=== PATIENT | female | born 1935 | race Caucasian/White ===

== ENCOUNTER → 2016-10-04 | Outpatient (CLI) | payer MEDICARE, OTHER ==
[~2016-10-04] MED LIST: ACET-2650 PO; ACET325T49 PO; ALEN70TA47 PO; ASPI-875 PO; CALC-694 PO; CALC-754 PO; CALC600T12 PO; CEFT1VIA58 INJ; CEPH500T PO; CIPR-225 PO; ESTR0.5T PO; HYDR-3812 PO; INSU100I10 SC; INSU100I10 SQ; INSU100I23 SC; INSU100I23 SQ; INSU100V SQ; INSU100V16 SC; INSU100V5 SQ; INSU1CAR SQ; INSU300I SQ; L.AC1CAP6 PO; LIDO10VI INJ; LOSA100T28 PO; LOSA1TAB70 PO; METR500T21 PO; NAPR220T66 PO; NFNEB10T PO; OLME1TAB19 PO; OMEG-59 PO; OMEP40CA36 PO; OMG1KC PO; ONDA4TAB8 PO; SIMV20TA3 PO; SULF1TAB35 PO
--- NOTE | 2016-10-04 14:41 | Diagnostic Imaging Report ---
PROCEDURE: MR imaging of the brain without contrast. TECHNIQUE: Multiplanar, multisequence MR imaging of the brain was performed without contrast. INDICATION: Dementia. Memory loss. FINDINGS: There is no diffusion restriction to suggest an acute infarct or other diffusion abnormality. There are periventricular and deep white matter T2 hyperintense signal abnormalities compatible with chronic microvascular ischemic changes. 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 There is no hydrocephalus. No extra-axial fluid collection is seen. The pituitary gland is normal in size. No hypothalamic or pineal region mass. The orbits appear symmetric. The paranasal sinuses appear grossly unremarkable. IMPRESSION: No acute infarct. Dictated by: Dictated on workstation # [id number]
== END ==
LOC: RAD 13:20
PROVIDERS: ATTEND Specialist
DX: F03.90 Unspecified dementia, unspecified severity, without behavioral disturbance, psychotic disturbance, mood disturbance, and anxiety (principal)
CPT/HCPCS: 70551

== ENCOUNTER → 2016-11-17 | Outpatient (CLI) | payer MEDICARE, OTHER ==
--- NOTE | 2016-11-18 20:26 | Diagnostic Imaging Report ---
Bilateral screening mammogram. The current study was also evaluated with a Computer Aided Detection (CAD) system. INDICATION: Screening. No current complaints stated on the questionnaire. COMPARISON: 12/05/15. FINDINGS: The breasts are composed of extremely dense parenchyma which would decrease mammographic sensitivity. There are scattered benign-appearing calcifications. There is no mass, architectural distortion or suspicious cluster of calcification. Allowing for technique and positional differences, no suspicious change is seen. IMPRESSION: Dense breasts with no definite change. ACR BI-RADS Category 2: Benign findings. Result letter will be mailed to the patient. Note: At least 10% of breast cancer is not imaged by mammography. Dictated by: Dictated on workstation # [id number]
== END ==
LOC: RAD 14:36
PROVIDERS: ATTEND Internal Medicine
DX: Z12.31 Encounter for screening mammogram for malignant neoplasm of breast (principal)
CPT/HCPCS: 77067

== ENCOUNTER → 2017-01-19 | Outpatient (CLI) | payer MEDICARE, OTHER ==
--- NOTE | 2017-01-19 12:31 | Diagnostic Imaging Report ---
EXAMINATION: Renal ultrasound. INDICATION: Chronic kidney disease. FINDINGS: The right kidney is 10.5 and the left kidney is 11.5 cm in length. There is no hydronephrosis or focal lesion. The urinary bladder demonstrates a lobulated 2 x 2.1 x 0.7 cm isoechoic lesion along the right side of the posterior wall of the urinary bladder. No definite internal color-flow is seen with Doppler assessment. The etiology is indeterminate. IMPRESSION: A 2-cm lesion along the right side aspect of the posterior wall of the urinary bladder could be related to debris, clot, or a mass. Followup exams and/or evaluation with cystoscopy is recommended. The report was called and faxed to the office of Dr. Johnson by john@ 12:26 PM. Dictated by: Dictated on workstation # [id number]
== END ==
LOC: RAD 11:02
PROVIDERS: ATTEND Internal Medicine Nephrology
DX: N18.2 Chronic kidney disease, stage 2 (mild) (principal); N32.9 Bladder disorder, unspecified
CPT/HCPCS: 76770

== ENCOUNTER → 2017-10-21 | Outpatient (CLI) | payer MEDICARE, OTHER ==
[~2017-10-21] MED LIST changes: +ACHD5005 PO; -HYDR-3812 PO; -LIDO10VI INJ; +LIDO10VI16 INJ; +LOSA1TAB23 PO; -LOSA1TAB70 PO
== END ==
LOC: CARD 12:58
PROVIDERS: ATTEND Physician Assistant
DX: I08.2 Rheumatic disorders of both aortic and tricuspid valves (principal); R07.89 Other chest pain; I10 Essential (primary) hypertension; E78.5 Hyperlipidemia, unspecified
CPT/HCPCS: 93306

== ENCOUNTER 2018-01-06 22:35 | Emergency (ER) | payer MEDICARE, OTHER ==
[~2018-01-06] VITALS: Ht 157.5 cm; Wt 50.8 kg
[2018-01-06] MEDS ORDERED: NS IV 1000 ML 1,000 ML IV ONE (23:13)
[2018-01-06] MEDS ORDERED: inSUlin (REGULAR) HUMAN 1 UNIT/0.01 ML (CHARGE PER UNIT) IV STA (23:13)
--- NOTE | 2018-01-06 23:22 | ED General ---
General Chief Complaint: Glucose Problems Stated Complaint: HIGH BLOOD SUGAR Source of Information: Patient, Family (BETH HALLMAN STUDENT) History of Present Illness Date Seen by Provider: Jan 06, 2018 Time Seen by Provider: 23:18 Initial Comments The patient is a 82-year-old female who presented to the emergency room tonight with complaints of elevated blood sugars throughout the day. She is a resident at [facility] in [facility] and is accompanied by her on this visit. She reports that she has had increased blood sugars throughout the day which is all been in the 400s, she states that the senior living nurse thought that she should come out emergency room to be evaluated for these elevated blood sugars. During triage her blood sugar was 411. She states that she is otherwise feeling well. Timing/Duration: 1 Day Severity: Mild Associated Systoms: Denies Symptoms (BETH HALLMAN STUDENT) Associated Systoms: No Nausea/Vomiting, No Shortness of Air, No Weakness ( KAYLEE PIRES MD) Allergies and Home Medications Allergies Coded Allergies: Penicillins (Verified Allergy, Unknown, 07/28/15) Tetracyclines (Verified Allergy, Unknown, 07/28/15) metronidazole (Verified Allergy, Unknown, 07/28/15) morphine (Verified Allergy, Unknown, 07/28/15) tetanus immune globulin (Unverified Allergy, Unknown, 02/26/15) Home Medications Acetaminophen 650 Mg Tablet.er, 650 MG PO Q6H PRN for PAIN/ELEVATED TEMP, ( Reported) Alendronate Sodium 70 Mg Tablet, 70 MG PO Th, (Reported) Aspirin 81 Mg Tablet.dr, 162 MG PO DAILY, (Reported) TAKES 2 (81MG) TABLETS Calcium Carbonate 600 Mg Tablet, 600 MG PO DAILY, (Reported) Insulin Glargine,Hum.rec.anlog 100 Unit/1 Ml Insuln.pen, 8 UNITS SC BID, ( Reported) Insulin Lispro 100 Unit/1 Ml Insuln.pen, 5 UNITS SC TIDWM, (Reported) Insulin Lispro 100 Unit/1 Ml Insuln.pen, SQ UD, (Reported) 150-200 = 1 UNIT 201-250 = 2 UNITS 251-300 = 3 UNITS 301-350 = 4 UNITS 351- 400 = 5 UNITS L.acidoph & Paracasei,B.lactis 1 Each Capsule, 1 CAP PO DAILY, (Reported) Lidocaine HCl/Pf 10 Mg/1 Ml Vial, INJ UD, (Reported) Losartan Potassium 100 Mg Tablet, 100 MG PO DAILY, (Reported) Naproxen Sodium 220 Mg Tablet, 220 MG PO BID PRN for PAIN, (Reported) Nebivolol HCl 10 Mg Tab, 10 MG PO DAILY, (Reported) [place] 3 Polyunsat Fatty Acids 1,000 Mg Cap, 2,000 MG PO DAILY, (Reported) TAKES 2 (1000MG) CAPSULES Omeprazole 40 Mg Capsule.dr, 40 MG PO DAILY, (Reported) Simvastatin 20 Mg Tablet, 20 MG PO DAILY, (Reported) Sulfamethoxazole/Trimethoprim 1 Each Tablet, 1 EACH PO BID Prescribed by: KAYLEE PIRES on 01/07/18 0047 Patient Home Medication List Home Medication List Reviewed: Yes (BETH HALLMAN) Home Medication List Reviewed: Yes (KAYLEE PIRES MD) Review of Systems Constitutional: see HPI EENTM: see HPI Respiratory: no symptoms reported Cardiovascular: no symptoms reported Gastrointestinal: no symptoms reported Genitourinary: no symptoms reported Musculoskeletal: no symptoms reported Skin: no symptoms reported Psychiatric/Neurological: No Symptoms Reported Hematologic/Lymphatic: No Symptoms Reported Immunological/Allergic: no symptoms reported (BETH HALLMAN) Respiratory: No cough, No short of breath Cardiovascular: No chest pain, No edema Genitourinary: No dysuria, No pain (KAYLEE PIRES MD) Past Knxlqij-Flchoz-Yqlotr Hx Past Med/Social Hx: Reviewed Nursing Past Med/Soc Hx (BETH HALLMAN) Patient Social History Alcohol Use: Denies Use Recreational Drug Use: No Smoking Status: Never a Smoker Recent Foreign Travel: No Contact w/Someone Who Travel: No Recent Hopitalizations: No Physical Abuse: No Sexual Abuse: No Mistreated: No Fear: No (BETH HALLMAN) Immunizations Up To Date Tetanus Booster (TDap): Unknown PED Vaccines UTD: No Date of Pneumonia Vaccine: Jul 28, 2013 Date of Influenza Vaccine: May 24, 2016 (BETH HALLMAN) Seasonal Allergies Seasonal Allergies: No (BETH HALLMAN) Past Medical History Surgeries: Yes Hysterectomy Respiratory: No Cardiac: Yes Coronary Artery Disease, High Cholesterol, Hypertension, Valvular Heart Disease Neurological: Yes Dementia Reproductive Disorders: No Bladder Infection Gastrointestinal: Yes Gastroesophageal Reflux, Gall Bladder Disease Musculoskeletal: Yes Osteoporosis, Chronic Back Pain Endocrine: Yes Diabetes, Insulin dep Cancer: No Psychosocial: No Nursing Suicide Risk Score: 0 Integumentary: No Blood Disorders: No Adverse Reaction/Blood Tranf: No (BETH HALLMAN STUDENT) Family Medical History Reviewed Nursing Family Hx (BETH HALLMAN STUDENT) Cardiovascular disease 19 MOTHER Dementia 19 MOTHER Glaucoma 19 FATHER Hypertension Respiratory disorder G8 BROTHER, Onset:40's - 50 Physical Exam Vital Signs Vital Signs - First Documented 01/06/18 23:11 Temp 97.1 Pulse 91 Resp 16 B/P (MAP) 144/65 (91) Pulse Ox 98 O2 Delivery Room Air (KAYLEE PIRES MD) Vital Signs Capillary Refill : (BETH HALLMAN STUDENT) General Appearance: No Apparent Distress, WD/WN Eyes: Bilateral Eye Normal Inspection, Bilateral Eye PERRL HEENT: PERRL/EOMI, TMs Normal, Normal ENT Inspection, Pharynx Normal Neck: Full Range of Motion, Normal Inspection, Non Tender, Supple Respiratory: Chest Non Tender, Lungs Clear, Normal Breath Sounds, No Accessory Muscle Use, No Respiratory Distress Cardiovascular: Regular Rate, Rhythm, No Edema, No Gallop, No JVD, No Murmur, Normal Peripheral Pulses Gastrointestinal: Normal Bowel Sounds, No Organomegaly, No Pulsatile Mass, Non Tender, Soft Rectal: Deferred Back: Normal Inspection, No CVA Tenderness, No Vertebral Tenderness Extremity: Normal Capillary Refill, Normal Inspection, Normal Range of Motion, Non Tender, No Calf Tenderness Neurologic/Psychiatric: Alert, Oriented x3, Normal Mood/Affect Skin: Normal Color, Warm/Dry Lymphatic: No Adenopathy (BETH HALLMAN STUDENT) Respiratory: Lungs Clear, Normal Breath Sounds Cardiovascular: Regular Rate, Rhythm, No Murmur Gastrointestinal: Non Tender, Soft Skin: Normal Color, Warm/Dry (KAYLEE PIRES MD) Progress/Results/Core Measures Suspected Sepsis SIRS Temperature: Pulse: Respiratory Rate: Blood Pressure / Mean: (BETH HALLMAN STUDENT) Results/Orders Lab Results Laboratory Tests Test 01/06/18 00:08 01/06/18 23:02 01/06/18 23:26 01/07/18 00:04 Range/Units Urine Color YELLOW Urine Clarity CLEAR Urine pH 5 5-9 Urine Specific [place] 1.010 L 1.016-1.022 Urine Protein NEGATIVE NEGATIVE Urine Glucose (UA) 4+ H NEGATIVE Urine Ketones NEGATIVE NEGATIVE Urine Nitrite NEGATIVE NEGATIVE Urine Bilirubin NEGATIVE NEGATIVE Urine Urobilinogen NORMAL NORMAL MG/DL Urine Leukocyte Esterase 2+ H NEGATIVE Urine RBC (Auto) 1+ H NEGATIVE Urine RBC NONE /HPF Urine WBC 10-25 H /HPF Urine Crystals NONE /LPF Urine Bacteria LARGE H /HPF Urine Casts NONE /LPF Urine Mucus NEGATIVE /LPF Urine Culture Indicated YES Glucometer 411 *H 323 H 70-110 MG/DL White Blood Count 6.9 4.3-11.0 10^3/uL Red Blood Count 3.98 L 4.35-5.85 10^6/uL Hemoglobin 11.8 11.5-16.0 G/DL Hematocrit 35 35-52 % Mean Corpuscular Volume 87 80-99 FL Mean Corpuscular Hemoglobin 30 25-34 PG Mean Corpuscular Hemoglobin Concent 34 32-36 G/DL Red Cell Distribution Width 12.5 10.0-14.5 % Platelet Count 153 130-400 10^3/uL Mean Platelet Volume 11.0 H 7.4-10.4 FL Neutrophils (%) (Auto) 72 42-75 % Lymphocytes (%) (Auto) 21 12-44 % Monocytes (%) (Auto) 6 0-12 % Eosinophils (%) (Auto) 2 0-10 % Basophils (%) (Auto) 0 0-10 % Neutrophils # (Auto) 4.9 1.8-7.8 X 10^3 Lymphocytes # (Auto) 1.4 1.0-4.0 X 10^3 Monocytes # (Auto) 0.4 0.0-1.0 X 10^3 Eosinophils # (Auto) 0.1 0.0-0.3 10^3/uL Basophils # (Auto) 0.0 0.0-0.1 10^3/uL Sodium Level 132 L 135-145 MMOL/L Potassium Level 4.8 3.6-5.0 MMOL/L Chloride Level 100 98-107 MMOL/L Carbon Dioxide Level 22 21-32 MMOL/L Anion Gap 10 5-14 MMOL/L Blood Urea Nitrogen 25 H 7-18 MG/DL Creatinine 1.21 0.60-1.30 MG/DL Estimat Glomerular Filtration Rate 42 BUN/Creatinine Ratio 21 Glucose Level 455 *H 70-105 MG/DL Calcium Level 10.0 8.5-10.1 MG/DL Total Bilirubin 0.4 0.1-1.0 MG/DL Aspartate Amino Transf (AST/SGOT) 21 5-34 U/L Alanine Aminotransferase (ALT/SGPT) 34 0-55 U/L Alkaline Phosphatase 131 40-136 U/L Total Protein 6.1 L 6.4-8.2 GM/DL Albumin 3.8 3.2-4.5 GM/DL Test 01/07/18 00:36 Range/Units Glucometer 232 H 70-110 MG/DL (KAYLEE PIRES MD) My Orders Orders - KAYLEE PIRES MD Cbc With Automated Diff (01/06/18 23:13) Comprehensive Metabolic Panel (01/06/18 23:13) Ua Culture If Indicated (01/06/18 23:13) Saline Lock/Iv-Start (01/06/18 23:13) Ns Iv 1000 Ml (Sodium Chloride 0.9%) (01/06/18 23:13) Insulin (Regular) Human (Humulin R (Per (01/06/18 23:13) Urine Culture (01/06/18 00:08) Ceftriaxone Injection (Rocephin Injectio (01/07/18 00:45) (KAYLEE PIRES MD) Medications Given in ED Current Medications Medications Dose Ordered Sig/Katie Route Start Time Stop Time Status Last Admin Dose Admin Sodium Chloride 1,000 ml @ 0 mls/hr Q0M ONCE IV 01/06/18 23:13 01/06/18 23:16 DC 01/06/18 23:29 1,000 MLS/HR (KAYLEE PIRES MD) Vital Signs/I&O 01/06/18 23:11 Temp 97.1 Pulse 91 Resp 16 B/P (MAP) 144/65 (91) Pulse Ox 98 O2 Delivery Room Air (KAYLEE PIRES MD) Vital Signs/I&O Capillary Refill : (BETH HALLMAN STUDENT) Point of Care Testing Finger Stick Blood Glucose: 411 Blood Glucose Action Taken: RN NOTIFIED (BETH HALLMAN STUDENT) Progress Note : Progress Note I have seen and evaluated the patient and agree with above except as indicated. I have directed the plan of care. Patient is here with elevated blood sugar. She typically has this in relation to urinary tract infections. Denies nausea , vomiting or fever. States she's been drinking okay. Blood sugar greater than 400 on arrival. We will give insulin 10 units IV as well as normal saline 1 L bolus. Labs and UA ordered. Monitor patient. 0045: Blood sugar 232. Rocephin 1 g IV ordered due to history of multidrug resistant organisms and we want to forestall any significant worsening given her diabetes status. We will continue outpatient therapy with Bactrim DS as she has had trouble to drug- resistant organisms in the past and this would cover all of them. All of this was discussed with patient and family who agree. Discharged home with return precautions. Patient verbalize understanding instructions and agreement with plan. (KAYLEE PIRES MD) Departure Impression Primary Impression: Urinary tract infection Qualified Codes: N30.00 - Acute cystitis without hematuria Additional Impression: Hyperglycemia Disposition: HOME, SELF-CARE Condition: Improved Departure-Patient Inst. Decision time for Depature: 00:44 (KAYLEE PIRES MD) Referrals: MARTHA HOLDEN MD (PCP/Family) Primary Care Physician Patient Instructions: Diabetes Type 1, Adult (DC), Urinary Tract Infection, Adult (DC) Add. Discharge Instructions: All discharge instructions reviewed with patient and/or family. Voiced understanding. Take medications as directed. Continue your sliding scale insulin. Drink plenty of fluids. Follow-up with your doctor this week for recheck and further evaluation. Return for worse pain, fever, vomiting, weakness, breathing problems or other concerns as needed. Scripts Sulfamethoxazole/Trimethoprim (Sulfamethoxazole-Tmp Ds Tablet) 1 Each Tablet 1 EACH PO BID, #10 TAB 0 Refills Prov: KAYLEE PIRES MD 01/07/18 Copy Copies To 1: DAVID PRESTON MD, TRAVIS STUDENT Jan 06, 2018 23:22 KAYLEE PIRES MD Jan 07, 2018 00:48
[2018-01-06 23:38] LABS: BASOPHILS % (AUTO) 0 % (0-10); EOSINOPHILS # (AUTO) 0.1 10^3/uL (0.0-0.3); EOSINOPHILS % (AUTO) 2 % (0-10); HEMATOCRIT 35 % (35-52); HEMOGLOBIN 11.8 G/DL (11.5-16.0); LYMPHOCYTES # (AUTO) 1.4 X 10^3 (1.0-4.0); LYMPHOCYTES % (AUTO) 21 % (12-44); MEAN CORPUSCULAR HEMOGLOBIN 30 PG (25-34); MEAN CORPUSCULAR HGB CONC 34 G/DL (32-36); MEAN CORPUSCULAR VOLUME 87 FL (80-99); MONOCYTES # (AUTO) 0.4 X 10^3 (0.0-1.0); MONOCYTES % (AUTO) 6 % (0-12); NEUTROPHILS # (AUTO) 4.9 X 10^3 (1.8-7.8); NEUTROPHILS % (AUTO) 72 % (42-75); PLATELET COUNT 153 10^3/uL (130-400); RED BLOOD COUNT 3.98 10^6/uL (4.35-5.85); RED CELL DISTRIBUTION WIDTH 12.5 % (10.0-14.5); WHITE BLOOD COUNT 6.9 10^3/uL (4.3-11.0)
[2018-01-07 00:05] LABS: ALBUMIN 3.8 GM/DL (3.2-4.5); BILIRUBIN,TOTAL 0.4 MG/DL (0.1-1.0); CREATININE SERUM 1.21 MG/DL (0.60-1.30); POTASSIUM 4.8 MMOL/L (3.6-5.0); TOTAL PROTEIN 6.1 GM/DL (6.4-8.2)
[2018-01-07 00:15] LABS: BILIRUBIN,URINE NEGATIVE (NEGATIVE); CLARITY,URINE CLEAR; COLOR,URINE YELLOW; GLUCOSE, URINE (UA) 4+ (NEGATIVE); KETONES,URINE NEGATIVE (NEGATIVE); LEUKOCYTE ESTERASE ,URINE 2+ (NEGATIVE); NITRITE,URINE NEGATIVE (NEGATIVE); PH,URINE 5 (5-9); PROTEIN,URINE NEGATIVE (NEGATIVE); UROBILINOGEN,URINE NORMAL (NORMAL)
[2018-01-07 00:25] LABS: BACTERIA,URINE LARGE /HPF
[2018-01-07] MEDS ORDERED: cefTRIAXone INJECTION 1,000 MG in NS (IVPB) 50 ML IV ONE (00:45)
[2018-01-07] MEDS ORDERED: SULF-222 PO (00:47)
[2018-01-07 01:20] VITALS: BP 142/52
== END 2018-01-07 01:20 | disposition home or self-care (01) ==
LOC: EDUNIT# 22:35 → ER 22:37
DX: N39.0 Urinary tract infection, site not specified (principal); E11.65 Type 2 diabetes mellitus with hyperglycemia; I25.10 Atherosclerotic heart disease of native coronary artery without angina pectoris; E78.00 Pure hypercholesterolemia, unspecified; I10 Essential (primary) hypertension; I73.9 Peripheral vascular disease, unspecified; F03.90 Unspecified dementia, unspecified severity, without behavioral disturbance, psychotic disturbance, mood disturbance, and anxiety; K21.9 Gastro-esophageal reflux disease without esophagitis; M81.0 Age-related osteoporosis without current pathological fracture; Z87.448 Personal history of other diseases of urinary system; Z88.0 Allergy status to penicillin; Z88.1 Allergy status to other antibiotic agents; Z88.5 Allergy status to narcotic agent; Z82.49 Family history of ischemic heart disease and other diseases of the circulatory system; Z88.8 Allergy status to other drugs, medicaments and biological substances; Z79.82 Long term (current) use of aspirin; Z79.4 Long term (current) use of insulin; Z90.710 Acquired absence of both cervix and uterus
CPT/HCPCS: 36415; 80053; 81000; 82962; 85025; 87088; 87186; 96361; 96365; 96375

== ENCOUNTER 2018-01-12 22:23 | Inpatient (IN) | payer MEDICARE, OTHER ==
[~2018-01-12] VITALS: Ht 157.5 cm; Wt 51.0 kg
[~2018-01-12 22:23] MED LIST changes: +SULF-222 PO
[2018-01-12] MEDS ORDERED: NS IV 1000 ML 1,000 ML IV ONE ×2 (22:30→23:24)
--- NOTE | 2018-01-12 22:47 | ED General ---
General Chief Complaint: Glucose Problems Stated Complaint: HIGH BS Nursing Triage Note: patient reports having hyperglycemia Nursing Sepsis Screen: No Definite Risk Source of Information: Patient, Old Records, Spouse Exam Limitations: Other (PT HAS LIMITED MEMORY) History of Present Illness Date Seen by Provider: Jan 12, 2018 Time Seen by Provider: 22:30 Initial Comments PT ARRIVES VIA POV FROM [facility] PT STATES HER BLOOD GLUCOSE HAS BEEN >200 ALL DAY AND WAS 446 AND [phone] TONIGHT PT TAKES LANTUS AT HS, BUT THEY DID NOT GIVE IT TO HER TONIGHT PT IS ON HUMALOG 5 UNITS QID AC AND HS, AND ALSO IS ON SLIDING SCALE IN ADDITION TO REGULAR SCHEDULED DOSES. PT DID NOT RECEIVE EVENING DOSE OF HUMALOG AND DID NOT RECEIVE ANY ADDITIONAL DOSES PER HER SLIDING SCALE--JUST SENT HER HERE INSTEAD PT IS COMPLETELY ASYMPTOMATIC PT HAS BEEN DIABETIC FOR 50 YEARS, WAS ON INSULIN PUMP FOR 15 YEARS, BUT IT WAS DC'D A COUPLE OF YEARS AGO, BECAUSE, ACCORDING TO PT, "ONE TIME SHE FORGOT THAT SHE HAD GIVEN HERSELF A DOSE AND GAVE HERSELF ANOTHER DOSE AND BLOOD SUGAR DROPPED TO 14". BLOOD GLUCOSE READINGS TODAY: [phone] LAST DOSE OF INSULIN WAS HUMALOG 5 UNITS AT 1630 PT STATES THAT STAFF FILLS THE SYRINGE OF INSULIN FOR HER AND THEN GIVE IT TO THE PT TO GIVE HERSELF THE SHOT. PT STATES SHE HAS NEVER HAD DKA, BUT PT HAS BEEN ADMITTED HERE MORE THAN ONCE FOR DKA/ELEVATED BLOOD GLUCOSE WELL HAS HYPOGLYCEMIA. --PT DOES NOT RECALL THESE HOSPITALIZATIONS PT WAS HERE IN ER 01/06/18 FOR EXACT SAME PROBLEM. WAS FOUND TO HAVE UTI INCIDENTALLY. PT IS ASYMPTOMATIC FROM THAT PCP: DR. PRESTON ( USED TO SEE DR. HOLDEN, NOW SEES DR. PRESTON) Allergies and Home Medications Allergies Coded Allergies: Penicillins (Verified Allergy, Unknown, 07/28/15) Tetracyclines (Verified Allergy, Unknown, 07/28/15) metronidazole (Verified Allergy, Unknown, 07/28/15) morphine (Verified Allergy, Unknown, 07/28/15) tetanus immune globulin (Unverified Allergy, Unknown, 02/26/15) Home Medications Acetaminophen 650 Mg Tablet.er, 650 MG PO Q6H PRN for PAIN/ELEVATED TEMP, ( Reported) Alendronate Sodium 70 Mg Tablet, 70 MG PO Th, (Reported) Aspirin 81 Mg Tablet.dr, 162 MG PO DAILY, (Reported) TAKES 2 (81MG) TABLETS Calcium Carbonate 600 Mg Tablet, 600 MG PO DAILY, (Reported) Insulin Glargine,Hum.rec.anlog 100 Unit/1 Ml Insuln.pen, 8 UNITS SC BID, ( Reported) Insulin Lispro 100 Unit/1 Ml Insuln.pen, 5 UNITS SC TIDWM, (Reported) Insulin Lispro 100 Unit/1 Ml Insuln.pen, SQ UD, (Reported) 150-200 = 1 UNIT 201-250 = 2 UNITS 251-300 = 3 UNITS 301-350 = 4 UNITS 351- 400 = 5 UNITS L.acidoph & Paracasei,B.lactis 1 Each Capsule, 1 CAP PO DAILY, (Reported) Lidocaine HCl/Pf 10 Mg/1 Ml Vial, INJ UD, (Reported) Losartan Potassium 100 Mg Tablet, 100 MG PO DAILY, (Reported) Naproxen Sodium 220 Mg Tablet, 220 MG PO BID PRN for PAIN, (Reported) Nebivolol HCl 10 Mg Tab, 10 MG PO DAILY, (Reported) [place] 3 Polyunsat Fatty Acids 1,000 Mg Cap, 2,000 MG PO DAILY, (Reported) TAKES 2 (1000MG) CAPSULES Omeprazole 40 Mg Capsule.dr, 40 MG PO DAILY, (Reported) Simvastatin 20 Mg Tablet, 20 MG PO DAILY, (Reported) Sulfamethoxazole/Trimethoprim 1 Each Tablet, 1 EACH PO BID Prescribed by: KAYLEE PIRES on 01/07/18 0047 Patient Home Medication List Home Medication List Reviewed: Yes Review of Systems Constitutional: no symptoms reported Respiratory: no symptoms reported Cardiovascular: no symptoms reported Gastrointestinal: no symptoms reported Genitourinary: no symptoms reported Musculoskeletal: no symptoms reported Skin: no symptoms reported Psychiatric/Neurological: No Symptoms Reported Hematologic/Lymphatic: No Symptoms Reported Immunological/Allergic: no symptoms reported Past Koxeatv-Pcbnsb-Humvrz Hx Patient Social History Alcohol Use: Denies Use Recreational Drug Use: No Smoking Status: Never a Smoker Recent Foreign Travel: No Contact w/Someone Who Travel: No Recent Infectious Disease Expo: No Recent Hopitalizations: No Immunizations Up To Date Tetanus Booster (TDap): Unknown PED Vaccines UTD: No Date of Pneumonia Vaccine: Jul 28, 2013 Date of Influenza Vaccine: May 24, 2016 Seasonal Allergies Seasonal Allergies: No Past Medical History Surgeries: Yes Gallbladder, Hysterectomy Respiratory: Yes (CYSTIC FIBROSIS) Cardiac: Yes Coronary Artery Disease, High Cholesterol, Hypertension, Valvular Heart Disease Neurological: Yes Dementia Reproductive Disorders: No FLUX MIXER History: Menopausal Genitourinary: Yes Bladder Infection Gastrointestinal: Yes (S/P CHOLECYSTECTOMY) Gastroesophageal Reflux, C-Diff, Gall Bladder Disease Musculoskeletal: Yes Osteoporosis, Chronic Back Pain Endocrine: Yes Diabetes, Insulin dep HEENT: No Cancer: No Psychosocial: No Integumentary: No Blood Disorders: No Adverse Reaction/Blood Tranf: No Family Medical History Cardiovascular disease 19 MOTHER Dementia 19 MOTHER Glaucoma 19 FATHER Hypertension Respiratory disorder G8 BROTHER, Onset:40's - 50 Physical Exam Vital Signs Vital Signs - First Documented 01/12/18 01/13/18 22:32 01:10 Temp 98.2 Pulse 73 Resp 18 B/P (MAP) 136/50 (78) Pulse Ox 99 O2 Delivery Room Air Capillary Refill : Less Than 3 Seconds General Appearance: No Apparent Distress, Thin, Other (PT SMILING, TALKATIVE, AMBULATES IN ON HER OWN WITHOUT DIFFICULTY. DOES NOT APPEAR TO BE IN ANY DISCOMFORT OR DISTRESS) HEENT: PERRL/EOMI, Other (ORAL MUCOSA MOIST) Neck: Normal Inspection Respiratory: Normal Breath Sounds, No Accessory Muscle Use, No Respiratory Distress Cardiovascular: Regular Rate, Rhythm, No Edema, No JVD, No Murmur, Normal Peripheral Pulses Gastrointestinal: Non Tender, Soft Back: No CVA Tenderness Extremity: Normal Capillary Refill, Normal Inspection, Normal Range of Motion, Non Tender, No Calf Tenderness, No Pedal Edema Neurologic/Psychiatric: Alert, Oriented x3 (BUT POOR MEMORY), No Motor/Sensory Deficits, Normal Mood/Affect, test baker II-XII Norm as Tested Skin: Normal Color, Warm/Dry Progress/Results/Core Measures Suspected Sepsis Recent Fever Within 48 Hours: No Infection Criteria Present: None New/Unexplained Altered Menta: No Sepsis Screen: No Definite Risk SIRS Temperature:98.2 Pulse: 73 Respiratory Rate: 18 Laboratory Tests 01/12/18 22:40: White Blood Count 6.2 01/13/18 05:05: White Blood Count 8.0 Blood Pressure 136 /50 Mean: 78 Laboratory Tests 01/12/18 22:40: Creatinine 1.50H, Platelet Count 147, Total Bilirubin 0.5 01/13/18 02:55: Creatinine 1.11 01/13/18 05:05: Creatinine 1.04, Platelet Count 125L Results/Orders Lab Results Laboratory Tests Test 01/12/18 22:40 01/12/18 22:54 01/12/18 23:35 01/13/18 00:19 Range/Units White Blood Count 6.2 4.3-11.0 10^3/uL Red Blood Count 4.01 L 4.35-5.85 10^6/uL Hemoglobin 11.9 11.5-16.0 G/DL Hematocrit 34 L 35-52 % Mean Corpuscular Volume 86 80-99 FL Mean Corpuscular Hemoglobin 30 25-34 PG Mean Corpuscular Hemoglobin Concent 35 32-36 G/DL Red Cell Distribution Width 12.7 10.0-14.5 % Platelet Count 147 130-400 10^3/uL Mean Platelet Volume 11.2 H 7.4-10.4 FL Neutrophils (%) (Auto) 72 42-75 % Lymphocytes (%) (Auto) 20 12-44 % Monocytes (%) (Auto) 6 0-12 % Eosinophils (%) (Auto) 1 0-10 % Basophils (%) (Auto) 0 0-10 % Neutrophils # (Auto) 4.5 1.8-7.8 X 10^3 Lymphocytes # (Auto) 1.2 1.0-4.0 X 10^3 Monocytes # (Auto) 0.4 0.0-1.0 X 10^3 Eosinophils # (Auto) 0.1 0.0-0.3 10^3/uL Basophils # (Auto) 0.0 0.0-0.1 10^3/uL Sodium Level 125 *L 135-145 MMOL/L Potassium Level 5.9 H 3.6-5.0 MMOL/L Chloride Level 97 L 98-107 MMOL/L Carbon Dioxide Level 14 L 21-32 MMOL/L Anion Gap 14 5-14 MMOL/L Blood Urea Nitrogen 26 H 7-18 MG/DL Creatinine 1.50 H 0.60-1.30 MG/DL Estimat Glomerular Filtration Rate 33 BUN/Creatinine Ratio 17 Glucose Level 541 *H 70-105 MG/DL Calcium Level 10.2 H 8.5-10.1 MG/DL Total Bilirubin 0.5 0.1-1.0 MG/DL Aspartate Amino Transf (AST/SGOT) 25 5-34 U/L Alanine Aminotransferase (ALT/SGPT) 29 0-55 U/L Alkaline Phosphatase 113 40-136 U/L Total Protein 6.5 6.4-8.2 GM/DL Albumin 3.9 3.2-4.5 GM/DL Amylase Level 48 25-125 U/L Lipase 11 8-78 U/L Glucometer 441 *H 70-110 MG/DL Blood Gas Puncture Site R RAD Blood Gas Patient Temperature 98.2 Arterial Blood pH 7.32 *L 7.37-7.43 Arterial Blood Partial Pressure CO2 37 35-45 MMHG Arterial Blood Partial Pressure O2 88 79-93 MMHG Arterial Blood HCO3 19 L 23-27 MMOL/L Arterial Blood Total CO2 19.7 L 21.0-31.0 MMOL/L Arterial Blood Oxygen Saturation 96 94-100 % Arterial Blood Base Excess -6.4 L -2.5-2.5 MMOL/L Kyle Test YES-POS Blood Gas Ventilator Setting NO Blood Gas Inspired Oxygen RA Urine Color YELLOW Urine Clarity CLEAR Urine pH 6 5-9 Urine Specific [place] 1.010 L 1.016-1.022 Urine Protein 1+ H NEGATIVE Urine Glucose (UA) 4+ H NEGATIVE Urine Ketones 2+ H NEGATIVE Urine Nitrite NEGATIVE NEGATIVE Urine Bilirubin NEGATIVE NEGATIVE Urine Urobilinogen NORMAL NORMAL MG/DL Urine Leukocyte Esterase NEGATIVE NEGATIVE Urine RBC (Auto) NEGATIVE NEGATIVE Urine RBC NONE /HPF Urine WBC RARE /HPF Urine Squamous Epithelial Cells RARE /HPF Urine Crystals NONE /LPF Urine Bacteria NEGATIVE /HPF Urine Casts NONE /LPF Urine Mucus NEGATIVE /LPF Urine Culture Indicated NO Test 01/13/18 00:33 01/13/18 02:04 01/13/18 02:55 01/13/18 03:57 Range/Units Glucometer 334 H 188 H 203 H 70-110 MG/DL Sodium Level 133 L 135-145 MMOL/L Potassium Level 4.1 3.6-5.0 MMOL/L Chloride Level 106 98-107 MMOL/L Carbon Dioxide Level 17 L 21-32 MMOL/L Anion Gap 10 5-14 MMOL/L Blood Urea Nitrogen 25 H 7-18 MG/DL Creatinine 1.11 0.60-1.30 MG/DL Estimat Glomerular Filtration Rate 47 BUN/Creatinine Ratio 23 Glucose Level 180 H 70-105 MG/DL Calcium Level 9.5 8.5-10.1 MG/DL Test 01/13/18 05:05 Range/Units White Blood Count 8.0 4.3-11.0 10^3/uL Red Blood Count 3.63 L 4.35-5.85 10^6/uL Hemoglobin 11.0 L 11.5-16.0 G/DL Hematocrit 32 L 35-52 % Mean Corpuscular Volume 87 80-99 FL Mean Corpuscular Hemoglobin 30 25-34 PG Mean Corpuscular Hemoglobin Concent 35 32-36 G/DL Red Cell Distribution Width 12.5 10.0-14.5 % Platelet Count 125 L 130-400 10^3/uL Mean Platelet Volume 11.8 H 7.4-10.4 FL Neutrophils (%) (Auto) 82 H 42-75 % Lymphocytes (%) (Auto) 12 12-44 % Monocytes (%) (Auto) 6 0-12 % Eosinophils (%) (Auto) 0 0-10 % Basophils (%) (Auto) 0 0-10 % Neutrophils # (Auto) 6.6 1.8-7.8 X 10^3 Lymphocytes # (Auto) 1.0 1.0-4.0 X 10^3 Monocytes # (Auto) 0.5 0.0-1.0 X 10^3 Eosinophils # (Auto) 0.0 0.0-0.3 10^3/uL Basophils # (Auto) 0.0 0.0-0.1 10^3/uL Sodium Level 132 L 135-145 MMOL/L Potassium Level 4.5 3.6-5.0 MMOL/L Chloride Level 106 98-107 MMOL/L Carbon Dioxide Level 15 L 21-32 MMOL/L Anion Gap 11 5-14 MMOL/L Blood Urea Nitrogen 25 H 7-18 MG/DL Creatinine 1.04 0.60-1.30 MG/DL Estimat Glomerular Filtration Rate 51 BUN/Creatinine Ratio 24 Glucose Level 281 H 70-105 MG/DL Calcium Level 9.2 8.5-10.1 MG/DL My Orders Orders - QI CUTLER K DO Accucheck Stat ONCE (01/12/18 22:30) Saline Lock/Iv-Start (01/12/18 22:30) Amylase (01/12/18 22:30) Cbc With Automated Diff (01/12/18 22:30) Comprehensive Metabolic Panel (01/12/18 22:30) Lipase (01/12/18 22:30) Ua Culture If Indicated (01/12/18 22:30) Saline Lock/Iv-Start (01/12/18 22:30) Ns Iv 1000 Ml (Sodium Chloride 0.9%) (01/12/18 22:30) Arterial Blood Gas (01/12/18 23:19) Insulin (Regular) Human (Humulin R (Per (01/12/18 23:30) Saline Lock/Iv-Start (01/12/18 23:24) Ns Iv 1000 Ml (Sodium Chloride 0.9%) (01/12/18 23:24) Arterial Blood Draw (01/12/18 23:20) Medications Given in ED Current Medications Medications Dose Ordered Sig/Katie Route Start Time Stop Time Status Last Admin Dose Admin Insulin Human Regular 20 unit ONCE ONCE IV 01/12/18 23:30 01/12/18 23:31 DC 01/12/18 23:42 20 UNIT Sodium Chloride 1,000 ml @ 0 mls/hr Q0M ONCE IV 01/12/18 22:30 01/12/18 22:32 DC 01/12/18 22:44 0 MLS/HR Sodium Chloride 1,000 ml @ 0 mls/hr Q0M ONCE IV 01/12/18 23:24 01/12/18 23:26 DC 01/12/18 23:42 0 MLS/HR Vital Signs/I&O 01/12/18 01/13/18 01/13/18 01/13/18 22:32 00:50 01:10 02:27 Temp 98.2 98.2 97.8 97.9 Pulse 73 70 62 66 Resp 18 18 17 16 B/P (MAP) 136/50 (78) 126/46 103/49 (67) 128/60 (82) Pulse Ox 99 98 98 98 O2 Delivery Room Air Room Air 01/13/18 01/13/18 03:46 04:03 Temp 97.6 Pulse 72 74 Resp 17 B/P (MAP) 119/56 (77) Pulse Ox 99 O2 Delivery Room Air 01/13/18 00:00 Intake Total 1000 ml Balance 1000 ml Capillary Refill : Less Than 3 Seconds Blood Pressure Mean: 78 Progress Note : Progress Note UNEVENTFUL ER STAY FINGERSTICK BLOOD GLUCOSE 334 AT TIME OF ADMIT. Departure Communication (Admissions) [id number]--SPOKE WITH DR. BOLTON, ACCEPTS PT FOR ADMIT Impression Primary Impression: DKA (diabetic ketoacidoses) Additional Impressions: Electrolyte imbalance Dehydration Disposition: ADMITTED INPATIENT Condition: Improved Admissions Decision to Admit Reason: Admit from ER (General) Decision to Admit/Date: Jan 13, 2018 Time/Decision to Admit Time: 00:01 Departure-Patient Inst. Referrals: MARTHA HOLDEN MD (PCP/Family) Primary Care Physician QI CUTLER DO Jan 12, 2018 22:47
[2018-01-12 22:49] LABS: BASOPHILS % (AUTO) 0 % (0-10); EOSINOPHILS # (AUTO) 0.1 10^3/uL (0.0-0.3); EOSINOPHILS % (AUTO) 1 % (0-10); HEMATOCRIT 34 % (35-52); HEMOGLOBIN 11.9 G/DL (11.5-16.0); LYMPHOCYTES # (AUTO) 1.2 X 10^3 (1.0-4.0); LYMPHOCYTES % (AUTO) 20 % (12-44); MEAN CORPUSCULAR HEMOGLOBIN 30 PG (25-34); MEAN CORPUSCULAR HGB CONC 35 G/DL (32-36); MEAN CORPUSCULAR VOLUME 86 FL (80-99); MEAN PLATELET VOLUME 11.2 FL (7.4-10.4); MONOCYTES # (AUTO) 0.4 X 10^3 (0.0-1.0); MONOCYTES % (AUTO) 6 % (0-12); NEUTROPHILS # (AUTO) 4.5 X 10^3 (1.8-7.8); NEUTROPHILS % (AUTO) 72 % (42-75); PLATELET COUNT 147 10^3/uL (130-400); RED BLOOD COUNT 4.01 10^6/uL (4.35-5.85); RED CELL DISTRIBUTION WIDTH 12.7 % (10.0-14.5); WHITE BLOOD COUNT 6.2 10^3/uL (4.3-11.0)
[2018-01-12 23:10] LABS: ALBUMIN 3.9 GM/DL (3.2-4.5); BILIRUBIN,TOTAL 0.5 MG/DL (0.1-1.0); CALCIUM 10.2 MG/DL (8.5-10.1); CREATININE SERUM 1.5 MG/DL (0.60-1.30); POTASSIUM 5.9 MMOL/L (3.6-5.0); TOTAL PROTEIN 6.5 GM/DL (6.4-8.2)
[2018-01-12] MEDS ORDERED: inSUlin (REGULAR) HUMAN 1 UNIT/0.01 ML (CHARGE PER UNIT) IV ONE (23:30)
[2018-01-12 23:45] LABS: ABG BASE EXCESS -6.4 MMOL/L (-2.5-2.5); ABG OXYGEN SATURATION 96 % (94-100); ABG PCO2 37 MMHG (35-45); ABG PO2 88 MMHG (79-93); ABG TCO2 19.7 MMOL/L (21.0-31.0)
[2018-01-12 23:46] LABS: ALLENS TEST YES-POS
[2018-01-12 23:47] LABS: ABG PH 7.32 (7.37-7.43); INSPIRED O2 RA; PATIENT TEMP 98.2; VENTILATOR NO
[2018-01-13] VITALS (11 sets, daily range): BP systolic 103–145; BP diastolic 49–81
[2018-01-13 00:27] LABS: BILIRUBIN,URINE NEGATIVE (NEGATIVE); CLARITY,URINE CLEAR; COLOR,URINE YELLOW; GLUCOSE, URINE (UA) 4+ (NEGATIVE); KETONES,URINE 2+ (NEGATIVE); LEUKOCYTE ESTERASE ,URINE NEGATIVE (NEGATIVE); NITRITE,URINE NEGATIVE (NEGATIVE); PH,URINE 6 (5-9); PROTEIN,URINE 1+ (NEGATIVE); UROBILINOGEN,URINE NORMAL (NORMAL)
[2018-01-13 00:33] LABS: BACTERIA,URINE NEGATIVE /HPF; SQUAMOUS EPITHELIAL CELL,UR RARE /HPF; WBC,URINE RARE /HPF
[2018-01-13 03:28] LABS: CALCIUM 9.5 MG/DL (8.5-10.1); CREATININE SERUM 1.11 MG/DL (0.60-1.30); POTASSIUM 4.1 MMOL/L (3.6-5.0)
[2018-01-13] MEDS ORDERED: IBUPROFEN 600 MG (MOTRIN) TAB PO SCH (03:30)
[2018-01-13] MEDS ORDERED: ACETAMINOPHEN 500 MG TAB (TYLENOL) PO PRN (03:30)
[2018-01-13] MEDS: NS IV 1000 ML 1,000 ML IV SCH ×3 (03:40→16:41)
[2018-01-13] MEDS: inSUlin ASPART (NovoLOG) 1 UNIT/0.01 ML (CHARGE PER UNIT) SC SCH ×22 (04:54→23:45)
[2018-01-13] MEDS ORDERED: IBUPROFEN 600 MG (MOTRIN) TAB PO PRN (05:00)
[2018-01-13 05:46] LABS: BASOPHILS % (AUTO) 0 % (0-10); EOSINOPHILS % (AUTO) 0 % (0-10); HEMATOCRIT 32 % (35-52); LYMPHOCYTES % (AUTO) 12 % (12-44); MEAN CORPUSCULAR HEMOGLOBIN 30 PG (25-34); MEAN CORPUSCULAR HGB CONC 35 G/DL (32-36); MEAN CORPUSCULAR VOLUME 87 FL (80-99); MEAN PLATELET VOLUME 11.8 FL (7.4-10.4); MONOCYTES # (AUTO) 0.5 X 10^3 (0.0-1.0); MONOCYTES % (AUTO) 6 % (0-12); NEUTROPHILS # (AUTO) 6.6 X 10^3 (1.8-7.8); NEUTROPHILS % (AUTO) 82 % (42-75); PLATELET COUNT 125 10^3/uL (130-400); RED BLOOD COUNT 3.63 10^6/uL (4.35-5.85); RED CELL DISTRIBUTION WIDTH 12.5 % (10.0-14.5)
[2018-01-13 06:05] LABS: CALCIUM 9.2 MG/DL (8.5-10.1); CREATININE SERUM 1.04 MG/DL (0.60-1.30); POTASSIUM 4.5 MMOL/L (3.6-5.0)
[2018-01-13] MEDS ORDERED: MIRA50TA PO (09:15)
[2018-01-13] MEDS ORDERED: DONE10TA41 PO (09:15)
[2018-01-13] MEDS ORDERED: CARV6.252 PO (09:15)
[2018-01-13] MEDS ORDERED: LOPE-145 PO (09:15)
[2018-01-13] MEDS ORDERED: MELA3TAB PO (09:15)
[2018-01-13] MEDS ORDERED: ASPI-983 PO (09:15)
[2018-01-13] MEDS ORDERED: MEMA10TA22 PO (09:15)
[2018-01-13] MEDS ORDERED: CODE118S2 PO (09:15)
[2018-01-13] MEDS ORDERED: AMLO2.5T PO (09:15)
[2018-01-13 10:28] LABS: BUN/CREATININE RATIO 26; CALCIUM 9.4 MG/DL (8.5-10.1); CARBON DIOXIDE 19 MMOL/L (21-32); CHLORIDE 109 MMOL/L (98-107); CREATININE SERUM 0.84 MG/DL (0.60-1.30); GFR ESTIMATED > 60; GLUCOSE 95 MG/DL (70-105); POTASSIUM 4.5 MMOL/L (3.6-5.0); SODIUM 134 MMOL/L (135-145)
--- NOTE | 2018-01-13 13:06 | History & Physicial (CHS) ---
HPI History of Present Illness: Date seen by provider: Jan 13, 2018 Time Seen by Provider: 11:30 Attending Physician Claudette Echevarria MD PCP William Preston MD Consult Date of Admission Jan 13, 2018 at 00:01 Home Medications Home Medications Reviewed patient Home Medication Reconciliation performed by pharmacy medication reconciliations fuel conversion technician and/or nursing. Patients Allergies have been reviewed. Allergies Coded Allergies: Penicillins (Verified Allergy, Unknown, 07/28/15) Tetracyclines (Verified Allergy, Unknown, 07/28/15) metronidazole (Verified Allergy, Unknown, 07/28/15) morphine (Verified Allergy, Unknown, 07/28/15) tetanus immune globulin (Unverified Allergy, Unknown, 02/26/15) BUU-Sukszw-Xmbqsb Hx Patient Social History Living Status: Assisted living facility with Alcohol Use: Denies Use Recreational Drug Use: No Smoking Status: Never a Smoker Recent Foreign Travel: No Contact w/other who traveled: No Recent Hopitalizations: No Recent Infectious Disease Expo: No Physical Abuse Screen: No Sexual Abuse: No Immunizations Up To Date Tetanus Booster (TDap): Unknown Date of Pneumonia Vaccine: Jul 28, 2013 Date of Influenza Vaccine: May 24, 2016 Past Medical History IDDM HTN HLD Family Medical History Family History: Cardiovascular disease 19 MOTHER Dementia 19 MOTHER Glaucoma 19 FATHER Hypertension Respiratory disorder G8 BROTHER, Onset:40's - 50 Review of Systems (CHC) Constitutional: No chills, No fever; malaise EENTM: no symptoms reported; No ear pain, No mouth pain, No nose congestion Respiratory: no symptoms reported; No cough, No dyspnea on exertion, No orthopnea, No short of breath Cardiovascular: no symptoms reported; No chest pain, No edema, No palpitations Gastrointestinal: abdominal pain, loss of appetite, nausea; No vomiting Genitourinary: no symptoms reported; No dysuria, No frequency, No hematuria : No Musculoskeletal: No back pain, No joint pain, No muscle pain Skin: No lesions, No rash Psychiatric/Neurological: Denies Headache, Denies Weakness Reviewed Test Results Reviewed Test Results Lab Laboratory Tests Test 01/12/18 22:40 01/12/18 22:54 01/12/18 23:35 01/13/18 00:19 Range/Units White Blood Count 6.2 4.3-11.0 10^3/uL Red Blood Count 4.01 L 4.35-5.85 10^6/uL Hemoglobin 11.9 11.5-16.0 G/DL Hematocrit 34 L 35-52 % Mean Corpuscular Volume 86 80-99 FL Mean Corpuscular Hemoglobin 30 25-34 PG Mean Corpuscular Hemoglobin Concent 35 32-36 G/DL Red Cell Distribution Width 12.7 10.0-14.5 % Platelet Count 147 130-400 10^3/uL Mean Platelet Volume 11.2 H 7.4-10.4 FL Neutrophils (%) (Auto) 72 42-75 % Lymphocytes (%) (Auto) 20 12-44 % Monocytes (%) (Auto) 6 0-12 % Eosinophils (%) (Auto) 1 0-10 % Basophils (%) (Auto) 0 0-10 % Neutrophils # (Auto) 4.5 1.8-7.8 X 10^3 Lymphocytes # (Auto) 1.2 1.0-4.0 X 10^3 Monocytes # (Auto) 0.4 0.0-1.0 X 10^3 Eosinophils # (Auto) 0.1 0.0-0.3 10^3/uL Basophils # (Auto) 0.0 0.0-0.1 10^3/uL Sodium Level 125 *L 135-145 MMOL/L Potassium Level 5.9 H 3.6-5.0 MMOL/L Chloride Level 97 L 98-107 MMOL/L Carbon Dioxide Level 14 L 21-32 MMOL/L Anion Gap 14 5-14 MMOL/L Blood Urea Nitrogen 26 H 7-18 MG/DL Creatinine 1.50 H 0.60-1.30 MG/DL Estimat Glomerular Filtration Rate 33 BUN/Creatinine Ratio 17 Glucose Level 541 *H 70-105 MG/DL Calcium Level 10.2 H 8.5-10.1 MG/DL Total Bilirubin 0.5 0.1-1.0 MG/DL Aspartate Amino Transf (AST/SGOT) 25 5-34 U/L Alanine Aminotransferase (ALT/SGPT) 29 0-55 U/L Alkaline Phosphatase 113 40-136 U/L Total Protein 6.5 6.4-8.2 GM/DL Albumin 3.9 3.2-4.5 GM/DL Amylase Level 48 25-125 U/L Lipase 11 8-78 U/L Glucometer 441 *H 70-110 MG/DL Blood Gas Puncture Site R RAD Blood Gas Patient Temperature 98.2 Arterial Blood pH 7.32 *L 7.37-7.43 Arterial Blood Partial Pressure CO2 37 35-45 MMHG Arterial Blood Partial Pressure O2 88 79-93 MMHG Arterial Blood HCO3 19 L 23-27 MMOL/L Arterial Blood Total CO2 19.7 L 21.0-31.0 MMOL/L Arterial Blood Oxygen Saturation 96 94-100 % Arterial Blood Base Excess -6.4 L -2.5-2.5 MMOL/L Kyle Test YES-POS Blood Gas Ventilator Setting NO Blood Gas Inspired Oxygen RA Urine Color YELLOW Urine Clarity CLEAR Urine pH 6 5-9 Urine Specific [place] 1.010 L 1.016-1.022 Urine Protein 1+ H NEGATIVE Urine Glucose (UA) 4+ H NEGATIVE Urine Ketones 2+ H NEGATIVE Urine Nitrite NEGATIVE NEGATIVE Urine Bilirubin NEGATIVE NEGATIVE Urine Urobilinogen NORMAL NORMAL MG/DL Urine Leukocyte Esterase NEGATIVE NEGATIVE Urine RBC (Auto) NEGATIVE NEGATIVE Urine RBC NONE /HPF Urine WBC RARE /HPF Urine Squamous Epithelial Cells RARE /HPF Urine Crystals NONE /LPF Urine Bacteria NEGATIVE /HPF Urine Casts NONE /LPF Urine Mucus NEGATIVE /LPF Urine Culture Indicated NO Test 01/13/18 00:33 01/13/18 02:04 01/13/18 02:55 01/13/18 03:57 Range/Units Glucometer 334 H 188 H 203 H 70-110 MG/DL Sodium Level 133 L 135-145 MMOL/L Potassium Level 4.1 3.6-5.0 MMOL/L Chloride Level 106 98-107 MMOL/L Carbon Dioxide Level 17 L 21-32 MMOL/L Anion Gap 10 5-14 MMOL/L Blood Urea Nitrogen 25 H 7-18 MG/DL Creatinine 1.11 0.60-1.30 MG/DL Estimat Glomerular Filtration Rate 47 BUN/Creatinine Ratio 23 Glucose Level 180 H 70-105 MG/DL Calcium Level 9.5 8.5-10.1 MG/DL Test 01/13/18 05:05 01/13/18 08:04 01/13/18 09:43 01/13/18 10:01 Range/Units White Blood Count 8.0 4.3-11.0 10^3/uL Red Blood Count 3.63 L 4.35-5.85 10^6/uL Hemoglobin 11.0 L 11.5-16.0 G/DL Hematocrit 32 L 35-52 % Mean Corpuscular Volume 87 80-99 FL Mean Corpuscular Hemoglobin 30 25-34 PG Mean Corpuscular Hemoglobin Concent 35 32-36 G/DL Red Cell Distribution Width 12.5 10.0-14.5 % Platelet Count 125 L 130-400 10^3/uL Mean Platelet Volume 11.8 H 7.4-10.4 FL Neutrophils (%) (Auto) 82 H 42-75 % Lymphocytes (%) (Auto) 12 12-44 % Monocytes (%) (Auto) 6 0-12 % Eosinophils (%) (Auto) 0 0-10 % Basophils (%) (Auto) 0 0-10 % Neutrophils # (Auto) 6.6 1.8-7.8 X 10^3 Lymphocytes # (Auto) 1.0 1.0-4.0 X 10^3 Monocytes # (Auto) 0.5 0.0-1.0 X 10^3 Eosinophils # (Auto) 0.0 0.0-0.3 10^3/uL Basophils # (Auto) 0.0 0.0-0.1 10^3/uL Sodium Level 132 L 134 L 135-145 MMOL/L Potassium Level 4.5 4.5 3.6-5.0 MMOL/L Chloride Level 106 109 H 98-107 MMOL/L Carbon Dioxide Level 15 L 19 L 21-32 MMOL/L Anion Gap 11 6 5-14 MMOL/L Blood Urea Nitrogen 25 H 22 H 7-18 MG/DL Creatinine 1.04 0.84 0.60-1.30 MG/DL Estimat Glomerular Filtration Rate 51 > 60 BUN/Creatinine Ratio 24 26 Glucose Level 281 H 95 70-105 MG/DL Calcium Level 9.2 9.4 8.5-10.1 MG/DL Glucometer 144 H 97 70-110 MG/DL Test 01/13/18 12:01 01/13/18 13:52 01/13/18 15:54 Range/Units Glucometer 124 H 213 H 154 H 70-110 MG/DL Physical Exam-(CHC) Physical Exam Vital Signs VS - Last 72 Hours, by Label 01/12/18 01/13/18 01/13/18 01/13/18 22:32 00:50 01:10 01:10 Temp 98.2 98.2 97.8 Pulse 73 70 62 Resp 18 18 17 B/P (MAP) 136/50 (78) 126/46 103/49 (67) Pulse Ox 99 98 98 O2 Delivery Room Air Room Air 01/13/18 01/13/18 01/13/18 01/13/18 02:27 03:46 04:03 06:55 Temp 97.9 97.6 97.9 Pulse 66 72 74 78 Resp 16 17 18 B/P (MAP) 128/60 (82) 119/56 (77) 125/64 (84) Pulse Ox 98 99 99 O2 Delivery Room Air Room Air Room Air 01/13/18 01/13/18 01/13/18 01/13/18 07:00 08:30 10:30 12:30 Temp 96.9 97.5 96.6 Pulse 70 73 70 78 Resp 18 18 20 B/P (MAP) 119/58 (78) 136/61 (86) 126/73 (90) Pulse Ox 99 99 99 O2 Delivery Room Air Room Air Room Air 01/13/18 13:00 Pulse 68 Capillary Refill : Less Than 3 Seconds General Appearance: WD/WN, no apparent distress HEENT: PERRL/EOMI Neck: non-tender, supple, normal inspection Respiratory: chest non-tender, lungs clear, normal breath sounds, no respiratory distress, no accessory muscle use Cardiovascular: normal peripheral pulses, regular rate, rhythm, no edema, no murmur Gastrointestinal: normal bowel sounds, non tender, soft Back: no CVA tenderness, no vertebral tenderness Extremities: non-tender, normal inspection, no pedal edema, no calf tenderness , normal capillary refill Neurologic/Psychiatric: email developer II-XII nml as tested, no motor/sensory deficits, alert, normal mood/affect, oriented x 3 Skin: normal color, warm/dry Lymphatic: no adenopathy Assessment/Plan Assessment/Plan Admission Status: Inpatient Order (span 2 midnights) Reason for Inpatient Admission: Requiring close monitoring and IV medications (1) DKA (diabetic ketoacidoses) Status: Acute Assessment & Plan: - Restart home insulin, advance diet, BMP in AM, gap closed Qualifiers: Qualified Codes: E11.10 - Type 2 diabetes mellitus with ketoacidosis without coma (2) Hyperglycemia Status: Acute Assessment & Plan: - Improved (3) Dehydration Status: Acute Assessment & Plan: - Decreased IV fluids, encourage PO hydration (4) HTN (hypertension) Status: Chronic Assessment & Plan: - continue home meds Qualifiers: Qualified Codes: I10 - Essential (primary) hypertension (5) Advanced age Status: Chronic (6) DVT prophylaxis Status: Acute Assessment & Plan: - Lovenox Clinical Quality Measures DVT/VTE Risk/Contraindication: Risk Factor Score Per Nursin RFS Level Per Nursing on Admit: 4+=Very High Copy Copies To 1: WILLIAM PRESTON MD, HOLLY R MD Jan 13, 2018 13:06
[2018-01-13] MEDS ORDERED: NON-FORMULARY MEDICATION 1 EA EA (Insulin Lispro (Humalog Kwikpen) 5 UNITS) SC SCH (17:00)
[2018-01-13] MEDS: CARVEDILOL 6.25 MG (COREG) TAB PO SCH (20:08)
[2018-01-13] MEDS: MEMANTINE 10 MG (NAMENDA) TABLET PO SCH (20:08)
[2018-01-13] MEDS: inSUlin DETERMIR 1 UNIT/0.01 ML (LEVEMIR) CHARGE PER UNIT SQ SCH (20:09)
[2018-01-13] MEDS ORDERED: SIMvastatin 20 MG (ZOCOR) TAB PO SCH (21:00)
[2018-01-13] MEDS ORDERED: MELATONIN 3 MG TABLET PO SCH (21:00)
[2018-01-13] MEDS ORDERED: [UNRECOGNIZED DRUG - OTHER] SC SCH (21:00)
[2018-01-13] MEDS ORDERED: NON-FORMULARY MEDICATION 1 EA EA (Memantine HCl 10 MG) PO SCH (21:00)
[2018-01-13] MEDS ORDERED: INSULIN GLARGINE HUM REC ANLOG 8 UNIT SC SCH (21:00)
[2018-01-14] VITALS: BP 118/56
[2018-01-14] MEDS: inSUlin ASPART (NovoLOG) 1 UNIT/0.01 ML (CHARGE PER UNIT) SC SCH ×9 (00:45→08:24)
[2018-01-14] MEDS: NS IV 1000 ML 1,000 ML IV SCH (01:54)
[2018-01-14 02:00] VITALS: BP 158/67
[2018-01-14 04:00] VITALS: BP 134/60
[2018-01-14 05:56] VITALS: BP 149/68
[2018-01-14 06:53] LABS: BASOPHILS % (AUTO) 0 % (0-10); EOSINOPHILS # (AUTO) 0.1 10^3/uL (0.0-0.3); EOSINOPHILS % (AUTO) 3 % (0-10); HEMATOCRIT 31 % (35-52); HEMOGLOBIN 10.4 G/DL (11.5-16.0); LYMPHOCYTES # (AUTO) 1.3 X 10^3 (1.0-4.0); LYMPHOCYTES % (AUTO) 35 % (12-44); MEAN CORPUSCULAR HEMOGLOBIN 30 PG (25-34); MEAN CORPUSCULAR HGB CONC 34 G/DL (32-36); MEAN CORPUSCULAR VOLUME 88 FL (80-99); MEAN PLATELET VOLUME 11.4 FL (7.4-10.4); MONOCYTES # (AUTO) 0.2 X 10^3 (0.0-1.0); MONOCYTES % (AUTO) 6 % (0-12); NEUTROPHILS # (AUTO) 2.1 X 10^3 (1.8-7.8); NEUTROPHILS % (AUTO) 57 % (42-75); PLATELET COUNT 124 10^3/uL (130-400); RED BLOOD COUNT 3.52 10^6/uL (4.35-5.85); RED CELL DISTRIBUTION WIDTH 13.1 % (10.0-14.5); WHITE BLOOD COUNT 3.7 10^3/uL (4.3-11.0)
[2018-01-14] MEDS ORDERED: PANTOPRAZOLE 40 MG (PROTONIX) TAB PO SCH (07:00)
[2018-01-14 07:05] LABS: ALANINE AMINOTRANSFERASE 74 U/L (0-55); ALBUMIN 3.2 GM/DL (3.2-4.5); ALKALINE PHOSPHATASE 93 U/L (40-136); BILIRUBIN,TOTAL 0.3 MG/DL (0.1-1.0); BUN/CREATININE RATIO 16; CALCIUM 8.9 MG/DL (8.5-10.1); CARBON DIOXIDE 17 MMOL/L (21-32); CHLORIDE 113 MMOL/L (98-107); CREATININE SERUM 0.74 MG/DL (0.60-1.30); GFR ESTIMATED > 60; GLUCOSE 150 MG/DL (70-105); POTASSIUM 4.3 MMOL/L (3.6-5.0); SODIUM 136 MMOL/L (135-145); TOTAL PROTEIN 4.9 GM/DL (6.4-8.2)
[2018-01-14 08:00] VITALS: BP 149/65
[2018-01-14] MEDS: MEMANTINE 10 MG (NAMENDA) TABLET PO SCH (08:25)
[2018-01-14] MEDS: CARVEDILOL 6.25 MG (COREG) TAB PO SCH (08:25)
[2018-01-14] MEDS: inSUlin DETERMIR 1 UNIT/0.01 ML (LEVEMIR) CHARGE PER UNIT SQ SCH (08:25)
--- NOTE | 2018-01-14 08:39 | Discharge Inst-Simple/Standard ---
Discharge Inst-Standard Discharge Medications New, Converted or Re-Newed RX: Other Patient Instructions/Follow Up Plan of Care/Instructions/FU: patient has appointment with Dr. Buckner on January 20, as this has already been scheduled Activity as Tolerated: Yes Discharge Diet: Low Sodium Diet Return to The Hospital For: significant weakness, poor oral intake ALMA SANTANA MD Jan 14, 2018 08:39
--- NOTE | 2018-01-14 08:48 | Discharge Summary ---
Diagnosis/Chief Complaint Date of Admission Jan 13, 2018 at 00:01 Date of Discharge January 14, 2018 Admission Diagnosis Admission Diagnosis 1. Diabetic ketoacidosis 2. Electrolyte imbalance 3. Dehydration Discharge Diagnosis (1) DKA (diabetic ketoacidoses) (2) Hyperglycemia (3) Dehydration (4) HTN (hypertension) Chief Complaint/HPI Chief Complaint/HPI 82-year-old female a patient of Dr. Thayer who is currently living at [facility] with her became weak and was not having good glucose control. Apparently her glucose had been running greater than 200 the day prior to admission and in the evening time was 483. She does admit she been a diabetic for pretty much all of her adult life and she did utilize insulin pump for 15 years. This was discontinued a few years ago. She does also see castings trimmer Dr. Gibbons in [facility]. Discharge Summary-Simple/Stand Consultations Discharge Physical Examination Allergies: Coded Allergies: Penicillins (Verified Allergy, Unknown, 07/28/15) Tetracyclines (Verified Allergy, Unknown, 07/28/15) metronidazole (Verified Allergy, Unknown, 07/28/15) morphine (Verified Allergy, Unknown, 07/28/15) tetanus immune globulin (Unverified Allergy, Unknown, 02/26/15) Vitals & I&Os Vital Sign - Last 12Hours Date Time Temp Pulse Resp B/P (MAP) Pulse Ox O2 Delivery O2 Flow Rate FiO2 01/14/18 05:56 97.7 71 18 149/68 (95) 98 Room Air Intake and Output 01/14/18 00:00 Intake Total 1570 ml Output Total 2150 ml Balance -580 ml General Appearance: Alert, No Acute Distress (and she is very pleasant) HEENT: Mucous Memb Moist/[place] Respiratory: Clear to Auscultation Cardiovascular: Regular Rate Abdominal: Soft Skin: No Rashes Psych/Mental Status: Mental Status NL Hospital Course See final discharge diagnosis./ (1) DKA (diabetic ketoacidoses) Status: Acute Assessment & Plan: - Restart home insulin, advance diet, BMP in AM, gap closed Qualifiers: Qualified Codes: E11.10 - Type 2 diabetes mellitus with ketoacidosis without coma (2) Hyperglycemia Status: Acute Assessment & Plan: - Improved (3) Dehydration Status: Acute Assessment & Plan: - Decreased IV fluids, encourage PO hydration (4) HTN (hypertension) Status: Chronic Assessment & Plan: - continue home meds Qualifiers: Qualified Codes: I10 - Essential (primary) hypertension (5) Advanced age Status: Chronic Discharge Instructions to patient/family Please see electronic discharge instructions given to patient. Discharge Medications Reviewed and agree with Discharge Medication list on patient's Discharge Instruction sheet Clinical Quality Measures DVT/VTE Risk/Contraindication: Risk Factor Score Per Nursin RFS Level Per Nursing on Admit: 4+=Very High ALMA SANTANA MD Jan 14, 2018 08:48
[2018-01-14] MEDS ORDERED: SIMvastatin 20 MG (ZOCOR) TAB PO SCH ×2 (09:00→21:00)
[2018-01-14] MEDS ORDERED: NON-FORMULARY MEDICATION 1 EA EA (Donepezil HCl 10 MG) PO SCH (09:00)
[2018-01-14] MEDS ORDERED: DONEPEZIL 10 MG (ARICEPT) TAB PO SCH (09:00)
[2018-01-14] MEDS ORDERED: NON-FORMULARY MEDICATION 1 EA EA (Omeprazole 40 MG) PO SCH (09:00)
== END 2018-01-14 10:36 | DRG 638 ==
LOC: EDUNIT# 22:23 → ER 22:24 → ICU 01-13 00:01 → 4TH 01-13 00:02
PROVIDERS: ADMIT Family Medicine; ATTEND Family Medicine
DX: E11.10 Type 2 diabetes mellitus with ketoacidosis without coma (principal); E84.9 Cystic fibrosis, unspecified; E86.0 Dehydration; E87.8 Other disorders of electrolyte and fluid balance, not elsewhere classified; E11.65 Type 2 diabetes mellitus with hyperglycemia; I25.10 Atherosclerotic heart disease of native coronary artery without angina pectoris; E78.00 Pure hypercholesterolemia, unspecified; I10 Essential (primary) hypertension; E78.5 Hyperlipidemia, unspecified; F03.90 Unspecified dementia, unspecified severity, without behavioral disturbance, psychotic disturbance, mood disturbance, and anxiety; K21.9 Gastro-esophageal reflux disease without esophagitis; M81.0 Age-related osteoporosis without current pathological fracture; M54.9 Dorsalgia, unspecified; Z79.4 Long term (current) use of insulin; Z86.19 Personal history of other infectious and parasitic diseases; Z87.440 Personal history of urinary (tract) infections
CPT/HCPCS: 36415; 36600; 80048; 80053; 81000; 82150; 82805; 82962; 83036; 83690; 85025; 96361; 96374

== ENCOUNTER 2018-03-19 23:17 | Emergency (ER) | payer MEDICARE, OTHER ==
[~2018-03-19] VITALS: Ht 157.5 cm; Wt 50.8 kg
[~2018-03-19 23:17] MED LIST changes: +AMLO2.5T PO; +ASPI-983 PO; +CARV6.252 PO; +CODE118S4 PO; +DONE10TA41 PO; +LOPE-145 PO; +MELA3TAB PO; +MEMA10TA22 PO; +MIRA50TA PO
--- OUTSIDE RECORDS SUMMARY | 2018-03-19 23:23 | XMS REPORT ---
Author Author DAVID PRESTON [facility] Address [address] [place] [address] Care Team Providers Care Thread Grinder Name Role Phone DAVID PRESTON Unavailable PROBLEMS Type Condition ICD9-CM Code SUE18-XH Code Onset Dates Condition Status SNOMED Code Problem Insomnia, unspecified type G47.00 Active 997838340 Problem Chronic kidney disease, stage II (mild) N18.2 Active 141131853 Problem Essential hypertension I10 Active 07949600 Problem Type 2 diabetes mellitus with diabetic chronic kidney disease E11.22 Active 39195250 Problem drafter structural current use of insulin Z79.4 Active 060675826 ALLERGIES No Information ENCOUNTERS Encounter Location Date Diagnosis [place] [address] [address] Jan, [place] [address] [address] [place] [id number] [place] [address] Jan, Type 2 diabetes mellitus with diabetic chronic kidney disease E11.22 [place] [address] [place] [id number] [place] [address] Jan, [place] [address] [place] [id number] [place] [address] Jan, [place] [address] [place] [id number] [place] [address] December, Insomnia, unspecified type G47.00 [place] [address] [address] Sep, [place] [address] [address] Sep, [place] [address] [address] Sep, [facility] [address] [facility] [id number] [place] [address] May, Type 2 diabetes mellitus with diabetic chronic kidney disease E11.22 ; Chronic kidney disease, stage II (mild) N18.2 ; halfway current use of insulin Z79.4 and Essential hypertension I10 IMMUNIZATIONS No Known Immunizations SOCIAL HISTORY Never Assessed REASON FOR VISIT No Answer- unable to make contact PLAN OF CARE VITAL SIGNS MEDICATIONS Unknown Medications RESULTS No Results PROCEDURES No Known procedures INSTRUCTIONS MEDICATIONS ADMINISTERED No Known Medications MEDICAL (GENERAL) HISTORY Type Description Date Medical History irritable bowel syndrome Medical History C-Diff Medical History Frequent urinary tract infections Medical History type I diabetes Surgical History galbladder removed may 2016 Surgical History biopsy right breast Surgical History hysterectomy Hospitalization History multiple [facility] and admitsions visits due to DM
--- OUTSIDE RECORDS SUMMARY | 2018-03-19 23:23 | XMS REPORT ---
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.4 Active 272065695 ALLERGIES No Information ENCOUNTERS Encounter Location Date Diagnosis [place] [address] [address] Jan, [place] [address] [address] [place] [id number] [place] [address] Jan, Type 2 diabetes mellitus with diabetic chronic kidney disease E11.22 [place] [address] [place] [id number] [place] [address] Jan, [place] [address] [place] [id number] [place] [address] Jan, [place] [address] [place] [id number] [place] [address] December, Insomnia, unspecified type G47.00 [place] [address] [address] Sep, [place] [address] [address] Sep, [place] [address] [address] Sep, [facility] [address] [facility] [id number] [place] [address] May, Type 2 diabetes mellitus with diabetic chronic kidney disease E11.22 ; Chronic kidney disease, stage II (mild) N18.2 ; correction current use of insulin Z79.4 and Essential hypertension I10 IMMUNIZATIONS No Known Immunizations SOCIAL HISTORY Never Assessed REASON FOR VISIT PA PLAN OF CARE VITAL SIGNS MEDICATIONS Medication Instructions Dosage Frequency Start Date End Date Duration Status Coreg 6.25 MG Orally 2 times a day 1 tablet 12h Sep, Active Bystolic 10 mg Orally Once a day 1 tablet 24h Active RESULTS No Results PROCEDURES No Known procedures [...]
--- OUTSIDE RECORDS SUMMARY | 2018-03-19 23:23 | XMS REPORT ---
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.4 Active 556745642 ALLERGIES No Information ENCOUNTERS Encounter Location Date Diagnosis [place] [address] [address] Jan, [place] [address] [place] [id number] [place] [address] Jan, Type 2 diabetes mellitus with diabetic chronic kidney disease E11.22 [place] [address] [place] [id number] [place] [address] Jan, [place] [address] [place] [id number] [place] [address] Jan, [place] [address] [place] [id number] [place] [address] December, Insomnia, unspecified type G47.00 [place] [address] [address] Sep, [place] [address] [address] Sep, [place] [address] [address] Sep, [facility] [address] [facility] [id number] [place] [address] May, Type 2 diabetes mellitus with diabetic chronic kidney disease E11.22 ; Chronic kidney disease, stage II (mild) N18.2 ; half-way current use of insulin Z79.4 and Essential hypertension I10 IMMUNIZATIONS No Known Immunizations SOCIAL HISTORY Never Assessed REASON FOR VISIT lab PLAN OF CARE VITAL SIGNS MEDICATIONS Medication Instructions Dosage Frequency Start Date End Date Duration Status Bactrim DS 800-160 MG Orally Twice a day 1 tablet 12h 16 Sep, 2017Sep 05 days Active RESULTS No Results PROCEDURES No Known [...]
[2018-03-20 00:02] LABS: BASOPHILS % (AUTO) 0 % (0-10); EOSINOPHILS # (AUTO) 0.2 10^3/uL (0.0-0.3); EOSINOPHILS % (AUTO) 3 % (0-10); HEMATOCRIT 38 % (35-52); HEMOGLOBIN 12.4 G/DL (11.5-16.0); LYMPHOCYTES # (AUTO) 1.2 X 10^3 (1.0-4.0); LYMPHOCYTES % (AUTO) 19 % (12-44); MEAN CORPUSCULAR HEMOGLOBIN 29 PG (25-34); MEAN CORPUSCULAR HGB CONC 33 G/DL (32-36); MEAN CORPUSCULAR VOLUME 87 FL (80-99); MEAN PLATELET VOLUME 11.3 FL (7.4-10.4); MONOCYTES # (AUTO) 0.4 X 10^3 (0.0-1.0); MONOCYTES % (AUTO) 6 % (0-12); NEUTROPHILS # (AUTO) 4.8 X 10^3 (1.8-7.8); NEUTROPHILS % (AUTO) 73 % (42-75); PLATELET COUNT 161 10^3/uL (130-400); RED BLOOD COUNT 4.33 10^6/uL (4.35-5.85); RED CELL DISTRIBUTION WIDTH 12.5 % (10.0-14.5); WHITE BLOOD COUNT 6.7 10^3/uL (4.3-11.0)
[2018-03-20] MEDS ORDERED: NS IV 1000 ML 1,000 ML IV ONE (00:15)
[2018-03-20 00:16] LABS: ALBUMIN 3.9 GM/DL (3.2-4.5); BILIRUBIN,TOTAL 0.4 MG/DL (0.1-1.0); CALCIUM 10.4 MG/DL (8.5-10.1); CREATININE SERUM 1.08 MG/DL (0.60-1.30); POTASSIUM 4.6 MMOL/L (3.6-5.0); TOTAL PROTEIN 6.2 GM/DL (6.4-8.2)
[2018-03-20 01:16] LABS: BACTERIA,URINE NEGATIVE /HPF; BILIRUBIN,URINE NEGATIVE (NEGATIVE); CLARITY,URINE CLEAR; COLOR,URINE YELLOW; GLUCOSE, URINE (UA) 4+ (NEGATIVE); KETONES,URINE NEGATIVE (NEGATIVE); LEUKOCYTE ESTERASE ,URINE NEGATIVE (NEGATIVE); NITRITE,URINE NEGATIVE (NEGATIVE); PH,URINE 6 (5-9); PROTEIN,URINE NEGATIVE (NEGATIVE); UROBILINOGEN,URINE NORMAL (NORMAL)
[2018-03-20 01:17] LABS: SQUAMOUS EPITHELIAL CELL,UR RARE /HPF
--- NOTE | 2018-03-20 01:34 | ED General ---
General Chief Complaint: Glucose Problems Stated Complaint: HIGH BLOOD SUGAR, POSS UTI Nursing Triage Note: PATIENT STATES THAT SHE IS HERE BECUSE HER BLOOD SUGARS HAVE BEEN TOO HIGH TODAY. SHE STATES THAT THE SENIOR LIVING THAT SHE LIVES IT WAS CONCERNED THAT SHE MAY ALSO HAVE A UTI BUT SHE DENIES ANY UTI SYMPTOMS. SHE STATES THEY WERE MOSTLY CONCERNED ABOUT HER BLOOD SUGARS. Nursing Sepsis Screen: No Definite Risk Source of Information: Patient, Old Records Exam Limitations: No Limitations History of Present Illness Date Seen by Provider: Mar 19, 2018 Time Seen by Provider: 23:33 Initial Comments This 82-year-old resident of [facility] presents to the emergency room at the urging of staff due to hyperglycemia. They're concerned she may have a urinary tract infection. Patient states she has been feeling healthy. She denies any symptoms of urinary tract infection or other infectious illness. Initial blood sugar was 420 Allergies and Home Medications Allergies Coded Allergies: Penicillins (Verified Allergy, Unknown, 07/28/15) Tetracyclines (Verified Allergy, Unknown, 07/28/15) metronidazole (Verified Allergy, Unknown, 07/28/15) morphine (Verified Allergy, Unknown, 07/28/15) tetanus immune globulin (Unverified Allergy, Unknown, 02/26/15) Home Medications Acetaminophen 650 Mg Tablet.er, 650 MG PO Q6H PRN for PAIN-MILD OR TEMPATURE, ( Reported) Alendronate Sodium 70 Mg Tablet, 70 MG PO Th, (Reported) Amlodipine Besylate 2.5 Mg Tablet, 2.5 MG PO DAILY, (Reported) Aspirin 81 Mg Tablet.dr, 162 MG PO DAILY, (Reported) TAKES 2 (81MG) TABLETS Calcium Carbonate 600 Mg Tablet, 600 MG PO DAILY, (Reported) Carvedilol 6.25 Mg Tablet, 6.25 MG PO BID, (Reported) Donepezil HCl 10 Mg Tablet, 10 MG PO DAILY, (Reported) Insulin Glargine,Hum.rec.anlog 100 Unit/1 Ml Insuln.pen, 8 UNITS SC BID, ( Reported) Insulin Lispro 100 Unit/1 Ml Insuln.pen, 5 UNITS SC TIDWM, (Reported) Insulin Lispro 100 Unit/1 Ml Insuln.pen, SQ AC, (Reported) 150-200 = 1 UNIT 201-250 = 2 UNITS 251-300 = 3 UNITS 301-350 = 4 UNITS 351- 400 = 5 UNITS L.acidoph & Paracasei,B.lactis 1 Each Capsule, 1 CAP PO DAILY, (Reported) Loperamide HCl 2 Mg Capsule, 4 MG PO BID PRN for LOOSE STOOLS, (Reported) Melatonin 3 Mg Tablet, 3 MG PO HS, (Reported) Memantine HCl 10 Mg Tablet, 10 MG PO BID, (Reported) Mirabegron 50 Mg Tab.er.24h, 50 MG PO DAILY, (Reported) Naproxen Sodium 220 Mg Tablet, 220 MG PO BID PRN for PAIN-MILD, (Reported) IF NO RELIEF FROM TYLENOL [place] 3 Polyunsat Fatty Acids 1,000 Mg Cap, 2,000 MG PO DAILY, (Reported) TAKES 2 (1000MG) CAPSULES Omeprazole 40 Mg Capsule.dr, 40 MG PO DAILY, (Reported) Promethazine HCl/Codeine 118 Ml Syrup, 5-10 ML PO UD PRN for COUGH, (Reported) Simvastatin 20 Mg Tablet, 20 MG PO DAILY, (Reported) Patient Home Medication List Home Medication List Reviewed: Yes Review of Systems Constitutional: no symptoms reported EENTM: no symptoms reported Respiratory: no symptoms reported Cardiovascular: no symptoms reported Gastrointestinal: no symptoms reported Genitourinary: no symptoms reported : No Musculoskeletal: no symptoms reported Skin: no symptoms reported Psychiatric/Neurological: No Symptoms Reported Hematologic/Lymphatic: No Symptoms Reported Immunological/Allergic: no symptoms reported Past Iwcjsin-Foiicf-Oojjyo Hx Patient Social History Alcohol Use: Denies Use Recreational Drug Use: No Smoking Status: Never a Smoker 2nd Hand Smoke Exposure: No Recent Foreign Travel: No Contact w/Someone Who Travel: No Recent Infectious Disease Expo: No Recent Hopitalizations: No Physical Abuse: No Sexual Abuse: No Immunizations Up To Date Tetanus Booster (TDap): Unknown PED Vaccines UTD: No Date of Pneumonia Vaccine: Jul 28, 2013 Date of Influenza Vaccine: May 24, 2016 Seasonal Allergies Seasonal Allergies: No Past Medical History Surgeries: Yes Gallbladder, Hysterectomy Respiratory: Yes (CYSTIC FIBROSIS) Cardiac: Yes Coronary Artery Disease, High Cholesterol, Hypertension, Valvular Heart Disease Neurological: Yes Dementia Reproductive Disorders: No STUDIO MODEL History: Menopausal Genitourinary: Yes Bladder Infection Gastrointestinal: Yes (S/P CHOLECYSTECTOMY) Gastroesophageal Reflux, C-Diff, Gall Bladder Disease Musculoskeletal: Yes Osteoporosis, Chronic Back Pain Endocrine: Yes (Brittle type I diabetic) Diabetes, Insulin dep HEENT: No Glaucoma Cancer: No Psychosocial: No Nursing Suicide Risk Score: 0 Integumentary: No Blood Disorders: No Adverse Reaction/Blood Tranf: No Family Medical History Cardiovascular disease 19 MOTHER Dementia 19 MOTHER Glaucoma 19 FATHER Hypertension Respiratory disorder G8 BROTHER, Onset:40's - 50 Physical Exam Vital Signs Vital Signs - First Documented 03/19/18 23:37 Temp 96.9 Pulse 75 Resp 20 B/P (MAP) 146/64 (91) Pulse Ox 99 O2 Delivery Room Air Capillary Refill : Less Than 3 Seconds Height, Weight, BMI Height: 5'2.00" Weight: 112lbs. 0oz. 50.123142uw; 20.6 BMI Method:Stated General Appearance: No Apparent Distress, WD/WN, Thin HEENT: PERRL/EOMI, Normal ENT Inspection, Pharynx Normal Neck: Normal Inspection Respiratory: Lungs Clear, Normal Breath Sounds, No Accessory Muscle Use Cardiovascular: Regular Rate, Rhythm, No Edema, No Murmur Gastrointestinal: Normal Bowel Sounds, Non Tender, Soft Extremity: Normal Inspection Neurologic/Psychiatric: Alert, Oriented x3, No Motor/Sensory Deficits, Normal Mood/Affect, music manager II-XII Norm as Tested Skin: Normal Color, Warm/Dry Progress/Results/Core Measures Suspected Sepsis Recent Fever Within 48 Hours: No Infection Criteria Present: None New/Unexplained Altered Menta: No Sepsis Screen: No Definite Risk SIRS Temperature:96.9 Pulse: 75 Respiratory Rate: 20 Laboratory Tests 03/19/18 23:47: White Blood Count 6.7 Blood Pressure 146 /64 Mean: 91 Laboratory Tests 03/19/18 23:47: Creatinine 1.08, Platelet Count 161, Total Bilirubin 0.4 Results/Orders Lab Results Laboratory Tests Test 03/19/18 00:52 03/19/18 23:40 03/19/18 23:47 03/20/18 00:48 Range/Units Urine Color YELLOW Urine Clarity CLEAR Urine pH 6 5-9 Urine Specific [place] 1.010 L 1.016-1.022 Urine Protein NEGATIVE NEGATIVE Urine Glucose (UA) 4+ H NEGATIVE Urine Ketones NEGATIVE NEGATIVE Urine Nitrite NEGATIVE NEGATIVE Urine Bilirubin NEGATIVE NEGATIVE Urine Urobilinogen NORMAL NORMAL MG/DL Urine Leukocyte Esterase NEGATIVE NEGATIVE Urine RBC (Auto) NEGATIVE NEGATIVE Urine RBC NONE /HPF Urine WBC NONE /HPF Urine Squamous Epithelial Cells RARE /HPF Urine Crystals NONE /LPF Urine Bacteria NEGATIVE /HPF Urine Casts NONE /LPF Urine Mucus NEGATIVE /LPF Urine Culture Indicated NO Glucometer 420 *H 320 H 70-110 MG/DL White Blood Count 6.7 4.3-11.0 10^3/uL Red Blood Count 4.33 L 4.35-5.85 10^6/uL Hemoglobin 12.4 11.5-16.0 G/DL Hematocrit 38 35-52 % Mean Corpuscular Volume 87 80-99 FL Mean Corpuscular Hemoglobin 29 25-34 PG Mean Corpuscular Hemoglobin Concent 33 32-36 G/DL Red Cell Distribution Width 12.5 10.0-14.5 % Platelet Count 161 130-400 10^3/uL Mean Platelet Volume 11.3 H 7.4-10.4 FL Neutrophils (%) (Auto) 73 42-75 % Lymphocytes (%) (Auto) 19 12-44 % Monocytes (%) (Auto) 6 0-12 % Eosinophils (%) (Auto) 3 0-10 % Basophils (%) (Auto) 0 0-10 % Neutrophils # (Auto) 4.8 1.8-7.8 X 10^3 Lymphocytes # (Auto) 1.2 1.0-4.0 X 10^3 Monocytes # (Auto) 0.4 0.0-1.0 X 10^3 Eosinophils # (Auto) 0.2 0.0-0.3 10^3/uL Basophils # (Auto) 0.0 0.0-0.1 10^3/uL Sodium Level 132 L 135-145 MMOL/L Potassium Level 4.6 3.6-5.0 MMOL/L Chloride Level 100 98-107 MMOL/L Carbon Dioxide Level 23 21-32 MMOL/L Anion Gap 9 5-14 MMOL/L Blood Urea Nitrogen 26 H 7-18 MG/DL Creatinine 1.08 0.60-1.30 MG/DL Estimat Glomerular Filtration Rate 48 BUN/Creatinine Ratio 24 Glucose Level 473 *H 70-105 MG/DL Calcium Level 10.4 H 8.5-10.1 MG/DL Corrected Calcium 10.5 H 8.5-10.1 MG/DL Total Bilirubin 0.4 0.1-1.0 MG/DL Aspartate Amino Transf (AST/SGOT) 17 5-34 U/L Alanine Aminotransferase (ALT/SGPT) 21 0-55 U/L Alkaline Phosphatase 127 40-136 U/L Total Protein 6.2 L 6.4-8.2 GM/DL Albumin 3.9 3.2-4.5 GM/DL Test 03/20/18 01:30 Range/Units Glucometer 376 H 70-110 MG/DL My Orders Orders - RAH COX MD Accucheck Stat ONCE (03/19/18 23:33) Ua Culture If Indicated (03/19/18 23:33) Cbc With Automated Diff (03/19/18 23:56) Comprehensive Metabolic Panel (03/19/18 23:56) Saline Lock/Iv-Start (03/19/18 23:56) Ns Iv 1000 Ml (Sodium Chloride 0.9%) (03/20/18 00:15) Accucheck Stat ONCE (03/20/18 00:31) Accucheck Stat ONCE (03/20/18 01:20) Medications Given in ED Vital Signs/I&O Capillary Refill : Less Than 3 Seconds Blood Pressure Mean: 91 Point of Care Testing Finger Stick Blood Glucose: 320 Blood Glucose Action Taken: DOCTOR NOTIFIED Progress Note : Progress Note Labs were pursued as patient has a recent history of DKA in January of this year. Labs were relatively unremarkable. Urine showed no sign of infection. Blood sugar was trending down with IV hydration. The final blood sugar did start to trend back up. Patient was offered treatment in the emergency room but lacks to return home and use her sliding scale protocol. She is to follow up with her primary care provider. Patient was offered treatment with insulin in the emergency room. However, she elects to return home and use her sliding scale. She is to contact her PCP or bread molder this morning for further instructions. Departure Impression Primary Impression: Hyperglycemia Disposition: 01 HOME, SELF-CARE Condition: Improved Departure-Patient Inst. Decision time for Depature: 01:33 Referrals: DAVID PRESTON MD (PCP/Family) Primary Care Physician Patient Instructions: Diabetes Type 1, Adult (DC) Add. Discharge Instructions: Manage your high blood sugars with your sliding scale protocol. Take your next dose of sliding scale insulin promptly upon returning home. Contact your doctor later this morning for further instructions. Drink plenty of clear liquids. Return to the ER if symptoms are worsening. All discharge instructions reviewed with patient and/or family. Voiced understanding. Copy Copies To 1: DAVID PRESTON MD, JOSHUA T MD Mar 20, 2018 01:34
[2018-03-20 01:40] VITALS: BP 146/64
== END 2018-03-20 01:45 | disposition home or self-care (01) ==
LOC: EDUNIT# 23:17 → ER 23:19
DX: E11.65 Type 2 diabetes mellitus with hyperglycemia (principal); I25.10 Atherosclerotic heart disease of native coronary artery without angina pectoris; E78.00 Pure hypercholesterolemia, unspecified; I10 Essential (primary) hypertension; F03.90 Unspecified dementia, unspecified severity, without behavioral disturbance, psychotic disturbance, mood disturbance, and anxiety; K21.9 Gastro-esophageal reflux disease without esophagitis; M81.0 Age-related osteoporosis without current pathological fracture; E11.39 Type 2 diabetes mellitus with other diabetic ophthalmic complication; H42 Glaucoma in diseases classified elsewhere; Z88.0 Allergy status to penicillin; Z88.1 Allergy status to other antibiotic agents; Z88.6 Allergy status to analgesic agent; Z88.7 Allergy status to serum and vaccine; Z79.82 Long term (current) use of aspirin; Z79.4 Long term (current) use of insulin; Z90.710 Acquired absence of both cervix and uterus
CPT/HCPCS: 36415; 80053; 81000; 82962; 85025

== ENCOUNTER 2019-01-09 22:18 | Emergency (ER) | payer MEDICARE, OTHER ==
[~2019-01-09] VITALS: Ht 157.5 cm; Wt 48.5 kg
[~2019-01-09 22:18] MED LIST changes: +ALEN70TA5 PO; -AMLO2.5T PO; +AMLO2.5T4 PO; -CEFT1VIA58 INJ; +CFTR1V INJ; -LOSA100T28 PO; +LOSA100T57 PO; +METR-145 PO; -METR500T21 PO
[2019-01-09] MEDS ORDERED: NS IV 1000 ML 1,000 ML IV ONE (22:44)
--- NOTE | 2019-01-09 22:58 | ED General ---
General Chief Complaint: Glucose Problems Stated Complaint: HIGH BLOOD SUGAR Source of Information: Patient History of Present Illness Date Seen by Provider: Jan 09, 2019 Time Seen by Provider: 22:43 Initial Comments PT ARRIVES VIA POV FROM [facility] C/O ELEVATED BLOOD GLUCOSE AT 2030, BLOOD GLUCOSE WAS 423. RECEIVED 9 UNITS OF LANTUS AT 2200, BLOOD GLUCOSE WAS 539, SO CAME HERE PT'S ONLY COMPLAINT IS THAT SHE FEELS A LITTLE FATIGUED PT STATES SHE ALWAYS DRINKS ALOT OF WATER, BECAUSE OF HISTORY OF UTI'S, AND SHE ALWAYS URINATES ALOT--NO CHANGE FROM NORMAL. DENIES ANY FEVER OR RECENT ILLNESS NO NAUSEA/VOMITING NO OTHER SYMPTOMS NO MEDICATION CHANGES. PCP: DR. PRESTON AT [facility] SEES DR. LAURYN PAREDES, ARCHITECTURAL DRAFTSMAN IN [place] SEES DR. GEORGE PAREDES, CAMP DINING ROOM ATTENDANT IN [place] Allergies and Home Medications Allergies Coded Allergies: Penicillins (Verified Allergy, Unknown, 07/28/15) Tetracyclines (Verified Allergy, Unknown, 07/28/15) metronidazole (Verified Allergy, Unknown, 07/28/15) morphine (Verified Allergy, Unknown, 07/28/15) tetanus immune globulin (Unverified Allergy, Unknown, 02/26/15) Home Medications Acetaminophen 650 Mg Tablet.er, 650 MG PO Q6H PRN for PAIN-MILD OR TEMPATURE, (Reported) Alendronate Sodium 70 Mg Tablet, 70 MG PO Th, (Reported) Amlodipine Besylate 2.5 Mg Tablet, 2.5 MG PO DAILY, (Reported) Aspirin 81 Mg Tablet.dr, 162 MG PO DAILY, (Reported) TAKES 2 (81MG) TABLETS Calcium Carbonate 600 Mg Tablet, 600 MG PO DAILY, (Reported) Carvedilol 6.25 Mg Tablet, 6.25 MG PO BID, (Reported) Donepezil HCl 10 Mg Tablet, 10 MG PO DAILY, (Reported) Insulin Glargine,Hum.rec.anlog 100 Unit/1 Ml Insuln.pen, 8 UNITS SC BID, (Reported) Insulin Lispro 100 Unit/1 Ml Insuln.pen, 5 UNITS SC TIDWM, (Reported) Insulin Lispro 100 Unit/1 Ml Insuln.pen, SQ AC, (Reported) 150-200 = 1 UNIT 201-250 = 2 UNITS 251-300 = 3 UNITS 301-350 = 4 UNITS 351- 400 = 5 UNITS L.acidoph & Paracasei,B.lactis 1 Each Capsule, 1 CAP PO DAILY, (Reported) Loperamide HCl 2 Mg Capsule, 4 MG PO BID PRN for LOOSE STOOLS, (Reported) Melatonin 3 Mg Tablet, 3 MG PO HS, (Reported) Memantine HCl 10 Mg Tablet, 10 MG PO BID, (Reported) Mirabegron 50 Mg Tab.er.24h, 50 MG PO DAILY, (Reported) Naproxen Sodium 220 Mg Tablet, 220 MG PO BID PRN for PAIN-MILD, (Reported) IF NO RELIEF FROM TYLENOL [place] 3 Polyunsat Fatty Acids 1,000 Mg Cap, 2,000 MG PO DAILY, (Reported) TAKES 2 (1000MG) CAPSULES Omeprazole 40 Mg Capsule.dr, 40 MG PO DAILY, (Reported) Promethazine HCl/Codeine 118 Ml Syrup, 5-10 ML PO UD PRN for COUGH, (Reported) Simvastatin 20 Mg Tablet, 20 MG PO DAILY, (Reported) Review of Systems Review of Systems Constitutional: see HPI; No chills, No diaphoresis, No dizziness, No fever; malaise EENTM: no symptoms reported Respiratory: no symptoms reported Cardiovascular: no symptoms reported Gastrointestinal: no symptoms reported Genitourinary: see HPI Musculoskeletal: no symptoms reported Skin: no symptoms reported Psychiatric/Neurological: No Symptoms Reported Hematologic/Lymphatic: No Symptoms Reported Immunological/Allergic: no symptoms reported Past Kiaxcgs-Rgdmex-Mjhrrj Hx Patient Social History 2nd Hand Smoke Exposure: No Recent Foreign Travel: No Contact w/Someone Who Travel: No Recent Hopitalizations: No Immunizations Up To Date Tetanus Booster (TDap): Unknown PED Vaccines UTD: No Date of Pneumonia Vaccine: Jul 28, 2013 Date of Influenza Vaccine: May 24, 2016 Seasonal Allergies Seasonal Allergies: No Past Medical History Surgeries: Yes Gallbladder, Hysterectomy Respiratory: Yes (CYSTIC FIBROSIS) Cardiac: Yes Coronary Artery Disease, High Cholesterol, Hypertension, Valvular Heart Disease Neurological: Yes Dementia Reproductive Disorders: No GROUP DIRECTOR History: Menopausal Genitourinary: Yes Bladder Infection Gastrointestinal: Yes (S/P CHOLECYSTECTOMY) Gastroesophageal Reflux, C-Diff, Gall Bladder Disease Musculoskeletal: Yes Osteoporosis, Chronic Back Pain Endocrine: Yes (Brittle type I diabetic) Diabetes, Insulin dep HEENT: No Glaucoma Cancer: No Psychosocial: No Integumentary: No Blood Disorders: No Adverse Reaction/Blood Tranf: No Family Medical History Cardiovascular disease 19 MOTHER Dementia 19 MOTHER Glaucoma 19 FATHER Hypertension Respiratory disorder G8 BROTHER, Onset:40's - 50 Physical Exam Vital Signs Capillary Refill : Height, Weight, BMI Height: 5'2.00" Weight: 112lbs. 0oz. 50.447569ti; 20.6 BMI Method:Stated Progress/Results/Core Measures Suspected Sepsis SIRS Temperature: Pulse: Respiratory Rate: Laboratory Tests 01/09/19 23:15: White Blood Count 5.4 Blood Pressure / Mean: Laboratory Tests 01/09/19 23:15: Creatinine 1.32H, Platelet Count 147, Total Bilirubin 0.4 Results/Orders Lab Results Laboratory Tests Test 01/09/19 22:45 01/09/19 23:10 01/09/19 23:15 Range/Units Glucometer 504 *H 70-110 MG/DL Urine Color YELLOW Urine Clarity CLEAR Urine pH 7 5-9 Urine Specific [place] 1.005 L 1.016-1.022 Urine Protein NEGATIVE NEGATIVE Urine Glucose (UA) 4+ H NEGATIVE Urine Ketones NEGATIVE NEGATIVE Urine Nitrite NEGATIVE NEGATIVE Urine Bilirubin NEGATIVE NEGATIVE Urine Urobilinogen NORMAL NORMAL MG/DL Urine Leukocyte Esterase NEGATIVE NEGATIVE Urine RBC (Auto) 1+ H NEGATIVE Urine RBC NONE /HPF Urine WBC NONE /HPF Urine Squamous Epithelial Cells 0-2 /HPF Urine Crystals NONE /LPF Urine Bacteria NEGATIVE /HPF Urine Casts NONE /LPF Urine Mucus SMALL H /LPF Urine Culture Indicated NO White Blood Count 5.4 4.3-11.0 10^3/uL Red Blood Count 4.12 L 4.35-5.85 10^6/uL Hemoglobin 12.2 11.5-16.0 G/DL Hematocrit 36 35-52 % Mean Corpuscular Volume 87 80-99 FL Mean Corpuscular Hemoglobin 30 25-34 PG Mean Corpuscular Hemoglobin Concent 34 32-36 G/DL Red Cell Distribution Width 12.3 10.0-14.5 % Platelet Count 147 130-400 10^3/uL Mean Platelet Volume 10.8 H 7.4-10.4 FL Neutrophils (%) (Auto) 72 42-75 % Lymphocytes (%) (Auto) 20 12-44 % Monocytes (%) (Auto) 6 0-12 % Eosinophils (%) (Auto) 1 0-10 % Basophils (%) (Auto) 0 0-10 % Neutrophils # (Auto) 3.9 1.8-7.8 X 10^3 Lymphocytes # (Auto) 1.1 1.0-4.0 X 10^3 Monocytes # (Auto) 0.3 0.0-1.0 X 10^3 Eosinophils # (Auto) 0.1 0.0-0.3 10^3/uL Basophils # (Auto) 0.0 0.0-0.1 10^3/uL Sodium Level 131 L 135-145 MMOL/L Potassium Level 4.6 3.6-5.0 MMOL/L Chloride Level 96 L 98-107 MMOL/L Carbon Dioxide Level 27 21-32 MMOL/L Anion Gap 8 5-14 MMOL/L Blood Urea Nitrogen 16 7-18 MG/DL Creatinine 1.32 H 0.60-1.30 MG/DL Estimat Glomerular Filtration Rate 38 BUN/Creatinine Ratio 12 Calcium Level 10.4 H 8.5-10.1 MG/DL Corrected Calcium 10.3 H 8.5-10.1 MG/DL Total Bilirubin 0.4 0.1-1.0 MG/DL Aspartate Amino Transf (AST/SGOT) 17 5-34 U/L Alanine Aminotransferase (ALT/SGPT) 18 0-55 U/L Alkaline Phosphatase 128 40-136 U/L Total Protein 6.5 6.4-8.2 GM/DL Albumin 4.1 3.2-4.5 GM/DL Amylase Level 60 25-125 U/L Lipase 25 8-78 U/L My Orders Orders - QI CUTLER DO Accucheck Stat ONCE (01/09/19 22:44) Ed Iv/Invasive Line Start (01/09/19 22:44) Monitor-Rhythm Ecg Trace Only (01/09/19 22:44) Amylase (01/09/19 22:44) Cbc With Automated Diff (01/09/19 22:44) Comprehensive Metabolic Panel (01/09/19 22:44) Lipase (01/09/19 22:44) Ua Culture If Indicated (01/09/19 22:44) Ed Iv/Invasive Line Start (01/09/19 22:44) Ns Iv 1000 Ml (Sodium Chloride 0.9%) (01/09/19 22:44) Insulin (Regular) Human (Humulin R (Per (01/09/19 23:00) Accucheck Stat ONCE (01/10/19 00:12) Medications Given in ED Current Medications Medications Dose Ordered Sig/Katie Route Start Time Stop Time Status Last Admin Dose Admin Insulin Human Regular 25 unit ONCE ONCE IV 01/09/19 23:00 01/09/19 23:01 DC 01/09/19 23:21 25 UNIT Sodium Chloride 1,000 ml @ 0 mls/hr Q0M ONCE IV 01/09/19 22:44 01/09/19 22:46 DC 01/09/19 23:21 999 MLS/HR Vital Signs/I&O Capillary Refill : Progress Note : Progress Note BLOOD GLUCOSE DOWN TO 386 AFTER FLUIDS AND INSULIN--PT ANXIOUS TO GO HOME NOW Departure Impression Primary Impression: Diabetes mellitus, insulin dependent (IDDM), uncontrolled Disposition: 01 HOME, SELF-CARE Condition: Improved Departure-Patient Inst. Referrals: DAVID PRESTON MD (PCP/Family) Primary Care Physician Patient Instructions: Diabetes in Older Adults, Hyperglycemia, Adult (DC) Add. Discharge Instructions: TAKE YOUR MEDICATIONS PRESCRIBED AND CONTINUE TO MONITOR YOUR BLOOD SUGAR USUAL FOLLOW UP WITH YOUR DR THIS WEEK FOR FURTHER CARE All discharge instructions reviewed with patient and/or family. Voiced understanding. QI CUTLER DO Jan 09, 2019 22:58
[2019-01-09] MEDS ORDERED: inSUlin (REGULAR) HUMAN 1 UNIT/0.01 ML (CHARGE PER UNIT) IV ONE (23:00)
[2019-01-09 23:15] LABS: BILIRUBIN,URINE NEGATIVE (NEGATIVE); CLARITY,URINE CLEAR; COLOR,URINE YELLOW; GLUCOSE, URINE (UA) 4+ (NEGATIVE); KETONES,URINE NEGATIVE (NEGATIVE); LEUKOCYTE ESTERASE ,URINE NEGATIVE (NEGATIVE); NITRITE,URINE NEGATIVE (NEGATIVE); PH,URINE 7 (5-9); PROTEIN,URINE NEGATIVE (NEGATIVE); UROBILINOGEN,URINE NORMAL (NORMAL)
[2019-01-09 23:21] LABS: BASOPHILS % (AUTO) 0 % (0-10); EOSINOPHILS # (AUTO) 0.1 10^3/uL (0.0-0.3); EOSINOPHILS % (AUTO) 1 % (0-10); HEMATOCRIT 36 % (35-52); HEMOGLOBIN 12.2 G/DL (11.5-16.0); LYMPHOCYTES # (AUTO) 1.1 X 10^3 (1.0-4.0); LYMPHOCYTES % (AUTO) 20 % (12-44); MEAN CORPUSCULAR HEMOGLOBIN 30 PG (25-34); MEAN CORPUSCULAR HGB CONC 34 G/DL (32-36); MEAN CORPUSCULAR VOLUME 87 FL (80-99); MEAN PLATELET VOLUME 10.8 FL (7.4-10.4); MONOCYTES # (AUTO) 0.3 X 10^3 (0.0-1.0); MONOCYTES % (AUTO) 6 % (0-12); NEUTROPHILS # (AUTO) 3.9 X 10^3 (1.8-7.8); NEUTROPHILS % (AUTO) 72 % (42-75); PLATELET COUNT 147 10^3/uL (130-400); RED CELL DISTRIBUTION WIDTH 12.3 % (10.0-14.5); WHITE BLOOD COUNT 5.4 10^3/uL (4.3-11.0)
[2019-01-09 23:34] LABS: BACTERIA,URINE NEGATIVE /HPF; SQUAMOUS EPITHELIAL CELL,UR 0-2 /HPF
[2019-01-09 23:42] LABS: ALBUMIN 4.1 GM/DL (3.2-4.5); BILIRUBIN,TOTAL 0.4 MG/DL (0.1-1.0); CALCIUM 10.4 MG/DL (8.5-10.1); CREATININE SERUM 1.32 MG/DL (0.60-1.30); POTASSIUM 4.6 MMOL/L (3.6-5.0); TOTAL PROTEIN 6.5 GM/DL (6.4-8.2)
[2019-01-10 00:23] VITALS: BP 151/73
--- OUTSIDE RECORDS SUMMARY | 2019-01-10 02:10 | XMS REPORT ---
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 Active 194551505 ALLERGIES No Information ENCOUNTERS Encounter Location Date Diagnosis [place] [address] [address] Mar, [facility] [address] [id number] [place] [address] Feb, [place] [address] [place] [id number] [place] [address] Jan, [facility] [address] [place] [id number] [place] [address] Jan, Type 2 diabetes mellitus with diabetic chronic kidney disease E11.22 [facility] [address] [id number] [place] [address] Jan, [facility] [address] [address] Jan, [facility] [address] [address] December, Insomnia, unspecified type G47.00 [facility] [address] [address] Sep, [facility] [address] [facility] [id number] [place] [address] Sep, [facility] [address] [facility] [id number] [address] Sep, [facility] [address] [facility] [id number] [address] May, Type 2 diabetes mellitus with diabetic chronic kidney disease E11.22 ; Chronic kidney disease, stage II (mild) N18.2 ; exterminator helper termite current use of insulin Z79.4 and Essential hypertension I10 IMMUNIZATIONS No Known Immunizations SOCIAL HISTORY Never Assessed REASON FOR VISIT Med Rec PLAN OF CARE VITAL SIGNS MEDICATIONS Medication Instructions Dosage Frequency Start Date End Date Duration Status Aleve 220 MG Orally every 12 hrs prn 1 tablet with food or milk as needed Active Alendronate Sodium 70 MG Orally on on empty stomach 1 tablet Active Melatonin 3 MG Orally Once a day 2 tablet at bedtime as needed with food 24h December, Active Amlodipine Besylate 2.5 MG Orally Once a day 1 tablet 24h Active Humalog 100 UNIT/ML Subcutaneous Three times daily with meals 5 units Active Simvastatin 20 MG Orally Once a day 1 tablet in the evening 24h Active Probiotic - Orally Once a day 1 capsule 24h Active Donepezil HCl 10 MG Orally Once a day 1 tablet at bedtime 24h Active Calcium Carbonate 600 MG Active Lantus 100 UNIT/ML Subcutaneous twice daily 8 units Active Aspirin 81 MG Orally Once a day 2 tablets 24h Active Coreg 6.25 MG Orally 2 times a day 1 tablet 12h Sep, Active Namenda 10 MG Orally Once a day 1 tablet 24h Active Omeprazole 40 MG Orally Once a day 1 capsule 24h Active Myrbetriq 50 MG Orally Once a day 1 tablet 24h Active Fish Oil 1000 MG Orally Once a day 2 capsules 24h Active RESULTS No Results PROCEDURES No [...]
--- OUTSIDE RECORDS SUMMARY | 2019-01-10 02:10 | XMS REPORT ---
Author Author DAVID PRESTON Organization [facility] Address [address] [place] [address] Care Team Providers Care Animal Assisted Therapist Name Role Phone DAVID PRESTON Unavailable PROBLEMS Type Condition ICD9-CM Code [id number] Code Onset Dates Condition Status SNOMED Code Problem Insomnia, unspecified type G47.00 Active 442724277 Problem Chronic kidney disease, stage II (mild) N18.2 Active 574813243 Problem Essential hypertension I10 Active 16996861 Problem Type 2 diabetes mellitus with diabetic chronic kidney disease E11.22 Active 60261199 Problem ad terminal makeup operator current use of insulin Z79.4 Active 230991492 ALLERGIES No Information ENCOUNTERS Encounter Location Date Diagnosis [place] [address] [address] Jun, [facility] [address] [place] [id number] [place] [address] Mar, [place] [address] [id number] [place] [address] Feb, [facility] [address] [place] [address] [id number] [place] [address] Jan, [place] [address] [id number] [place] [address] Jan, Type 2 diabetes mellitus with diabetic chronic kidney disease E11.22 [facility] [address] [address] Jan, [facility] [address] [address] Jan, [facility] [address] [place] [address] [id number] [place] [address] December, Insomnia, unspecified type G47.00 [facility] [address] [facility] [id number], [place] [address] Sep, [facility] [address] [id number], [place] [address] Sep, [facility] [address] [facility] [id number], [place] [address] Sep, [facility] [address] [facility] [id number], [place] [address] May, Type 2 diabetes mellitus with diabetic chronic kidney disease E11.22 ; Chronic kidney disease, stage II (mild) N18.2 ; FPC current use of insulin Z79.4 and Essential hypertension I10 IMMUNIZATIONS No Known Immunizations SOCIAL HISTORY Never Assessed REASON FOR VISIT Requests return call PLAN OF CARE VITAL SIGNS MEDICATIONS Medication Instructions Dosage Frequency Start Date End Date Duration Status Namenda 10 mg Orally Once a day 1 tablet 24h 30 days Active Donepezil HCl 10 mg Orally twice a day 1 tablet 12h 30 days Active RESULTS No Results PROCEDURES No [...]
--- OUTSIDE RECORDS SUMMARY | 2019-01-10 02:10 | XMS REPORT ---
Author Author KIARRA BOLTON [facility] Address [address] [place] [address] Care Team Providers Care Director Group Sales Name Role Phone KIARRA BOLTON Unavailable PROBLEMS Type Condition ICD9-CM Code [id number] Code Onset Dates Condition Status SNOMED Code Problem Insomnia, unspecified type G47.00 Active 568733441 Problem Chronic kidney disease, stage II (mild) N18.2 Active 476448352 Problem Essential hypertension I10 Active 79387201 Problem Type 2 diabetes mellitus with diabetic chronic kidney disease E11.22 Active 26865267 Problem FPC current use of insulin Z79.4 Active 769127710 ALLERGIES No Information ENCOUNTERS Encounter Location Date Diagnosis [place] [address] [place] [id number] [place] [address] Mar, [facility] [address] [place] [id number] [place] [address] Feb, [place] [address] [place] [id number] [place] [address] Jan, [facility] [address] [place] [id number] [place] [address] Jan, Type 2 diabetes mellitus with diabetic chronic kidney disease E11.22 [facility] [address] [place] [id number] [place] [address] Jan, [facility] [address] [address] Jan, [facility] [address] [address] December, Insomnia, unspecified type G47.00 [facility] [address] [address] Sep, [facility] [address] [facility] [id number] [place] [address] Sep, [facility] [address] [facility] [id number], [place] [address] Sep, [facility] [address] [facility] [id number], [place] [address] May, Type 2 diabetes mellitus with diabetic chronic kidney disease E11.22 ; Chronic kidney disease, stage II (mild) N18.2 ; FPC current use of insulin Z79.4 and Essential hypertension I10 IMMUNIZATIONS No Known Immunizations SOCIAL HISTORY Never Assessed REASON FOR VISIT Med List Updated PLAN OF CARE VITAL SIGNS MEDICATIONS Medication Instructions Dosage Frequency Start Date End Date Duration Status Calcium Carbonate 600 MG Active Fish Oil 1000 MG Orally Once a day 2 capsules 24h Active Alendronate Sodium 70 MG Orally on on empty stomach 1 tablet Active Humalog 100 UNIT/ML Subcutaneous Three times daily with meals 5 units Active Aspirin 81 MG Orally Once a day 2 tablets 24h Active Coreg 6.25 MG Orally 2 times a day 1 tablet 12h Sep, Active Amlodipine Besylate 2.5 MG Orally Once a day 1 tablet 24h Active Omeprazole 40 MG Orally Once a day 1 capsule 24h Active Simvastatin 20 MG Orally Once a day 1 tablet in the evening 24h Active Probiotic - Orally Once a day 1 capsule 24h Active Namenda 10 MG Orally Once a day 1 tablet 24h Active Lantus 100 UNIT/ML Subcutaneous twice daily 8 units Active Melatonin 3 MG Orally Once a day 1 tablet at bedtime as needed with food 24h December, 30 day(s) Active Myrbetriq 50 MG Orally Once a day 1 tablet 24h Active Donepezil HCl 10 MG Orally Once a day 1 tablet at bedtime 24h Active Aleve 220 MG Orally every 12 hrs prn 1 tablet with food or milk as needed Active RESULTS No Results PROCEDURES No Known [...]
--- OUTSIDE RECORDS SUMMARY | 2019-01-10 02:10 | XMS REPORT ---
Author Author DAVID PRESTON [facility] Address [address] [place] [address] Care Team Providers Care Dry Cleaner Name Role Phone DAVID PRESTON Unavailable PROBLEMS Type Condition ICD9-CM Code [id number] Code Onset Dates Condition Status SNOMED Code Problem Insomnia, unspecified type G47.00 Active 436040084 Problem Chronic kidney disease, stage II (mild) N18.2 Active 491188134 Problem Essential hypertension I10 Active 14586108 Problem Type 2 diabetes mellitus with diabetic chronic kidney disease E11.22 Active 78513784 Problem intermediate card tender current use of insulin Z79.4 Active 560627240 ALLERGIES Substance Reaction Event Type Date Status Tetracycline HCl Unknown Drug Allergy Jan, Active Penicillin G Sodium Unknown Drug Allergy Jan, Active Morphine Sulfate Unknown Drug Allergy Jan, Active Metronidazole Unknown Drug Allergy Jan, Active ENCOUNTERS Encounter Location Date Diagnosis [place] [address] [place] [id number] [place] [address] Mar, [facility] [address] [place] [id number] [place] [address] Feb, [facility] [address] [place] [id number] [place] [address] Jan, [facility] [address] [place] [id number] [place] [address] Jan, Type 2 diabetes mellitus with diabetic chronic kidney disease E11.22 [facility] [address] [address] Jan, [facility] [address] [place] [id number] [place] [address] Jan, [facility] [address] [address] December, Insomnia, unspecified type G47.00 [place] [address] [facility] [id number] [address] Sep, [place] [address] [id number], [place] [address] Sep, [place] [address] [id number], [place] [address] Sep, [place] [address], [place] [address] May, Type 2 diabetes mellitus with diabetic chronic kidney disease E11.22 ; Chronic kidney disease, stage II (mild) N18.2 ; custodial current use of insulin Z79.4 and Essential hypertension I10 IMMUNIZATIONS No Known Immunizations SOCIAL HISTORY Never Assessed REASON FOR VISIT [facility] follow up-----DBennettRN PLAN OF CARE Activity Details Follow Up prn Reason: VITAL SIGNS Height 63.5 in 2018-01-20 Weight 117 lbs 2018-01-20 Temperature 98.1 degrees Fahrenheit 2018-01-20 Heart Rate 80 bpm 2018-01-20 Respiratory Rate 20 2018-01-20 BMI 20.40 kg/m2 2018-01-20 Blood pressure systolic 100 mmHg 2018-01-20 Blood pressure diastolic 64 mmHg 2018-01-20 MEDICATIONS Medication Instructions Dosage Frequency Start Date End Date Duration Status Aleve 220 MG Orally every 12 hrs prn 1 tablet with food or milk as needed Active Omeprazole 40 MG Orally Once a day 1 capsule 24h Active Amlodipine Besylate 2.5 MG Orally Once a day 1 tablet 24h Active Namenda 10 MG Orally Once a day 1 tablet 24h Active Humalog 100 UNIT/ML Subcutaneous Three times daily with meals 5 units Active Probiotic - Orally Once a day 1 capsule 24h Active Simvastatin 20 MG Orally Once a day 1 tablet in the evening 24h Active Alendronate Sodium 70 MG Orally on on empty stomach 1 tablet Active Melatonin 3 MG Orally Once a day 1 tablet at bedtime as needed with food 24h December, 30 day(s) Active Calcium Carbonate 600 MG Active Aspirin 81 MG Orally Once a day 2 tablets 24h Active Coreg 6.25 MG Orally 2 times a day 1 tablet 12h Sep, Active Lantus 100 UNIT/ML Subcutaneous twice daily 8 units Active Fish Oil 1000 MG Orally Once a day 2 capsules 24h Active Myrbetriq 50 MG Orally Once a day 1 tablet 24h Active Donepezil HCl 10 MG Orally Once a day 1 tablet at bedtime 24h Active RESULTS No Results PROCEDURES Procedure Date Ordered Result Body Site [facility] VISIT ESTABLISHED PATIENT January 20, 2018 INSTRUCTIONS MEDICATIONS ADMINISTERED No Known Medications MEDICAL (GENERAL) HISTORY Type Description Date Medical History irritable bowel syndrome Medical History C-Diff Medical History Frequent urinary tract infections Medical History type I diabetes Surgical History galbladder removed may 2016 Surgical History biopsy right breast Surgical History hysterectomy Hospitalization History [facility] and admitsions visits due to DM
--- OUTSIDE RECORDS SUMMARY | 2019-01-10 02:10 | XMS REPORT ---
Author Author DAVID PRESTON [facility] Address [address] [place] [address] Care Team Providers Care Sand Mill Operator Core Sand Name Role Phone DAVID PRESTON Unavailable PROBLEMS Type Condition ICD9-CM Code GVN02-EX Code Onset Dates Condition Status SNOMED Code Problem Insomnia, unspecified type G47.00 Active 924675919 Problem Chronic kidney disease, stage II (mild) N18.2 Active 730229873 Problem Essential hypertension I10 Active 93845632 Problem Type 2 diabetes mellitus with diabetic chronic kidney disease E11.22 Active 37638374 Problem local company intermodal truck driver current use of insulin Z79.4 Active [id number] ALLERGIES No Information ENCOUNTERS Encounter Location Date Diagnosis [place] [id number] [place] [address] Mar, [facility] [id number] [place] [address] Feb, [place] [id number] [place] [address] Jan, [facility] [id number] [place] [address] Jan, Type 2 diabetes mellitus with diabetic chronic kidney disease E11.22 [facility] [id number] [place] [address] Jan, [facility] [address] [address] Jan, [facility] [address] [address] December, Insomnia, unspecified type G47.00 [facility] [address] [address] Sep, [facility] [address] [facility] [id number] [place] [address] Sep, [facility] [address] [facility] [id number], [place] [address] Sep, [facility] [address] [facility] [id number], [place] [address] May, Type 2 diabetes mellitus with diabetic chronic kidney disease E11.22 ; Chronic kidney disease, stage II (mild) N18.2 ; 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
--- OUTSIDE RECORDS SUMMARY | 2019-01-10 02:10 | XMS REPORT ---
Author Author DAVID PRESTON [facility] Address [address] [place] [address] Care Team Providers Care Shirt Cleaner Name Role Phone DAVID PRESTON Unavailable PROBLEMS Type Condition ICD9-CM Code ZEO94-XA Code Onset Dates Condition Status SNOMED Code Problem Insomnia, unspecified type G47.00 Active 680385539 Problem Chronic kidney disease, stage II (mild) N18.2 Active 488820635 Problem Essential hypertension I10 Active 96042576 Problem Type 2 diabetes mellitus with diabetic chronic kidney disease E11.22 Active 13997548 Problem buttermaker continuous churn current use of insulin Z79.4 Active 118986236 ALLERGIES No Information ENCOUNTERS Encounter Location Date Diagnosis [place] [id number] [place] [address] Mar, [facility] [id number] [place] [address] Feb, [place] [id number] [place] [address] Jan, [facility] [id number] [place] [address] Jan, Type 2 diabetes mellitus with diabetic chronic kidney disease E11.22 [facility] [id number] [place] [address] Jan, [facility] [address] [address] Jan, [facility] [address] [address] December, Insomnia, unspecified type G47.00 [facility] [address] [address] Sep, [facility] [address] [facility] [id number] [place] [address] Sep, [facility] [address] [facility] [id number], [place] [address] Sep, [facility] [address] [facility] [id number], [place] [address] May, Type 2 diabetes mellitus with diabetic chronic kidney disease E11.22 ; Chronic kidney disease, stage II (mild) N18.2 ; buttermaker continuous churn current use of insulin Z79.4 and Essential hypertension I10 IMMUNIZATIONS No Known Immunizations SOCIAL HISTORY Never Assessed REASON FOR VISIT ER Follow Up Phone Call PLAN OF CARE VITAL SIGNS MEDICATIONS Unknown [...]
--- OUTSIDE RECORDS SUMMARY | 2019-01-10 02:10 | XMS REPORT ---
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 Active [id number] ALLERGIES No Information ENCOUNTERS Encounter Location Date Diagnosis [place] [id number] [place] [address] Mar, [facility] [id number] [place] [address] Feb, [place] [id number] [place] [address] Jan, [facility] [id number] [place] [address] Jan, Type 2 diabetes mellitus with diabetic chronic kidney disease E11.22 [facility] [id number] [place] [address] Jan, [facility] [address] [address] Jan, [facility] [address] [address] December, Insomnia, unspecified type G47.00 [facility] [address] [address] Sep, [facility] [address] [facility] [id number] [place] [address] Sep, [facility] [address] [facility] [id number] [address] Sep, [facility] [address] [facility] [id number] [address] May, Type 2 diabetes mellitus with diabetic chronic kidney disease E11.22 ; Chronic kidney disease, 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
--- OUTSIDE RECORDS SUMMARY | 2019-01-10 02:11 | XMS REPORT ---
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 Active 405998261 ALLERGIES No Information ENCOUNTERS Encounter Location Date Diagnosis [place] [id number] [place] [address] Feb, [facility] [id number] [place] [address] Jan, [place] [id number] [place] [address] Jan, Type 2 diabetes mellitus with diabetic chronic kidney disease E11.22 [facility] [id number] [place] [address] Jan, [facility] [id number] [place] [address] Jan, [facility] [address] [address] December, Insomnia, unspecified type G47.00 [facility] [id number] [place] [address] Sep, [facility] [address] [address] Sep, [facility] [address] [facility] [id number] [place] [address] Sep, [facility] [address] [facility] [id number] [place] [address] May, Type 2 diabetes mellitus with diabetic chronic kidney disease E11.22 ; Chronic kidney disease, 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
== END 2019-01-10 00:23 | disposition home or self-care (01) ==
LOC: EDUNIT# 22:18 → ER 22:19
DX: E10.9 Type 1 diabetes mellitus without complications (principal); I25.10 Atherosclerotic heart disease of native coronary artery without angina pectoris; E78.00 Pure hypercholesterolemia, unspecified; I10 Essential (primary) hypertension; F03.90 Unspecified dementia, unspecified severity, without behavioral disturbance, psychotic disturbance, mood disturbance, and anxiety; K21.9 Gastro-esophageal reflux disease without esophagitis; M81.0 Age-related osteoporosis without current pathological fracture; Z82.49 Family history of ischemic heart disease and other diseases of the circulatory system; Z87.440 Personal history of urinary (tract) infections; Z87.09 Personal history of other diseases of the respiratory system; Z87.448 Personal history of other diseases of urinary system; Z88.0 Allergy status to penicillin; Z90.49 Acquired absence of other specified parts of digestive tract; Z87.19 Personal history of other diseases of the digestive system; Z88.1 Allergy status to other antibiotic agents; Z88.5 Allergy status to narcotic agent; Z88.8 Allergy status to other drugs, medicaments and biological substances; Z88.7 Allergy status to serum and vaccine; Z79.82 Long term (current) use of aspirin; Z79.4 Long term (current) use of insulin; Z90.710 Acquired absence of both cervix and uterus
CPT/HCPCS: 36415; 80053; 81000; 82150; 82962; 83690; 85025; 93041; 96361; 96374

== ENCOUNTER 2019-05-04 08:28 | Inpatient (IN) | payer MEDICARE, OTHER ==
[~2019-05-04] VITALS: Ht 157.4 cm; Wt 50.9 kg
[2019-05-04] MEDS ORDERED: NS IV 1000 ML 1,000 ML IV SCH (08:45)
--- NOTE | 2019-05-04 09:02 | ED Abdominal Pain ---
General Stated Complaint: POSS UTI Source of Information: Patient, Family, Senior Care Records Exam Limitations: No Limitations History of Present Illness Date Seen by Provider: May 04, 2019 Time Seen by Provider: 08:58 Initial Comments This 83-year-old white female presents with symptoms similar to her previous urinary tract infections. Specifically the patient has had some dizziness and unsteady gait which typically accompanies her urinary tract infections. The patient was started on Bactrim orally yesterday without improvement. The patient has had no associated significant headache or stiff neck, merlyn tophobia, shortness of breath or cough, palpitations or chest pain, nausea vomiting or diarrhea, flank pain, lateralizing or localizing neurologic complaints, rash, change in vision. Allergies and Home Medications Allergies Coded Allergies: Penicillins (Verified Allergy, Unknown, 07/28/15) Tetracyclines (Verified Allergy, Unknown, 07/28/15) metronidazole (Verified Allergy, Unknown, 07/28/15) morphine (Verified Allergy, Unknown, 07/28/15) tetanus immune globulin (Unverified Allergy, Unknown, 02/26/15) Home Medications Acetaminophen 650 Mg Tablet.er, 650 MG PO Q6H PRN for PAIN-MILD OR TEMPATURE, (Reported) Alendronate Sodium 70 Mg Tablet, 70 MG PO Th, (Reported) Amlodipine Besylate 2.5 Mg Tablet, 2.5 MG PO DAILY, (Reported) Aspirin 81 Mg Tablet.dr, 162 MG PO DAILY, (Reported) TAKES 2 (81MG) TABLETS Calcium Carbonate 600 Mg Tablet, 600 MG PO DAILY, (Reported) Carvedilol 6.25 Mg Tablet, 6.25 MG PO BID, (Reported) Donepezil HCl 10 Mg Tablet, 10 MG PO DAILY, (Reported) Insulin Glargine,Hum.rec.anlog 100 Unit/1 Ml Insuln.pen, 8 UNITS SC BID, (Reported) Insulin Lispro 100 Unit/1 Ml Insuln.pen, 5 UNITS SC TIDWM, (Reported) Insulin Lispro 100 Unit/1 Ml Insuln.pen, SQ AC, (Reported) 150-200 = 1 UNIT 201-250 = 2 UNITS 251-300 = 3 UNITS 301-350 = 4 UNITS 351- 400 = 5 UNITS L.acidoph & Paracasei,B.lactis 1 Each Capsule, 1 CAP PO DAILY, (Reported) Loperamide HCl 2 Mg Capsule, 4 MG PO BID PRN for LOOSE STOOLS, (Reported) Melatonin 3 Mg Tablet, 3 MG PO HS, (Reported) Memantine HCl 10 Mg Tablet, 10 MG PO BID, (Reported) Mirabegron 50 Mg Tab.er.24h, 50 MG PO DAILY, (Reported) Naproxen Sodium 220 Mg Tablet, 220 MG PO BID PRN for PAIN-MILD, (Reported) IF NO RELIEF FROM TYLENOL [place] 3 Polyunsat Fatty Acids 1,000 Mg Cap, 2,000 MG PO DAILY, (Reported) TAKES 2 (1000MG) CAPSULES Omeprazole 40 Mg Capsule.dr, 40 MG PO DAILY, (Reported) Promethazine HCl/Codeine 118 Ml Syrup, 5-10 ML PO UD PRN for COUGH, (Reported) Simvastatin 20 Mg Tablet, 20 MG PO DAILY, (Reported) Patient Home Medication List Home Medication List Reviewed: Yes Review of Systems Review of Systems Constitutional: No chills; dizziness; No fever EENTM: No Blurred Vision Respiratory: Denies Cough, Denies Shortness of Air Cardiovascular: Denies Chest Pain, Denies Palpitations Gastrointestinal: Denies Abdomen Distended, Denies Abdominal Pain, Denies Diarrhea, Denies Nausea, Denies Vomiting Musculoskeletal: No back pain Skin: No rash Psychiatric/Neurological: See HPI, Other (unsteady gait) Endocrine: No Symptoms Reported Hematologic/Lymphatic: No Symptoms Reported Past Qiscjfs-Nqweyl-Ygkfnv Hx Past Med/Social Hx: Reviewed Nursing Past Med/Soc Hx Patient Social History 2nd Hand Smoke Exposure: No Recent Foreign Travel: No Contact w/Someone Who Travel: No Recent Hopitalizations: No Immunizations Up To Date Tetanus Booster (TDap): Unknown PED Vaccines UTD: No Date of Pneumonia Vaccine: Jul 28, 2013 Date of Influenza Vaccine: May 24, 2016 Seasonal Allergies Seasonal Allergies: No Past Medical History Surgeries: Yes Appendectomy, Gallbladder, Hysterectomy Respiratory: Yes (CYSTIC FIBROSIS) Cardiac: Yes Coronary Artery Disease, High Cholesterol, Hypertension, Valvular Heart Disease Neurological: Yes Dementia 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 Genitourinary: Yes Bladder Infection Gastrointestinal: Yes Gastroesophageal Reflux, C-Diff, Gall Bladder Disease Musculoskeletal: Yes Osteoporosis, Chronic Back Pain Endocrine: Yes (Brittle type I diabetic) Diabetes, Insulin dep HEENT: No Glaucoma Cancer: No Psychosocial: No Integumentary: No Blood Disorders: No Adverse Reaction/Blood Tranf: No Family Medical History Cardiovascular disease 19 MOTHER Dementia 19 MOTHER Glaucoma 19 FATHER Hypertension Respiratory disorder G8 BROTHER, Onset:40's - 50 Physical Exam Vital Signs Vital Signs - First Documented 05/04/19 08:35 Temp 36.1 Pulse 68 Resp 18 B/P (MAP) 116/62 (80) Pulse Ox 100 O2 Delivery Room Air Capillary Refill : Height/Weight/BMI Height: 5'2.00" Weight: 107lbs. 0oz. 48.629742jk; 20.6 BMI Method:Stated General Appearance: WD/WN, no apparent distress HEENT: normal ENT inspection Neck: non-tender, full range of motion, supple Respiratory: lungs clear, normal breath sounds Cardiovascular: regular rate, rhythm, no murmur Gastrointestinal: normal bowel sounds, non tender, soft Extremities: normal range of motion, non-tender, normal inspection Neurologic/Psychiatric: no motor/sensory deficits, alert, normal mood/affect, oriented x 3 Skin: normal color, warm/dry; No rash Focused Exam Lactate Level 05/04/19 08:45: Lactic Acid Level 2.38*H Lactic Acid Level Laboratory Tests Test 05/04/19 08:45 Lactic Acid Level 2.38 MMOL/L (0.50-2.00) *H Progress/Results/Core Measures Results/Orders Lab Results Laboratory Tests Test 05/04/19 08:45 05/04/19 09:06 Range/Units White Blood Count 5.4 4.3-11.0 10^3/uL Red Blood Count 4.21 L 4.35-5.85 10^6/uL Hemoglobin 12.0 11.5-16.0 G/DL Hematocrit 35 35-52 % Mean Corpuscular Volume 84 80-99 FL Mean Corpuscular Hemoglobin 29 25-34 PG Mean Corpuscular Hemoglobin Concent 34 32-36 G/DL Red Cell Distribution Width 12.4 10.0-14.5 % Platelet Count 171 130-400 10^3/uL Mean Platelet Volume 10.2 7.4-10.4 FL Neutrophils (%) (Auto) 72 42-75 % Lymphocytes (%) (Auto) 19 12-44 % Monocytes (%) (Auto) 8 0-12 % Eosinophils (%) (Auto) 1 0-10 % Basophils (%) (Auto) 0 0-10 % Neutrophils # (Auto) 3.9 1.8-7.8 X 10^3 Lymphocytes # (Auto) 1.0 1.0-4.0 X 10^3 Monocytes # (Auto) 0.4 0.0-1.0 X 10^3 Eosinophils # (Auto) 0.1 0.0-0.3 10^3/uL Basophils # (Auto) 0.0 0.0-0.1 10^3/uL Sodium Level 131 L 135-145 MMOL/L Potassium Level 4.0 3.6-5.0 MMOL/L Chloride Level 97 L 98-107 MMOL/L Carbon Dioxide Level 26 21-32 MMOL/L Anion Gap 8 5-14 MMOL/L Blood Urea Nitrogen 10 7-18 MG/DL Creatinine 1.03 0.60-1.30 MG/DL Estimat Glomerular Filtration Rate 51 BUN/Creatinine Ratio 10 Glucose Level 166 H 70-105 MG/DL Lactic Acid Level 2.38 *H 0.50-2.00 MMOL/L Calcium Level 10.4 H 8.5-10.1 MG/DL Corrected Calcium 10.5 H 8.5-10.1 MG/DL Total Bilirubin 0.6 0.1-1.0 MG/DL Aspartate Amino Transf (AST/SGOT) 16 5-34 U/L Alanine Aminotransferase (ALT/SGPT) 17 0-55 U/L Alkaline Phosphatase 79 40-136 U/L Total Protein 6.0 L 6.4-8.2 GM/DL Albumin 3.9 3.2-4.5 GM/DL Urine Color YELLOW Urine Clarity CLEAR Urine pH 7 5-9 Urine Specific [place] 1.010 L 1.016-1.022 Urine Protein 1+ H NEGATIVE Urine Glucose (UA) NEGATIVE NEGATIVE Urine Ketones NEGATIVE NEGATIVE Urine Nitrite NEGATIVE NEGATIVE Urine Bilirubin NEGATIVE NEGATIVE Urine Urobilinogen NORMAL NORMAL MG/DL Urine Leukocyte Esterase 3+ H NEGATIVE Urine RBC (Auto) 1+ H NEGATIVE Urine RBC 5-10 H /HPF Urine WBC >100 H /HPF Urine Squamous Epithelial Cells RARE /HPF Urine Crystals NONE /LPF Urine Bacteria LARGE H /HPF Urine Casts NONE /LPF Urine Mucus NEGATIVE /LPF Urine Culture Indicated YES My Orders Orders - RICHARD MABRY MD Cbc With Automated Diff (05/04/19 08:36) Comprehensive Metabolic Panel (05/04/19 08:36) Ua Culture If Indicated (05/04/19 08:36) Blood Culture (05/04/19 08:36) Lactic Acid Analyzer (05/04/19 08:36) Ns Iv 1000 Ml (Sodium Chloride 0.9%) (05/04/19 08:45) Ceftriaxone For Iv Use (Rocephin For I (05/04/19 09:30) Urine Culture (05/04/19 09:06) Medications Given in ED Current Medications Medications Dose Ordered Sig/Katie Route Start Time Stop Time Status Last Admin Dose Admin Ceftriaxone Sodium 2000 mg/ Sterile Water 20 ml @ 240 mls/hr ONCE ONCE IV 05/04/19 09:30 05/04/19 09:34 DC 05/04/19 09:56 240 MLS/HR Vital Signs/I&O 05/04/19 05/04/19 08:35 09:25 Temp 36.1 36.1 Pulse 68 68 Resp 18 18 B/P (MAP) 116/62 (80) 115/61 Pulse Ox 100 100 O2 Delivery Room Air Room Air Progress Progress Note : Time: 09:28 Progress Note The patient's CBC demonstrated an unremarkable white count but her lactic acid was elevated at 2.38. 2 g's of Rocephin were administered. Telephone consultation was undertaken with Dr. Owusu who is kind enough to admit the patient. The patient was neither was neither hypotensive nor tachycardic and the patient did not receive a 30 mL per kg bolus for her elevated lactic acid. The patient's lactic acid will be repeated at 4 hours. Departure Communication (Admissions) Time/Spoke to Admitting Phy: 11:02 Dr. Owusu. Impression Primary Impression: Urinary tract infection Disposition: ADMITTED INPATIENT Condition: Improved Admissions Decision to Admit Reason: Admit from ER (General) Decision to Admit/Date: May 04, 2019 Time/Decision to Admit Time: 11:02 Departure-Patient Inst. Referrals: DAVID PRESTON MD (PCP/Family) Primary Care Physician RICHARD MABRY MD May 04, 2019 09:02
[2019-05-04 09:03] LABS: BASOPHILS % (AUTO) 0 % (0-10); EOSINOPHILS # (AUTO) 0.1 10^3/uL (0.0-0.3); EOSINOPHILS % (AUTO) 1 % (0-10); HEMATOCRIT 35 % (35-52); LYMPHOCYTES % (AUTO) 19 % (12-44); MEAN CORPUSCULAR HEMOGLOBIN 29 PG (25-34); MEAN CORPUSCULAR HGB CONC 34 G/DL (32-36); MEAN CORPUSCULAR VOLUME 84 FL (80-99); MEAN PLATELET VOLUME 10.2 FL (7.4-10.4); MONOCYTES # (AUTO) 0.4 X 10^3 (0.0-1.0); MONOCYTES % (AUTO) 8 % (0-12); NEUTROPHILS # (AUTO) 3.9 X 10^3 (1.8-7.8); NEUTROPHILS % (AUTO) 72 % (42-75); PLATELET COUNT 171 10^3/uL (130-400); RED CELL DISTRIBUTION WIDTH 12.4 % (10.0-14.5); WHITE BLOOD COUNT 5.4 10^3/uL (4.3-11.0)
[2019-05-04 09:20] LABS: BILIRUBIN,URINE NEGATIVE (NEGATIVE); CLARITY,URINE CLEAR; COLOR,URINE YELLOW; GLUCOSE, URINE (UA) NEGATIVE (NEGATIVE); KETONES,URINE NEGATIVE (NEGATIVE); LEUKOCYTE ESTERASE ,URINE 3+ (NEGATIVE); NITRITE,URINE NEGATIVE (NEGATIVE); PH,URINE 7 (5-9); PROTEIN,URINE 1+ (NEGATIVE); UROBILINOGEN,URINE NORMAL (NORMAL)
[2019-05-04 09:22] LABS: ALBUMIN 3.9 GM/DL (3.2-4.5); BILIRUBIN,TOTAL 0.6 MG/DL (0.1-1.0); CALCIUM 10.4 MG/DL (8.5-10.1); CREATININE SERUM 1.03 MG/DL (0.60-1.30)
[2019-05-04] MEDS ORDERED: cefTRIAXone FOR IV USE 2,000 MG in WATER (STERILE) FOR INJECTION 20 ML IV ONE (09:30)
[2019-05-04 09:38] LABS: BACTERIA,URINE LARGE /HPF; WBC,URINE >100 /HPF
[2019-05-04 09:39] LABS: SQUAMOUS EPITHELIAL CELL,UR RARE /HPF
--- NOTE | 2019-05-04 11:45 | NUR ---
AME DRUMMOND Tracy admitted to room 416-1, with an admitting diagnosis of uti, on 05/04/19 from [place] via WHEELCHAIR, accompanied by STAFF.AME DRUMMOND introduced to surroundings, call light, bed controls, phone, TV, temperature control, lights, meal times, smoking policy, visitor policy, side rail policy, bathrooms and showers. Patient Rights given to patient in the handbook. AME DRUMMOND verbalizes understanding that [facility] is not responsible for the loss or damage to any personal effects or valuables that are kept in the patients posession during their hospitalization. The following Patient Care Plans were discussed with the PT: Discharge Planning. AME DRUMMOND verbalizes understanding of Interdisciplinary Patient Education. Patient and/or family were informed about the Rapid Response Team and its purpose.
[2019-05-04 11:50] VITALS: BP 134/69
[2019-05-04] MEDS ORDERED: ACETAMINOPHEN 325 MG TABLET PO PRN (12:00)
[2019-05-04] MEDS ORDERED: SULF1TAB35 PO (13:20)
[2019-05-04] MEDS ORDERED: ERGO50006 PO (13:20)
[2019-05-04] MEDS ORDERED: PROM5SYR PO (13:20)
[2019-05-04] MEDS ORDERED: NEOM28.44 TP (13:20)
[2019-05-04] MEDS ORDERED: INSU100I23 SQ (13:20)
[2019-05-04] MEDS ORDERED: CARB15DR23 EACH EAR (13:20)
--- NOTE | 2019-05-04 13:23 | NUR ---
UPDATED MED REC WITH MAR FROM [facility].
[2019-05-04] MEDS: ENOXAPARIN 40 MG/0.4 ML (LOVENOX) SYR SC SCH (13:37)
[2019-05-04] MEDS: NS IV 1000 ML 1,000 ML IV SCH (13:37)
[2019-05-04 16:00] VITALS: BP 133/69
[2019-05-04 20:07] VITALS: BP 152/57
[2019-05-04] MEDS ORDERED: MELATONIN 3 MG TABLET PO PRN (21:45)
[2019-05-04] MEDS ORDERED: DOCUSATE SODIUM 100 MG (COLACE) CAP PO PRN (21:45)
[2019-05-04] MEDS ORDERED: ONDANSETRON 4 MG/2 ML (SDV) Z0FRAN IVP PRN (21:45)
[2019-05-04] MEDS ORDERED: LOPERAMIDE 2 MG (IMODIUM) TABLET PO PRN (21:45)
[2019-05-04] MEDS ORDERED: diphenhydrAMINE 25 MG TAB (BENADRYL) PO PRN (21:45)
[2019-05-04] MEDS ORDERED: ONDANSETRON 4 MG (ZOFRAN) ORAL DISSOLVE TAB PO PRN (21:45)
[2019-05-04] MEDS: inSUlin ASPART (NovoLOG) 1 UNIT/0.01 ML (CHARGE PER UNIT) SC SCH (21:46)
[2019-05-05] VITALS: BP 158/52
[2019-05-05] MEDS: NS IV 1000 ML 1,000 ML IV SCH ×2 (00:33→11:55)
[2019-05-05 04:00] VITALS: BP 154/54
[2019-05-05] MEDS: inSUlin ASPART (NovoLOG) 1 UNIT/0.01 ML (CHARGE PER UNIT) SC SCH ×4 (05:42→20:49)
[2019-05-05 05:56] LABS: BASOPHILS % (AUTO) 0 % (0-10); EOSINOPHILS % (AUTO) 1 % (0-10); HEMATOCRIT 30 % (35-52); HEMOGLOBIN 10.1 G/DL (11.5-16.0); LYMPHOCYTES # (AUTO) 1.1 X 10^3 (1.0-4.0); LYMPHOCYTES % (AUTO) 25 % (12-44); MEAN CORPUSCULAR HEMOGLOBIN 29 PG (25-34); MEAN CORPUSCULAR HGB CONC 34 G/DL (32-36); MEAN CORPUSCULAR VOLUME 84 FL (80-99); MEAN PLATELET VOLUME 10.4 FL (7.4-10.4); MONOCYTES # (AUTO) 0.4 X 10^3 (0.0-1.0); MONOCYTES % (AUTO) 9 % (0-12); NEUTROPHILS # (AUTO) 2.8 X 10^3 (1.8-7.8); NEUTROPHILS % (AUTO) 64 % (42-75); PLATELET COUNT 142 10^3/uL (130-400); RED CELL DISTRIBUTION WIDTH 12.9 % (10.0-14.5); WHITE BLOOD COUNT 4.3 10^3/uL (4.3-11.0)
[2019-05-05 06:22] LABS: ALANINE AMINOTRANSFERASE 13 U/L (0-55); ALBUMIN 3.2 GM/DL (3.2-4.5); ALKALINE PHOSPHATASE 78 U/L (40-136); BILIRUBIN,TOTAL 0.4 MG/DL (0.1-1.0); BUN/CREATININE RATIO 12; CALCIUM 9.1 MG/DL (8.5-10.1); CARBON DIOXIDE 24 MMOL/L (21-32); CHLORIDE 106 MMOL/L (98-107); CREATININE SERUM 0.74 MG/DL (0.60-1.30); GFR ESTIMATED > 60; GLUCOSE 151 MG/DL (70-105); POTASSIUM 4.2 MMOL/L (3.6-5.0); SODIUM 135 MMOL/L (135-145)
[2019-05-05 08:15] VITALS: BP 179/77
[2019-05-05] MEDS: cefTRIAXone 1,000 MG/SWFI 10 ML IV PUSH IV SCH ×2 (08:52)
[2019-05-05] MEDS: SENNA W/DOCUSATE (SENOKOT S) TABLET PO SCH ×2 (08:52→20:47)
[2019-05-05] MEDS: ENOXAPARIN 40 MG/0.4 ML (LOVENOX) SYR SC SCH (11:55)
[2019-05-05 11:59] VITALS: BP 162/62
--- NOTE | 2019-05-05 13:09 | History & Physical-Hospitalist ---
History of Present Illness HPI/Chief Complaint CC: UTI failed Bactrim HPI: This is an 83yoWF clinic pt of Dr. Buckner who presented to the ER with altered mental status found to have UTI and failed Bactrim as an outpatient. Currently she is being placed in the hospital for supportive care and IV antibiotics and evaluation for definitive treatment. Patient feels much better today and will HLIVF and ambulate around the room. Source: patient, RN/MD, old records Exam Limitations: no limitations Date Seen 05/05/19 Time Seen by a Provider: 12:00 Attending Physician Radha Owusu DO PCP William Buckner MD Referring Physician Date of Admission May 04, 2019 at 11:13 Home Medications & Allergies Home Medications Reviewed patient Home Medication Reconciliation performed by pharmacy medication reconciliations marine electronics technician and/or nursing. Patients Allergies have been reviewed. Allergies Allergies Coded Allergies Penicillins (Verified Allergy, Unknown, 07/28/15) Tetracyclines (Verified Allergy, Unknown, 07/28/15) metronidazole (Verified Allergy, Unknown, 07/28/15) morphine (Verified Allergy, Unknown, 07/28/15) tetanus immune globulin (Unverified Allergy, Unknown, 02/26/15) Past Ehsvyou-Bldxad-Yqsgpx Hx Past Med/Social Hx: Reviewed Nursing Past Med/Soc Hx, Reviewed and Corrections made Patient Social History Marrital Status: Employed/Student: retired Alcohol Use: Denies Use Recreational Drug Use: No Smoking Status: Never a Smoker 2nd Hand Smoke Exposure: No Recent Foreign Travel: No Contact w/other who traveled: No Recent Hopitalizations: No Recent Infectious Disease Expo: No Immunizations Up To Date Tetanus Booster (TDap): Unknown Pediatric: No Date of Pneumonia Vaccine: Jul 28, 2013 Date of Influenza Vaccine: May 24, 2016 Seasonal Allergies Seasonal Allergies: No Past Medical History Surgeries: Appendectomy, Gallbladder, Hysterectomy Cardiac: Coronary Artery Disease, High Cholesterol, Hypertension, Valvular Heart Disease Neurological: Dementia Reproductive: No Menopausal Genitourinary: Bladder Infection Gastrointestinal: Gastroesophageal Reflux, C-Diff, Gall Bladder Disease Musculoskeletal: Osteoporosis, Chronic Back Pain Endocrine: Diabetes, Insulin dep HEENT: Glaucoma History of Blood Disorders: No Adverse Reaction to Blood French: No Family History Cardiovascular disease 19 MOTHER Dementia 19 MOTHER Glaucoma 19 FATHER Hypertension Respiratory disorder G8 BROTHER, Onset:40's - 50 Review of Systems Constitutional: see HPI, malaise, weakness EENTM: no symptoms reported Respiratory: no symptoms reported Cardiovascular: no symptoms reported Gastrointestinal: no symptoms reported Genitourinary: decreased output, dysuria, frequency, hematuria Musculoskeletal: no symptoms reported Skin: no symptoms reported Psychiatric/Neurological: No Symptoms Reported Physical Exam Physical Exam Vital Signs Vital Signs - First Documented 05/04/19 08:35 Temp 36.1 Pulse 68 Resp 18 B/P (MAP) 116/62 (80) Pulse Ox 100 O2 Delivery Room Air Capillary Refill : Less Than 3 Seconds Height, Weight, BMI Height: 5'2.00" Weight: 107lbs. 0oz. 48.193025tp; 20.54 BMI Method:Stated General Appearance: No Apparent Distress, WD/WN, Chronically ill, Thin Eyes: Right Eye Normal Inspection, Right Eye PERRL HEENT: PERRL/EOMI, Normal ENT Inspection, Pharynx Normal, Moist Mucous Membranes Neck: Full Range of Motion, Normal Inspection, Non Tender Respiratory: Chest Non Tender, Lungs Clear, Normal Breath Sounds, No Accessory Muscle Use, No Respiratory Distress Cardiovascular: Regular Rate, Rhythm, No Edema, No Gallop, No JVD, No Murmur, Normal Peripheral Pulses Gastrointestinal: Normal Bowel Sounds, No Organomegaly, No Pulsatile Mass, Non Tender, Soft Back: Normal Inspection, No CVA Tenderness, No Vertebral Tenderness Extremity: Normal Capillary Refill, Normal Inspection, Normal Range of Motion, Non Tender, No Calf Tenderness, No Pedal Edema Neurologic/Psychiatric: Alert, Oriented x3, No Motor/Sensory Deficits, Normal Mood/Affect Skin: Normal Color, Warm/Dry Lymphatic: No Adenopathy Results Results/Procedures Labs Laboratory Tests 05/04/19 08:45 05/05/19 05:24 Patient resulted labs reviewed. Assessment/Plan Admission Diagnosis Assessment: UTI with altered mental status failed oral antibiotic regimen Diabetes mellitus brittle Osteoporosis Frail status Plan: Hep-locked IV fluid IV antibiotics Home meds Insulin regimen Admission Status: Inpatient Order (span 2 midnights) Reason for Inpatient Admission: Failed PO abx Diagnosis/Problems Diagnosis/Problems (1) Urinary tract infection Status: Acute Qualifiers: Urinary tract infection type: acute cystitis (2) Insulin dependent diabetes mellitus Status: Acute (3) Altered mental status Status: Acute (4) Dehydration Status: Acute (5) HTN (hypertension) Status: Chronic (6) Advanced age Status: Chronic Clinical Quality Measures DVT/VTE Risk/Contraindication: Risk Factor Score Per Nursin RFS Level Per Nursing on Admit: 2=Moderate RADHA OWUSU DO May 05, 2019 13:08
[2019-05-05] MEDS ORDERED: LOPERAMIDE 2 MG (IMODIUM) TABLET PO PRN (13:45)
[2019-05-05] MEDS ORDERED: ACETAMINOPHEN 325 MG TABLET PO PRN (13:45)
[2019-05-05] MEDS ORDERED: PROMETHAZINE/ CODEINE SYRUP 5 ML UDC PO PRN (14:30)
[2019-05-05 16:07] VITALS: BP 153/77
[2019-05-05] MEDS ORDERED: inSUlin ASPART (NovoLOG) 1 UNIT/0.01 ML (CHARGE PER UNIT) SC SCH (16:45)
[2019-05-05 20:00] VITALS: BP 161/67
[2019-05-05] MEDS: DONEPEZIL 10 MG (ARICEPT) TAB PO SCH (20:47)
[2019-05-05] MEDS: CARVEDILOL 6.25 MG (COREG) TAB PO SCH (20:47)
[2019-05-05] MEDS: MELATONIN 3 MG TABLET PO SCH (20:48)
[2019-05-05] MEDS: CARBAM PEROX/GLYC/PROP 15 ML DROPS (DEBROX) OT SCH (20:49)
[2019-05-05] MEDS: SIMvastatin 20 MG (ZOCOR) TAB PO SCH (20:57)
[2019-05-06 00:01] VITALS: BP 155/59
[2019-05-06] MEDS ORDERED: DEXTROSE 50% 50 ML (IMS) SYR ONE (00:11)
--- NOTE | 2019-05-06 03:06 | NUR ---
0008-PT DIAPHORETIC & DIFFICULT TO AROUSE BS 32 [id number] ML GIVEN PT AWAKEN STATES "WHAT'S WRONG? YOU KNOW I'M NOT A SWEATER." THIS RN INFORMED PT ABOUT HER BS BEING LOW PT AT 2 PACKAGES OF PEANUT BUTTER & 1 PACK OF NEHEMIAH CRACKERS. 0016- BS [id number] PT REQUESTED A SANDWICH TO EAT ALSO WHICH WAS PROVIDED. 0028-DR. CHERY NOTIFIED OF THE CRITICAL BS. NO NEW ORDERS
[2019-05-06 05:30] LABS: BASOPHILS % (AUTO) 0 % (0-10); EOSINOPHILS % (AUTO) 0 % (0-10); HEMATOCRIT 34 % (35-52); HEMOGLOBIN 11.4 G/DL (11.5-16.0); LYMPHOCYTES # (AUTO) 0.7 X 10^3 (1.0-4.0); LYMPHOCYTES % (AUTO) 15 % (12-44); MEAN CORPUSCULAR HEMOGLOBIN 29 PG (25-34); MEAN CORPUSCULAR HGB CONC 34 G/DL (32-36); MEAN CORPUSCULAR VOLUME 85 FL (80-99); MEAN PLATELET VOLUME 10.7 FL (7.4-10.4); MONOCYTES # (AUTO) 0.3 X 10^3 (0.0-1.0); MONOCYTES % (AUTO) 7 % (0-12); NEUTROPHILS # (AUTO) 3.9 X 10^3 (1.8-7.8); NEUTROPHILS % (AUTO) 78 % (42-75); PLATELET COUNT 154 10^3/uL (130-400); RED CELL DISTRIBUTION WIDTH 12.6 % (10.0-14.5); WHITE BLOOD COUNT 4.9 10^3/uL (4.3-11.0)
[2019-05-06] MEDS: inSUlin ASPART (NovoLOG) 1 UNIT/0.01 ML (CHARGE PER UNIT) SC SCH ×3 (05:56→17:13)
[2019-05-06 06:09] LABS: ALANINE AMINOTRANSFERASE 20 U/L (0-55); ALBUMIN 3.5 GM/DL (3.2-4.5); ALKALINE PHOSPHATASE 91 U/L (40-136); BILIRUBIN,TOTAL 0.4 MG/DL (0.1-1.0); BUN/CREATININE RATIO 13; CALCIUM 9.5 MG/DL (8.5-10.1); CARBON DIOXIDE 23 MMOL/L (21-32); CHLORIDE 103 MMOL/L (98-107); CREATININE SERUM 0.82 MG/DL (0.60-1.30); GFR ESTIMATED > 60; GLUCOSE 336 MG/DL (70-105); POTASSIUM 4.7 MMOL/L (3.6-5.0); SODIUM 132 MMOL/L (135-145); TOTAL PROTEIN 5.5 GM/DL (6.4-8.2)
[2019-05-06] MEDS ORDERED: inSUlin ASPART (NovoLOG) 1 UNIT/0.01 ML (CHARGE PER UNIT) SC SCH (07:30)
[2019-05-06 07:58] VITALS: BP 149/78
[2019-05-06] MEDS: LACTOBACILLUS ACIDOPHILUS (PROBIOTIC) CAPSULE PO SCH (08:38)
[2019-05-06] MEDS: OMEGA 3 (FISH OIL) 1000 MG CAP PO SCH (08:38)
[2019-05-06] MEDS: DONEPEZIL 10 MG (ARICEPT) TAB PO SCH ×2 (08:39→20:46)
[2019-05-06] MEDS: ASPIRIN E.C. 81 MG (ECOTRIN) TAB PO SCH (08:39)
[2019-05-06] MEDS: CARVEDILOL 6.25 MG (COREG) TAB PO SCH ×2 (08:39→20:04)
[2019-05-06] MEDS: PANTOPRAZOLE 40 MG (PROTONIX) TAB PO SCH (08:39)
[2019-05-06] MEDS: SENNA W/DOCUSATE (SENOKOT S) TABLET PO SCH ×2 (08:39→20:04)
[2019-05-06] MEDS: MEMANTINE 10 MG (NAMENDA) TABLET PO SCH (08:39)
[2019-05-06] MEDS: CALCIUM CARBONATE 600 MG (CALCARB) TAB PO SCH (08:40)
[2019-05-06] MEDS ORDERED: NON-FORMULARY MEDICATION 1 EA EA (Mirabegron (Myrbetriq) 50 MG) PO SCH (09:00)
--- NOTE | 2019-05-06 09:32 | Progress Note - Hospitalist ---
Subjective HPI/CC On Admission Date Seen by Provider: May 06, 2019 Time Seen by Provider: 08:30 CC: UTI failed Bactrim HPI: This is an 83yoWF clinic pt of Dr. Buckner who presented to the ER with altered mental status found to have UTI and failed Bactrim as an outpatient. Currently she is being placed in the hospital for supportive care and IV antibiotics and evaluation for definitive treatment. Patient feels much better today and will HLIVF and ambulate around the room. Subjective/Events-last exam Patient doing better at bedside [place] [facility] [place] Low blood sugar of 27 this morning so adjusted insulin down Usually sees Dr. Gibbons endocrinology at [facility] No pain is reported Hep-locked IV fluid yesterday Check meds and labs Conferred with RN Urine culture pending Review of Systems General: Fatigue Focused Exam Lactate Level 05/04/19 08:45: Lactic Acid Level 2.38*H 05/04/19 12:02: Lactic Acid Level 0.83 Objective Exam Vital Signs Vital Signs Date Time Temp Pulse Resp B/P (MAP) Pulse Ox O2 Delivery O2 Flow Rate FiO2 05/06/19 08:00 Room Air 05/06/19 07:58 36.5 66 16 149/78 (101) 100 Capillary Refill : Less Than 3 Seconds General Appearance: No Apparent Distress, WD/WN, Chronically ill, Thin Respiratory: Chest Non Tender, Lungs Clear, Normal Breath Sounds, No Accessory Muscle Use, No Respiratory Distress Cardiovascular: Regular Rate, Rhythm, No Edema, No Gallop, No JVD, No Murmur, Normal Peripheral Pulses Neurologic/Psychiatric: Alert, Oriented x3, No Motor/Sensory Deficits, Normal Mood/Affect Results/Procedures Lab Laboratory Tests 05/06/19 05:00 Patient resulted labs reviewed. Assessment/Plan Assessment and Plan Assess & Plan/Chief Complaint Assessment: UTI with altered mental status failed oral antibiotic regimen Diabetes mellitus brittle Osteoporosis Frail status Hypoglycemic episode this morning Plan: Hep-locked IV fluid IV antibiotics Home meds Insulin regimen but decrease due to hypoglycemia Diagnosis/Problems Diagnosis/Problems (1) Urinary tract infection Status: Acute Qualifiers: Urinary tract infection type: acute cystitis (2) Insulin dependent diabetes mellitus Status: Acute (3) Altered mental status Status: Acute (4) Dehydration Status: Acute (5) HTN (hypertension) Status: Chronic (6) Advanced age Status: Chronic Clinical Quality Measures DVT/VTE Risk/Contraindication: Risk Factor Score Per Nursin RFS Level Per Nursing on Admit: 2=Moderate KASANDRA CHERY DO May 06, 2019 09:32
[2019-05-06] MEDS: cefTRIAXone 1,000 MG/SWFI 10 ML IV PUSH IV SCH ×2 (10:57)
[2019-05-06] MEDS: ENOXAPARIN 40 MG/0.4 ML (LOVENOX) SYR SC SCH (13:11)
[2019-05-06 16:00] VITALS: BP_SYST 147; BP_SYST 187; BP_DIAS 64; BP_DIAS 78
[2019-05-06] MEDS: SIMvastatin 20 MG (ZOCOR) TAB PO SCH (20:05)
[2019-05-06] MEDS: MELATONIN 3 MG TABLET PO SCH (20:05)
[2019-05-06 20:07] VITALS: BP 192/79
[2019-05-06] MEDS: CARBAM PEROX/GLYC/PROP 15 ML DROPS (DEBROX) OT SCH (20:47)
[2019-05-07] VITALS: BP 155/70
[2019-05-07 06:05] LABS: BASOPHILS % (AUTO) 0 % (0-10); EOSINOPHILS # (AUTO) 0.1 10^3/uL (0.0-0.3); EOSINOPHILS % (AUTO) 2 % (0-10); HEMATOCRIT 31 % (35-52); HEMOGLOBIN 10.5 G/DL (11.5-16.0); LYMPHOCYTES # (AUTO) 1.3 X 10^3 (1.0-4.0); LYMPHOCYTES % (AUTO) 23 % (12-44); MEAN CORPUSCULAR HEMOGLOBIN 29 PG (25-34); MEAN CORPUSCULAR HGB CONC 34 G/DL (32-36); MEAN CORPUSCULAR VOLUME 85 FL (80-99); MEAN PLATELET VOLUME 10.5 FL (7.4-10.4); MONOCYTES # (AUTO) 0.4 X 10^3 (0.0-1.0); MONOCYTES % (AUTO) 8 % (0-12); NEUTROPHILS # (AUTO) 3.9 X 10^3 (1.8-7.8); NEUTROPHILS % (AUTO) 67 % (42-75); PLATELET COUNT 151 10^3/uL (130-400); RED CELL DISTRIBUTION WIDTH 12.9 % (10.0-14.5); WHITE BLOOD COUNT 5.7 10^3/uL (4.3-11.0)
[2019-05-07] MEDS: inSUlin ASPART (NovoLOG) 1 UNIT/0.01 ML (CHARGE PER UNIT) SC SCH ×3 (06:14→16:48)
[2019-05-07 06:25] LABS: ALANINE AMINOTRANSFERASE 21 U/L (0-55); ALBUMIN 3.2 GM/DL (3.2-4.5); ALKALINE PHOSPHATASE 63 U/L (40-136); BILIRUBIN,TOTAL 0.3 MG/DL (0.1-1.0); BUN/CREATININE RATIO 17; CALCIUM 9.5 MG/DL (8.5-10.1); CARBON DIOXIDE 26 MMOL/L (21-32); CHLORIDE 102 MMOL/L (98-107); CREATININE SERUM 0.72 MG/DL (0.60-1.30); GFR ESTIMATED > 60; GLUCOSE 187 MG/DL (70-105); POTASSIUM 3.8 MMOL/L (3.6-5.0); SODIUM 135 MMOL/L (135-145); TOTAL PROTEIN 5.6 GM/DL (6.4-8.2)
[2019-05-07 08:00] VITALS: BP 138/60
[2019-05-07] MEDS: MEMANTINE 10 MG (NAMENDA) TABLET PO SCH (09:38)
[2019-05-07] MEDS: CARVEDILOL 6.25 MG (COREG) TAB PO SCH ×2 (09:38→23:02)
[2019-05-07] MEDS: ASPIRIN E.C. 81 MG (ECOTRIN) TAB PO SCH (09:38)
[2019-05-07] MEDS: LACTOBACILLUS ACIDOPHILUS (PROBIOTIC) CAPSULE PO SCH (09:38)
[2019-05-07] MEDS: PANTOPRAZOLE 40 MG (PROTONIX) TAB PO SCH (09:38)
[2019-05-07] MEDS: SENNA W/DOCUSATE (SENOKOT S) TABLET PO SCH ×2 (09:38→23:02)
[2019-05-07] MEDS: DONEPEZIL 10 MG (ARICEPT) TAB PO SCH ×2 (09:38→23:02)
[2019-05-07] MEDS: CALCIUM CARBONATE 500 MG (TUMS) TAB.CHEW PO PRN ×2 (09:38→09:39)
[2019-05-07] MEDS: OMEGA 3 (FISH OIL) 1000 MG CAP PO SCH (09:39)
[2019-05-07] MEDS: cefTRIAXone 1,000 MG/SWFI 10 ML IV PUSH IV SCH ×2 (09:39)
[2019-05-07] MEDS: CALCIUM CARBONATE 600 MG (CALCARB) TAB PO SCH (09:45)
[2019-05-07] MEDS: ENOXAPARIN 40 MG/0.4 ML (LOVENOX) SYR SC SCH (13:13)
--- NOTE | 2019-05-07 14:23 | Physical Therapy Evaluation ---
PT Evaluation-General Medical Diagnosis Admission Date May 04, 2019 at 11:13 Medical Diagnosis: UTI Onset Date: May 04, 2019 Therapy Diagnosis Therapy Diagnosis: debility Height/Weight Height (Feet): 5 Height (Inches): 2.00 Weight (Pounds): 107 Weight (Ounces): 0 Precautions Precautions/Isolations: Fall Prevention, Standard Precautions Weight Bear Status Right Lower Extremity: Right Weight Bearing/Tolerated Left Lower Extremity: Left Weight Bearing/Tolerated Referral Physician: Jose Reason for Referral: Evaluation/Treatment Medical History Pertinent Medical History: CAD, DM, Dementia, GERD, HTN Current History ER with dizziness and unsteady gait Reviewed History: Yes Social History Home: Assisted Living Current Living Status: Spouse Prior/Core FIM Prior Level of Function Therapy Code Descriptions/Definitions Functional [place] Measure: 0=Not Assessed/NA 4=Minimal Assistance 1=Total Assistance 5=Supervision or Setup 2=Maximal Assistance 6=Modified [place] 3=Moderate Assistance 7=Complete [place] Therapy Quality Codes: 6 Independent with activity with or without an assistive device 5 Patient requires set up or clean up by helper. Patient completes activity by themselves 4 Supervision or touching assist (CGA). [place] provide cues , steadying assist 3 The helper provides less than half the effort to complete the activity 2 The helper provides more than half the effort to complete the activity 1 Dependent. The helper does all the effort to complete an activity 7 Patient refused to complete or attempt activity 9 The patient did not perform the activity before the current illness or injury 88 Not attempted due to Medical conditions or safety concerns Functional Abilities and Goals: Independent: Patient completed the activities by him/herself, with or without an assistive device, with no assistance from a helper. Needed Some Help: Patient needed partial assistance from another person to complete activities. Dependent: A helper completed the activities for the patient. Unknown: Not Applicable: Bed Mobility: 6 Transfers (B,C,W/C) (FIM): 6 Gait: 6 Indoor Mobility (Ambulation): Needed Some Help Prior Devices Use: Walker PT Evaluation-Current Subjective Patient is in bed and agrees to PT. No c/o. Pain Numeric Pain Scale: 0-No Pain Location: No Pain Reported Objective Patient Orientation: Confused Problem Solving: Fair ROM/Strength ROM Lower Extremities bilateral LE WFL Strength Lower Extremities 4/5 grossly bilateral LE Integumentary/Posture Integumentary refer to nursing notes Bowel Incontinence: No Bladder Incontinence: Yes Posture WFL Neuromuscular (Tone, Coordination, Reflexes) grossly intact Sensory Vision: Wears Glasses Hearing: Functional Sensation Right Lower Extremit: Impaired Sensation Left Lower Extremity: Impaired Transfers Therapy Code Descriptions/Definitions Functional [place] Measure: 0=Not Assessed/NA 4=Minimal Assistance 1=Total Assistance 5=Supervision or Setup 2=Maximal Assistance 6=Modified [place] 3=Moderate Assistance 7=Complete [place] Transfers (B, C, W/C) (FIM): 6 Scootin Rollin Supine to/from Sit: 6 Sit to/from Stand: 6 Gait Mode of Locomotion: Walk Anticipated Mode of Locomotion: Walk Gait (FIM): 6 Distance (FIM): 3=150 ft Distance: 275' Gait Level of Assist: 6 Gait Assistive Device: FWW Comments/Gait Description safe and functional with no deviation Balance Sitting Static: Normal Sitting Dynamic: Normal Standing Static: Normal Standing Dynamic: Normal Assessment/Needs 83 y.o. female, will be seen x 2 sessions to ensure safe return to [place] at maximum LOF with spouse. Rehab Potential: Fair PT Short Term Goals Short Term Goals Time Frame: May 08, 2019 Transfers (B,C,W/C) (FIM): 6 Gait (FIM): 6 Distance (FIM): 3=150 ft Gait Level of Assist: 6 Gait Assistive Device: FWW PT Plan Problem List Problem List: Activity Tolerance Treatment/Plan Treatment Plan: Continue Plan of Care Treatment Plan: Bed Mobility, Education, Functional Activity Carlos, Functional Strength, Gait, Safety, Therapeutic Exercise, Transfers Treatment Duration: May 08, 2019 Frequency: 2 times per week Estimated Hrs Per Day: .25 hour per day Patient and/or Family Agrees t: Yes Time/GCodes Time In: 1400 Time Out: 1410 Total Billed Treatment Time: 10 Total Billed Treatment 1 visit EVLowC 10 min ALIE MARTINES PT May 07, 2019 14:23
--- NOTE | 2019-05-07 15:00 | NUR ---
Pastoral care visit.
[2019-05-07 16:00] VITALS: BP 158/77
--- NOTE | 2019-05-07 17:07 | Progress Note ---
Subjective Subjective/Events-last exam Afebrile, is feeling very tired and weak but otherwise better. Objective Exam Last Set of Vital Signs Vital Signs Date Time Temp Pulse Resp B/P (MAP) Pulse Ox O2 Delivery O2 Flow Rate FiO2 05/07/19 16:00 36.4 56 16 158/77 (104) 100 Room Air Capillary Refill : Less Than 3 Seconds I&O Intake and Output 05/07/19 00:00 Intake Total 2230 ml Balance 2230 ml Intake Oral 2230 ml # Voids 6 # Bowel Movements 1 General: Other (drowsy, answers questions but doesn't open eyes much) Lungs: Clear to Auscultation, Normal Air Movement Heart: Regular Rate, No Murmurs Abdomen: Normal Bowel Sounds, Soft Neuro: Normal Speech Results/Procedures Lab Laboratory Tests 05/06/19 20:44: Glucometer 161H 05/07/19 04:29: White Blood Count 5.7, Red Blood Count 3.67L, Hemoglobin 10.5L, Hematocrit 31L, Mean Corpuscular Volume 85, Mean Corpuscular Hemoglobin 29, Mean Corpuscular Hemoglobin Concent 34, Red Cell Distribution Width 12.9, Platelet Count 151, Mean Platelet Volume 10.5H, Neutrophils (%) (Auto) 67, Lymphocytes (%) (Auto) 23, Monocytes (%) (Auto) 8, Eosinophils (%) (Auto) 2, Basophils (%) (Auto) 0, Neutrophils # (Auto) 3.9, Lymphocytes # (Auto) 1.3, Monocytes # (Auto) 0.4, Eosinophils # (Auto) 0.1, Basophils # (Auto) 0.0 05/07/19 05:29: Sodium Level 135, Potassium Level 3.8, Chloride Level 102, Carbon Dioxide Level 26, Anion Gap 7, Blood Urea Nitrogen 12, Creatinine 0.72, Estimat Glomerular Filtration Rate > 60, BUN/Creatinine Ratio 17, Glucose Level 187H, Calcium Level 9.5, Corrected Calcium 10.1, Total Bilirubin 0.3, Aspartate Amino Transf (AST/SGOT) 20, Alanine Aminotransferase (ALT/SGPT) 21, Alkaline Phosphatase 63, Total Protein 5.6L, Albumin 3.2 05/07/19 10:56: Glucometer 305H Microbiology 05/04/19 Blood Culture - Preliminary, Resulted No growth 9/27/19 Urine Culture - Final, Complete Escherichia coli Assessment/Plan Assessment/Plan (1) Urinary tract infection Status: Acute Assessment & Plan: On ceftriaxone, afebrile. E coli resistant only to Bactrim. Qualifiers: (2) Insulin dependent diabetes mellitus Status: Chronic Assessment & Plan: Had low blood sugar and levemir was decreased, now high again, will increase levemir to 5 BID, still not up to home dose. (3) HTN (hypertension) Status: Chronic Qualifiers: Qualified Codes: I10 - Essential (primary) hypertension (4) Generalized weakness Status: Acute Assessment & Plan: PT (5) DVT prophylaxis Status: Acute Assessment & Plan: Enoxaparin Clinical Quality Measures DVT/VTE Risk/Contraindication: Risk Factor Score Per Nursin RFS Level Per Nursing on Admit: 2=Moderate MANA NASSAR MD May 07, 2019 17:07
[2019-05-07] MEDS: MELATONIN 3 MG TABLET PO SCH (23:03)
[2019-05-07] MEDS: SIMvastatin 20 MG (ZOCOR) TAB PO SCH (23:03)
[2019-05-07] MEDS: CARBAM PEROX/GLYC/PROP 15 ML DROPS (DEBROX) OT SCH (23:07)
[2019-05-08] VITALS: BP 164/65
[2019-05-08 06:24] LABS: HEMOGLOBIN 11.4 G/DL (11.5-16.0); MEAN PLATELET VOLUME 10.9 FL (7.4-10.4); RED CELL DISTRIBUTION WIDTH 12.6 % (10.0-14.5)
[2019-05-08 06:46] LABS: BUN/CREATININE RATIO 15; CALCIUM 9.7 MG/DL (8.5-10.1); CARBON DIOXIDE 28 MMOL/L (21-32); CHLORIDE 101 MMOL/L (98-107); GFR ESTIMATED > 60; GLUCOSE 180 MG/DL (70-105); SODIUM 135 MMOL/L (135-145)
[2019-05-08] MEDS: inSUlin ASPART (NovoLOG) 1 UNIT/0.01 ML (CHARGE PER UNIT) SC SCH ×2 (06:58→12:27)
[2019-05-08 07:47] VITALS: BP 178/72
[2019-05-08] MEDS: PANTOPRAZOLE 40 MG (PROTONIX) TAB PO SCH (09:41)
[2019-05-08] MEDS: CALCIUM CARBONATE 600 MG (CALCARB) TAB PO SCH (09:41)
[2019-05-08] MEDS: LACTOBACILLUS ACIDOPHILUS (PROBIOTIC) CAPSULE PO SCH (09:41)
[2019-05-08] MEDS: CARVEDILOL 6.25 MG (COREG) TAB PO SCH (09:41)
[2019-05-08] MEDS: DONEPEZIL 10 MG (ARICEPT) TAB PO SCH (09:42)
[2019-05-08] MEDS: OMEGA 3 (FISH OIL) 1000 MG CAP PO SCH (09:42)
[2019-05-08] MEDS: MEMANTINE 10 MG (NAMENDA) TABLET PO SCH (09:43)
[2019-05-08] MEDS: SENNA W/DOCUSATE (SENOKOT S) TABLET PO SCH (09:43)
[2019-05-08] MEDS: ASPIRIN E.C. 81 MG (ECOTRIN) TAB PO SCH (09:43)
[2019-05-08] MEDS: cefTRIAXone 1,000 MG/SWFI 10 ML IV PUSH IV SCH ×2 (09:43)
--- NOTE | 2019-05-08 11:22 | Physical Therapy Daily Note ---
PT Daily Note-Current Subjective Patient agrees to PT. No c/o. Spouse present Mental Status Patient Orientation: Confused Transfers Therapy Code Descriptions/Definitions Functional [place] Measure: 0=Not Assessed/NA 4=Minimal Assistance 1=Total Assistance 5=Supervision or Setup 2=Maximal Assistance 6=Modified [place] 3=Moderate Assistance 7=Complete [place] Therapy Quality Codes: 6 Independent with activity with or without an assistive device 5 Patient requires set up or clean up by helper. Patient completes activity by themselves 4 Supervision or touching assist (CGA). [place] provide cues , steadying assist 3 The helper provides less than half the effort to complete the activity 2 The helper provides more than half the effort to complete the activity 1 Dependent. The helper does all the effort to complete an activity 7 Patient refused to complete or attempt activity 9 The patient did not perform the activity before the current illness or injury 88 Not attempted due to Medical conditions or safety concerns Transfers (B, C, W/C) (FIM): 7 Scootin Rollin Supine to/from Sit: 7 Sit to/from Stand: 7 Weight Bearing Right Lower Extremity: Right Weight Bearing/Tolerated Left Lower Extremity: Left Weight Bearing/Tolerated Gait Training Gait (FIM): 6 Distance (FIM): 3=150 ft Distance: >600' Gait Level of Assist: 6 Gait Assistive Device: FWW safe and functional with no deviation Assessment Patient is currently at PLOF with all gross motor skills and is safe to return to [place] when medically stable per physician. PT to dismiss patient from services and has been instructed to ambulate PRN in hallway with or without spouse/staff. PT Short Term Goals Short Term Goals Time Frame: May 08, 2019 Transfers (B,C,W/C) (FIM): 6 Gait (FIM): 6 Distance (FIM): 3=150 ft Gait Level of Assist: 6 Gait Assistive Device: FWW PT Plan Treatment/Plan Treatment Plan: Discontinue PT, goals met Treatment Plan: Bed Mobility, Education, Functional Activity Carlos, Functional Strength, Gait, Safety, Therapeutic Exercise, Transfers Treatment Duration: May 08, 2019 Frequency: 2 times per week Estimated Hrs Per Day: .25 hour per day Patient and/or Family Agrees t: Yes Time/GCodes Time In: 1102 Time Out: 1113 Total Billed Treatment Time: 11 Total Billed Treatment 1 visit FA 11 min ALIE MARTINES PT May 08, 2019 11:22
[2019-05-08] MEDS ORDERED: CEPH500T PO (12:18)
--- NOTE | 2019-05-08 12:21 | D/C HH Face to Face Order ---
D/C Face to Face Orders Instructions for Patient Via [employer], Patient Instructions/FollowUp: Follow up with Dr. Buckner on 05/14 at 9:40 am. Physician to follow Patient: Sita Kumar Diet for Home: ADA Diet Patient Data-Allergies,Ht & Wt Patient Allergies: Coded Allergies: Penicillins (Verified Allergy, Unknown, 07/28/15) Tetracyclines (Verified Allergy, Unknown, 07/28/15) metronidazole (Verified Allergy, Unknown, 07/28/15) morphine (Verified Allergy, Unknown, 07/28/15) tetanus immune globulin (Unverified Allergy, Unknown, 02/26/15) Height (Feet): 5 Height (Inches): 2.00 Weight (Pounds): 107 Weight (Ounces): 0 Home Health Need/Face to Face Date of Face to Face: May 08, 2019 Clinical Findings: Generalized weakness and fatigue I have seen Pt [id number]: Yes Discharged To: Home Diagnosis/Conditions: Urinary tract infection Weakness Patient is Homebound due to: Muscle weakness Homebound Status Due to the above stated illness, injury or surgical procedure (medical condition or diagnosis) and associated clinical findings, the patient is homebound because of his/her inability to leave home except with aid of a supportive device and/or person AND leaving the home requires a considerable and taxing effort or is medically contraindicated. Pt req the following assistanc: Walker Home Health Nursing Orders Home Health Services Order: Physical Therapy-Evaluate & Treat Home Health Infusion Therapy Line Start Date: May 04, 2019 Therapy Orders Therapy Orders: Physical Therapy Therapy Specific Orders: Eval assistive deivces, Gait training, Increase strength/endurance [facility] that this patient is under my care and that I, a nurse practitioner or a physician; a marketing operations assistant working with me, had a face to face encounter that - meets the physician face to face encounter requirements with this patient as dated. MANA NASSAR MD May 08, 2019 12:21
[2019-05-08] MEDS: ENOXAPARIN 40 MG/0.4 ML (LOVENOX) SYR SC SCH (12:27)
--- NOTE | 2019-05-08 13:13 | NUR ---
CM/SS patient is discharging this day, she is from [facility]. Patient's will provide transportation. FWW information sent to DME and they will deliver the FWW to the patient's room. [facility] faxed the discharge information.
[2019-05-08 15:05] VITALS: BP 178/72
--- NOTE | 2019-05-09 16:25 | Discharge Summary ---
Discharge Summary Hospital Course Problems/Diagnosis: (1) Urinary tract infection Assessment & Plan: On ceftriaxone, afebrile. E coli resistant only to Bactrim. Continued on cephalexin on d/c. Qualifiers: (2) Insulin dependent diabetes mellitus Assessment & Plan: Had low blood sugar and levemir was decreased, now high again, will increase levemir to 5 BID, resumed home dose on d/c. (3) HTN (hypertension) Qualifiers: Qualified Codes: I10 - Essential (primary) hypertension (4) Generalized weakness Assessment & Plan: PT met with her and she did quite well, continued home health PT on d/c. Hospital Course Date of Admission: May 04, 2019 at 11:13 Admission Diagnosis : Family Physician/Provider: William Buckner MD Date of Discharge: 05/09/19 Discharge Diagnosis: See problem list Hospital Course: see problem list Labs and Pending Lab Test: Microbiology 05/04/19 Blood Culture - Final, Complete No growth 05/04/19 Urine Culture - Final, Complete Escherichia coli Home Meds Active Cephalexin 500 Mg Tablet 500 Mg PO BID Reported Ear Wax Removal (Carbamide Peroxide) 15 Ml Drops 3-4 Drops EACH EAR HS START 05-03-19 Vitamin D2 (Ergocalciferol (Vitamin D2)) 50,000 Unit Capsule 50,000 Unit PO FR Humalog Kwikpen (Insulin Lispro) 100 Unit/1 Ml Insuln.pen 4 Unit SQ 0730 Prometh-Codein 6.25-10 mg/5 ml (Promethazine HCl/Codeine) 5 Ml Syrup 5-10 Ml PO UD PRN Melatonin 3 Mg Tablet 6 Mg PO HS TAKES 2 (3MG) TABLETS Imodium A-D (Loperamide HCl) 2 Mg Capsule 4 Mg PO UD PRN AFTER EACH LOOSE STOOL Carvedilol 6.25 Mg Tablet 6.25 Mg PO BID Memantine HCl 10 Mg Tablet 10 Mg PO DAILY Donepezil HCl 10 Mg Tablet 10 Mg PO BID Myrbetriq (Mirabegron) 50 Mg Tab.er.24h 50 Mg PO DAILY Aspirin EC (Aspirin) 81 Mg Tablet.dr 162 Mg PO DAILY TAKES 2 (81MG) TABLETS Humalog Kwikpen (Insulin Lispro) 100 Unit/1 Ml Insuln.pen SQ TIDAC 150-200 = 1 UNIT 201-250 = 2 UNITS 251-300 = 3 UNITS 301-350 = 4 UNITS 351-400 = 5 UNITS Tylenol Arthritis (Acetaminophen) 650 Mg Tablet.er 650 Mg PO Q6H PRN Calcium (Calcium Carbonate) 600 Mg Tablet 600 Mg PO DAILY Humalog Kwikpen (Insulin Lispro) 100 Unit/1 Ml Insuln.pen 5 Units SC 1115,1645 Lantus Solostar (Insulin Glargine,Hum.rec.anlog) 100 Unit/1 Ml Insuln.pen 9 Units SC BID Probiotic (L.acidoph & Paracasei,B.lactis) 1 Each Capsule 1 Cap PO DAILY Alendronate Sodium 70 Mg Tablet 70 Mg PO TH Simvastatin 20 Mg Tablet 20 Mg PO DAILY Omeprazole 40 Mg Capsule.dr 40 Mg PO DAILY Fish Oil 1,000 mg Capsule ([place] 3 Polyunsat Fatty Acids) 1,000 Mg Cap 2,000 Mg PO DAILY TAKES 2 (1000MG) CAPSULES Assessment/Pt DC Instructions see above Discharge Diet: ADA Diet Discharge Physical Examination Allergies: Coded Allergies: Penicillins (Verified Allergy, Unknown, 07/28/15) Tetracyclines (Verified Allergy, Unknown, 07/28/15) metronidazole (Verified Allergy, Unknown, 07/28/15) morphine (Verified Allergy, Unknown, 07/28/15) tetanus immune globulin (Unverified Allergy, Unknown, 02/26/15) General Appearance: No Apparent Distress, WD/WN Respiratory: Lungs Clear, Normal Breath Sounds Cardiovascular: Regular Rate, Rhythm, No Murmur Gastrointestinal: Normal Bowel Sounds, Non Tender, Soft Neurologic/Psychiatric: Alert, Normal Mood/Affect Discharge Summary Date of Admission May 04, 2019 at 11:13 Date of Discharge May 08, 2019 at 15:00 Discharge Date: May 08, 2019 Admission Diagnosis Assessment: UTI with altered mental status failed oral antibiotic regimen 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
[2019-05-10] MEDS ORDERED: ALENDRONATE SODIUM 70 MG (FOSAMAX) TAB PO SCH (13:45)
[2019-05-11] MEDS ORDERED: VITAMIN D2 50,000 UNITS (1.25 MG) CAP PO SCH (13:45)
== END 2019-05-08 15:00 | disposition home health service (06) | DRG 690 ==
LOC: EDUNIT# 08:28 → ER 08:29 → 4TH 11:13
PROVIDERS: ADMIT Internal Medicine; ATTEND Family Medicine
DX: N30.00 Acute cystitis without hematuria (principal); B96.20 Unspecified Escherichia coli [E. coli] as the cause of diseases classified elsewhere; R41.82 Altered mental status, unspecified; E10.649 Type 1 diabetes mellitus with hypoglycemia without coma; E84.9 Cystic fibrosis, unspecified; I38 Endocarditis, valve unspecified; M81.0 Age-related osteoporosis without current pathological fracture; Z66 Do not resuscitate; E86.0 Dehydration; I10 Essential (primary) hypertension; R26.81 Unsteadiness on feet; I25.10 Atherosclerotic heart disease of native coronary artery without angina pectoris; E78.00 Pure hypercholesterolemia, unspecified; K21.9 Gastro-esophageal reflux disease without esophagitis; M54.9 Dorsalgia, unspecified; F03.90 Unspecified dementia, unspecified severity, without behavioral disturbance, psychotic disturbance, mood disturbance, and anxiety; H40.9 Unspecified glaucoma; Z79.4 Long term (current) use of insulin; Z88.0 Allergy status to penicillin; Z88.5 Allergy status to narcotic agent; Z88.7 Allergy status to serum and vaccine
CPT/HCPCS: 36415; 80048; 80053; 81000; 82962; 83605; 85025; 85027; 87040; 87077; 87088; 87186; 96365

== ENCOUNTER 2019-08-24 09:50 | Emergency (ER) | payer MEDICARE, OTHER ==
[~2019-08-24] VITALS: Ht 157.4 cm; Wt 46.4 kg
[~2019-08-24 09:50] MED LIST changes: +ERGO50006 PO; -LOPE-145 PO; +LOPE-175 PO; -MELA3TAB PO; +MELA3TAB65 PO; -MEMA10TA22 PO; +MEMA10TA57 PO; +NEOM28.44 TP; +OMEP40CA27 PO; +PROM5SYR PO; +SIMV20TA26 PO; +[UNRECOGNIZED DRUG - CODE] EACH EAR
--- NOTE | 2019-08-24 09:55 | ED General ---
General Stated Complaint: WEAKNESS History of Present Illness Date Seen by Provider: Aug 24, 2019 Time Seen by Provider: 09:53 Initial Comments 83-year-old female presents with "just not feeling well" patient states that she's had a little bit of a cough, dry throat otherwise no other complaints. Patient did not feel well when she awoke this morning. They were concerned about a low blood pressure however it was systemic of 97 by group home staff and then a systolic blood pressure in the 120s by EMS. Patient denies any chest pain, nausea, vomiting, fever, chills or urinary symptoms. Allergies and Home Medications Allergies Coded Allergies: Penicillins (Verified Allergy, Unknown, 07/28/15) Tetracyclines (Verified Allergy, Unknown, 07/28/15) metronidazole (Verified Allergy, Unknown, 07/28/15) morphine (Verified Allergy, Unknown, 07/28/15) tetanus immune globulin (Unverified Allergy, Unknown, 02/26/15) Home Medications Acetaminophen 650 Mg Tablet.er, 650 MG PO Q6H PRN for PAIN-MILD OR TEMPATURE, (Reported) Alendronate Sodium 70 Mg Tablet, 70 MG PO Th, (Reported) Aspirin 81 Mg Tablet.dr, 162 MG PO DAILY, (Reported) TAKES 2 (81MG) TABLETS Calcium Carbonate 600 Mg Tablet, 600 MG PO DAILY, (Reported) Carbamide Peroxide 15 Ml Drops, 3-4 DROPS EACH EAR HS, (Reported) START 05-03-19 Carvedilol 6.25 Mg Tablet, 6.25 MG PO BID, (Reported) Cephalexin 500 Mg Tablet, 500 MG PO BID Prescribed by: MANA NASSAR on 05/08/19 1218 Donepezil HCl 10 Mg Tablet, 10 MG PO BID, (Reported) Ergocalciferol (Vitamin D2) 50,000 Unit Capsule, 50,000 UNIT PO Fr, (Reported) Insulin Glargine,Hum.rec.anlog 100 Unit/1 Ml Insuln.pen, 9 UNITS SC BID, (Report ed) Insulin Lispro 100 Unit/1 Ml Insuln.pen, 5 UNITS SC 1115,1645, (Reported) Insulin Lispro 100 Unit/1 Ml Insuln.pen, SQ TIDAC, (Reported) 150-200 = 1 UNIT 201-250 = 2 UNITS 251-300 = 3 UNITS 301-350 = 4 UNITS 351- 400 = 5 UNITS Insulin Lispro 100 Unit/1 Ml Insuln.pen, 4 UNIT SQ 0730, (Reported) L.acidoph & Paracasei,B.lactis 1 Each Capsule, 1 CAP PO DAILY, (Reported) Loperamide HCl 2 Mg Capsule, 4 MG PO UD PRN for LOOSE STOOLS, (Reported) AFTER EACH LOOSE STOOL Melatonin 3 Mg Tablet, 6 MG PO HS, (Reported) TAKES 2 (3MG) TABLETS Memantine HCl 10 Mg Tablet, 10 MG PO DAILY, (Reported) Mirabegron 50 Mg Tab.er.24h, 50 MG PO DAILY, (Reported) Nitrofurantoin Monohyd/M-Cryst 100 Mg Capsule, 1 TAB PO BID Prescribed by: MONIQUE ENRIQUEZ on 08/24/19 1232 [place] 3 Polyunsat Fatty Acids 1,000 Mg Cap, 2,000 MG PO DAILY, (Reported) TAKES 2 (1000MG) CAPSULES Omeprazole 40 Mg Capsule.dr, 40 MG PO DAILY, (Reported) Promethazine HCl/Codeine 5 Ml Syrup, 5-10 ML PO UD PRN for COUGH, (Reported) Simvastatin 20 Mg Tablet, 20 MG PO DAILY, (Reported) Patient Home Medication List Home Medication List Reviewed: Yes Review of Systems Review of Systems Constitutional: No chills, No fever; malaise EENTM: no symptoms reported Respiratory: cough; No short of breath Cardiovascular: No chest pain Gastrointestinal: no symptoms reported Genitourinary: no symptoms reported Musculoskeletal: no symptoms reported Skin: no symptoms reported Psychiatric/Neurological: No Symptoms Reported Past Nltglyj-Eokgbp-Xmqxho Hx Past Med/Social Hx: Reviewed Nursing Past Med/Soc Hx Patient Social History 2nd Hand Smoke Exposure: No Recent Foreign Travel: No Contact w/Someone Who Travel: No Recent Hopitalizations: No Immunizations Up To Date Tetanus Booster (TDap): Unknown PED Vaccines UTD: No Date of Pneumonia Vaccine: Jul 28, 2013 Date of Influenza Vaccine: May 24, 2016 Seasonal Allergies Seasonal Allergies: No Past Medical History Surgeries: Yes Appendectomy, Gallbladder, Hysterectomy Respiratory: No Cardiac: Yes Coronary Artery Disease, High Cholesterol, Hypertension, Valvular Heart Disease Neurological: Yes Dementia 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 Genitourinary: Yes Bladder Infection Gastrointestinal: Yes Gastroesophageal Reflux, C-Diff, Gall Bladder Disease Musculoskeletal: Yes Osteoporosis, Chronic Back Pain Endocrine: Yes (Brittle type I diabetic) Diabetes, Insulin dep HEENT: No Glaucoma Cancer: No Psychosocial: No Integumentary: No Blood Disorders: No Adverse Reaction/Blood Tranf: No Family Medical History Cardiovascular disease 19 MOTHER Dementia 19 MOTHER Glaucoma 19 FATHER Hypertension Respiratory disorder G8 BROTHER, Onset:40's - 50 Physical Exam Vital Signs Vital Signs - First Documented 08/24/19 09:50 Temp 36.5 Pulse 58 Resp 17 B/P (MAP) 115/84 (94) Pulse Ox 100 O2 Delivery Room Air Capillary Refill : Height, Weight, BMI Height: 5'2.00" Weight: 107lbs. 0oz. 48.614126ma; 20.54 BMI Method:Stated General Appearance: No Apparent Distress HEENT: PERRL/EOMI Neck: Non Tender, Supple Respiratory: Lungs Clear, Normal Breath Sounds Cardiovascular: Regular Rate, Rhythm, Normal Peripheral Pulses Gastrointestinal: Non Tender, Soft Back: No CVA Tenderness Extremity: Normal Capillary Refill, Normal Inspection Neurologic/Psychiatric: Alert, Oriented x3, No Motor/Sensory Deficits, Normal Mood/Affect Progress/Results/Core Measures Suspected Sepsis SIRS Temperature: Pulse: Respiratory Rate: Laboratory Tests 08/24/19 10:00: White Blood Count 5.5 Blood Pressure / Mean: Laboratory Tests 08/24/19 10:00: Creatinine 1.00, Platelet Count 163, Total Bilirubin 0.5 Results/Orders Lab Results Laboratory Tests Test 08/24/19 10:00 08/24/19 11:07 Range/Units White Blood Count 5.5 4.3-11.0 10^3/uL Red Blood Count 4.13 L 4.35-5.85 10^6/uL Hemoglobin 11.5 11.5-16.0 G/DL Hematocrit 35 35-52 % Mean Corpuscular Volume 84 80-99 FL Mean Corpuscular Hemoglobin 28 25-34 PG Mean Corpuscular Hemoglobin Concent 33 32-36 G/DL Red Cell Distribution Width 13.0 10.0-14.5 % Platelet Count 163 130-400 10^3/uL Mean Platelet Volume 10.9 H 7.4-10.4 FL Neutrophils (%) (Auto) 72 42-75 % Lymphocytes (%) (Auto) 18 12-44 % Monocytes (%) (Auto) 8 0-12 % Eosinophils (%) (Auto) 2 0-10 % Basophils (%) (Auto) 0 0-10 % Neutrophils # (Auto) 4.0 1.8-7.8 X 10^3 Lymphocytes # (Auto) 1.0 1.0-4.0 X 10^3 Monocytes # (Auto) 0.5 0.0-1.0 X 10^3 Eosinophils # (Auto) 0.1 0.0-0.3 10^3/uL Basophils # (Auto) 0.0 0.0-0.1 10^3/uL Sodium Level 132 L 135-145 MMOL/L Potassium Level 4.4 3.6-5.0 MMOL/L Chloride Level 97 L 98-107 MMOL/L Carbon Dioxide Level 26 21-32 MMOL/L Anion Gap 9 5-14 MMOL/L Blood Urea Nitrogen 12 7-18 MG/DL Creatinine 1.00 0.60-1.30 MG/DL Estimat Glomerular Filtration Rate 53 BUN/Creatinine Ratio 12 Glucose Level 243 H 70-105 MG/DL Calcium Level 10.2 H 8.5-10.1 MG/DL Corrected Calcium 10.5 H 8.5-10.1 MG/DL Total Bilirubin 0.5 0.1-1.0 MG/DL Aspartate Amino Transf (AST/SGOT) 18 5-34 U/L Alanine Aminotransferase (ALT/SGPT) 14 0-55 U/L Alkaline Phosphatase 83 40-136 U/L Troponin I < 0.028 <0.028 NG/ML Total Protein 6.0 L 6.4-8.2 GM/DL Albumin 3.6 3.2-4.5 GM/DL Urine Color YELLOW Urine Clarity CLEAR Urine pH 6.5 5-9 Urine Specific [place] 1.020 1.016-1.022 Urine Protein TRACE NEGATIVE Urine Glucose (UA) 3+ H NEGATIVE Urine Ketones NEGATIVE NEGATIVE Urine Nitrite POSITIVE NEGATIVE Urine Bilirubin NEGATIVE NEGATIVE Urine Urobilinogen 0.2 < = 1.0 MG/DL Urine Leukocyte Esterase TRACE NEGATIVE Urine RBC (Auto) NEGATIVE NEGATIVE Urine RBC RARE /HPF Urine WBC 25-50 H /HPF Urine Squamous Epithelial Cells RARE /HPF Urine Crystals NONE /LPF Urine Bacteria LARGE H /HPF Urine Casts NONE /LPF Urine Mucus NEGATIVE /LPF Urine Culture Indicated YES My Orders Orders - ENRIQUEZMONIQUE L DO Cbc With Automated Diff (08/24/19 09:59) Comprehensive Metabolic Panel (08/24/19 09:59) Troponin I (08/24/19 09:59) Ua Culture If Indicated (08/24/19 09:59) Influenza A And B Antigens (08/24/19 09:59) Chest Pa/Lat (2 View) (08/24/19 09:59) Ct Head Wo (08/24/19 10:24) Ekg Tracing (08/24/19 10:46) Urine Culture (08/24/19 11:07) Vital Signs/I&O 08/24/19 09:50 Temp 36.5 Pulse 58 Resp 17 B/P (MAP) 115/84 (94) Pulse Ox 100 O2 Delivery Room Air Capillary Refill : Departure Impression Primary Impression: Cystitis Additional Impression: Weakness Disposition: 01 HOME, SELF-CARE Condition: Stable Departure-Patient Inst. Referrals: DAVID PRESTON MD (PCP/Family) Primary Care Physician Patient Instructions: Generalized Weakness (DC), Acute Cystitis (DC) Scripts Nitrofurantoin Monohyd/M-Cryst (Macrobid 100 mg Capsule) 100 Mg Capsule 1 TAB PO BID, #10 CAP Prov: MONIQUE ENRIQUEZ DO 08/24/19 MONIQUE ENRIQUEZ DO Aug 24, 2019 09:55
[2019-08-24 10:09] LABS: BASOPHILS % (AUTO) 0 % (0-10); EOSINOPHILS # (AUTO) 0.1 10^3/uL (0.0-0.3); EOSINOPHILS % (AUTO) 2 % (0-10); HEMATOCRIT 35 % (35-52); HEMOGLOBIN 11.5 G/DL (11.5-16.0); LYMPHOCYTES % (AUTO) 18 % (12-44); MEAN CORPUSCULAR HEMOGLOBIN 28 PG (25-34); MEAN CORPUSCULAR HGB CONC 33 G/DL (32-36); MEAN CORPUSCULAR VOLUME 84 FL (80-99); MEAN PLATELET VOLUME 10.9 FL (7.4-10.4); MONOCYTES # (AUTO) 0.5 X 10^3 (0.0-1.0); MONOCYTES % (AUTO) 8 % (0-12); NEUTROPHILS % (AUTO) 72 % (42-75); PLATELET COUNT 163 10^3/uL (130-400); WHITE BLOOD COUNT 5.5 10^3/uL (4.3-11.0)
[2019-08-24 10:27] LABS: ALANINE AMINOTRANSFERASE 14 U/L (0-55); ALBUMIN 3.6 GM/DL (3.2-4.5); ALKALINE PHOSPHATASE 83 U/L (40-136); BILIRUBIN,TOTAL 0.5 MG/DL (0.1-1.0); BUN/CREATININE RATIO 12; CALCIUM 10.2 MG/DL (8.5-10.1); CARBON DIOXIDE 26 MMOL/L (21-32); CHLORIDE 97 MMOL/L (98-107); GFR ESTIMATED 53; GLUCOSE 243 MG/DL (70-105); POTASSIUM 4.4 MMOL/L (3.6-5.0); SODIUM 132 MMOL/L (135-145)
--- NOTE | 2019-08-24 11:12 | Diagnostic Imaging Report ---
INDICATION: Weakness. TIME OF EXAM: 11:01 AM Correlation is made with prior chest from 06/23/2016. FINDINGS: Heart size is stable. Calcified nodules in both lungs are stable and consistent with granulomas. No infiltrates are detected. No effusion or pneumothorax is seen. IMPRESSION: No acute cardiopulmonary process is detected. Dictated by: Dictated on workstation # [id number]
--- NOTE | 2019-08-24 11:17 | Diagnostic Imaging Report ---
PROCEDURE: CT head without contrast. TECHNIQUE: Multiple contiguous axial images were obtained through the brain without the use of intravenous contrast. Auto Exposure Controls were utilized during the CT exam to meet ALARA standards for radiation dose reduction. INDICATION: Weakness. COMPARISON: 02/08/2016 FINDINGS: No intracranial hemorrhage. Moderate atrophy. 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 Chronic lacunar infarction within the right parietal lobe. No CT evidence of an acute ischemic infarction. The bilateral ocular lenses are absent. The visualized paranasal sinuses are clear. The calvarium and extracalvarial soft tissues are unremarkable. IMPRESSION: Similar-appearing examination without acute intracranial abnormality. Moderate atrophy and moderate chronic ischemic changes as described above, including prominent chronic infarction within the right basal ganglia. Dictated by: Dictated on workstation # [id number]
[2019-08-24 12:06] LABS: BILIRUBIN,URINE NEGATIVE (NEGATIVE); CLARITY,URINE CLEAR; COLOR,URINE YELLOW; GLUCOSE, URINE (UA) 3+ (NEGATIVE); KETONES,URINE NEGATIVE (NEGATIVE); LEUKOCYTE ESTERASE ,URINE TRACE (NEGATIVE); NITRITE,URINE POSITIVE (NEGATIVE); PH,URINE 6.5 (5-9); PROTEIN,URINE TRACE (NEGATIVE)
[2019-08-24 12:19] LABS: BACTERIA,URINE LARGE /HPF; RBC,URINE RARE /HPF; SQUAMOUS EPITHELIAL CELL,UR RARE /HPF; WBC,URINE 25-50 /HPF
[2019-08-24] MEDS ORDERED: NITR-65 PO (12:32)
[2019-08-24 13:04] VITALS: BP 146/74
== END 2019-08-24 13:04 | disposition home or self-care (01) ==
LOC: EDUNIT# 09:50 → ER 09:52
DX: N30.90 Cystitis, unspecified without hematuria (principal); R53.1 Weakness; I10 Essential (primary) hypertension; E10.9 Type 1 diabetes mellitus without complications; E78.00 Pure hypercholesterolemia, unspecified; I25.10 Atherosclerotic heart disease of native coronary artery without angina pectoris; F03.90 Unspecified dementia, unspecified severity, without behavioral disturbance, psychotic disturbance, mood disturbance, and anxiety; K21.9 Gastro-esophageal reflux disease without esophagitis; Z88.0 Allergy status to penicillin; Z88.1 Allergy status to other antibiotic agents; Z88.8 Allergy status to other drugs, medicaments and biological substances; Z88.7 Allergy status to serum and vaccine; Z88.5 Allergy status to narcotic agent; Z79.82 Long term (current) use of aspirin; Z79.4 Long term (current) use of insulin; Z90.49 Acquired absence of other specified parts of digestive tract; Z90.710 Acquired absence of both cervix and uterus; Z82.49 Family history of ischemic heart disease and other diseases of the circulatory system
CPT/HCPCS: 36415; 70450; 71046; 80053; 81000; 84484; 85025; 87077; 87088; 87186; 87804

== ENCOUNTER 2019-10-29 13:23 | Emergency (ER) | payer MEDICARE, OTHER ==
[~2019-10-29] VITALS: Ht 155 cm; Wt 32.7 kg
[2019-10-29 13:23] VITALS: BP 173/75
[~2019-10-29 13:23] MED LIST changes: +MELA3TAB39 PO; -MELA3TAB65 PO; +NITR-65 PO
--- NOTE | 2019-10-29 13:31 | ED Fall/Injury ---
General Chief Complaint: Trauma-Non Activation Stated Complaint: FALL Source: patient Exam Limitations: no limitations History of Present Illness Date Seen by Provider: Oct 29, 2019 Time Seen by Provider: 13:29 Initial Comments To ER per EMS from a local custodial with reports of a fall earlier this morning. She struck the left side of her forehead without loss of consciousness vomiting or severe headache. She has a goose egg to the left side of her forehea d and was sent here to be evaluated for that. Also complaining of some mild left leg pain. She is on aspirin daily. Occurred: this morning Severity: mild Injuries/Pain Location: head Context: tripped Associated Symptoms (Fall): Denies Symptoms Allergies and Home Medications Allergies Coded Allergies: Penicillins (Verified Allergy, Unknown, 07/28/15) Tetracyclines (Verified Allergy, Unknown, 07/28/15) metronidazole (Verified Allergy, Unknown, 07/28/15) morphine (Verified Allergy, Unknown, 07/28/15) tetanus immune globulin (Unverified Allergy, Unknown, 02/26/15) Home Medications Acetaminophen 650 Mg Tablet.er, 650 MG PO Q6H PRN for PAIN-MILD OR TEMPATURE, (Reported) Alendronate Sodium 70 Mg Tablet, 70 MG PO Th, (Reported) Aspirin 81 Mg Tablet.dr, 162 MG PO DAILY, (Reported) TAKES 2 (81MG) TABLETS Calcium Carbonate 600 Mg Tablet, 600 MG PO DAILY, (Reported) Carbamide Peroxide 15 Ml Drops, 3-4 DROPS EACH EAR HS, (Reported) START 05-03-19 Carvedilol 6.25 Mg Tablet, 6.25 MG PO BID, (Reported) Cephalexin 500 Mg Tablet, 500 MG PO BID Prescribed by: MANA NASSAR on 05/08/19 1218 Donepezil HCl 10 Mg Tablet, 10 MG PO BID, (Reported) Ergocalciferol (Vitamin D2) 50,000 Unit Capsule, 50,000 UNIT PO Fr, (Reported) Insulin Glargine,Hum.rec.anlog 100 Unit/1 Ml Insuln.pen, 9 UNITS SC BID, (Reported) Insulin Lispro 100 Unit/1 Ml Insuln.pen, 5 UNITS SC 1115,1645, (Reported) Insulin Lispro 100 Unit/1 Ml Insuln.pen, SQ TIDAC, (Reported) 150-200 = 1 UNIT 201-250 = 2 UNITS 251-300 = 3 UNITS 301-350 = 4 UNITS 351- 400 = 5 UNITS Insulin Lispro 100 Unit/1 Ml Insuln.pen, 4 UNIT SQ 0730, (Reported) Deliaacidoph & Layla Spencelactis 1 Each Capsule, 1 CAP PO DAILY, (Reported) Loperamide HCl 2 Mg Capsule, 4 MG PO UD PRN for LOOSE STOOLS, (Reported) AFTER EACH LOOSE STOOL Melatonin 3 Mg Tablet, 6 MG PO HS, (Reported) TAKES 2 (3MG) TABLETS Memantine HCl 10 Mg Tablet, 10 MG PO DAILY, (Reported) Mirabegron 50 Mg Tab.er.24h, 50 MG PO DAILY, (Reported) Nitrofurantoin Monohyd/M-Cryst 100 Mg Capsule, 1 TAB PO BID Prescribed by: MONIQUE ENRIQUEZ on 08/24/19 1232 [place] 3 Polyunsat Fatty Acids 1,000 Mg Cap, 2,000 MG PO DAILY, (Reported) TAKES 2 (1000MG) CAPSULES Omeprazole 40 Mg Capsule.dr, 40 MG PO DAILY, (Reported) Promethazine HCl/Codeine 5 Ml Syrup, 5-10 ML PO UD PRN for COUGH, (Reported) Simvastatin 20 Mg Tablet, 20 MG PO DAILY, (Reported) Patient Home Medication List Home Medication List Reviewed: Yes Review of Systems Review of Systems Constitutional: see HPI Ears, Nose, Mouth, Throat: no symptoms reported Respiratory: no symptoms reported Cardiovascular: no symptoms reported Genitourinary: no symptoms reported Musculoskeletal: no symptoms reported Skin: no symptoms reported Psychiatric/Neurological: No Symptoms Reported Past Ohydgzi-Dripvl-Vbvwhw Hx Patient Social History 2nd Hand Smoke Exposure: No Recent Hopitalizations: No Immunizations Up To Date Tetanus Booster (TDap): Unknown PED Vaccines UTD: No Date of Pneumonia Vaccine: Jul 28, 2013 Date of Influenza Vaccine: May 24, 2016 Seasonal Allergies Seasonal Allergies: No Past Medical History Surgeries: Yes Appendectomy, Gallbladder, Hysterectomy Respiratory: No Cardiac: Yes Coronary Artery Disease, High Cholesterol, Hypertension, Valvular Heart Disease Neurological: Yes Dementia 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: Menopausal Genitourinary: Yes Bladder Infection Gastrointestinal: Yes Gastroesophageal Reflux, C-Diff, Gall Bladder Disease Musculoskeletal: Yes Osteoporosis, Chronic Back Pain 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 0oz. 48.334267es; 18.00 BMI Method:Stated General Appearance: WD/WN, no apparent distress HEENT: PERRL/EOMI, normal ENT inspection, other (quarter sized hematoma left side of the forehead without open wound) Neck: non-tender, full range of motion; No tender lateral, No tender midline Respiratory: no respiratory distress, no accessory muscle use Gastrointestinal: normal bowel sounds, non tender, soft Extremities: normal range of motion, non-tender Neurologic/Psychiatric: alert, normal mood/affect, oriented x 3 Skin: normal color, warm/dry Jim Coma Score Best Eye Response: (4) Open Spontaneously Best Verbal Response: (5) Oriented Best Motor Response: (6) Obeys Commands Jim Total: 15 Progress/Results/Core Measures Results/Orders My Orders Orders - SEFERINO MCKAY APRN Ct Head/Cervical Spine Wo (10/29/19 13:26) Femur, Left, 2 Views (10/29/19 13:26) Departure Impression Primary Impression: Traumatic hematoma of forehead Qualified Codes: S00.83XA - Contusion of other part of head, initial encounter Disposition: 01 HOME, SELF-CARE Condition: Stable Departure-Patient Inst. Decision time for Depature: 13:31 Referrals: DAVID PRESTON MD (PCP/Family) Primary Care Physician Patient Instructions: HEMATOMA, Contusion (DC) SEFERINO MCKAY APRN Oct 29, 2019 13:31
--- NOTE | 2019-10-29 13:57 | Diagnostic Imaging Report ---
PROCEDURE: CT head and CT cervical spine without contrast. TECHNIQUE: Multiple contiguous axial images were obtained through the brain and cervical spine without the use of intravenous contrast. Sagittal and coronal reformations through the cervical spine were then performed. Auto Exposure Controls were utilized during the CT exam to meet ALARA standards for radiation dose reduction. INDICATION: Fall. Trauma to head. Headache. COMPARISON: 08/24/2019. FINDINGS: CT head without: The ventricles and cortical sulci are diffusely prominent, compatible with age-related volume loss. There are confluent areas of abnormal, low attenuation in the periventricular white matter. This is consistent with chronic small vessel ischemic changes. Old right basal ganglia lacunar infarct is again noted. There is no midline shift or mass-effect. No acute intra-axial hemorrhage is seen. There are no abnormal areas of increased or decreased density to suggest acute hemorrhage or edema. No extra-axial masses or collections are present. The bony calvarium is intact. The visualized paranasal sinuses are unremarkable. The mastoid air cells are clear. CT cervical spine: Static alignment of cervical spine is maintained. There is no significant anteroretrolisthesis. There is no evidence of jumped facets. Vertebral body heights are maintained. There is no evidence of acute fracture. No bony fragments are seen within the spinal canal. There are moderate multilevel degenerative changes consistent with intervertebral disc height loss with anterior and posterior disc osteophyte complex formations, as well as multilevel facet arthropathy. These changes appear greatest at the C3-C4, C5-C6, and C6-C7 levels. Pre and paravertebral soft tissue structures are unremarkable. Note is made of calcified carotid atherosclerosis. Included portions of the lung apices show no additional acute abnormalities. IMPRESSION: 1. No acute intracranial abnormality. No CT evidence of mass, acute infarct or intracranial hemorrhage. 2. Old lacunar infarct in the right basal ganglia and background chronic small vessel ischemic changes in the deep white matter. 3. No acute fracture or dislocation in cervical spine. 4. Moderate multilevel degenerative changes of the cervical spine. Dictated by: Dictated on workstation # [id number]
--- NOTE | 2019-10-29 14:06 | Diagnostic Imaging Report ---
INDICATION: Fall with left femur pain AP and lateral views of the left femur are obtained. FINDINGS: Atherosclerotic calcifications are present throughout the superficial femoral artery. No acute fracture or dislocation is identified. No abnormal lytic or sclerotic focus is seen, and there is no radiopaque foreign body. IMPRESSION: No acute abnormality. Dictated by: Dictated on workstation # [id number]
--- NOTE | 2019-10-29 14:08 | NUR ---
Contacted [facility] and spoke with nurse, Melisa, regarding CT scan et discharge instructions. Melisa voices no questions or concerns et reports spouse will be transporting pt back to facility.
== END 2019-10-29 14:17 | disposition home or self-care (01) ==
LOC: EDUNIT# 13:23 → ER 13:25
DX: S00.83XA Contusion of other part of head, initial encounter (principal); M79.605 Pain in left leg; E10.9 Type 1 diabetes mellitus without complications; I25.10 Atherosclerotic heart disease of native coronary artery without angina pectoris; E78.00 Pure hypercholesterolemia, unspecified; I10 Essential (primary) hypertension; K21.9 Gastro-esophageal reflux disease without esophagitis; F03.90 Unspecified dementia, unspecified severity, without behavioral disturbance, psychotic disturbance, mood disturbance, and anxiety; M81.0 Age-related osteoporosis without current pathological fracture; M54.9 Dorsalgia, unspecified; G89.29 Other chronic pain; Z79.82 Long term (current) use of aspirin; Z88.0 Allergy status to penicillin; Z88.5 Allergy status to narcotic agent; Z88.7 Allergy status to serum and vaccine; Z79.899 Other long term (current) drug therapy; Z79.4 Long term (current) use of insulin; W19.XXXA Unspecified fall, initial encounter; Y92.129 Unspecified place in nursing home as the place of occurrence of the external cause
CPT/HCPCS: 70450; 72125; 73552

== ENCOUNTER 2019-11-03 11:15 | Emergency (ER) | payer MEDICARE, OTHER ==
[~2019-11-03] VITALS: Ht 157 cm; Wt 35.0 kg
--- OUTSIDE RECORDS SUMMARY | 2019-11-03 11:25 | XMS REPORT | Continuity of Care Document ---
Author Organization Unknown Address Unknown Phone Unavailable Allergies Active Description Code Type Severity Reaction Onset Reported/Identified Relationship to Patient Clinical Status Yes AZITHROMYCIN UNKNOWN UNKNOWN Yes CLARITHROMYCIN UN KNOWN UNKNOWN Yes ERYTHROMYCIN UNKNOWN UNKNOWN Yes FLAGYL UNKNOWN UNKNOWN Yes IV CONTRAST DYE U NKNOWN UNKNOWN Yes MACROLIDES AND KETOLIDES UNKNOWN UNKNOWN Yes MORPHINE UNKNOWN UNKNOWN Yes NSAIDS UNKNOWN UNKNOWN Yes PENICILLIN G POTASSIUM UNKNOWN UNKNOWN Yes TETANUS-DIPHTHERIA TOXOIDS-TD UNKNOWN UNKNOWN Yes TETRACYCLINE UNKNOWN UNKNOWN Yes tetanus immune globulin [id number] Drug Allergy Unknown N/A 02/26/2015 Yes metronidazole [id number] Luis g Allergy Unknown N/A 02/25/2016 Yes morphine [id number] Drug Allergy Unknown N/A 02/25/2016 Yes Penicillins [id number] Drug Aller gy Unknown N/A 02/25/2016 Yes Tetracyclines [id number] Luis g Allergy Unknown N/A 02/25/2016 Medications Medication Packaging Start Date St op Date Route Dosage Sig CARVEDILOL TAB 6.25 MG (COREG) MG 10/04/2019 11/02/2019 BID&0800,2000 MIRTAZAPINE TAB 15 MG (REMERON) MG 10/04/2019 11/03/2019 PRN QHS MELATONIN TAB 3 MG (MELATONIN) MG 10/04/2019 11/02/2019 QHS&2100 HALOPERIDOL VIAL INJ 5 MG/CC (HALDOL 1CC V IAL) MG 10/04/2019 11/03/2019 PRN Q6H ACETAMINOPHEN ORAL TABLET 325mg(Tylenol) MG 10/04/2019 11/03/2019 PRN EVERY 6 Hour PROMETHAZINE W/ CODEINE LIQ (PHENERGAN) ml 10/04/2019 11/03/2019 PRN Q6H ALUM/MAG/SIMETH 30CC LIQ (MYLANTA PLUS) cc 10/05/2019 11/04/2019 PRN Q4H POLYETHYLENE GLYCOL POWDER U D PWD (MIRALAX 17GM UNIT DOSE PAKS) gm 10/05/2019 11/04/2019 PRN Q3H ACETAMINOPHEN ORAL TABLET 325mg(Tylenol) MG 10/05/2019 11/04/2019 PRN Q6H CALMOSEPTINE OINT TUBE (RISAMINE OINT) rosamaria 10/05/2019 11/04/2019 PRN QID SMZ/TMP DS TAB (SEPTRA DS) (Bactrim DS) TAB 10/05/2019 10/11/2019 BID&0800,2000 MILK OF CHRISSIE LIQ ml 10/05/2019 11/04/2019 PRN BID LOPERAMIDE CAP 2 MG (IMMODIUM) MG 10/05/2019 11/04/2019 PRN BID VENLAFAXINE XR CAP 75 MG (EFFEXOR XR) MG 10/05/2019 11/03/2019 Daily&0900 LACTOBACILLUS BULGARIS TAB (LACTINEX BULGA RIS) TAB 10/05/2019 11/03/2019 Daily&0900 ASPIRIN ENTERIC COATED TAB 8 1 MG (BABY ASPIRIN EC) MG 10/05/2019 11/03/2019 Daily&0900 ERGOCALCIFEROL CAP 50,000 UNITS (VITAMIN D ) UNITS 10/05/2019 11/02/2019 Q1WK&0900 FAMOTIDINE TAB 20 MG (PEPCID) MG 10/05/2019 11/03/2019 Daily&0900 SIMVASTATIN TAB 10 MG (ZOCOR) MG 10/05/2019 11/03/2019 Daily&0900 FISH OIL CAP CAP 1000 MG (OMEGA 3) MG 10/05/2019 11/03/2019 Daily&0900 CALCIUM 600MG W VIT D TAB 60 0 MG (OSCAL/W VIT D) MG 10/05/2019 11/03/2019 Daily&0900 BISACODYL SUPPOS 10 MG (DULCOLAX SUPPOS) MG 10/05/2019 10/11/2019 PRN Daily MIRTAZAPINE TAB 15 MG (REMERON) MG 10/05/2019 11/03/2019 QHS&2100 HALOPERIDOL TAB 1 MG (HALDOL) MG 10/07/2019 10/07/2019 ONCE&0838 HALOPERIDOL TAB 1 MG (HALDOL) MG 10/07/2019 11/06/2019 Q8H&0600,1400,2200 TRIAMCINOLONE CRM CRM 0.1 % (ARISTOCORT C RM) rosamaria 10/07/2019 10/17/2019 BID&0800,2000 Diphenhydramine Cream 2%(Benadryl) ROSAMARIA 10/07/2019 10/14/2019 BID&0800,2000 BUPROPION TAB 75 MG (WELLBUTRIN) MG 10/08/2019 11/06/2019 Daily&1200 BUPROPION TAB 75 MG (WELLBUTRIN) MG 10/09/2019 11/07/2019 Daily&0600 LACTULOSE SYRUP LIQ 20 GM/30 CC (CHRONULAC SYRUP) GM 10/09/2019 11/07/2019 BID&0800,2000 SIMVASTATIN TAB 10 MG (ZOCOR) MG 10/09/2019 11/06/2019 QPM&2000 ALENDRONATE TAB 35 MG (FOSAMAX) MG 10/11/2019 11/01/2019 Q1WK&0700 BUPROPION TAB 75 MG (WELLBUTRIN) MG 10/11/2019 11/09/2019 Daily&1200 Mirtazapine oral tablet 7.5mg (Remeron) MG 10/11/2019 11/09/2019 QHS&2100 BUPROPION SR TAB 150 MG (WELLBUTRIN SR) MG 10/13/2019 11/11/2019 Daily&0900 MIRTAZAPINE TAB 15 MG (REMERON) MG 10/14/2019 11/12/2019 QHS&2100 BUPROPION TAB 75 MG (WELLBUTRIN) MG 10/15/2019 11/13/2019 Daily&1200 MELATONIN TAB 3 MG (MELATONIN) MG 10/15/2019 11/13/2019 QHS&2100 BUPROPION TAB 75 MG (WELLBUTRIN) MG 10/16/2019 10/22/2019 Daily&0600 BUPROPION TAB 75 MG (WELLBUTRIN) MG 10/16/2019 11/14/2019 Daily&0900 Problems Date Dx Coded Attending Type Code Diagnosis Diagnosed By 11/15/2014 Ot V76.12 11/15/2014 Ot 272.4 11/15/2014 Ot 397.0 11/15/2014 Ot 401.9 11/15/2014 Ot 424.1 11/15/2014 Ot 786.50 11/15/2014 Ot 272.4 11/15/2014 Ot 401.9 11/15/2014 Ot 786.50 11/15/2014 Ot V76.12 11/15/2014 Ot V76.12 11/15/2014 LUZ JOHNSON, VIKY Penny Ot 250. 00 11/15/2014 LUZ JOHNSON, VIKY Penny Ot 396. 3 11/15/2014 LUZ JOHNSON, VIKY Penny Ot 397. 0 11/15/2014 LUZ JOHNSON, VIKY Penny Ot 401. 9 11/15/2014 LUZ JOHNSON, VIKY Penny Ot 786. 50 11/15/2014 LUZ JOHNSON, VIKY Penny Ot 250. 00 11/15/2014 LUZ JOHNSON, VIKY Penny Ot 401. 9 11/15/2014 LUZ JOHNSON, VIKY Penny Ot 786. 50 11/15/2014 Ot 793.89 11/15/2014 Ot V76.12 11/15/2014 Ot 610.0 11/15/2014 NAVIN JOHNSON, MARTHA Chapin Ot V76.1 2 12/10/2014 MARTHA HOLDEN MD Ot V76.1 2 03/20/2015 NICHOLE-GISELLE PA, INOCENTE K Ot 250.01 03/20/2015 NICHOLE-GISELLE PA, INOCENTE K Ot 272.4 03/20/2015 NICHOLE-GISELLE PA, INOCENTE K Ot 401.9 03/20/2015 NICHOLE-GISELLE PA, INOCENTE K Ot 786.50 03/21/2015 NICHOLE-GISELLE PA, INOCENTE K Ot 250.00 03/21/2015 NICHOLE-GISELLE PA, INOCENTE K Ot 272.4 03/21/2015 NICHOLE-GISELLE PA, INOCENTE K Ot 401.9 03/21/2015 NICHOLE-GISELLE PA, INOCENTE K Ot 786.50 03/21/2015 NICHOLE-GISELLE PA, INOCENTE K Ot V58.67 05/06/2015 LAURYN DESAI AGRICULTURAL ECONOMIST Ot 787.91 05/07/2015 LAURYN DESAI APRN Ot 787.91 DIARRHEA 05/19/2015 Ot V76.12 05/19/2015 Ot V76.12 05/19/2015 LUZ JOHNSON, VIKY Penny Ot 250. 00 05/19/2015 LUZ JOHNSON, VIKY Penny Ot 396. 3 05/19/2015 VIKY ESCOBAR MD Ot 397. 0 05/19/2015 LUZ JOHNSON, VIKY Penny Ot 401. 9 05/19/2015 VIKY ESCOBAR MD Ot 786. 50 05/19/2015 LUZ JOHNSON, VIKY Penny Ot 250. 00 05/19/2015 VIKY ESCOBAR MD Ot 401. 9 05/19/2015 VIKY ESCOBAR MD Ot 786. 50 05/19/2015 Ot 793.89 05/19/2015 Ot V76.12 05/19/2015 Ot 610.0 05/19/2015 MARTHA HOLDEN MD Ot V76.1 2 05/19/2015 MARTHA HOLDEN MD Ot V76.1 2 05/19/2015 DARREL WILLOUGHBY INOCENTE K Ot 250.01 05/19/2015 DARREL WILLOUGHBY, INOCENTE K Ot 272.4 05/19/2015 DARREL WILLOUGHBY, INOCENTE K Ot 401.9 05/19/2015 DRAREL WILLOUGHBY INOCENTE K Ot 786.50 05/19/2015 DARREL WILLOUGHBY, INOCENTE K Ot 250.00 05/19/2015 DARREL WILLOUGHBY, INOCENTE K Ot 272.4 05/19/2015 DARREL WILLOUGHBY, INOCENTE K Ot 401.9 05/19/2015 DARREL WILLOUGHBY, INOCENTE K Ot 786.50 05/19/2015 DARREL WILLOUGHBY, INOCENTE K Ot V58.67 05/19/2015 LAURYN DESAI AGRICULTURAL ECONOMIST Ot 787.91 05/20/2015 LAURYN DESAI AGRICULTURAL ECONOMIST Ot 787.91 06/30/2015 LAURYN DESAI AGRICULTURAL ECONOMIST Ot R19.7 07/29/2015 MARTHA HOLDEN MD Ot B96.2 0 UNSP ESCHERICHIA COLI THE CAUSE OF DI 07/29/2015 MARTHA HOLDEN MD Ot E10.6 49 TYPE 1 DIABETES MELLITUS WITH HYPOGLYCEM 07/29/2015 MARTHA HOLDEN MD Ot E78.5 HYPERLIPIDEMIA, UNSPECIFIED 07/29/2015 MARTHA HOLDEN MD Ot E87.5 HYPERKALEMIA 07/29/2015 MARTHA HOLDEN MD Ot I10 ESSENTIAL (PRIMARY) HYPERTENSION 07/29/2015 MARTHA HOLDEN MD Ot K21.9 GASTRO-ESOPHAGEAL REFLUX DISEASE WITHOUT 07/29/2015 MARTHA HOLDEN MD Ot M81.0 AGE-RELATED OSTEOPOROSIS W/O CURRENT PAT 07/29/2015 MARTHA HOLDEN MD, Ot N39.0 URINARY TRACT INFECTION, SITE NOT SPECIF 08/17/2015 LAURYN DESAI APRN Ot R19.7 DIARRHEA, UNSPECIFIED 09/21/2015 QI CUTLER DO K Ot E11.65 TYPE 2 DIABETES MELLITUS WITH HYPERGLYCE 09/21/2015 HE GARCIA QI Oliva Ot Z79.4 GROUP HOME (CURRENT) USE OF INSULIN 12/25/2015 LAURYN DESAI APRN Ot Z12.31 ENCNTR SCREEN MAMMOGRAM FOR MALIGNANT NE 01/14/2016 LENA LAURYN GARCIA Ot E87. 1 HYPO-OSMOLALITY AND HYPONATREMIA 02/03/2016 LENA LAURYN GARCIA Ot E87. 1 HYPO-OSMOLALITY AND HYPONATREMIA 02/08/2016 KAYLEE PIRES MD, Ot E11.649 TYPE 2 DIABETES MELLITUS WITH HYPOGLYCEM 02/08/2016 KAYLEE PIRES MD, Ot N39.0 URINARY TRACT INFECTION, SITE NOT SPECIF 02/08/2016 KAYLEE PIRES MD, Ot S92.511A DISP FX OF PROXIMAL PHALANX OF RIGHT LES 02/08/2016 KAYLEE PIRES MD, Ot W01.0XXA FALL SAME LEV FROM SLIP/TRIP W/O STRIKE 02/08/2016 KAYLEE PIRES MD Ot Y92.[address] IN SINGLE-FAMILY (PRIVATE) 02/08/2016 KAYLEE PIRES MD Ot Y99.8 OTHER EXTERNAL CAUSE STATUS 02/08/2016 KAYLEE PIRES MD, Ot Z79.4 TRAVEL SALES CONSULTANT (CURRENT) USE OF INSULIN 02/12/2016 KAYLEE PIRES MD, Ot E11.649 TYPE 2 DIABETES MELLITUS WITH HYPOGLYCEM 02/12/2016 KAYLEE PIRES MD, Ot N39.0 URINARY TRACT INFECTION, SITE NOT SPECIF 02/12/2016 KAYLEE PIRES MD, Ot S92.511A DISP FX OF PROXIMAL PHALANX OF RIGHT LES 02/12/2016 KAYLEE PIRES MD, Ot W01.0XXA FALL SAME LEV FROM SLIP/TRIP W/O STRIKE 02/12/2016 KAYLEE PIRES MD Ot Y92.[address] IN SINGLE-FAMILY (PRIVATE) HO 02/12/2016 KAYLEE PIRES MD Ot Y99.8 OTHER EXTERNAL CAUSE STATUS 02/12/2016 KAYLEE PIRES MD Ot Z79.4 GROUP HOME (CURRENT) USE OF INSULIN 02/25/2016 Ot V76.12 OTH SCREEN MAMMO- MALIGN NEOPLASM OF MARK 02/25/2016 Ot V76.12 OTH SCREEN MAMMO- MALIGN NEOPLASM OF MARK 02/25/2016 VIKY ESCOBAR MD Ot 250. 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 9 HYPERTENSION NOS 02/25/2016 VIKY ESCOBAR MD Ot 786. 50 CHEST PAIN NOS 02/25/2016 VIKY ESCOBAR MD Ot 250. 00 DIAB LADI WO COMPL, TYPE II OR UNSPEC TY 02/25/2016 VIKY ESCOBAR MD Ot 401. 9 HYPERTENSION NOS 02/25/2016 VIKY ESCOBAR MD Ot 786. 50 CHEST PAIN NOS 02/25/2016 Ot 793.89 OTH (ABN) FINDINGS ON RADIOLOGICAL EXAMI 02/25/2016 Ot V76.12 OTH SCREEN MAMMO- MALIGN NEOPLASM OF MARK 02/25/2016 Ot 610.0 NINOSKA TARY CYST OF BREAST 02/25/2016 MARTHA HOLDEN MD Ot V76.1 2 OTH SCREEN MAMMO-MALIGN NEOPLASM OF MARK 02/25/2016 MARTHA HOLDEN MD Ot V76.1 2 OTH SCREEN MAMMO-MALIGN NEOPLASM OF MARK 02/25/2016 INOCENTE VANESSA Ot 250.01 DIAB LADI WO COMPL, TYPE I [JUVENILE TYP 02/25/2016 INOCENTE VANESSA Ot 272.4 HYPERLIPIDEMIA NEC/NOS 02/25/2016 INOCENTE VANESSA Ot 401.9 HYPERTENSION NOS 02/25/2016 INOCENTE VANESSA Ot 786.50 CHEST PAIN NOS 02/25/2016 INOCENTE VANESSA Ot 250.00 DIAB LADI WO COMPL, TYPE II OR UNSPEC TY 02/25/2016 INOCENTE VANESSA Ot 272.4 HYPERLIPIDEMIA NEC/NOS 02/25/2016 INOCENTE VANESSA Ot 401.9 HYPERTENSION NOS 02/25/2016 INOCENTE VANESSA Ot 786.50 CHEST PAIN NOS 02/25/2016 INOCENTE VANESSA Ot V58.67 LONG-TERM (CURRENT) USE OF INSULIN 02/25/2016 LAURYN DESAI APRN Ot R19.7 DIARRHEA, UNSPECIFIED 02/25/2016 LAURYN DESAI APRN Ot Z12.31 ENCNTR SCREEN MAMMOGRAM FOR MALIGNANT NE 02/25/2016 LAURYN PAREDES DO Ot E87. 1 HYPO-OSMOLALITY AND HYPONATREMIA 02/27/2016 ESTELLE FOX MD Ot B96 .4 PROTEUS (MIRABILIS) (MORGANII) CAUSING D 02/27/2016 ESTELLE FOX MD Ot D72.829 ELEVATED WHITE BLOOD CELL COUNT, UNSPECI 02/27/2016 ESTELLE FOX MD Ot E11.649 TYPE 2 DIABETES MELLITUS WITH HYPOGLYCEM 02/27/2016 ESTELLE FOX MD Ot E11.65 TYPE 2 DIABETES MELLITUS WITH HYPERGLYCE 02/27/2016 ESTELLE FOX MD Ot E78 .0 PURE HYPERCHOLESTEROLEMIA 02/27/2016 ESTELLE FOX MD Ot E78 .5 HYPERLIPIDEMIA, UNSPECIFIED 02/27/2016 ESTELLE FOX MD Ot E87 .6 HYPOKALEMIA 02/27/2016 ESTELLE OFX MD Ot F03.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 DEMENTIA WITHOUT BEHAVIORAL 02/27/2016 ESTELLE FOX MD Ot I10 ESSENTIAL (PRIMARY) HYPERTENSION 02/27/2016 ESTELLE FOX MD Ot K21 .9 GASTRO-ESOPHAGEAL REFLUX DISEASE WITHOUT 02/27/2016 ESTELLE FOX MD Ot K29.70 GASTRITIS, UNSPECIFIED, WITHOUT BLEEDING 02/27/2016 ESTELLE FOX MD Ot K29.80 DUODENITIS WITHOUT BLEEDING 02/27/2016 ESTELLE FOX MD Ot K31.84 GASTROPARESIS 02/27/2016 ESTELLE FOX MD Ot K44 .9 DIAPHRAGMATIC HERNIA WITHOUT OBSTRUCTION 02/27/2016 ODGERS MD, ESTELLE K Ot K80.20 CALCULUS OF GALLBLADDER W/O CHOLECYSTITI 02/27/2016 ESTELLE FOX MD Ot M81 .0 AGE-RELATED OSTEOPOROSIS W/O CURRENT PAT 02/27/2016 ESTELLE FOX MD Ot N17 .9 ACUTE KIDNEY FAILURE, UNSPECIFIED 02/27/2016 ESTELLE FOX MD Ot N30.00 ACUTE CYSTITIS WITHOUT HEMATURIA 02/27/2016 ESTELLE FOX MD Ot N39 .0 URINARY TRACT INFECTION, SITE NOT SPECIF 02/27/2016 ESTELLE FOX MD Ot R63 .0 ANOREXIA 02/27/2016 ESTELLE FOX MD, Ot R63 .4 ABNORMAL WEIGHT LOSS 02/27/2016 ESTELLE FOX MD, Ot Z79 .4 TRAVEL SALES CONSULTANT (CURRENT) USE OF INSULIN 02/27/2016 ESTELLE FOX MD, Ot Z91.81 HISTORY OF FALLING 03/03/2016 MARTHA HOLDEN MD, Ot E13.1 0 OTH DIABETES MELLITUS WITH KETOACIDOSIS 03/03/2016 MARTHA HOLDEN MD, Ot E78.0 PURE HYPERCHOLESTEROLEMIA 03/03/2016 MARTHA HOLDEN MD, Ot E86.0 DEHYDRATION 03/03/2016 MARTHA HOLDEN MD Ot E87.8 OTH DISORDERS OF ELECTROLYTE AND FLUID B 03/03/2016 MARTHA HOLDEN MD Ot F03.9 0 UNSPECIFIED DEMENTIA WITHOUT BEHAVIORAL 03/03/2016 MARTHA HOLDEN MD Ot I10 ESSENTIAL (PRIMARY) HYPERTENSION 03/03/2016 MARTHA HOLDEN MD Ot K21.9 GASTRO-ESOPHAGEAL REFLUX DISEASE WITHOUT 03/03/2016 MARTHA HOLDEN MD Ot K80.0 0 CALCULUS OF GALLBLADDER W ACUTE CHOLECYS 03/03/2016 MARTHA HOLDEN MD Ot M81.0 AGE-RELATED OSTEOPOROSIS W/O CURRENT PAT 03/03/2016 MARTHA HOLDEN MD Ot N39.0 URINARY TRACT INFECTION, SITE NOT SPECIF 03/03/2016 MARTHA HOLDEN MD Ot Z66 DO NOT RESUSCITATE 03/04/2016 MARTHA HOLDEN MD, Ot E13.1 0 OTH DIABETES MELLITUS WITH KETOACIDOSIS 03/04/2016 MARTHA HOLDEN MD Ot E78.0 PURE HYPERCHOLESTEROLEMIA 03/04/2016 MARTHA HOLDEN MD Ot E86.0 DEHYDRATION 03/04/2016 MARTHA HOLDEN MD Ot E87.8 OTH DISORDERS OF ELECTROLYTE AND FLUID B 03/04/2016 MARTHA HOLDEN MD Ot F03.9 0 UNSPECIFIED DEMENTIA WITHOUT BEHAVIORAL 03/04/2016 MARTHA HOLDEN MD Ot I10 ESSENTIAL (PRIMARY) HYPERTENSION 03/04/2016 MARTHA HOLDEN MD, Ot K21.9 GASTRO-ESOPHAGEAL REFLUX DISEASE WITHOUT 03/04/2016 MARTHA HOLDEN MD Ot K80.0 0 CALCULUS OF GALLBLADDER W ACUTE CHOLECYS 03/04/2016 MARTHA HOLDEN MD, Ot M81.0 AGE-RELATED OSTEOPOROSIS W/O CURRENT PAT 03/04/2016 MARTHA HOLDEN MD, Ot N39.0 URINARY TRACT INFECTION, SITE NOT SPECIF 03/04/2016 MARTHA HOLDEN MD Ot Z66 DO NOT RESUSCITATE 03/04/2016 MARTHA HOLDEN MD, Ot E13.1 0 OTH DIABETES MELLITUS WITH KETOACIDOSIS 03/04/2016 MARTHA HOLDEN MD Ot E78.0 PURE HYPERCHOLESTEROLEMIA 03/04/2016 MARTHA HOLDEN MD, Ot E86.0 DEHYDRATION 03/04/2016 MARTHA HOLDEN MD, Ot E87.8 OTH DISORDERS OF ELECTROLYTE AND FLUID B 03/04/2016 MARTHA HOLDEN MD Ot F03.9 0 UNSPECIFIED DEMENTIA WITHOUT BEHAVIORAL 03/04/2016 MARTHA HOLDEN MD Ot I10 ESSENTIAL (PRIMARY) HYPERTENSION 03/04/2016 MARTHA HOLDEN MD, Ot K21.9 GASTRO-ESOPHAGEAL REFLUX DISEASE WITHOUT 03/04/2016 MARTHA HOLDEN MD, Ot K80.0 0 CALCULUS OF GALLBLADDER W ACUTE CHOLECYS 03/04/2016 MARTHA HOLDEN MD, Ot M81.0 AGE-RELATED OSTEOPOROSIS W/O CURRENT PAT 03/04/2016 MARTHA HOLDEN MD, Ot N39.0 URINARY TRACT INFECTION, SITE NOT SPECIF 03/04/2016 MARTHA HOLDEN MD Ot Z66 DO NOT RESUSCITATE 03/04/2016 MARTHA HOLDEN MD Ot D64.9 ANEMIA, UNSPECIFIED 03/04/2016 MARTHA HOLDEN MD Ot D69.6 THROMBOCYTOPENIA, UNSPECIFIED 03/04/2016 MARTHA HOLDNE MD Ot E13.1 0 OTH DIABETES MELLITUS WITH KETOACIDOSIS 03/04/2016 MARTHA HOLDEN MD Ot E78.0 PURE HYPERCHOLESTEROLEMIA 03/04/2016 MARTHA HOLDEN MD Ot E78.5 HYPERLIPIDEMIA, UNSPECIFIED 03/04/2016 MARTHA HOLDEN MD Ot E86.0 DEHYDRATION 03/04/2016 MARTHA HOLDEN MD Ot E87.8 OTH DISORDERS OF ELECTROLYTE AND FLUID B 03/04/2016 MARTHA HOLDEN MD, Ot F03.9 0 UNSPECIFIED DEMENTIA WITHOUT BEHAVIORAL 03/04/2016 MARTHA HOLDEN MD, Ot I10 ESSENTIAL (PRIMARY) HYPERTENSION 03/04/2016 MARTHA HOLDEN MD, Ot K21.9 GASTRO-ESOPHAGEAL REFLUX DISEASE WITHOUT 03/04/2016 MARTHA HOLDEN MD Ot K80.0 0 CALCULUS OF GALLBLADDER W ACUTE CHOLECYS 03/04/2016 MARTHA HOLDEN MD, Ot K80.1 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 03/04/2016 MARTHA HOLDEN MD, Ot M81.0 AGE-RELATED OSTEOPOROSIS W/O CURRENT PAT 03/04/2016 MARTHA HOLDEN MD, Ot N39.0 URINARY TRACT INFECTION, SITE NOT SPECIF 03/04/2016 MARTHA HOLDEN MD, Ot R19.7 DIARRHEA, UNSPECIFIED 03/04/2016 MARTHA HOLDEN MD, Ot Z66 DO NOT RESUSCITATE 03/04/2016 MARTHA HOLDEN MD, Ot Z79.4 GROUP HOME (CURRENT) USE OF INSULIN 03/09/2016 LEELEE RAMIRES MD Ot D64.9 ANEMIA, UNSPECIFIED 03/09/2016 LEELEE RAMIRES MD Ot E11.3 19 TYPE 2 DIABETES W UNSP DIABETIC RTNOP W/ 03/09/2016 LEELEE RAMIRES MD Ot E11.6 5 TYPE 2 DIABETES MELLITUS WITH HYPERGLYCE 03/09/2016 LEELEE RAIMRES MD Ot E78.0 PURE HYPERCHOLESTEROLEMIA 03/09/2016 LEELEE RAMIRES MD Ot F06.8 OTH MENTAL DISORDERS DUE TO KNOWN PHYSIO 03/09/2016 LEELEE RAMIRES MD Ot I10 ESSENTIAL (PRIMARY) HYPERTENSION 03/09/2016 LEELEE RAMIRES MD Ot K21.9 GASTRO-ESOPHAGEAL REFLUX DISEASE WITHOUT 03/09/2016 LEELEE RAMIRES MD Ot R26.2 DIFFICULTY IN WALKING, NOT ELSEWHERE CLA 03/09/2016 LEELEE RAMIRES MD Ot R53.1 WEAKNESS 03/09/2016 LEELEE RAMIRES MD Ot Z48.8 15 ENCNTR FOR SURGICAL AFTCR FOLLOWING SURG 03/09/2016 LEELEE RAMIRES MD Ot Z66 DO NOT RESUSCITATE 03/09/2016 LEELEE RAMIRES MD Ot Z79.4 TRAVEL SALES CONSULTANT (CURRENT) USE OF INSULIN 03/09/2016 RAMIRES MD, LEELEE E Ot D64.9 ANEMIA, UNSPECIFIED 03/09/2016 LEELEE RAMIRES MD E Ot E11.3 19 TYPE 2 DIABETES W UNSP DIABETIC RTNOP W/ 03/09/2016 LEELEE RAMIRES MD E Ot E11.6 5 TYPE 2 DIABETES MELLITUS WITH HYPERGLYCE 03/09/2016 KIRK RAMIRES MDIC E Ot E78.0 PURE HYPERCHOLESTEROLEMIA 03/09/2016 KIRK RAMIRES MDIC E Ot F06.8 OTH MENTAL DISORDERS DUE TO KNOWN PHYSIO 03/09/2016 LEELEE RAMIRES MD E Ot I10 ESSENTIAL (PRIMARY) HYPERTENSION 03/09/2016 LEELEE RAMIRES MD E Ot K21.9 GASTRO-ESOPHAGEAL REFLUX DISEASE WITHOUT 03/09/2016 LEELEE RAMIRES MD E Ot R26.2 DIFFICULTY IN WALKING, NOT ELSEWHERE CLA 03/09/2016 LEELEE RAMIRES MD E Ot R53.1 WEAKNESS 03/09/2016 LEELEE RAMIRES MD E Ot Z48.8 15 ENCNTR FOR SURGICAL AFTCR FOLLOWING SURG 03/09/2016 LEELEE RAMIRES MD E Ot Z66 DO NOT RESUSCITATE 03/09/2016 LEELEE RAMIRES MD E Ot Z79.4 GROUP HOME (CURRENT) USE OF INSULIN 03/09/2016 LEELEE RAMIRES MD E Ot D64.9 ANEMIA, UNSPECIFIED 03/09/2016 LEELEE RAMIRES MD E Ot E11.3 19 TYPE 2 DIABETES W UNSP DIABETIC RTNOP W/ 03/09/2016 LEELEE RAMIRES MD E Ot E11.6 5 TYPE 2 DIABETES MELLITUS WITH HYPERGLYCE 03/09/2016 LEELEE RAMIRES MD E Ot E78.0 PURE HYPERCHOLESTEROLEMIA 03/09/2016 LEELEE RAMIRES MD E Ot F06.8 OTH MENTAL DISORDERS DUE TO KNOWN PHYSIO 03/09/2016 LEELEE RAMIRES MD E Ot I10 ESSENTIAL (PRIMARY) HYPERTENSION 03/09/2016 LEELEE RAMIRES MD E Ot K21.9 GASTRO-ESOPHAGEAL REFLUX DISEASE WITHOUT 03/09/2016 LEELEE RAMIRES MD E Ot R26.2 DIFFICULTY IN WALKING, NOT ELSEWHERE CLA 03/09/2016 LEELEE RAMIRES MD E Ot R53.1 WEAKNESS 03/09/2016 LEELEE RAMIRES MD E Ot Z48.8 15 ENCNTR FOR SURGICAL AFTCR FOLLOWING SURG 03/09/2016 LEELEE RAMIRES MD E Ot Z66 DO NOT RESUSCITATE 03/09/2016 LEELEE RAMIRES MD E Ot Z79.4 GROUP HOME (CURRENT) USE OF INSULIN 03/11/2016 LEELEE RAMIRES MD E Ot D64.9 ANEMIA, UNSPECIFIED 03/11/2016 LEELEE RAMIRES MD E Ot E11.3 19 TYPE 2 DIABETES W UNSP DIABETIC RTNOP W03/11/2016 LEELEE RAMIRES MD E Ot E11.6 5 TYPE 2 DIABETES MELLITUS WITH HYPERGLYCE 03/11/2016 LEELEE RAMIRES MD E Ot E78.0 PURE HYPERCHOLESTEROLEMIA 03/11/2016 LEELEE RAMIRES MD E Ot F06.8 OTH MENTAL DISORDERS DUE TO KNOWN PHYSIO 03/11/2016 LEELEE RAMIRES MD E Ot I10 ESSENTIAL (PRIMARY) HYPERTENSION 03/11/2016 LEELEE RAMIRES MD E Ot K21.9 GASTRO-ESOPHAGEAL REFLUX DISEASE WITHOUT 03/11/2016 LEELEE RAMIRES MD E Ot R26.2 DIFFICULTY IN WALKING, NOT ELSEWHERE CLA 03/11/2016 LEELEE RAMIRES MD E Ot R53.1 WEAKNESS 03/11/2016 LEELEE RAMIRES MD E Ot Z48.8 15 ENCNTR FOR SURGICAL AFTCR FOLLOWING SURG 03/11/2016 LEELEE RAMIRES MD E Ot Z66 DO NOT RESUSCITATE 03/11/2016 LEELEE RAMIRES MD E Ot Z79.4 GROUP HOME (CURRENT) USE OF INSULIN 03/12/2016 LEELEE RAMIRES MD E Ot A04.7 ENTEROCOLITIS DUE TO CLOSTRIDIUM DIFFICI 03/12/2016 LEELEE RAMIRES MD E Ot D64.9 ANEMIA, UNSPECIFIED 03/12/2016 LEELEE RAMIRES MD E Ot E11.3 19 TYPE 2 DIABETES W UNSP DIABETIC RTNOP W03/12/2016 LEELEE RAMIRES MD E Ot E11.6 5 TYPE 2 DIABETES MELLITUS WITH HYPERGLYCE 03/12/2016 LEELEE RAMIRES MD E Ot E78.0 PURE HYPERCHOLESTEROLEMIA 03/12/2016 LEELEE RAMIRES MD E Ot F06.8 OTH MENTAL DISORDERS DUE TO KNOWN PHYSIO 03/12/2016 LEELEE RAMIRES MD E Ot I10 ESSENTIAL (PRIMARY) HYPERTENSION 03/12/2016 KIRK RAMIRES MDIC E Ot K21.9 GASTRO-ESOPHAGEAL REFLUX DISEASE WITHOUT 03/12/2016 KIRK RAMIRES MDIC E Ot R26.2 DIFFICULTY IN WALKING, NOT ELSEWHERE CLA 03/12/2016 KIRK RAMIRES MDIC E Ot R53.1 WEAKNESS 03/12/2016 LEELEE RAMIRES MD Ot Z48.8 15 ENCNTR FOR SURGICAL AFTCR FOLLOWING SURG 03/12/2016 LEELEE RAMIRES MD Ot Z66 DO NOT RESUSCITATE 03/12/2016 LEELEE RAMIRES MD Ot Z79.4 [employer]VEL SALES [employer]SULTANT (CURRENT) USE OF INSULIN 04/16/2016 LEELEE RAMIRES MD Ot A04.7 ENTEROCOLITIS DUE TO CLOSTRIDIUM DIFFICI 05/10/2016 Ot V76.12 OTH SCREEN MAMMO- MALIGN NEOPLASM OF MARK 05/10/2016 VIKY ESCOBAR MD Ot 250. 00 DIAB LADI WO COMPL, TYPE II OR UNSPEC TY 05/10/2016 VIKY ESCOBAR MD Ot 396. 3 MITRAL/AORTIC RODDY INSUFF 05/10/2016 VIKY ESCOBAR MD Ot 397. 0 TRICUSPID VALVE DISEASE 05/10/2016 VIKY ESCOBAR MD Ot 401. 9 HYPERTENSION NOS 05/10/2016 VIKY ESCOBAR MD Ot 786. 50 CHEST PAIN NOS 05/10/2016 VIKY ESCOBAR MD Ot 250. 00 DIAB LADI WO COMPL, TYPE II OR UNSPEC TY 05/10/2016 VIKY ESCOBAR MD Ot 401. 9 HYPERTENSION NOS 05/10/2016 VIKY ESCOBAR MD Ot 786. 50 CHEST PAIN NOS 05/10/2016 Ot 793.89 OTH (ABN) FINDINGS ON RADIOLOGICAL EXAMI 05/10/2016 Ot V76.12 OTH SCREEN MAMMO- MALIGN NEOPLASM OF MARK 05/10/2016 Ot 610.0 NINOSKA TARY CYST OF BREAST 05/10/2016 MARTHA HOLDEN MD Ot V76.1 2 OTH SCREEN MAMMO-MALIGN NEOPLASM OF MARK 05/10/2016 MARTHA HOLDEN MD Ot V76.1 2 OTH SCREEN MAMMO-MALIGN NEOPLASM OF MARK 05/10/2016 INOCENTE VANESSA Ot 250.01 DIAB LADI WO COMPL, TYPE I [JUVENILE TYP 05/10/2016 INOCENTE VANESSA Ot 272.4 HYPERLIPIDEMIA NEC/NOS 05/10/2016 INOCENTE VANESSA Ot 401.9 HYPERTENSION NOS 05/10/2016 INOCENTE VANESSA Ot 786.50 CHEST PAIN NOS 05/10/2016 INOCENTE VANESSA Ot 250.00 DIAB LADI WO COMPL, TYPE II OR UNSPEC TY 05/10/2016 INOCENTE VANESSA Ot 272.4 HYPERLIPIDEMIA NEC/NOS 05/10/2016 INOCENTE VANESSA Ot 401.9 HYPERTENSION NOS 05/10/2016 INOCENTE VANESSA Ot 786.50 CHEST PAIN NOS 05/10/2016 INOCENTE VANESSA Ot V58.67 LONG-TERM (CURRENT) USE OF INSULIN 05/10/2016 LAURYN DESAI APRN Ot R19.7 DIARRHEA, UNSPECIFIED 05/10/2016 LAURYN DESAI APRN Ot Z12.31 ENCNTR SCREEN MAMMOGRAM FOR MALIGNANT NE 05/10/2016 LAURYN PAREDES DO Ot E87. 1 HYPO-OSMOLALITY AND HYPONATREMIA 05/10/2016 KEYLA JOHNSON, LEELEE Nicole Ot A04.7 ENTEROCOLITIS DUE TO CLOSTRIDIUM DIFFICI 05/11/2016 INOCENTE VANESSA Ot E11.9 TYPE 2 DIABETES MELLITUS WITHOUT COMPLIC 05/11/2016 INOCENTE VANESSA Ot I10 ESSENTIAL (PRIMARY) HYPERTENSION 05/11/2016 INOCENTE VANESSA Ot I35.1 NONRHEUMATIC AORTIC (VALVE) INSUFFICIENC 05/11/2016 INOCENTE VANESSA Ot 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 05/11/2016 INOCENTE VANESSA Ot Z79.4 GROUP HOME (CURRENT) USE OF INSULIN 06/02/2016 INOCENTE VANESSA Ot E11.9 TYPE 2 DIABETES MELLITUS WITHOUT COMPLIC 06/02/2016 INOCENTE VANESSA Ot I10 ESSENTIAL (PRIMARY) HYPERTENSION 06/02/2016 INOCENTE VANESSA Ot I35.1 NONRHEUMATIC AORTIC (VALVE) INSUFFICIENC 06/02/2016 INOCENTE VANESSA Ot 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 06/02/2016 INOCENTE VANESSA Ot Z79.4 GROUP HOME (CURRENT) USE OF INSULIN 06/25/2016 KASANDRA CHERY DO Ot E08.10 DIABETES DUE TO UNDERLYING CONDITION W K 06/25/2016 CHERY DO, KASANDRA Ot E78.5 HYPERLIPIDEMIA, UNSPECIFIED 06/25/2016 CHERY DO, KASANDRA Ot F03.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 DEMENTIA WITHOUT BEHAVIORAL 06/25/2016 CHERY DO, KASANDRA Ot I10 ESSENTIAL (PRIMARY) HYPERTENSION 06/25/2016 CHERY DO, KASANDRA Ot I25.1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 06/25/2016 CHERY DO, KASANDRA Ot K21.9 GASTRO-ESOPHAGEAL REFLUX DISEASE WITHOUT 06/25/2016 CHERY DO, KASANDRA Ot M81.0 AGE-RELATED OSTEOPOROSIS W/O CURRENT PAT 06/25/2016 CHERY DO, KASANDRA Ot Z79.4 GROUP HOME (CURRENT) USE OF INSULIN 06/25/2016 CHERY DO, KASANDRA Ot E08.10 DIABETES DUE TO UNDERLYING CONDITION W K 06/25/2016 CHERY DO, KASANDRA Ot E13.10 OTH DIABETES MELLITUS WITH KETOACIDOSIS 06/25/2016 CHERY DO, KASANDRA Ot E78.5 HYPERLIPIDEMIA, UNSPECIFIED 06/25/2016 CHERY DO, KASANDRA Ot F03.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 DEMENTIA WITHOUT BEHAVIORAL 06/25/2016 CHERY DO, KASANDRA Ot I10 ESSENTIAL (PRIMARY) HYPERTENSION 06/25/2016 CHERY DO, KASANDRA Ot I25.1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 06/25/2016 CHERY DO, KASANDRA Ot K21.9 GASTRO-ESOPHAGEAL REFLUX DISEASE WITHOUT 06/25/2016 CHERY DO, KASANDRA Ot M81.0 AGE-RELATED OSTEOPOROSIS W/O CURRENT PAT 06/25/2016 CHERY DO, KASANDRA Ot Z79.4 [employer] SAL[employer]SULTANT (CURRENT) USE OF INSULIN 10/05/2016 JUAN M JOHNSON, LIZET Davis Ot F03.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 DEMENTIA WITHOUT BEHAVIORAL 10/26/2016 JUAN M JOHNSON, LIZET M Ot F03.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 DEMENTIA WITHOUT BEHAVIORAL 11/17/2016 NAVIN JOHNSON, MARTHA Chapin Ot Z12.3 1 ENCNTR SCREEN MAMMOGRAM FOR MALIGNANT NE 11/17/2016 NAVIN JOHNSON, MARTHA Chapin Ot Z12.3 1 ENCNTR SCREEN MAMMOGRAM FOR MALIGNANT NE 11/17/2016 NAVIN JOHNSON, MARTHA Chapin Ot Z12.3 1 ENCNTR SCREEN MAMMOGRAM FOR MALIGNANT NE 12/07/2016 MARTHA HOLDEN MD Ot Z12.3 1 ENCNTR SCREEN MAMMOGRAM FOR MALIGNANT NE 01/20/2017 LENA DO, GEORGE M Ot N18.2 CHRONIC KIDNEY DISEASE, STAGE 2 (MILD) 01/20/2017 LENA DO, GEORGE M Ot N32.9 BLADDER DISORDER, UNSPECIFIED 01/25/2017 LENA DO, GEORGE M Ot N18.2 CHRONIC KIDNEY DISEASE, STAGE 2 (MILD) 01/25/2017 LENA DO, GEORGE M Ot N32.9 BLADDER DISORDER, UNSPECIFIED 02/10/2017 LENA DO, GEORGE M Ot N18.2 CHRONIC KIDNEY DISEASE, STAGE 2 (MILD) 02/10/2017 LENA DO, GEORGE M Ot N32.9 BLADDER DISORDER, UNSPECIFIED 10/24/2017 INOCENTE VANESSA Ot E78.5 HYPERLIPIDEMIA, UNSPECIFIED 10/24/2017 INOCENTE VANESSA Ot 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 10/24/2017 INOCENTE VANESSA Ot I10 ESSENTIAL (PRIMARY) HYPERTENSION 10/24/2017 INOCENTE VANESSA Ot R07.89 OTHER CHEST PAIN 11/10/2017 INOCENTE VANESSA Ot E78.5 HYPERLIPIDEMIA, UNSPECIFIED 11/10/2017 INOCENTE VANESSA Ot 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 11/10/2017 INOCENTE VANESSA Ot I10 ESSENTIAL (PRIMARY) HYPERTENSION 11/10/2017 INOCENTE VANESSA Ot R07.89 OTHER CHEST PAIN 01/07/2018 KAYLEE PIRES MD Ot E11.65 TYPE 2 DIABETES MELLITUS WITH HYPERGLYCE 01/07/2018 KAYLEE PIRES MD Ot E78.00 PURE HYPERCHOLESTEROLEMIA, UNSPECIFIED 01/07/2018 KAYLEE PIRES MD Ot F03.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 DEMENTIA WITHOUT BEHAVIORAL 01/07/2018 KAYLEE PIRES MD Ot I10 ESSENTIAL (PRIMARY) HYPERTENSION 01/07/2018 KAYLEE PIRES MD Ot I25.1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 01/07/2018 KAYLEE PIRES MD Ot I73.9 PERIPHERAL VASCULAR DISEASE, UNSPECIFIED 01/07/2018 KAYLEE PIRES MD Ot K21.9 GASTRO-ESOPHAGEAL REFLUX DISEASE WITHOUT 01/07/2018 KAYLEE IPRES MD Ot M81.0 AGE-RELATED OSTEOPOROSIS W/O CURRENT PAT 01/07/2018 KAYLEE PIRES MD, Ot N39.0 URINARY TRACT INFECTION, SITE NOT SPECIF 01/07/2018 KAYLEE PIRES MD Ot R73.9 HYPERGLYCEMIA, UNSPECIFIED 01/07/2018 KAYLEE PIRES MD Ot Z79.4 TRAVEL SALES CONSULTANT (CURRENT) USE OF INSULIN 01/07/2018 KAYLEE PIRES MD Ot Z79.82 GROUP HOME (CURRENT) USE OF ASPIRIN 01/07/2018 KAYLEE PIRES MD Ot Z82.49 FAMILY HX OF ISCHEM HEART DIS AND OTH DI 01/07/2018 KAYLEE PIRES MD Ot Z87.448 PERSONAL HISTORY OF OTHER DISEASES OF UR 01/07/2018 KAYLEE PIRES MD Ot Z88.0 ALLERGY STATUS TO PENICILLIN 01/07/2018 KAYLEE PIRES MD Ot Z88.1 ALLERGY STATUS TO OTHER ANTIBIOTIC AGENT 01/07/2018 KAYLEE PIRES MD Ot Z88.5 ALLERGY STATUS TO NARCOTIC AGENT STATUS 01/07/2018 KAYLEE PIRES MD, Ot Z88.8 ALLERGY STATUS TO OT DRUG/MEDS/BIOL SUB 01/07/2018 KAYLEE PIRES MD Ot Z90.710 ACQUIRED ABSENCE OF BOTH CERVIX AND UTER 01/09/2018 KAYLEE PIRES MD Ot E11.65 TYPE 2 DIABETES MELLITUS WITH HYPERGLYCE 01/09/2018 KAYLEE PIRES MD Ot E78.00 PURE HYPERCHOLESTEROLEMIA, UNSPECIFIED 01/09/2018 KAYLEE PIRES MD Ot F03.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 DEMENTIA WITHOUT BEHAVIORAL 01/09/2018 KAYLEE PIRES MD Ot I10 ESSENTIAL (PRIMARY) HYPERTENSION 01/09/2018 KAYLEE PIRES MD Ot I25.1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 01/09/2018 KAYLEE PRIES MD Ot I73.9 PERIPHERAL VASCULAR DISEASE, UNSPECIFIED 01/09/2018 KAYLEE PIRES MD Ot K21.9 GASTRO-ESOPHAGEAL REFLUX DISEASE WITHOUT 01/09/2018 KAYLEE PIRES MD Ot M81.0 AGE-RELATED OSTEOPOROSIS W/O CURRENT PAT 01/09/2018 KAYLEE PIRES MD, Ot N39.0 URINARY TRACT INFECTION, SITE NOT SPECIF 01/09/2018 KAYLEE PIRES MD, Ot R73.9 HYPERGLYCEMIA, UNSPECIFIED 01/09/2018 KAYLEE PIRES MD, Ot Z79.4 GROUP HOME (CURRENT) USE OF INSULIN 01/09/2018 KAYLEE PIRES MD, Ot Z79.82 GROUP HOME (CURRENT) USE OF ASPIRIN 01/09/2018 KAYLEE PIRES MD, Ot Z82.49 FAMILY HX OF ISCHEM HEART DIS AND OTH DI 01/09/2018 KAYLEE PIRES MD, Ot Z87.448 PERSONAL HISTORY OF OTHER DISEASES OF UR 01/09/2018 KAYLEE PIRES MD, Ot Z88.0 ALLERGY STATUS TO PENICILLIN 01/09/2018 KAYLEE PIRES MD, Ot Z88.1 ALLERGY STATUS TO OTHER ANTIBIOTIC AGENT 01/09/2018 KAYLEE PIRES MD, Ot Z88.5 ALLERGY STATUS TO NARCOTIC AGENT STATUS 01/09/2018 KAYLEE PIRES MD, Ot Z88.8 ALLERGY STATUS TO OT DRUG/MEDS/BIOL SUB 01/09/2018 KAYLEE PIRES MD, Ot Z90.710 ACQUIRED ABSENCE OF BOTH CERVIX AND UTER 01/14/2018 KIARRA BOLTON MD Ot E11.1 0 TYPE 2 DIABETES MELLITUS WITH KETOACIDOS 01/14/2018 KIARRA BOLTON MD Ot E78.0 0 PURE HYPERCHOLESTEROLEMIA, UNSPECIFIED 01/14/2018 KIARRA BOLTON MD, Ot E84.9 CYSTIC FIBROSIS, UNSPECIFIED 01/14/2018 KIARRA BOLTON MD, Ot E86.0 DEHYDRATION 01/14/2018 KIARRA BOLTON MD, Ot E87.8 OT DISORDERS OF ELECTROLYTE AND FLUID B 01/14/2018 KIARRA BOLTON MD Ot F03.9 0 UNSPECIFIED DEMENTIA WITHOUT BEHAVIORAL 01/14/2018 KIARRA BOLTON MD, Ot I10 ESSENTIAL (PRIMARY) HYPERTENSION 01/14/2018 KIARRA BOLTON MD, Ot I25.1 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 01/14/2018 KIARRA BOLTON MD, Ot K21.9 GASTRO-ESOPHAGEAL REFLUX DISEASE WITHOUT 01/14/2018 KIARRA BOLTON MD, Ot M54.9 DORSALGIA, UNSPECIFIED 01/14/2018 KIARRA BOLTON MD, Ot M81.0 AGE-RELATED OSTEOPOROSIS W/O CURRENT PAT 01/14/2018 KIARRA BOLTON MD, Ot Z79.4 TRAVEL SALES CONSULTANT (CURRENT) USE OF INSULIN 01/14/2018 KIARRA BOLTON MD, Ot Z86.1 9 PERSONAL HISTORY OF OTHER INFECTIOUS AND 01/14/2018 KIARRA BOLTON MD, Ot Z87.4 40 PERSONAL HISTORY OF URINARY (TRACT) INFE 01/14/2018 KIARRA BOLTON MD Ot E11.1 0 TYPE 2 DIABETES MELLITUS WITH KETOACIDOS 01/14/2018 KIARRA BOLTON MD, Ot E11.6 5 TYPE 2 DIABETES MELLITUS WITH HYPERGLYCE 01/14/2018 KIARRA BOLTON MD Ot E78.0 0 PURE HYPERCHOLESTEROLEMIA, UNSPECIFIED 01/14/2018 KIARRA BOLTON MD, Ot E78.5 HYPERLIPIDEMIA, UNSPECIFIED 01/14/2018 KIARRA BOLTON MD, Ot E84.9 CYSTIC FIBROSIS, UNSPECIFIED 01/14/2018 KIARRA BOLTON MD Ot E86.0 DEHYDRATION 01/14/2018 KIARRA BOLTON MD, Ot E87.8 OTH DISORDERS OF ELECTROLYTE AND FLUID B 01/14/2018 KIARRA BOLTON MD Ot F03.9 0 UNSPECIFIED DEMENTIA WITHOUT BEHAVIORAL 01/14/2018 KIARRA BOLTON MD Ot I10 ESSENTIAL (PRIMARY) HYPERTENSION 01/14/2018 KIARRA BOLTON MD, Ot I25.1 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 01/14/2018 KIARRA BOLTON MD Ot K21.9 GASTRO-ESOPHAGEAL REFLUX DISEASE WITHOUT 01/14/2018 KIARRA BOLTON MD, Ot M54.9 DORSALGIA, UNSPECIFIED 01/14/2018 KIARRA BOLTON MD, Ot M81.0 AGE-RELATED OSTEOPOROSIS W/O CURRENT PAT 01/14/2018 KIARRA BOLTON MD, Ot Z79.4 GROUP HOME (CURRENT) USE OF INSULIN 01/14/2018 KIARRA BOLTON MD, Ot Z86.1 9 PERSONAL HISTORY OF OTHER INFECTIOUS AND 01/14/2018 KIARRA BOLTON MD, Ot Z87.4 40 PERSONAL HISTORY OF URINARY (TRACT) INFE 03/20/2018 Ot E11.39 TYP E 2 DIABETES W OTH DIABETIC OPHTHALMI 03/20/2018 Ot E11.65 TYP E 2 DIABETES MELLITUS WITH HYPERGLYCE 03/20/2018 Ot E78.00 PUR E HYPERCHOLESTEROLEMIA, UNSPECIFIED 03/20/2018 Ot F03.90 UNS PECIFIED DEMENTIA WITHOUT BEHAVIORAL 03/20/2018 Ot H42 GLAUCO MA IN DISEASES CLASSIFIED ELSEWHER 03/20/2018 Ot I10 ESSENT IAL (PRIMARY) HYPERTENSION 03/20/2018 Ot I25.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 03/20/2018 Ot K21.9 RANDEE RO-ESOPHAGEAL REFLUX DISEASE WITHOUT 03/20/2018 Ot M81.0 AGE- RELATED OSTEOPOROSIS W/O CURRENT PAT 03/20/2018 Ot Z79.4 TRAVEL SALES CONSULTANT (CURRENT) USE OF INSULIN 03/20/2018 Ot Z79.82 JE G TERM (CURRENT) USE OF ASPIRIN 03/20/2018 Ot Z88.0 PAUL RGY STATUS TO PENICILLIN 03/20/2018 Ot Z88.1 PAUL RGY STATUS TO OTHER ANTIBIOTIC AGENT 03/20/2018 Ot Z88.6 PAUL RGY STATUS TO ANALGESIC AGENT STATUS 03/20/2018 Ot Z88.7 PAUL RGY STATUS TO SERUM AND VACCINE STAT 03/20/2018 Ot Z90.710 AC QUIRED ABSENCE OF BOTH CERVIX AND UTER 01/10/2019 HE DO, QI K Ot E10.9 TYPE 1 DIABETES MELLITUS WITHOUT COMPLIC 01/10/2019 HE DO, QI K Ot E78.00 PURE HYPERCHOLESTEROLEMIA, UNSPECIFIED 01/10/2019 HE DO, QI K Ot F03.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 DEMENTIA WITHOUT BEHAVIORAL 01/10/2019 HE DO QI K Ot I10 ESSENTIAL (PRIMARY) HYPERTENSION 01/10/2019 HE DO, QI K Ot I25.1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 01/10/2019 HE DO QI K Ot K21.9 GASTRO-ESOPHAGEAL REFLUX DISEASE WITHOUT 01/10/2019 HE DO, QI K Ot M81.0 AGE- RELATED OSTEOPOROSIS W/O CURRENT PAT 01/10/2019 HE DO QI K Ot R73.9 HYPERGLYCEMIA, UNSPECIFIED 01/10/2019 HE DO, QI K Ot Z79.4 TRAVEL SALES CONSULTANT (CURRENT) USE OF INSULIN 01/10/2019 HE DO QI K Ot Z79.82 TRAVEL SALES CONSULTANT (CURRENT) USE OF ASPIRIN 01/10/2019 QI CUTLER DO Ot Z82.49 FAMILY HX OF ISCHEM HEART DIS AND OTH DI 01/10/2019 HE GARCIA QI Baptiste Ot Z87.09 PERSONAL HISTORY OF OTHER DISEASES OF TH 01/10/2019 QI CUTLER DO Ot Z87.19 PERSONAL HISTORY OF OTHER DISEASES OF TH 01/10/2019 QI CUTLER DO Ot Z87.440 PERSONAL HISTORY OF URINARY (TRACT) INFE 01/10/2019 HE GARCIA QI Oliva Ot Z87.448 PERSONAL HISTORY OF OTHER DISEASES OF UR 01/10/2019 QI CUTLER DO Oliva Ot Z88.0 ALLERGY STATUS TO PENICILLIN 01/10/2019 HE CRISTÓBALA Oliva Ot Z88.1 ALLERGY STATUS TO OTHER ANTIBIOTIC AGENT 01/10/2019 HE QI Oliva Ot Z88.5 ALLERGY STATUS TO NARCOTIC AGENT STATUS 01/10/2019 HE QI Oliva Ot Z88.7 ALLERGY STATUS TO SERUM AND VACCINE STAT 01/10/2019 HE QI Oliva Ot Z88.8 ALLERGY STATUS TO OTH DRUG/MEDS/BIOL SUB 01/10/2019 HE GARCIA QI Baptiste Ot Z90.49 ACQUIRED ABSENCE OF OTHER SPECIFIED PART 01/10/2019 HE GARCIA QI Oliva Ot Z90.710 ACQUIRED ABSENCE OF BOTH CERVIX AND UTER 01/10/2019 NAVIN JOHNSON, MARTHA Chaipn Ot V76.1 2 OTH SCREEN MAMMO-MALIGN NEOPLASM OF MARK 01/10/2019 MARTHA HOLDEN MD Ot V76.1 2 OTH SCREEN MAMMO-MALIGN NEOPLASM OF MARK 01/10/2019 INOCENTE VANESSA Ot 250.01 DIAB LADI WO COMPL, TYPE I [JUVENILE TYP 01/10/2019 INOCENTE VANESSA Ot 272.4 HYPERLIPIDEMIA NEC/NOS 01/10/2019 INOCENTE VANESSA Ot 401.9 HYPERTENSION NOS 01/10/2019 INOCENTE VANESSA Ot 786.50 CHEST PAIN NOS 01/10/2019 INOCENTE VANESSA Ot 250.00 DIAB LADI WO COMPL, TYPE II OR UNSPEC TY 01/10/2019 INOCENTE VANESSA Ot 272.4 HYPERLIPIDEMIA NEC/NOS 01/10/2019 INOCENTE VANESSA Ot 401.9 HYPERTENSION NOS 01/10/2019 INOCENTE VANESSA Ot 786.50 CHEST PAIN NOS 01/10/2019 INOCENTE VANESSA Ot V58.67 LONG-TERM (CURRENT) USE OF INSULIN 01/10/2019 LAURYN DESAI AGRICULTURAL ECONOMIST Ot R19.7 DIARRHEA, UNSPECIFIED 01/10/2019 LAURYN DESAI R AGRICULTURAL ECONOMIST Ot Z12.31 ENCNTR SCREEN MAMMOGRAM FOR MALIGNANT NE 01/10/2019 LENALAURYN WATTESR DO R Ot E87. 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 01/10/2019 INOCENTE VANESSA Ot 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 01/10/2019 INOCENTE VANESSA Ot Z79.4 TRAVEL SALES CONSULTANT (CURRENT) USE OF INSULIN 01/10/2019 JUAN M JOHNSON, LIZET Davis Ot F03.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 DEMENTIA WITHOUT BEHAVIORAL 01/10/2019 NAVIN JOHNSON, MARTHA Chapin Ot Z12.3 1 ENCNTR SCREEN MAMMOGRAM FOR MALIGNANT NE 01/10/2019 GEORGE PAREDES DO Ot N18.2 CHRONIC KIDNEY DISEASE, STAGE 2 (MILD) 01/10/2019 GEORGE PAREDES DO Ot N32.9 BLADDER DISORDER, UNSPECIFIED 01/10/2019 INOCENTE VANESSA Ot E78.5 HYPERLIPIDEMIA, UNSPECIFIED 01/10/2019 INOCENTE VANESSA Ot 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 01/10/2019 INOCENTE VANESSA Ot I10 ESSENTIAL (PRIMARY) HYPERTENSION 01/10/2019 INOCENTE VANESSA Ot R07.89 OTHER CHEST PAIN 01/15/2019 CRISTÓBAL CUTLER DOA K Ot E10.9 TYPE 1 DIABETES MELLITUS WITHOUT COMPLIC 01/15/2019 [facility] PURE HYPERCHOLESTEROLEMIA, UNSPECIFIED 01/15/2019 [facility] Ot F03.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 DEMENTIA WITHOUT BEHAVIORAL 01/15/2019 [facility] Ot I10 ESSENTIAL (PRIMARY) HYPERTENSION 01/15/2019 [facility] Ot I25.1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 01/15/2019 [facility] Ot K21.9 GASTRO-ESOPHAGEAL REFLUX DISEASE WITHOUT 01/15/2019 [facility] Ot M81.0 AGE- RELATED OSTEOPOROSIS W/O CURRENT PAT 01/15/2019 [facility] Ot R73.9 HYPERGLYCEMIA, UNSPECIFIED 01/15/2019 [facility] Ot Z79.4 TRAVEL SALES CONSULTANT (CURRENT) USE OF INSULIN 01/15/2019 [facility] Ot Z79.82 TRAVEL SALES CONSULTANT (CURRENT) USE OF ASPIRIN 01/15/2019 [facility] Ot Z82.49 FAMILY HX OF ISCHEM HEART DIS AND OTH DI 01/15/2019 [facility] Ot Z87.09 PERSONAL HISTORY OF OTHER DISEASES OF 01/15/2019 HE DOQI Ot Z87.19 PERSONAL HISTORY OF OTHER DISEASES OF 01/15/2019 [facility] Z87.440 PERSONAL HISTORY OF URINARY (TRACT) INFE 01/15/2019 [facility] Z87.448 PERSONAL HISTORY OF OTHER DISEASES OF UR 01/15/2019 [facility] Ot Z88.0 ALLERGY STATUS TO PENICILLIN 01/15/2019 [facility] Z88.1 ALLERGY STATUS TO OTHER ANTIBIOTIC AGENT 01/15/2019 [facility] Z88.5 ALLERGY STATUS TO NARCOTIC AGENT STATUS 01/15/2019 [facility] Z88.7 ALLERGY STATUS TO SERUM AND VACCINE STAT 01/15/2019 [facility] Z88.8 ALLERGY STATUS TO OTH DRUG/MEDS/BIOL SUB 01/15/2019 [facility] Ot Z90.49 ACQUIRED ABSENCE OF OTHER SPECIFIED PART 01/15/2019 QI CUTLER DO Ot Z90.710 ACQUIRED ABSENCE OF BOTH CERVIX AND UTER 05/08/2019 MANA NASSAR MD Ot B96.20 UNSP ESCHERICHIA COLI THE CAUSE OF DI 05/08/2019 MANA NASSAR MD Ot E10.649 TYPE 1 DIABETES MELLITUS WITH HYPOGLYCEM 05/08/2019 MANA NASSAR MD Ot E78.00 PURE HYPERCHOLESTEROLEMIA, UNSPECIFIED 05/08/2019 MANA NASSAR MD Ot E84 .9 CYSTIC FIBROSIS, UNSPECIFIED 05/08/2019 MANA NASSAR MD Ot E86 .0 DEHYDRATION 05/08/2019 MANA NASSAR MD Ot F03.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 DEMENTIA WITHOUT BEHAVIORAL 05/08/2019 AMNA NASSAR MD Ot H40 .9 UNSPECIFIED GLAUCOMA 05/08/2019 MANA NASSAR MD Ot I10 ESSENTIAL (PRIMARY) HYPERTENSION 05/08/2019 MANA NASSAR MD Ot I25.1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 05/08/2019 MANA NASSAR MD Ot I38 ENDOCARDITIS, VALVE UNSPECIFIED 05/08/2019 MANA NASSAR MD Ot K21 .9 GASTRO-ESOPHAGEAL REFLUX DISEASE WITHOUT 05/08/2019 MANA NASSAR MD, Ot M54 .9 DORSALGIA, UNSPECIFIED 05/08/2019 MANA NSASAR MD Ot M81 .0 AGE-RELATED OSTEOPOROSIS W/O CURRENT PAT 05/08/2019 MANA NASSAR MD Ot N30.00 ACUTE CYSTITIS WITHOUT HEMATURIA 05/08/2019 MANA NASSAR MD Ot R26.81 UNSTEADINESS ON FEET 05/08/2019 MANA NASSAR MD Ot R41.82 ALTERED MENTAL STATUS, UNSPECIFIED 05/08/2019 MNAA NASSAR MD Ot Z66 DO NOT RESUSCITATE 05/08/2019 MANA NASSAR MD, Ot Z79 .4 GROUP HOME (CURRENT) USE OF INSULIN 05/08/2019 MANA NASSAR MD Ot Z88 .0 ALLERGY STATUS TO PENICILLIN 05/08/2019 MANA NASSAR MD Ot Z88 .5 ALLERGY STATUS TO NARCOTIC AGENT STATUS 05/08/2019 MANA NASSAR MD Ot Z88 .7 ALLERGY STATUS TO SERUM AND VACCINE STAT 08/24/2019 ENRIQUEZ DO, MONIQUE L Ot E10.9 TYPE 1 DIABETES MELLITUS WITHOUT COMPLIC 08/24/2019 ENRIQUEZ DO, MONIQUE L Ot E78.0 0 PURE HYPERCHOLESTEROLEMIA, UNSPECIFIED 08/24/2019 ENRIQUEZ DO, MONIQUE L Ot F03.9 0 UNSPECIFIED DEMENTIA WITHOUT BEHAVIORAL 08/24/2019 ENRIQUEZ DO, MONIQUE L Ot I10 ESSENTIAL (PRIMARY) HYPERTENSION 08/24/2019 ENRIQUEZ DO, MONIQUE L Ot I25.1 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 08/24/2019 ENRIQUEZ DO, MONIQUE L Ot K21.9 GASTRO-ESOPHAGEAL REFLUX DISEASE WITHOUT 08/24/2019 ENRIQUEZ DO, MONIQUE L Ot N30.9 0 CYSTITIS, UNSPECIFIED WITHOUT HEMATURIA 08/24/2019 ENRIQUEZ DO, MONIQUE L Ot R53.1 WEAKNESS 08/24/2019 ENRIQUEZ DO, MONIQUE L Ot Z79.4 GROUP HOME (CURRENT) USE OF INSULIN 08/24/2019 ENRIQUEZ DO, MONIQUE L Ot Z79.8 2 GROUP HOME (CURRENT) USE OF ASPIRIN 08/24/2019 ENRIQUEZ DO, MONIQUE L Ot Z82.4 9 FAMILY HX OF ISCHEM HEART DIS AND OTH DI 08/24/2019 ENRIQUEZ DO, MONIQUE L Ot Z88.0 ALLERGY STATUS TO PENICILLIN 08/24/2019 ENRIQUEZ DO, MONIQUE L Ot Z88.1 ALLERGY STATUS TO OTHER ANTIBIOTIC AGENT 08/24/2019 ENRIQUEZ DO, MONIQUE L Ot Z88.5 ALLERGY STATUS TO NARCOTIC AGENT STATUS 08/24/2019 ENRIQUEZ DO, MONIQUE L Ot Z88.7 ALLERGY STATUS TO SERUM AND VACCINE STAT 08/24/2019 ENRIQUEZ DO, MONIQUE L Ot Z88.8 ALLERGY STATUS TO OTH DRUG/MEDS/BIOL SUB 08/24/2019 ENRIQUEZ DO, MONIQUE L Ot Z90.4 9 ACQUIRED ABSENCE OF OTHER SPECIFIED PART 08/24/2019 ENRIQUEZ DO, MONIQUE L Ot Z90.7 10 ACQUIRED ABSENCE OF BOTH CERVIX AND UTER 08/28/2019 ENRIQUEZ DO, MONIQUE L Ot E10.9 TYPE 1 DIABETES MELLITUS WITHOUT COMPLIC 08/28/2019 ENRIQUEZ DO, MONIQUE L Ot E78.0 0 PURE HYPERCHOLESTEROLEMIA, UNSPECIFIED 08/28/2019 ENRIQUEZ DO, MONIQUE L Ot F03.9 0 UNSPECIFIED DEMENTIA WITHOUT BEHAVIORAL 08/28/2019 ENRIQUEZ DO, MONIQUE L Ot I10 ESSENTIAL (PRIMARY) HYPERTENSION 08/28/2019 ENRIQUEZ DO, MONIQUE L Ot I25.1 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 08/28/2019 ENRIQUEZ DO, MONIQUE L Ot K21.9 GASTRO-ESOPHAGEAL REFLUX DISEASE WITHOUT 08/28/2019 ENRIQUEZ DO, MONIQUE L Ot N30.9 0 CYSTITIS, UNSPECIFIED WITHOUT HEMATURIA 08/28/2019 ENRIQUEZ DO, MONIQUE L Ot R53.1 WEAKNESS 08/28/2019 ENRIQUEZ DO, MONIQUE L Ot Z79.4 GROUP HOME (CURRENT) USE OF INSULIN 08/28/2019 ENRIQUEZ DO, MONIQUE L Ot Z79.8 2 TRAVEL SALES CONSULTANT (CURRENT) USE OF ASPIRIN 08/28/2019 ENRIQUEZ DO, MONIQUE L Ot Z82.4 9 FAMILY HX OF ISCHEM HEART DIS AND OTH DI 08/28/2019 ENRIQUEZ DO, MONIQUE L Ot Z88.0 ALLERGY STATUS TO PENICILLIN 08/28/2019 ENRIQUEZ DO, MONIQUE L Ot Z88.1 ALLERGY STATUS TO OTHER ANTIBIOTIC AGENT 08/28/2019 ENRIQUEZ DO, MONIQUE L Ot Z88.5 ALLERGY STATUS TO NARCOTIC AGENT STATUS 08/28/2019 ENRIQUEZ DO, MONIQUE L Ot Z88.7 ALLERGY STATUS TO SERUM AND VACCINE STAT 08/28/2019 ENRIQUEZ DO, MONIQUE L Ot Z88.8 ALLERGY STATUS TO OTH DRUG/MEDS/BIOL SUB 08/28/2019 ENRIQUEZ DO, MONIQUE L Ot Z90.4 9 ACQUIRED ABSENCE OF OTHER SPECIFIED PART 08/28/2019 ENRIQUEZ DO, MONIQUE L Ot Z90.7 10 ACQUIRED ABSENCE OF BOTH CERVIX AND UTER 2019 ENRIQUEZ DO, MONIQUE L Ot E10.9 TYPE 1 DIABETES MELLITUS WITHOUT COMPLIC 2019 ENRIQUEZ DO, MONIQUE L Ot E78.0 0 PURE HYPERCHOLESTEROLEMIA, UNSPECIFIED 2019 ENRIQUEZ DO, MONIQUE L Ot F03.9 0 UNSPECIFIED DEMENTIA WITHOUT BEHAVIORAL 2019 ENRIQUEZ DO, MONIQUE L Ot I10 ESSENTIAL (PRIMARY) HYPERTENSION 2019 ENRIQUEZ DO, MONIQUE L Ot I25.1 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 2019 ENRIQUEZ DO, MONIQUE L Ot K21.9 GASTRO-ESOPHAGEAL REFLUX DISEASE WITHOUT 2019 ENRIQUEZ DO, MONIQUE L Ot N30.9 0 CYSTITIS, UNSPECIFIED WITHOUT HEMATURIA 2019 ENRIQUEZ DO, MONIQUE L Ot R53.1 WEAKNESS 2019 ENRIQUEZ DO, MONIQUE L Ot Z79.4 TRAVEL SALES CONSULTANT (CURRENT) USE OF INSULIN 2019 ENRIQUEZ DO, MONIQUE L Ot Z79.8 2 TRAVEL SALES CONSULTANT (CURRENT) USE OF ASPIRIN 2019 ENRIQUEZ DO, MONIQUE L Ot Z82.4 9 FAMILY HX OF ISCHEM HEART DIS AND OTH DI 2019 ENRIQUEZ DO, MONIQUE L Ot Z88.0 ALLERGY STATUS TO PENICILLIN 2019 ENRIQUEZ DO, MONIQUE L Ot Z88.1 ALLERGY STATUS TO OTHER ANTIBIOTIC AGENT 2019 ENRIQUEZ DO, MONIQUE L Ot Z88.5 ALLERGY STATUS TO NARCOTIC AGENT STATUS 2019 ENRIQUEZ DO, MONIQUE L Ot Z88.7 ALLERGY STATUS TO SERUM AND VACCINE STAT 2019 ENRIQUEZ DO, MONIQUE L Ot Z88.8 ALLERGY STATUS TO OTH DRUG/MEDS/BIOL SUB 2019 ENRIQUEZ DO, MONIQUE L Ot Z90.4 9 ACQUIRED ABSENCE OF OTHER SPECIFIED PART 2019 ENRIQUEZ DO, MONIQUE L Ot Z90.7 10 ACQUIRED ABSENCE OF BOTH CERVIX AND UTER 10/04/2019 RAH OROZCO W 599 .0 URINARY TRACT INFECTION, SITE NOT SPECIFIED 10/04/2019 RA[facility] OROZCO N39 .0 URINARY TRACT INFECTION, SITE NOT SPECIFIED 10/04/2019 RA[facility] OROZCO W 312 .9 UNSPECIFIED DISTURBANCE OF CONDUCT 10/04/2019 RA[facility] OROZCO 599 .0 URINARY TRACT INFECTION, SITE NOT SPECIFIED 10/04/2019 [facility] OROZCO 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 10/04/2019 [facility] OROZCO W N39 .0 URINARY TRACT INFECTION, SITE NOT SPECIFIED 10/16/2019 [facility] OROZCO W 312 .9 UNSPECIFIED DISTURBANCE OF CONDUCT 10/16/2019 RAH OROZCO 599 .0 URINARY TRACT INFECTION, SITE NOT SPECIFIED 10/16/2019 [facility] OROZCO 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 10/16/2019 [facility] OROZCO N39 .0 URINARY TRACT INFECTION, SITE NOT SPECIFIED Procedures Code Description Performed By Per formed On [id number] EX CISION OF STOMACH, ENDO, DIAGN 02/25/2016 [id number] RE SECTION OF GALLBLADDER, PERCUTANEOUS E 03/03/2016 [id number] FL UOROSCOPY OF BILE DUCTS USING LOW OSMO 03/03/2016 Results Test Result Range Capillary blood glucose measurement by g lucometer (mass/volume) - 02/29/16 23:16 Capillary blood glucose measurement by glucometer (mas s/volume) 96 mg/dL 70-110 Capillary blood glucose measurement by g lucometer (mass/volume) - 03/01/16 09:40 Capillary blood glucose measurement by glucometer (mas s/volume) 28 mg/dL 70-110 Capillary blood glucose measurement by g lucometer (mass/volume) - 03/02/16 06:41 Capillary blood glucose measurement by glucometer (mas s/volume) 319 mg/dL 70-110 Capillary blood glucose measurement by g lucometer (mass/volume) - 03/04/16 01:13 Capillary blood glucose measurement by glucometer (mas s/volume) 189 mg/dL 70-110 Capillary blood glucose measurement by g lucometer (mass/volume) - 03/04/16 14:21 Capillary blood glucose measurement by glucometer (mas s/volume) 218 mg/dL 70-110 Capillary blood glucose measurement by g lucometer (mass/volume) - 03/04/16 15:44 Capillary blood glucose measurement by glucometer (mas s/volume) 140 mg/dL 70-110 Capillary blood glucose measurement by g lucometer (mass/volume) - 03/04/16 19:54 Capillary blood glucose measurement by glucometer (mas s/volume) 198 mg/dL 70-110 Capillary blood glucose measurement by g lucometer (mass/volume) - 03/04/16 21:52 Capillary blood glucose measurement by glucometer (mas s/volume) 249 mg/dL 70-110 Capillary blood glucose measurement by g lucometer (mass/volume) - 03/05/16 05:43 Capillary blood glucose measurement by glucometer (mas s/volume) 172 mg/dL 70-110 Capillary blood glucose measurement by g lucometer (mass/volume) - 03/05/16 09:32 Capillary blood glucose measurement by glucometer (mas s/volume) 188 mg/dL 70-110 Capillary blood glucose measurement by g lucometer (mass/volume) - 03/05/16 11:16 Capillary blood glucose measurement by glucometer (mas s/volume) 123 mg/dL 70-110 Capillary blood glucose measurement by g lucometer (mass/volume) - 03/05/16 14:34 Capillary blood glucose measurement by glucometer (mas s/volume) 282 mg/dL 70-110 Capillary blood glucose measurement by g lucometer (mass/volume) - 03/05/16 16:00 Capillary blood glucose measurement by glucometer (mas s/volume) 268 mg/dL 70-110 Capillary blood glucose measurement by g lucometer (mass/volume) - 03/05/16 20:23 Capillary blood glucose measurement by glucometer (mas s/volume) 120 mg/dL 70-110 Capillary blood glucose measurement by g lucometer (mass/volume) - 03/05/16 21:46 Capillary blood glucose measurement by glucometer (mas s/volume) 240 mg/dL 70-110 Capillary blood glucose measurement by g lucometer (mass/volume) - 03/06/16 04:59 Capillary blood glucose measurement by glucometer (mas s/volume) 226 mg/dL 70-110 Capillary blood glucose measurement by g lucometer (mass/volume) - 03/06/16 09:49 Capillary blood glucose measurement by glucometer (mas s/volume) 133 mg/dL 70-110 Capillary blood glucose measurement by g lucometer (mass/volume) - 03/06/16 11:08 Capillary blood glucose measurement by glucometer (mas s/volume) 210 mg/dL 70-110 Clostridium difficile detection - 13:10 C DIFF MOLECULAR RESULT Positive for toxigen ic C diff by DNA amplification NR CALL POSITIVES (F1 HELP) CALLED TO MARIANO ON IRF 03/06 16:25 BY Damian PÉREZ NRG Capillary blood glucose measurement by g lucometer (mass/volume) - 03/06/16 14:56 Capillary blood glucose measurement by glucometer (mas s/volume) 197 mg/dL 70-110 Capillary blood glucose measurement by g lucometer (mass/volume) - 03/06/16 16:03 Capillary blood glucose measurement by glucometer (mas s/volume) 156 mg/dL 70-110 Capillary blood glucose measurement by g lucometer (mass/volume) - 03/06/16 19:36 Capillary blood glucose measurement by glucometer (mas s/volume) 117 mg/dL 70-110 Capillary blood glucose measurement by g lucometer (mass/volume) - 03/06/16 21:30 Capillary blood glucose measurement by glucometer (mas s/volume) 213 mg/dL 70-110 Capillary blood glucose measurement by g lucometer (mass/volume) - 03/07/16 00:18 Capillary blood glucose measurement by glucometer (mas s/volume) 74 mg/dL 70-110 Capillary blood glucose measurement by g lucometer (mass/volume) - 03/07/16 04:57 Capillary blood glucose measurement by glucometer (mas s/volume) 341 mg/dL 70-110 Capillary blood glucose measurement by g lucometer (mass/volume) - 03/07/16 09:19 Capillary blood glucose measurement by glucometer (mas s/volume) 267 mg/dL 70-110 Capillary blood glucose measurement by g lucometer (mass/volume) - 03/07/16 10:57 Capillary blood glucose measurement by glucometer (mas s/volume) 225 mg/dL 70-110 Capillary blood glucose measurement by g lucometer (mass/volume) - 03/07/16 14:33 Capillary blood glucose measurement by glucometer (mas s/volume) 61 mg/dL 70-110 Capillary blood glucose measurement by g lucometer (mass/volume) - 03/07/16 15:56 Capillary blood glucose measurement by glucometer (mas s/volume) 117 mg/dL 70-110 Capillary blood glucose measurement by g lucometer (mass/volume) - 03/07/16 19:33 Capillary blood glucose measurement by glucometer (mas s/volume) 331 mg/dL 70-110 Capillary blood glucose measurement by g lucometer (mass/volume) - 03/07/16 20:45 Capillary blood glucose measurement by glucometer (mas s/volume) 326 mg/dL 70-110 Capillary blood glucose measurement by g lucometer (mass/volume) - 03/07/16 21:25 Capillary blood glucose measurement by glucometer (mas s/volume) 258 mg/dL 70-110 Capillary blood glucose measurement by g lucometer (mass/volume) - 03/08/16 05:49 Capillary blood glucose measurement by glucometer (mas s/volume) 246 mg/dL 70-110 Capillary blood glucose measurement by g lucometer (mass/volume) - 03/08/16 10:51 Capillary blood glucose measurement by glucometer (mas s/volume) 322 mg/dL 70-110 Capillary blood glucose measurement by g lucometer (mass/volume) - 03/08/16 16:51 Capillary blood glucose measurement by glucometer (mas s/volume) 290 mg/dL 70-110 Capillary blood glucose measurement by g lucometer (mass/volume) - 03/08/16 20:45 Capillary blood glucose measurement by glucometer (mas s/volume) 213 mg/dL 70-110 Capillary blood glucose measurement by g lucometer (mass/volume) - 03/09/16 04:04 Capillary blood glucose measurement by glucometer (mas s/volume) 37 mg/dL 70-110 Capillary blood glucose measurement by g lucometer (mass/volume) - 03/09/16 04:23 Capillary blood glucose measurement by glucometer (mas s/volume) 70 mg/dL 70-110 Capillary blood glucose measurement by g lucometer (mass/volume) - 03/09/16 05:01 Capillary blood glucose measurement by glucometer (mas s/volume) 108 mg/dL 70-110 Capillary blood glucose measurement by g lucometer (mass/volume) - 03/09/16 06:06 Capillary blood glucose measurement by glucometer (mas s/volume) 133 mg/dL 70-110 Capillary blood glucose measurement by g lucometer (mass/volume) - 03/09/16 09:48 Capillary blood glucose measurement by glucometer (mas s/volume) 211 mg/dL 70-110 Capillary blood glucose measurement by g lucometer (mass/volume) - 03/09/16 11:02 Capillary blood glucose measurement by glucometer (mas s/volume) 153 mg/dL 70-110 Capillary blood glucose measurement by g lucometer (mass/volume) - 03/09/16 15:16 Capillary blood glucose measurement by glucometer (mas s/volume) 73 mg/dL 70-110 Clostridium difficile detection - 18:44 Clostridium difficile detection TNP NRG Capillary blood glucose measurement by g lucometer (mass/volume) - 03/09/16 20:54 Capillary blood glucose measurement by glucometer (mas s/volume) 122 mg/dL 70-110 Capillary blood glucose measurement by g lucometer (mass/volume) - 03/10/16 02:08 Capillary blood glucose measurement by glucometer (mas s/volume) 44 mg/dL 70-110 Capillary blood glucose measurement by g lucometer (mass/volume) - 03/10/16 02:25 Capillary blood glucose measurement by glucometer (mas s/volume) 64 mg/dL 70-110 Capillary blood glucose measurement by g lucometer (mass/volume) - 03/10/16 05:08 Capillary blood glucose measurement by glucometer (mas s/volume) 160 mg/dL 70-110 Capillary blood glucose measurement by g lucometer (mass/volume) - 03/10/16 09:21 Capillary blood glucose measurement by glucometer (mas s/volume) 215 mg/dL 70-110 Stool bacteria identification by culture - 03/10/16 10:30 Stool bacteria identification by culture N2 NRG Capillary blood glucose measurement by g lucometer (mass/volume) - 03/10/16 11:26 Capillary blood glucose measurement by glucometer (mas s/volume) 155 mg/dL 70-110 Capillary blood glucose measurement by g lucometer (mass/volume) - 03/10/16 16:30 Capillary blood glucose measurement by glucometer (mas s/volume) 88 mg/dL 70-110 Capillary blood glucose measurement by g lucometer (mass/volume) - 03/10/16 20:34 Capillary blood glucose measurement by glucometer (mas s/volume) 116 mg/dL 70-110 Capillary blood glucose measurement by g lucometer (mass/volume) - 03/11/16 00:25 Capillary blood glucose measurement by glucometer (mas s/volume) 92 mg/dL 70-110 Capillary blood glucose measurement by g lucometer (mass/volume) - 03/11/16 05:38 Capillary blood glucose measurement by glucometer (mas s/volume) 125 mg/dL 70-110 Capillary blood glucose measurement by g lucometer (mass/volume) - 03/11/16 10:47 Capillary blood glucose measurement by glucometer (mas s/volume) 121 mg/dL 70-110 Complete urinalysis with reflex to cultu re - 03/11/16 14:55 Urine color determination YELLOW NRG Urine clarity determination CLEAR NR G Urine pH measurement by test strip 7 5-9 Specific gravity of urine by test strip 1.005 1.016-1.022 Urine protein assay by test strip, semi-quantitative NEGATIVE NEGATIVE Urine glucose detection by automated test strip NE GATIVE NEGATIVE Erythrocytes detection in urine sediment by light micr oscopy NEGATIVE NEGATIVE Urine ketones detection by automated test strip NE GATIVE NEGATIVE Urine nitrite detection by test strip NEGATIVE NEGATIVE Urine total bilirubin detection by test strip NEGA TIVE NEGATIVE Urine urobilinogen measurement by automated test strip (mass/volume) NORMAL NORMAL Urine leukocyte esterase detection by dipstick 1+ NEGATIVE Automated urine sediment erythrocyte cou nt by microscopy (number/high power field) NONE NRG Automated urine sediment leukocyte count by microscopy (number/high power field) [HPF] NRG Bacteria detection in urine sediment by light microsco py NEGATIVE NRG Squamous epithelial cells detection in u rine sediment by light microscopy 0-2 NRG Crystals detection in urine sediment by light microsco py NONE NRG Casts detection in urine sediment by light microscopy NONE NRG Mucus detection in urine sediment by light microscopy NEGATIVE NRG Complete urinalysis with reflex to culture NO NRG Capillary blood glucose measurement by g lucometer (mass/volume) - 03/11/16 16:00 Capillary blood glucose measurement by glucometer (mas s/volume) 158 mg/dL 70-110 Capillary blood glucose measurement by g lucometer (mass/volume) - 03/11/16 20:30 Capillary blood glucose measurement by glucometer (mas s/volume) 101 mg/dL 70-110 Capillary blood glucose measurement by g lucometer (mass/volume) - 03/12/16 02:15 Capillary blood glucose measurement by glucometer (mas s/volume) 66 mg/dL 70-110 Capillary blood glucose measurement by g lucometer (mass/volume) - 03/12/16 05:55 Capillary blood glucose measurement by glucometer (mas s/volume) 87 mg/dL 70-110 Capillary blood glucose measurement by g lucometer (mass/volume) - 03/12/16 10:48 Capillary blood glucose measurement by glucometer (mas s/volume) 122 mg/dL 70-110 Clostridium difficile detection - 07:15 C DIFF MOLECULAR RESULT Negative for toxigen ic C diff by DNA amplification NRG Capillary blood glucose measurement by g lucometer (mass/volume) - 06/23/16 20:08 Capillary blood glucose measurement by glucometer (mas s/volume) 583 mg/dL 70-110 Complete urinalysis with reflex to cultu re - 06/23/16 20:15 Urine color determination YELLOW NRG Urine clarity determination CLEAR NR G Urine pH measurement by test strip 5 5-9 Specific gravity of urine by test strip 1.010 1.016-1.022 Urine protein assay by test strip, semi-quantitative NEGATIVE NEGATIVE Urine glucose detection by automated test strip 4+ NEGATIVE Erythrocytes detection in urine sediment by light micr oscopy NEGATIVE NEGATIVE Urine ketones detection by automated test strip 3+ NEGATIVE Urine nitrite detection by test strip NEGATIVE NEGATIVE Urine total bilirubin detection by test strip NEGA TIVE NEGATIVE Urine urobilinogen measurement by automated test strip (mass/volume) NORMAL NORMAL Urine leukocyte esterase detection by dipstick NEG ATIVE NEGATIVE Automated urine sediment erythrocyte cou nt by microscopy (number/high power field) NONE NRG Automated urine sediment leukocyte count by microscopy (number/high power field) RARE NRG Bacteria detection in urine sediment by light microsco py NEGATIVE NRG Squamous epithelial cells detection in u rine sediment by light microscopy RARE NRG Crystals detection in urine sediment by light microsco py NONE NRG Casts detection in urine sediment by light microscopy NONE NRG Mucus detection in urine sediment by light microscopy NEGATIVE NRG Complete urinalysis with reflex to culture NO NRG Complete blood count (CBC) with automate d white blood cell (WBC) differential - 06/23/16 20:33 Blood leukocytes automated count (number/volume) 7.1 10*3/uL 4.3-11.0 Blood erythrocytes automated count (number/volume) 4.19 10*6/uL 4.35-5.85 Venous blood hemoglobin measurement (mass/volume) 12.0 g/dL 11.5-16.0 Blood hematocrit (volume fraction) 36 % 35-52 Automated erythrocyte mean corpuscular volume 86 [ foz_us] 80-99 Automated erythrocyte mean corpuscular h emoglobin (mass per erythrocyte) 29 pg 25-34 Automated erythrocyte mean corpuscular h emoglobin concentration measurement (mass/volume) 33 g/dL 32-36 Automated erythrocyte distribution width ratio 13. 4 % 10.0- 14.5 Automated blood platelet count (count/volume) 162 10*3/uL 130-400 Automated blood platelet mean volume measurement 12.1 [foz_us] 7.4-10.4 Automated blood neutrophils/100 leukocytes 85 % 42-75 Automated blood lymphocytes/100 leukocytes 12 % 12-44 Blood monocytes/100 leukocytes 2 % 0-12 Automated blood eosinophils/100 leukocytes 0 % 0-10 Automated blood basophils/100 leukocytes 0 % 0-10 Blood neutrophils automated count (number/volume) 6.1 10*3 1.8-7.8 Blood lymphocytes automated count (number/volume) 0.9 10*3 1.0-4.0 Blood monocytes automated count (number/volume) 0. 1 10*3 0.0-1.0 Automated eosinophil count 0.0 10*3/uL 0 .0-0.3 Automated blood basophil count (count/volume) 0.0 10*3/uL 0.0-0.1 Blood lactic acid measurement (moles/vol ume) - 06/23/16 20:33 Blood lactic acid measurement (moles/volume) 2.4 m mol/L 0.5- 2.0 Comprehensive metabolic panel - 06/23/16 20:33 Serum or plasma sodium measurement (moles/volume) 130 mmol/L 135-145 Serum or plasma potassium measurement (moles/volume) 5.4 mmol/L 3.6-5.0 Serum or plasma chloride measurement (moles/volume) 95 mmol/L 98-107 Carbon dioxide 17 mmol/L 21-32 Serum or plasma anion gap determination (moles/volume) 18 mmol/L 5-14 Serum or plasma urea nitrogen measurement (mass/volume ) 27 mg/dL 7-18 Serum or plasma creatinine measurement (mass/volume) 1.67 mg/dL 0.60-1.30 Serum or plasma urea nitrogen/creatinine mass ratio 16 NRG Serum or plasma creatinine measurement w ith calculation of estimated glomerular filtration rate 29 NRG Serum or plasma glucose measurement (mass/volume) 747 mg/dL 70-105 Serum or plasma calcium measurement (mass/volume) 10.4 mg/dL 8.5-10.1 Serum or plasma total bilirubin measurement (mass/volu me) 0.9 mg/dL 0.1-1.0 Serum or plasma alkaline phosphatase georgiana surement (enzymatic activity/volume) 107 U/L 40-136 Serum or plasma aspartate aminotransfera se measurement (enzymatic activity/volume) 16 U/L 5-34 Serum or plasma alanine aminotransferase measurement (enzymatic activity/volume) 14 U/L 0-55 Serum or plasma protein measurement (mass/volume) 6.6 g/dL 6.4-8.2 Serum or plasma albumin measurement (mass/volume) 4.0 g/dL 3.2-4.5 Serum or plasma amylase measurement (enz ymatic activity/volume) - 06/23/16 20:33 Serum or plasma amylase measurement (enzymatic activit y/volume) 30 U/L 25-125 Lipase - 06/23/16 20:33 Lipase 9 U/L 8-78 Bacterial blood culture - 06/23/16 20:33 Bacterial blood culture NG NRG Arterial blood gas measurement - 6 20:55 Blood pCO2 28 mm[Hg] 35-45 Blood pO2 95 mm[Hg] 79-93 Arterial blood bicarbonate measurement (moles/volume) 14 mmol/L 23-27 Arterial blood base excess by calculation -11.0 mm ol/L -2.5-2.5 Arterial blood oxygen saturation measurement 97 % 94-100 * Inhaled oxygen flow rate RA NRG Arterial blood pH measurement with patient temperature correction 7.31 7.37-7.43 Arterial blood carbon dioxide, total measurement (mole s/volume) 14.9 mmol/L 21.0-31.0 Body site R BRACH NRG Assessment of wrist artery patency prior to arterial p uncture YES-POS NRG Setting of ventilation mode NO NR G Measurement of body temperature 98.3 NRG Bacterial blood culture - 06/23/16 21:24 Bacterial blood culture NG NRG Capillary blood glucose measurement by g lucometer (mass/volume) - 06/23/16 21:44 Capillary blood glucose measurement by glucometer (mas s/volume) 451 mg/dL 70-110 Capillary blood glucose measurement by g lucometer (mass/volume) - 06/23/16 22:22 Capillary blood glucose measurement by glucometer (mas s/volume) 355 mg/dL 70-110 Whole blood basic metabolic panel - 06/08 01/21 22:51 Serum or plasma sodium measurement (moles/volume) 139 mmol/L 135-145 Serum or plasma potassium measurement (moles/volume) 3.8 mmol/L 3.6-5.0 Serum or plasma chloride measurement (moles/volume) 103 mmol/L 98-107 Carbon dioxide 23 mmol/L 21-32 Serum or plasma anion gap determination (moles/volume) 13 mmol/L 5-14 Serum or plasma urea nitrogen measurement (mass/volume ) 24 mg/dL 7-18 Serum or plasma creatinine measurement (mass/volume) 1.21 mg/dL 0.60-1.30 Serum or plasma urea nitrogen/creatinine mass ratio 20 NRG Serum or plasma creatinine measurement w ith calculation of estimated glomerular filtration rate 43 NRG Serum or plasma glucose measurement (mass/volume) 381 mg/dL 70-105 Serum or plasma calcium measurement (mass/volume) 9.3 mg/dL 8.5-10.1 Serum or plasma lactate measurement (mol es/volume) - 06/23/16 22:51 Serum or plasma lactate measurement (moles/volume) 3.6 mmol/L 0.5-2.0 Methicillin resistant Staphylococcus aur eus (MRSA) screening culture - 06/23/16 23:23 Methicillin resistant Staphylococcus aureus (MRSA) scr eening culture NEG NRG Capillary blood glucose measurement by g lucometer (mass/volume) - 06/23/16 23:41 Capillary blood glucose measurement by glucometer (mas s/volume) 318 mg/dL 70-110 Capillary blood glucose measurement by g lucometer (mass/volume) - 06/24/16 00:30 Capillary blood glucose measurement by glucometer (mas s/volume) 334 mg/dL 70-110 Whole blood basic metabolic panel - 06/08 02/20 01:25 Serum or plasma sodium measurement (moles/volume) 138 mmol/L 135-145 Serum or plasma potassium measurement (moles/volume) 3.6 mmol/L 3.6-5.0 Serum or plasma chloride measurement (moles/volume) 105 mmol/L 98-107 Carbon dioxide 22 mmol/L 21-32 Serum or plasma anion gap determination (moles/volume) 11 mmol/L 5-14 Serum or plasma urea nitrogen measurement (mass/volume ) 22 mg/dL 7-18 Serum or plasma creatinine measurement (mass/volume) 1.12 mg/dL 0.60-1.30 Serum or plasma urea nitrogen/creatinine mass ratio 20 NRG Serum or plasma creatinine measurement w ith calculation of estimated glomerular filtration rate 47 NRG Serum or plasma glucose measurement (mass/volume) 348 mg/dL 70-105 Serum or plasma calcium measurement (mass/volume) 9.0 mg/dL 8.5-10.1 Capillary blood glucose measurement by g lucometer (mass/volume) - 06/24/16 01:30 Capillary blood glucose measurement by glucometer (mas s/volume) 337 mg/dL 70-110 Capillary blood glucose measurement by g lucometer (mass/volume) - 06/24/16 02:36 Capillary blood glucose measurement by glucometer (mas s/volume) 260 mg/dL 70-110 Capillary blood glucose measurement by g lucometer (mass/volume) - 06/24/16 03:37 Capillary blood glucose measurement by glucometer (mas s/volume) 274 mg/dL 70-110 Complete blood count (CBC) with automate d white blood cell (WBC) differential - 06/24/16 03:53 Blood leukocytes automated count (number/volume) 7.8 10*3/uL 4.3-11.0 Blood erythrocytes automated count (number/volume) 3.58 10*6/uL 4.35-5.85 Venous blood hemoglobin measurement (mass/volume) 10.4 g/dL 11.5-16.0 Blood hematocrit (volume fraction) 30 % 35-52 Automated erythrocyte mean corpuscular volume 85 [ foz_us] 80-99 Automated erythrocyte mean corpuscular h emoglobin (mass per erythrocyte) 29 pg 25-34 Automated erythrocyte mean corpuscular h emoglobin concentration measurement (mass/volume) 34 g/dL 32-36 Automated erythrocyte distribution width ratio 13. 1 % 10.0- 14.5 Automated blood platelet count (count/volume) 105 10*3/uL 130-400 Automated blood platelet mean volume measurement 12.4 [foz_us] 7.4-10.4 Automated blood neutrophils/100 leukocytes 83 % 42-75 Automated blood lymphocytes/100 leukocytes 11 % 12-44 Blood monocytes/100 leukocytes 5 % 0-12 Automated blood eosinophils/100 leukocytes 1 % 0-10 Automated blood basophils/100 leukocytes 0 % 0-10 Blood neutrophils automated count (number/volume) 6.5 10*3 1.8-7.8 Blood lymphocytes automated count (number/volume) 0.9 10*3 1.0-4.0 Blood monocytes automated count (number/volume) 0. 4 10*3 0.0-1.0 Automated eosinophil count 0.0 10*3/uL 0 .0-0.3 Automated blood basophil count (count/volume) 0.0 10*3/uL 0.0-0.1 Blood lactic acid measurement (moles/vol ume) - 06/24/16 03:53 Blood lactic acid measurement (moles/volume) 2.5 m mol/L 0.5- 2.0 Comprehensive metabolic panel - 06/24/16 03:53 Serum or plasma sodium measurement (moles/volume) 137 mmol/L 135-145 Serum or plasma potassium measurement (moles/volume) 3.5 mmol/L 3.6-5.0 Serum or plasma chloride measurement (moles/volume) 105 mmol/L 98-107 Carbon dioxide 24 mmol/L 21-32 Serum or plasma anion gap determination (moles/volume) 8 mmol/L 5-14 Serum or plasma urea nitrogen measurement (mass/volume ) 20 mg/dL 7-18 Serum or plasma creatinine measurement (mass/volume) 1.03 mg/dL 0.60-1.30 Serum or plasma urea nitrogen/creatinine mass ratio 19 NRG Serum or plasma creatinine measurement w ith calculation of estimated glomerular filtration rate 51 NRG Serum or plasma glucose measurement (mass/volume) 286 mg/dL 70-105 Serum or plasma calcium measurement (mass/volume) 8.9 mg/dL 8.5-10.1 Serum or plasma total bilirubin measurement (mass/volu me) 0.6 mg/dL 0.1-1.0 Serum or plasma alkaline phosphatase georgiana surement (enzymatic activity/volume) 82 U/L 40-136 Serum or plasma aspartate aminotransfera se measurement (enzymatic activity/volume) 38 U/L 5-34 Serum or plasma alanine aminotransferase measurement (enzymatic activity/volume) 32 U/L 0-55 Serum or plasma protein measurement (mass/volume) 5.3 g/dL 6.4-8.2 Serum or plasma albumin measurement (mass/volume) 3.5 g/dL 3.2-4.5 Magnesium - 06/24/16 03:53 Magnesium 1.5 mg/dL 1.8-2.4 Capillary blood glucose measurement by g lucometer (mass/volume) - 06/24/16 04:35 Capillary blood glucose measurement by glucometer (mas s/volume) 242 mg/dL 70-110 Capillary blood glucose measurement by g lucometer (mass/volume) - 06/24/16 05:34 Capillary blood glucose measurement by glucometer (mas s/volume) 191 mg/dL 70-110 Serum or plasma lactate measurement (mol es/volume) - 06/24/16 05:52 Serum or plasma lactate measurement (moles/volume) 2.2 mmol/L 0.5-2.0 Capillary blood glucose measurement by g lucometer (mass/volume) - 06/24/16 06:32 Capillary blood glucose measurement by glucometer (mas s/volume) 161 mg/dL 70-110 Capillary blood glucose measurement by g lucometer (mass/volume) - 06/24/16 07:37 Capillary blood glucose measurement by glucometer (mas s/volume) 111 mg/dL 70-110 Capillary blood glucose measurement by g lucometer (mass/volume) - 06/24/16 08:22 Capillary blood glucose measurement by glucometer (mas s/volume) 89 mg/dL 70-110 Capillary blood glucose measurement by g lucometer (mass/volume) - 06/24/16 09:32 Capillary blood glucose measurement by glucometer (mas s/volume) 126 mg/dL 70-110 Capillary blood glucose measurement by g lucometer (mass/volume) - 06/24/16 11:45 Capillary blood glucose measurement by glucometer (mas s/volume) 174 mg/dL 70-110 Capillary blood glucose measurement by g lucometer (mass/volume) - 06/24/16 14:37 Capillary blood glucose measurement by glucometer (mas s/volume) 234 mg/dL 70-110 Capillary blood glucose measurement by g lucometer (mass/volume) - 06/24/16 15:57 Capillary blood glucose measurement by glucometer (mas s/volume) 230 mg/dL 70-110 Capillary blood glucose measurement by g lucometer (mass/volume) - 06/24/16 20:35 Capillary blood glucose measurement by glucometer (mas s/volume) 207 mg/dL 70-110 Complete blood count (CBC) with automate d white blood cell (WBC) differential - 06/25/16 05:48 Blood leukocytes automated count (number/volume) 6.5 10*3/uL 4.3-11.0 Blood erythrocytes automated count (number/volume) 3.91 10*6/uL 4.35-5.85 Venous blood hemoglobin measurement (mass/volume) 11.2 g/dL 11.5-16.0 Blood hematocrit (volume fraction) 33 % 35-52 Automated erythrocyte mean corpuscular volume 85 [ foz_us] 80-99 Automated erythrocyte mean corpuscular h emoglobin (mass per erythrocyte) 29 pg 25-34 Automated erythrocyte mean corpuscular h emoglobin concentration measurement (mass/volume) 34 g/dL 32-36 Automated erythrocyte distribution width ratio 13. 5 % 10.0- 14.5 Automated blood platelet count (count/volume) 157 10*3/uL 130-400 Automated blood platelet mean volume measurement 11.5 [foz_us] 7.4-10.4 Automated blood neutrophils/100 leukocytes 66 % 42-75 Automated blood lymphocytes/100 leukocytes 26 % 12-44 Blood monocytes/100 leukocytes 6 % 0-12 Automated blood eosinophils/100 leukocytes 3 % 0-10 Automated blood basophils/100 leukocytes 0 % 0-10 Blood neutrophils automated count (number/volume) 4.2 10*3 1.8-7.8 Blood lymphocytes automated count (number/volume) 1.7 10*3 1.0-4.0 Blood monocytes automated count (number/volume) 0. 4 10*3 0.0-1.0 Automated eosinophil count 0.2 10*3/uL 0 .0-0.3 Automated blood basophil count (count/volume) 0.0 10*3/uL 0.0-0.1 Comprehensive metabolic panel - 06/25/16 05:48 Serum or plasma sodium measurement (moles/volume) 140 mmol/L 135-145 Serum or plasma potassium measurement (moles/volume) 4.0 mmol/L 3.6-5.0 Serum or plasma chloride measurement (moles/volume) 108 mmol/L 98-107 Carbon dioxide 24 mmol/L 21-32 Serum or plasma anion gap determination (moles/volume) 8 mmol/L 5-14 Serum or plasma urea nitrogen measurement (mass/volume ) 13 mg/dL 7-18 Serum or plasma creatinine measurement (mass/volume) 0.77 mg/dL 0.60-1.30 Serum or plasma urea nitrogen/creatinine mass ratio 17 NRG Serum or plasma creatinine measurement w ith calculation of estimated glomerular filtration rate > NRG Serum or plasma glucose measurement (mass/volume) 50 mg/dL 70-105 Serum or plasma calcium measurement (mass/volume) 10.0 mg/dL 8.5-10.1 Serum or plasma total bilirubin measurement (mass/volu me) 0.6 mg/dL 0.1-1.0 Serum or plasma alkaline phosphatase georgiana surement (enzymatic activity/volume) 76 U/L 40-136 Serum or plasma aspartate aminotransfera se measurement (enzymatic activity/volume) 25 U/L 5-34 Serum or plasma alanine aminotransferase measurement (enzymatic activity/volume) 23 U/L 0-55 Serum or plasma protein measurement (mass/volume) 5.3 g/dL 6.4-8.2 Serum or plasma albumin measurement (mass/volume) 3.4 g/dL 3.2-4.5 Capillary blood glucose measurement by g lucometer (mass/volume) - 06/25/16 07:22 Capillary blood glucose measurement by glucometer (mas s/volume) 48 mg/dL 70-110 Capillary blood glucose measurement by g lucometer (mass/volume) - 06/25/16 07:58 Capillary blood glucose measurement by glucometer (mas s/volume) 111 mg/dL 70-110 Capillary blood glucose measurement by g lucometer (mass/volume) - 06/25/16 11:44 Capillary blood glucose measurement by glucometer (mas s/volume) 314 mg/dL 70-110 Complete urinalysis with reflex to cultu re - 01/06/18 00:08 Urine color determination YELLOW NRG Urine clarity determination CLEAR NR G Urine pH measurement by test strip 5 5-9 Specific gravity of urine by test strip 1.010 1.016-1.022 Urine protein assay by test strip, semi-quantitative NEGATIVE NEGATIVE Urine glucose detection by automated test strip 4+ NEGATIVE Erythrocytes detection in urine sediment by light micr oscopy 1+ NEGATIVE Urine ketones detection by automated test strip NE GATIVE NEGATIVE Urine nitrite detection by test strip NEGATIVE NEGATIVE Urine total bilirubin detection by test strip NEGA TIVE NEGATIVE Urine urobilinogen measurement by automated test strip (mass/volume) NORMAL NORMAL Urine leukocyte esterase detection by dipstick 2+ NEGATIVE Automated urine sediment erythrocyte cou nt by microscopy (number/high power field) NONE NRG Automated urine sediment leukocyte count by microscopy (number/high power field) [HPF] NRG Bacteria detection in urine sediment by light microsco py LARGE NRG Crystals detection in urine sediment by light microsco py NONE NRG Casts detection in urine sediment by light microscopy NONE NRG Mucus detection in urine sediment by light microscopy NEGATIVE NRG Complete urinalysis with reflex to culture YES NRG Bacterial urine culture - 01/06/18 00:08 Bacterial urine culture [id number] NRG COLONY COUNT >100,000/ML NRG FTX;REPORTABLE RML SENT SENSITIVITY REPORT 01/09 08: 05 NRG RML Sensitivity Panel - 01/06/18 00:08 Gentamicin susceptibility test by minimum inhibitory c oncentration <= NRG Trimethoprim/sulfamethoxazole susceptibi lity test by minimum inhibitoryconcentration <= NRG Levofloxacin susceptibility test by minimum inhibitory concentration <= NRG Ampicillin susceptibility test by minimum inhibitory c oncentration <= NRG Cefazolin susceptibility test by minimum inhibitory co ncentration 2 NRG Ceftriaxone susceptibility test by minimum inhibitory concentration <= NRG Ciprofloxacin susceptibility test by minimum inhibitor y concentration <= NRG Meropenem susceptibility test by minimum inhibitory co ncentration <= NRG Nitrofurantoin susceptibility test by mi nimum inhibitory concentration <= NRG Amoxicillin and clavulanate potassium susc NAIN = NRG Capillary blood glucose measurement by g lucometer (mass/volume) - 01/06/18 23:02 Capillary blood glucose measurement by glucometer (mas s/volume) 411 mg/dL 70-110 Complete blood count (CBC) with automate d white blood cell (WBC) differential - 01/06/18 23:26 Blood leukocytes automated count (number/volume) 6.9 10*3/uL 4.3-11.0 Blood erythrocytes automated count (number/volume) 3.98 10*6/uL 4.35-5.85 Venous blood hemoglobin measurement (mass/volume) 11.8 g/dL 11.5-16.0 Blood hematocrit (volume fraction) 35 % 35-52 Automated erythrocyte mean corpuscular volume 87 [ foz_us] 80-99 Automated erythrocyte mean corpuscular h emoglobin (mass per erythrocyte) 30 pg 25-34 Automated erythrocyte mean corpuscular h emoglobin concentration measurement (mass/volume) 34 g/dL 32-36 Automated erythrocyte distribution width ratio 12. 5 % 10.0- 14.5 Automated blood platelet count (count/volume) 153 10*3/uL 130-400 Automated blood platelet mean volume measurement 11.0 [foz_us] 7.4-10.4 Automated blood neutrophils/100 leukocytes 72 % 42-75 Automated blood lymphocytes/100 leukocytes 21 % 12-44 Blood monocytes/100 leukocytes 6 % 0-12 Automated blood eosinophils/100 leukocytes 2 % 0-10 Automated blood basophils/100 leukocytes 0 % 0-10 Blood neutrophils automated count (number/volume) 4.9 10*3 1.8-7.8 Blood lymphocytes automated count (number/volume) 1.4 10*3 1.0-4.0 Blood monocytes automated count (number/volume) 0. 4 10*3 0.0-1.0 Automated eosinophil count 0.1 10*3/uL 0 .0-0.3 Automated blood basophil count (count/volume) 0.0 10*3/uL 0.0-0.1 Comprehensive metabolic panel - 01/06/18 23:26 Serum or plasma sodium measurement (moles/volume) 132 mmol/L 135-145 Serum or plasma potassium measurement (moles/volume) 4.8 mmol/L 3.6-5.0 Serum or plasma chloride measurement (moles/volume) 100 mmol/L 98-107 Carbon dioxide 22 mmol/L 21-32 Serum or plasma anion gap determination (moles/volume) 10 mmol/L 5-14 Serum or plasma urea nitrogen measurement (mass/volume ) 25 mg/dL 7-18 Serum or plasma creatinine measurement (mass/volume) 1.21 mg/dL 0.60-1.30 Serum or plasma urea nitrogen/creatinine mass ratio 21 NRG Serum or plasma creatinine measurement w ith calculation of estimated glomerular filtration rate 42 NRG Serum or plasma glucose measurement (mass/volume) 455 mg/dL 70-105 Serum or plasma calcium measurement (mass/volume) 10.0 mg/dL 8.5-10.1 Serum or plasma total bilirubin measurement (mass/volu me) 0.4 mg/dL 0.1-1.0 Serum or plasma alkaline phosphatase georgiana surement (enzymatic activity/volume) 131 U/L 40-136 Serum or plasma aspartate aminotransfera se measurement (enzymatic activity/volume) 21 U/L 5-34 Serum or plasma alanine aminotransferase measurement (enzymatic activity/volume) 34 U/L 0-55 Serum or plasma protein measurement (mass/volume) 6.1 g/dL 6.4-8.2 Serum or plasma albumin measurement (mass/volume) 3.8 g/dL 3.2-4.5 Capillary blood glucose measurement by g lucometer (mass/volume) - 01/07/18 00:04 Capillary blood glucose measurement by glucometer (mas s/volume) 323 mg/dL 70-110 Capillary blood glucose measurement by g lucometer (mass/volume) - 01/07/18 00:36 Capillary blood glucose measurement by glucometer (mas s/volume) 232 mg/dL 70-110 Complete blood count (CBC) with automate d white blood cell (WBC) differential - 01/12/18 22:40 Blood leukocytes automated count (number/volume) 6.2 10*3/uL 4.3-11.0 Blood erythrocytes automated count (number/volume) 4.01 10*6/uL 4.35-5.85 Venous blood hemoglobin measurement (mass/volume) 11.9 g/dL 11.5-16.0 Blood hematocrit (volume fraction) 34 % 35-52 Automated erythrocyte mean corpuscular volume 86 [ foz_us] 80-99 Automated erythrocyte mean corpuscular h emoglobin (mass per erythrocyte) 30 pg 25-34 Automated erythrocyte mean corpuscular h emoglobin concentration measurement (mass/volume) 35 g/dL 32-36 Automated erythrocyte distribution width ratio 12. 7 % 10.0- 14.5 Automated blood platelet count (count/volume) 147 10*3/uL 130-400 Automated blood platelet mean volume measurement 11.2 [foz_us] 7.4-10.4 Automated blood neutrophils/100 leukocytes 72 % 42-75 Automated blood lymphocytes/100 leukocytes 20 % 12-44 Blood monocytes/100 leukocytes 6 % 0-12 Automated blood eosinophils/100 leukocytes 1 % 0-10 Automated blood basophils/100 leukocytes 0 % 0-10 Blood neutrophils automated count (number/volume) 4.5 10*3 1.8-7.8 Blood lymphocytes automated count (number/volume) 1.2 10*3 1.0-4.0 Blood monocytes automated count (number/volume) 0. 4 10*3 0.0-1.0 Automated eosinophil count 0.1 10*3/uL 0 .0-0.3 Automated blood basophil count (count/volume) 0.0 10*3/uL 0.0-0.1 Comprehensive metabolic panel - 01/12/18 22:40 Serum or plasma sodium measurement (moles/volume) 125 mmol/L 135-145 Serum or plasma potassium measurement (moles/volume) 5.9 mmol/L 3.6-5.0 Serum or plasma chloride measurement (moles/volume) 97 mmol/L 98-107 Carbon dioxide 14 mmol/L 21-32 Serum or plasma anion gap determination (moles/volume) 14 mmol/L 5-14 Serum or plasma urea nitrogen measurement (mass/volume ) 26 mg/dL 7-18 Serum or plasma creatinine measurement (mass/volume) 1.50 mg/dL 0.60-1.30 Serum or plasma urea nitrogen/creatinine mass ratio 17 NRG Serum or plasma creatinine measurement w ith calculation of estimated glomerular filtration rate 33 NRG Serum or plasma glucose measurement (mass/volume) 541 mg/dL 70-105 Serum or plasma calcium measurement (mass/volume) 10.2 mg/dL 8.5-10.1 Serum or plasma total bilirubin measurement (mass/volu me) 0.5 mg/dL 0.1-1.0 Serum or plasma alkaline phosphatase georgiana surement (enzymatic activity/volume) 113 U/L 40-136 Serum or plasma aspartate aminotransfera se measurement (enzymatic activity/volume) 25 U/L 5-34 Serum or plasma alanine aminotransferase measurement (enzymatic activity/volume) 29 U/L 0-55 Serum or plasma protein measurement (mass/volume) 6.5 g/dL 6.4-8.2 Serum or plasma albumin measurement (mass/volume) 3.9 g/dL 3.2-4.5 Serum or plasma amylase measurement (enz ymatic activity/volume) - 01/12/18 22:40 Serum or plasma amylase measurement (enzymatic activit y/volume) 48 U/L 25-125 Lipase - 01/12/18 22:40 Lipase 11 U/L 8-78 Capillary blood glucose measurement by g lucometer (mass/volume) - 01/12/18 22:54 Capillary blood glucose measurement by glucometer (mas s/volume) 441 mg/dL 70-110 Arterial blood gas measurement - 8 23:35 Blood pCO2 37 mm[Hg] 35-45 Blood pO2 88 mm[Hg] 79-93 Arterial blood bicarbonate measurement (moles/volume) 19 mmol/L 23-27 Arterial blood base excess by calculation -6.4 mmo l/L -2.5-2.5 Arterial blood oxygen saturation measurement 96 % 94-100 * Inhaled oxygen flow rate RA NRG Arterial blood pH measurement with patient temperature correction 7.32 7.37-7.43 Arterial blood carbon dioxide, total measurement (mole s/volume) 19.7 mmol/L 21.0-31.0 Body site R RAD NRG Assessment of wrist artery patency prior to arterial p uncture YES-POS NRG Setting of ventilation mode NO NR G Measurement of body temperature 98.2 NRG Complete urinalysis with reflex to cultu re - 01/13/18 00:19 Urine color determination YELLOW NRG Urine clarity determination CLEAR NR G Urine pH measurement by test strip 6 5-9 Specific gravity of urine by test strip 1.010 1.016-1.022 Urine protein assay by test strip, semi-quantitative 1+ NEGATIVE Urine glucose detection by automated test strip 4+ NEGATIVE Erythrocytes detection in urine sediment by light micr oscopy NEGATIVE NEGATIVE Urine ketones detection by automated test strip 2+ NEGATIVE Urine nitrite detection by test strip NEGATIVE NEGATIVE Urine total bilirubin detection by test strip NEGA TIVE NEGATIVE Urine urobilinogen measurement by automated test strip (mass/volume) NORMAL NORMAL Urine leukocyte esterase detection by dipstick NEG ATIVE NEGATIVE Automated urine sediment erythrocyte cou nt by microscopy (number/high power field) NONE NRG Automated urine sediment leukocyte count by microscopy (number/high power field) RARE NRG Bacteria detection in urine sediment by light microsco py NEGATIVE NRG Squamous epithelial cells detection in u rine sediment by light microscopy RARE NRG Crystals detection in urine sediment by light microsco py NONE NRG Casts detection in urine sediment by light microscopy NONE NRG Mucus detection in urine sediment by light microscopy NEGATIVE NRG Complete urinalysis with reflex to culture NO NRG Capillary blood glucose measurement by g lucometer (mass/volume) - 01/13/18 00:33 Capillary blood glucose measurement by glucometer (mas s/volume) 334 mg/dL 70-110 Capillary blood glucose measurement by g lucometer (mass/volume) - 01/13/18 02:04 Capillary blood glucose measurement by glucometer (mas s/volume) 188 mg/dL 70-110 Whole blood basic metabolic panel - 03/25 02:55 Serum or plasma sodium measurement (moles/volume) 133 mmol/L 135-145 Serum or plasma potassium measurement (moles/volume) 4.1 mmol/L 3.6-5.0 Serum or plasma chloride measurement (moles/volume) 106 mmol/L 98-107 Carbon dioxide 17 mmol/L 21-32 Serum or plasma anion gap determination (moles/volume) 10 mmol/L 5-14 Serum or plasma urea nitrogen measurement (mass/volume ) 25 mg/dL 7-18 Serum or plasma creatinine measurement (mass/volume) 1.11 mg/dL 0.60-1.30 Serum or plasma urea nitrogen/creatinine mass ratio 23 NRG Serum or plasma creatinine measurement w ith calculation of estimated glomerular filtration rate 47 NRG Serum or plasma glucose measurement (mass/volume) 180 mg/dL 70-105 Serum or plasma calcium measurement (mass/volume) 9.5 mg/dL 8.5-10.1 Capillary blood glucose measurement by g lucometer (mass/volume) - 01/13/18 03:57 Capillary blood glucose measurement by glucometer (mas s/volume) 203 mg/dL 70-110 Complete blood count (CBC) with automate d white blood cell (WBC) differential - 01/13/18 05:05 Blood leukocytes automated count (number/volume) 8.0 10*3/uL 4.3-11.0 Blood erythrocytes automated count (number/volume) 3.63 10*6/uL 4.35-5.85 Venous blood hemoglobin measurement (mass/volume) 11.0 g/dL 11.5-16.0 Blood hematocrit (volume fraction) 32 % 35-52 Automated erythrocyte mean corpuscular volume 87 [ foz_us] 80-99 Automated erythrocyte mean corpuscular h emoglobin (mass per erythrocyte) 30 pg 25-34 Automated erythrocyte mean corpuscular h emoglobin concentration measurement (mass/volume) 35 g/dL 32-36 Automated erythrocyte distribution width ratio 12. 5 % 10.0- 14.5 Automated blood platelet count (count/volume) 125 10*3/uL 130-400 Automated blood platelet mean volume measurement 11.8 [foz_us] 7.4-10.4 Automated blood neutrophils/100 leukocytes 82 % 42-75 Automated blood lymphocytes/100 leukocytes 12 % 12-44 Blood monocytes/100 leukocytes 6 % 0-12 Automated blood eosinophils/100 leukocytes 0 % 0-10 Automated blood basophils/100 leukocytes 0 % 0-10 Blood neutrophils automated count (number/volume) 6.6 10*3 1.8-7.8 Blood lymphocytes automated count (number/volume) 1.0 10*3 1.0-4.0 Blood monocytes automated count (number/volume) 0. 5 10*3 0.0-1.0 Automated eosinophil count 0.0 10*3/uL 0 .0-0.3 Automated blood basophil count (count/volume) 0.0 10*3/uL 0.0-0.1 Whole blood basic metabolic panel - 03/25 05:05 Serum or plasma sodium measurement (moles/volume) 132 mmol/L 135-145 Serum or plasma potassium measurement (moles/volume) 4.5 mmol/L 3.6-5.0 Serum or plasma chloride measurement (moles/volume) 106 mmol/L 98-107 Carbon dioxide 15 mmol/L 21-32 Serum or plasma anion gap determination (moles/volume) 11 mmol/L 5-14 Serum or plasma urea nitrogen measurement (mass/volume ) 25 mg/dL 7-18 Serum or plasma creatinine measurement (mass/volume) 1.04 mg/dL 0.60-1.30 Serum or plasma urea nitrogen/creatinine mass ratio 24 NRG Serum or plasma creatinine measurement w ith calculation of estimated glomerular filtration rate 51 NRG Serum or plasma glucose measurement (mass/volume) 281 mg/dL 70-105 Serum or plasma calcium measurement (mass/volume) 9.2 mg/dL 8.5-10.1 Hemoglobin A1c - 01/13/18 05:05 Blood hemoglobin A1C measurement (mass/volume) 9.2 % 4.0-5.6 MEAN BLOOD GLUCOSE 214 % <=126 Capillary blood glucose measurement by g lucometer (mass/volume) - 01/13/18 08:04 Capillary blood glucose measurement by glucometer (mas s/volume) 144 mg/dL 70-110 Capillary blood glucose measurement by g lucometer (mass/volume) - 01/13/18 09:43 Capillary blood glucose measurement by glucometer (mas s/volume) 97 mg/dL 70-110 Whole blood basic metabolic panel - 03/25 10:01 Serum or plasma sodium measurement (moles/volume) 134 mmol/L 135-145 Serum or plasma potassium measurement (moles/volume) 4.5 mmol/L 3.6-5.0 Serum or plasma chloride measurement (moles/volume) 109 mmol/L 98-107 Carbon dioxide 19 mmol/L 21-32 Serum or plasma anion gap determination (moles/volume) 6 mmol/L 5-14 Serum or plasma urea nitrogen measurement (mass/volume ) 22 mg/dL 7-18 Serum or plasma creatinine measurement (mass/volume) 0.84 mg/dL 0.60-1.30 Serum or plasma urea nitrogen/creatinine mass ratio 26 NRG Serum or plasma creatinine measurement w ith calculation of estimated glomerular filtration rate > NRG Serum or plasma glucose measurement (mass/volume) 95 mg/dL 70-105 Serum or plasma calcium measurement (mass/volume) 9.4 mg/dL 8.5-10.1 Capillary blood glucose measurement by g lucometer (mass/volume) - 01/13/18 12:01 Capillary blood glucose measurement by glucometer (mas s/volume) 124 mg/dL 70-110 Capillary blood glucose measurement by g lucometer (mass/volume) - 01/13/18 13:52 Capillary blood glucose measurement by glucometer (mas s/volume) 213 mg/dL 70-110 Capillary blood glucose measurement by g lucometer (mass/volume) - 01/13/18 15:54 Capillary blood glucose measurement by glucometer (mas s/volume) 154 mg/dL 70-110 Capillary blood glucose measurement by g lucometer (mass/volume) - 01/13/18 17:53 Capillary blood glucose measurement by glucometer (mas s/volume) 211 mg/dL 70-110 Capillary blood glucose measurement by g lucometer (mass/volume) - 01/13/18 19:44 Capillary blood glucose measurement by glucometer (mas s/volume) 159 mg/dL 70-110 Capillary blood glucose measurement by g lucometer (mass/volume) - 01/13/18 21:54 Capillary blood glucose measurement by glucometer (mas s/volume) 136 mg/dL 70-110 Capillary blood glucose measurement by g lucometer (mass/volume) - 01/13/18 23:52 Capillary blood glucose measurement by glucometer (mas s/volume) 112 mg/dL 70-110 Capillary blood glucose measurement by g lucometer (mass/volume) - 01/14/18 01:48 Capillary blood glucose measurement by glucometer (mas s/volume) 86 mg/dL 70-110 Capillary blood glucose measurement by g lucometer (mass/volume) - 01/14/18 03:50 Capillary blood glucose measurement by glucometer (mas s/volume) 104 mg/dL 70-110 Capillary blood glucose measurement by g lucometer (mass/volume) - 01/14/18 05:46 Capillary blood glucose measurement by glucometer (mas s/volume) 139 mg/dL 70-110 Complete blood count (CBC) with automate d white blood cell (WBC) differential - 01/14/18 05:55 Blood leukocytes automated count (number/volume) 3.7 10*3/uL 4.3-11.0 Blood erythrocytes automated count (number/volume) 3.52 10*6/uL 4.35-5.85 Venous blood hemoglobin measurement (mass/volume) 10.4 g/dL 11.5-16.0 Blood hematocrit (volume fraction) 31 % 35-52 Automated erythrocyte mean corpuscular volume 88 [ foz_us] 80-99 Automated erythrocyte mean corpuscular h emoglobin (mass per erythrocyte) 30 pg 25-34 Automated erythrocyte mean corpuscular h emoglobin concentration measurement (mass/volume) 34 g/dL 32-36 Automated erythrocyte distribution width ratio 13. 1 % 10.0- 14.5 Automated blood platelet count (count/volume) 124 10*3/uL 130-400 Automated blood platelet mean volume measurement 11.4 [foz_us] 7.4-10.4 Automated blood neutrophils/100 leukocytes 57 % 42-75 Automated blood lymphocytes/100 leukocytes 35 % 12-44 Blood monocytes/100 leukocytes 6 % 0-12 Automated blood eosinophils/100 leukocytes 3 % 0-10 Automated blood basophils/100 leukocytes 0 % 0-10 Blood neutrophils automated count (number/volume) 2.1 10*3 1.8-7.8 Blood lymphocytes automated count (number/volume) 1.3 10*3 1.0-4.0 Blood monocytes automated count (number/volume) 0. 2 10*3 0.0-1.0 Automated eosinophil count 0.1 10*3/uL 0 .0-0.3 Automated blood basophil count (count/volume) 0.0 10*3/uL 0.0-0.1 Comprehensive metabolic panel - 01/14/18 05:55 Serum or plasma sodium measurement (moles/volume) 136 mmol/L 135-145 Serum or plasma potassium measurement (moles/volume) 4.3 mmol/L 3.6-5.0 Serum or plasma chloride measurement (moles/volume) 113 mmol/L 98-107 Carbon dioxide 17 mmol/L 21-32 Serum or plasma anion gap determination (moles/volume) 6 mmol/L 5-14 Serum or plasma urea nitrogen measurement (mass/volume ) 12 mg/dL 7-18 Serum or plasma creatinine measurement (mass/volume) 0.74 mg/dL 0.60-1.30 Serum or plasma urea nitrogen/creatinine mass ratio 16 NRG Serum or plasma creatinine measurement w ith calculation of estimated glomerular filtration rate > NRG Serum or plasma glucose measurement (mass/volume) 150 mg/dL 70-105 Serum or plasma calcium measurement (mass/volume) 8.9 mg/dL 8.5-10.1 Serum or plasma total bilirubin measurement (mass/volu me) 0.3 mg/dL 0.1-1.0 Serum or plasma alkaline phosphatase georgiana surement (enzymatic activity/volume) 93 U/L 40-136 Serum or plasma aspartate aminotransfera se measurement (enzymatic activity/volume) 53 U/L 5-34 Serum or plasma alanine aminotransferase measurement (enzymatic activity/volume) 74 U/L 0-55 Serum or plasma protein measurement (mass/volume) 4.9 g/dL 6.4-8.2 Serum or plasma albumin measurement (mass/volume) 3.2 g/dL 3.2-4.5 Capillary blood glucose measurement by g lucometer (mass/volume) - 01/14/18 08:03 Capillary blood glucose measurement by glucometer (mas s/volume) 127 mg/dL 70-110 Capillary blood glucose measurement by g lucometer (mass/volume) - 01/09/19 22:45 Capillary blood glucose measurement by glucometer (mas s/volume) 504 mg/dL 70-110 Complete urinalysis with reflex to cultu re - 01/09/19 23:10 Urine color determination YELLOW NRG Urine clarity determination CLEAR NR G Urine pH measurement by test strip 7 5-9 Specific gravity of urine by test strip 1.005 1.016-1.022 Urine protein assay by test strip, semi-quantitative NEGATIVE NEGATIVE Urine glucose detection by automated test strip 4+ NEGATIVE Erythrocytes detection in urine sediment by light micr oscopy 1+ NEGATIVE Urine ketones detection by automated test strip NE GATIVE NEGATIVE Urine nitrite detection by test strip NEGATIVE NEGATIVE Urine total bilirubin detection by test strip NEGA TIVE NEGATIVE Urine urobilinogen measurement by automated test strip (mass/volume) NORMAL NORMAL Urine leukocyte esterase detection by dipstick NEG ATIVE NEGATIVE Automated urine sediment erythrocyte cou nt by microscopy (number/high power field) NONE NRG Automated urine sediment leukocyte count by microscopy (number/high power field) NONE NRG Bacteria detection in urine sediment by light microsco py NEGATIVE NRG Squamous epithelial cells detection in u rine sediment by light microscopy 0-2 NRG Crystals detection in urine sediment by light microsco py NONE NRG Casts detection in urine sediment by light microscopy NONE NRG Mucus detection in urine sediment by light microscopy SMALL NRG Complete urinalysis with reflex to culture NO NRG Complete blood count (CBC) with automate d white blood cell (WBC) differential - 01/09/19 23:15 Blood leukocytes automated count (number/volume) 5.4 10*3/uL 4.3-11.0 Blood erythrocytes automated count (number/volume) 4.12 10*6/uL 4.35-5.85 Venous blood hemoglobin measurement (mass/volume) 12.2 g/dL 11.5-16.0 Blood hematocrit (volume fraction) 36 % 35-52 Automated erythrocyte mean corpuscular volume 87 [ foz_us] 80-99 Automated erythrocyte mean corpuscular h emoglobin (mass per erythrocyte) 30 pg 25-34 Automated erythrocyte mean corpuscular h emoglobin concentration measurement (mass/volume) 34 g/dL 32-36 Automated erythrocyte distribution width ratio 12. 3 % 10.0- 14.5 Automated blood platelet count (count/volume) 147 10*3/uL 130-400 Automated blood platelet mean volume measurement 10.8 [foz_us] 7.4-10.4 Automated blood neutrophils/100 leukocytes 72 % 42-75 Automated blood lymphocytes/100 leukocytes 20 % 12-44 Blood monocytes/100 leukocytes 6 % 0-12 Automated blood eosinophils/100 leukocytes 1 % 0-10 Automated blood basophils/100 leukocytes 0 % 0-10 Blood neutrophils automated count (number/volume) 3.9 10*3 1.8-7.8 Blood lymphocytes automated count (number/volume) 1.1 10*3 1.0-4.0 Blood monocytes automated count (number/volume) 0. 3 10*3 0.0-1.0 Automated eosinophil count 0.1 10*3/uL 0 .0-0.3 Automated blood basophil count (count/volume) 0.0 10*3/uL 0.0-0.1 Comprehensive metabolic panel - 01/09/19 23:15 Serum or plasma sodium measurement (moles/volume) 131 mmol/L 135-145 Serum or plasma potassium measurement (moles/volume) 4.6 mmol/L 3.6-5.0 Serum or plasma chloride measurement (moles/volume) 96 mmol/L 98-107 Carbon dioxide 27 mmol/L 21-32 Serum or plasma anion gap determination (moles/volume) 8 mmol/L 5-14 Serum or plasma urea nitrogen measurement (mass/volume ) 16 mg/dL 7-18 Serum or plasma creatinine measurement (mass/volume) 1.32 mg/dL 0.60-1.30 Serum or plasma urea nitrogen/creatinine mass ratio 12 NRG Serum or plasma creatinine measurement w ith calculation of estimated glomerular filtration rate 38 NRG Serum or plasma glucose measurement (mass/volume) 527 mg/dL 70-105 Serum or plasma calcium measurement (mass/volume) 10.4 mg/dL 8.5-10.1 Serum or plasma total bilirubin measurement (mass/volu me) 0.4 mg/dL 0.1-1.0 Serum or plasma alkaline phosphatase georgiana surement (enzymatic activity/volume) 128 U/L 40-136 Serum or plasma aspartate aminotransfera se measurement (enzymatic activity/volume) 17 U/L 5-34 Serum or plasma alanine aminotransferase measurement (enzymatic activity/volume) 18 U/L 0-55 Serum or plasma protein measurement (mass/volume) 6.5 g/dL 6.4-8.2 Serum or plasma albumin measurement (mass/volume) 4.1 g/dL 3.2-4.5 CALCIUM CORRECTED 10.3 mg/dL 8.5-10.1 Serum or plasma amylase measurement (enz ymatic activity/volume) - 01/09/19 23:15 Serum or plasma amylase measurement (enzymatic activit y/volume) 60 U/L 25-125 Lipase - 01/09/19 23:15 Lipase 25 U/L 8-78 Capillary blood glucose measurement by g lucometer (mass/volume) - 01/10/19 00:09 Capillary blood glucose measurement by glucometer (mas s/volume) 386 mg/dL 70-110 CBC - 05/03/19 11:20 WHITE BLOOD CELL COUNT 6.4 Thousand/uL 3 .8-10.8 RED BLOOD CELL COUNT 4.57 Million/uL 3.8 0-5.10 HEMOGLOBIN 13.1 g/dL 11.7-15.5 HEMATOCRIT 39.7 % 35.0-45.0 MCV 86.9 fL 80.0-100.0 MCH 28.7 pg 27.0-33.0 MCHC 33.0 g/dL 32.0-36.0 RDW 11.7 % 11.0-15.0 PLATELET COUNT 203 Thousand/uL 140-400 MPV 10.5 fL 7.5-12.5 ABSOLUTE NEUTROPHILS 4678 cells/uL 1500- 7800 ABSOLUTE LYMPHOCYTES 1235 cells/uL 850-3 900 ABSOLUTE MONOCYTES 435 cells/uL 200-950 ABSOLUTE EOSINOPHILS 32 cells/uL 15-500 ABSOLUTE BASOPHILS 19 cells/uL 0-200 NEUTROPHILS 73.1 % NRG LYMPHOCYTES 19.3 % NRG MONOCYTES 6.8 % NRG EOSINOPHILS 0.5 % NRG BASOPHILS 0.3 % NRG Complete blood count (CBC) with automate d white blood cell (WBC) differential - 05/04/19 08:45 Blood leukocytes automated count (number/volume) 5.4 10*3/uL 4.3-11.0 Blood erythrocytes automated count (number/volume) 4.21 10*6/uL 4.35-5.85 Venous blood hemoglobin measurement (mass/volume) 12.0 g/dL 11.5-16.0 Blood hematocrit (volume fraction) 35 % 35-52 Automated erythrocyte mean corpuscular volume 84 [ foz_us] 80-99 Automated erythrocyte mean corpuscular h emoglobin (mass per erythrocyte) 29 pg 25-34 Automated erythrocyte mean corpuscular h emoglobin concentration measurement (mass/volume) 34 g/dL 32-36 Automated erythrocyte distribution width ratio 12. 4 % 10.0- 14.5 Automated blood platelet count (count/volume) 171 10*3/uL 130-400 Automated blood platelet mean volume measurement 10.2 [foz_us] 7.4-10.4 Automated blood neutrophils/100 leukocytes 72 % 42-75 Automated blood lymphocytes/100 leukocytes 19 % 12-44 Blood monocytes/100 leukocytes 8 % 0-12 Automated blood eosinophils/100 leukocytes 1 % 0-10 Automated blood basophils/100 leukocytes 0 % 0-10 Blood neutrophils automated count (number/volume) 3.9 10*3 1.8-7.8 Blood lymphocytes automated count (number/volume) 1.0 10*3 1.0-4.0 Blood monocytes automated count (number/volume) 0. 4 10*3 0.0-1.0 Automated eosinophil count 0.1 10*3/uL 0 .0-0.3 Automated blood basophil count (count/volume) 0.0 10*3/uL 0.0-0.1 Comprehensive metabolic panel - 05/04/19 08:45 Serum or plasma sodium measurement (moles/volume) 131 mmol/L 135-145 Serum or plasma potassium measurement (moles/volume) 4.0 mmol/L 3.6-5.0 Serum or plasma chloride measurement (moles/volume) 97 mmol/L 98-107 Carbon dioxide 26 mmol/L 21-32 Serum or plasma anion gap determination (moles/volume) 8 mmol/L 5-14 Serum or plasma urea nitrogen measurement (mass/volume ) 10 mg/dL 7-18 Serum or plasma creatinine measurement (mass/volume) 1.03 mg/dL 0.60-1.30 Serum or plasma urea nitrogen/creatinine mass ratio 10 NRG Serum or plasma creatinine measurement w ith calculation of estimated glomerular filtration rate 51 NRG Serum or plasma glucose measurement (mass/volume) 166 mg/dL 70-105 Serum or plasma calcium measurement (mass/volume) 10.4 mg/dL 8.5-10.1 Serum or plasma total bilirubin measurement (mass/volu me) 0.6 mg/dL 0.1-1.0 Serum or plasma alkaline phosphatase georgiana surement (enzymatic activity/volume) 79 U/L 40-136 Serum or plasma aspartate aminotransfera se measurement (enzymatic activity/volume) 16 U/L 5-34 Serum or plasma alanine aminotransferase measurement (enzymatic activity/volume) 17 U/L 0-55 Serum or plasma protein measurement (mass/volume) 6.0 g/dL 6.4-8.2 Serum or plasma albumin measurement (mass/volume) 3.9 g/dL 3.2-4.5 CALCIUM CORRECTED 10.5 mg/dL 8.5-10.1 Blood lactic acid measurement (moles/vol ume) - 05/04/19 08:45 Blood lactic acid measurement (moles/volume) 2.38 mmol/L 0.50-2.00 Bacterial blood culture - 05/04/19 08:45 Bacterial blood culture NG NRG Complete urinalysis with reflex to cultu re - 05/04/19 09:06 Urine color determination YELLOW NRG Urine clarity determination CLEAR NR G Urine pH measurement by test strip 7 5-9 Specific gravity of urine by test strip 1.010 1.016-1.022 Urine protein assay by test strip, semi-quantitative 1+ NEGATIVE Urine glucose detection by automated test strip NE GATIVE NEGATIVE Erythrocytes detection in urine sediment by light micr oscopy 1+ NEGATIVE Urine ketones detection by automated test strip NE GATIVE NEGATIVE Urine nitrite detection by test strip NEGATIVE NEGATIVE Urine total bilirubin detection by test strip NEGA TIVE NEGATIVE Urine urobilinogen measurement by automated test strip (mass/volume) NORMAL NORMAL Urine leukocyte esterase detection by dipstick 3+ NEGATIVE Automated urine sediment erythrocyte cou nt by microscopy (number/high power field) [HPF] NRG Automated urine sediment leukocyte count by microscopy (number/high power field) > [HPF] NRG Bacteria detection in urine sediment by light microsco py LARGE NRG Squamous epithelial cells detection in u rine sediment by light microscopy RARE NRG Crystals detection in urine sediment by light microsco py NONE NRG Casts detection in urine sediment by light microscopy NONE NRG Mucus detection in urine sediment by light microscopy NEGATIVE NRG Complete urinalysis with reflex to culture YES NRG Bacterial urine culture - 05/04/19 09:06 Bacterial urine culture [id number] NRG COLONY COUNT >100,000/ML NRG FTX;REPORTABLE SUSCEPTIBILITY REPORTED 05-06-19, 15 48 NRG Dirithromycin susceptibility test by dis k diffusion - 05/04/19 09:06 Gentamicin susceptibility test by minimum inhibitory c oncentration <= NRG Trimethoprim/sulfamethoxazole susceptibi lity test by minimum inhibitoryconcentration > NRG Levofloxacin susceptibility test by minimum inhibitory concentration <= NRG Ampicillin susceptibility test by minimum inhibitory c oncentration <= NRG Cefazolin susceptibility test by minimum inhibitory co ncentration <= NRG Ceftriaxone susceptibility test by minimum inhibitory concentration <= NRG Ciprofloxacin susceptibility test by minimum inhibitor y concentration <= NRG Meropenem susceptibility test by minimum inhibitory co ncentration <= NRG Nitrofurantoin susceptibility test by mi nimum inhibitory concentration <= NRG Amoxicillin and clavulanate potassium susc NAIN <= NRG Serum or plasma lactate measurement (mol es/volume) - 05/04/19 12:02 Serum or plasma lactate measurement (moles/volume) 0.83 mmol/L 0.50-2.00 Capillary blood glucose measurement by g lucometer (mass/volume) - 05/04/19 12:03 Capillary blood glucose measurement by glucometer (mas s/volume) 103 mg/dL 70-110 Capillary blood glucose measurement by g lucometer (mass/volume) - 05/04/19 20:53 Capillary blood glucose measurement by glucometer (mas s/volume) 254 mg/dL 70-110 Complete blood count (CBC) with automate d white blood cell (WBC) differential - 05/05/19 05:24 Blood leukocytes automated count (number/volume) 4.3 10*3/uL 4.3-11.0 Blood erythrocytes automated count (number/volume) 3.53 10*6/uL 4.35-5.85 Venous blood hemoglobin measurement (mass/volume) 10.1 g/dL 11.5-16.0 Blood hematocrit (volume fraction) 30 % 35-52 Automated erythrocyte mean corpuscular volume 84 [ foz_us] 80-99 Automated erythrocyte mean corpuscular h emoglobin (mass per erythrocyte) 29 pg 25-34 Automated erythrocyte mean corpuscular h emoglobin concentration measurement (mass/volume) 34 g/dL 32-36 Automated erythrocyte distribution width ratio 12. 9 % 10.0- 14.5 Automated blood platelet count (count/volume) 142 10*3/uL 130-400 Automated blood platelet mean volume measurement 10.4 [foz_us] 7.4-10.4 Automated blood neutrophils/100 leukocytes 64 % 42-75 Automated blood lymphocytes/100 leukocytes 25 % 12-44 Blood monocytes/100 leukocytes 9 % 0-12 Automated blood eosinophils/100 leukocytes 1 % 0-10 Automated blood basophils/100 leukocytes 0 % 0-10 Blood neutrophils automated count (number/volume) 2.8 10*3 1.8-7.8 Blood lymphocytes automated count (number/volume) 1.1 10*3 1.0-4.0 Blood monocytes automated count (number/volume) 0. 4 10*3 0.0-1.0 Automated eosinophil count 0.0 10*3/uL 0 .0-0.3 Automated blood basophil count (count/volume) 0.0 10*3/uL 0.0-0.1 Comprehensive metabolic panel - 05/05/19 05:24 Serum or plasma sodium measurement (moles/volume) 135 mmol/L 135-145 Serum or plasma potassium measurement (moles/volume) 4.2 mmol/L 3.6-5.0 Serum or plasma chloride measurement (moles/volume) 106 mmol/L 98-107 Carbon dioxide 24 mmol/L 21-32 Serum or plasma anion gap determination (moles/volume) 5 mmol/L 5-14 Serum or plasma urea nitrogen measurement (mass/volume ) 9 mg/dL 7-18 Serum or plasma creatinine measurement (mass/volume) 0.74 mg/dL 0.60-1.30 Serum or plasma urea nitrogen/creatinine mass ratio 12 NRG Serum or plasma creatinine measurement w ith calculation of estimated glomerular filtration rate > NRG Serum or plasma glucose measurement (mass/volume) 151 mg/dL 70-105 Serum or plasma calcium measurement (mass/volume) 9.1 mg/dL 8.5-10.1 Serum or plasma total bilirubin measurement (mass/volu me) 0.4 mg/dL 0.1-1.0 Serum or plasma alkaline phosphatase georgiana surement (enzymatic activity/volume) 78 U/L 40-136 Serum or plasma aspartate aminotransfera se measurement (enzymatic activity/volume) 16 U/L 5-34 Serum or plasma alanine aminotransferase measurement (enzymatic activity/volume) 13 U/L 0-55 Serum or plasma protein measurement (mass/volume) 5.0 g/dL 6.4-8.2 Serum or plasma albumin measurement (mass/volume) 3.2 g/dL 3.2-4.5 CALCIUM CORRECTED 9.7 mg/dL 8.5-10.1 Capillary blood glucose measurement by g lucometer (mass/volume) - 05/05/19 05:38 Capillary blood glucose measurement by glucometer (mas s/volume) 152 mg/dL 70-110 Capillary blood glucose measurement by g lucometer (mass/volume) - 05/05/19 10:08 Capillary blood glucose measurement by glucometer (mas s/volume) 297 mg/dL 70-110 Capillary blood glucose measurement by g lucometer (mass/volume) - 05/05/19 16:07 Capillary blood glucose measurement by glucometer (mas s/volume) 219 mg/dL 70-110 Capillary blood glucose measurement by g lucometer (mass/volume) - 05/05/19 20:05 Capillary blood glucose measurement by glucometer (mas s/volume) 202 mg/dL 70-110 Capillary blood glucose measurement by g lucometer (mass/volume) - 05/06/19 00:08 Capillary blood glucose measurement by glucometer (mas s/volume) 32 mg/dL 70-110 Capillary blood glucose measurement by g lucometer (mass/volume) - 05/06/19 00:16 Capillary blood glucose measurement by glucometer (mas s/volume) 307 mg/dL 70-110 Complete blood count (CBC) with automate d white blood cell (WBC) differential - 05/06/19 05:00 Blood leukocytes automated count (number/volume) 4.9 10*3/uL 4.3-11.0 Blood erythrocytes automated count (number/volume) 3.97 10*6/uL 4.35-5.85 Venous blood hemoglobin measurement (mass/volume) 11.4 g/dL 11.5-16.0 Blood hematocrit (volume fraction) 34 % 35-52 Automated erythrocyte mean corpuscular volume 85 [ foz_us] 80-99 Automated erythrocyte mean corpuscular h emoglobin (mass per erythrocyte) 29 pg 25-34 Automated erythrocyte mean corpuscular h emoglobin concentration measurement (mass/volume) 34 g/dL 32-36 Automated erythrocyte distribution width ratio 12. 6 % 10.0- 14.5 Automated blood platelet count (count/volume) 154 10*3/uL 130-400 Automated blood platelet mean volume measurement 10.7 [foz_us] 7.4-10.4 Automated blood neutrophils/100 leukocytes 78 % 42-75 Automated blood lymphocytes/100 leukocytes 15 % 12-44 Blood monocytes/100 leukocytes 7 % 0-12 Automated blood eosinophils/100 leukocytes 0 % 0-10 Automated blood basophils/100 leukocytes 0 % 0-10 Blood neutrophils automated count (number/volume) 3.9 10*3 1.8-7.8 Blood lymphocytes automated count (number/volume) 0.7 10*3 1.0-4.0 Blood monocytes automated count (number/volume) 0. 3 10*3 0.0-1.0 Automated eosinophil count 0.0 10*3/uL 0 .0-0.3 Automated blood basophil count (count/volume) 0.0 10*3/uL 0.0-0.1 Comprehensive metabolic panel - 05/06/19 05:00 Serum or plasma sodium measurement (moles/volume) 132 mmol/L 135-145 Serum or plasma potassium measurement (moles/volume) 4.7 mmol/L 3.6-5.0 Serum or plasma chloride measurement (moles/volume) 103 mmol/L 98-107 Carbon dioxide 23 mmol/L 21-32 Serum or plasma anion gap determination (moles/volume) 6 mmol/L 5-14 Serum or plasma urea nitrogen measurement (mass/volume ) 11 mg/dL 7-18 Serum or plasma creatinine measurement (mass/volume) 0.82 mg/dL 0.60-1.30 Serum or plasma urea nitrogen/creatinine mass ratio 13 NRG Serum or plasma creatinine measurement w ith calculation of estimated glomerular filtration rate > NRG Serum or plasma glucose measurement (mass/volume) 336 mg/dL 70-105 Serum or plasma calcium measurement (mass/volume) 9.5 mg/dL 8.5-10.1 Serum or plasma total bilirubin measurement (mass/volu me) 0.4 mg/dL 0.1-1.0 Serum or plasma alkaline phosphatase georgiana surement (enzymatic activity/volume) 91 U/L 40-136 Serum or plasma aspartate aminotransfera se measurement (enzymatic activity/volume) 23 U/L 5-34 Serum or plasma alanine aminotransferase measurement (enzymatic activity/volume) 20 U/L 0-55 Serum or plasma protein measurement (mass/volume) 5.5 g/dL 6.4-8.2 Serum or plasma albumin measurement (mass/volume) 3.5 g/dL 3.2-4.5 CALCIUM CORRECTED 9.9 mg/dL 8.5-10.1 Capillary blood glucose measurement by g lucometer (mass/volume) - 05/06/19 05:25 Capillary blood glucose measurement by glucometer (mas s/volume) 279 mg/dL 70-110 Capillary blood glucose measurement by g lucometer (mass/volume) - 05/06/19 09:07 Capillary blood glucose measurement by glucometer (mas s/volume) 301 mg/dL 70-110 Capillary blood glucose measurement by g lucometer (mass/volume) - 05/06/19 10:52 Capillary blood glucose measurement by glucometer (mas s/volume) 241 mg/dL 70-110 Capillary blood glucose measurement by g lucometer (mass/volume) - 05/06/19 16:08 Capillary blood glucose measurement by glucometer (mas s/volume) 146 mg/dL 70-110 Capillary blood glucose measurement by g lucometer (mass/volume) - 05/06/19 20:44 Capillary blood glucose measurement by glucometer (mas s/volume) 161 mg/dL 70-110 Complete blood count (CBC) with automate d white blood cell (WBC) differential - 05/07/19 04:29 Blood leukocytes automated count (number/volume) 5.7 10*3/uL 4.3-11.0 Blood erythrocytes automated count (number/volume) 3.67 10*6/uL 4.35-5.85 Venous blood hemoglobin measurement (mass/volume) 10.5 g/dL 11.5-16.0 Blood hematocrit (volume fraction) 31 % 35-52 Automated erythrocyte mean corpuscular volume 85 [ foz_us] 80-99 Automated erythrocyte mean corpuscular h emoglobin (mass per erythrocyte) 29 pg 25-34 Automated erythrocyte mean corpuscular h emoglobin concentration measurement (mass/volume) 34 g/dL 32-36 Automated erythrocyte distribution width ratio 12. 9 % 10.0- 14.5 Automated blood platelet count (count/volume) 151 10*3/uL 130-400 Automated blood platelet mean volume measurement 10.5 [foz_us] 7.4-10.4 Automated blood neutrophils/100 leukocytes 67 % 42-75 Automated blood lymphocytes/100 leukocytes 23 % 12-44 Blood monocytes/100 leukocytes 8 % 0-12 Automated blood eosinophils/100 leukocytes 2 % 0-10 Automated blood basophils/100 leukocytes 0 % 0-10 Blood neutrophils automated count (number/volume) 3.9 10*3 1.8-7.8 Blood lymphocytes automated count (number/volume) 1.3 10*3 1.0-4.0 Blood monocytes automated count (number/volume) 0. 4 10*3 0.0-1.0 Automated eosinophil count 0.1 10*3/uL 0 .0-0.3 Automated blood basophil count (count/volume) 0.0 10*3/uL 0.0-0.1 Capillary blood glucose measurement by g lucometer (mass/volume) - 05/07/19 05:03 Capillary blood glucose measurement by glucometer (mas s/volume) 172 mg/dL 70-110 Comprehensive metabolic panel - 05/07/19 05:29 Serum or plasma sodium measurement (moles/volume) 135 mmol/L 135-145 Serum or plasma potassium measurement (moles/volume) 3.8 mmol/L 3.6-5.0 Serum or plasma chloride measurement (moles/volume) 102 mmol/L 98-107 Carbon dioxide 26 mmol/L 21-32 Serum or plasma anion gap determination (moles/volume) 7 mmol/L 5-14 Serum or plasma urea nitrogen measurement (mass/volume ) 12 mg/dL 7-18 Serum or plasma creatinine measurement (mass/volume) 0.72 mg/dL 0.60-1.30 Serum or plasma urea nitrogen/creatinine mass ratio 17 NRG Serum or plasma creatinine measurement w ith calculation of estimated glomerular filtration rate > NRG Serum or plasma glucose measurement (mass/volume) 187 mg/dL 70-105 Serum or plasma calcium measurement (mass/volume) 9.5 mg/dL 8.5-10.1 Serum or plasma total bilirubin measurement (mass/volu me) 0.3 mg/dL 0.1-1.0 Serum or plasma alkaline phosphatase georgiana surement (enzymatic activity/volume) 63 U/L 40-136 Serum or plasma aspartate aminotransfera se measurement (enzymatic activity/volume) 20 U/L 5-34 Serum or plasma alanine aminotransferase measurement (enzymatic activity/volume) 21 U/L 0-55 Serum or plasma protein measurement (mass/volume) 5.6 g/dL 6.4-8.2 Serum or plasma albumin measurement (mass/volume) 3.2 g/dL 3.2-4.5 CALCIUM CORRECTED 10.1 mg/dL 8.5-10.1 Capillary blood glucose measurement by g lucometer (mass/volume) - 05/07/19 10:56 Capillary blood glucose measurement by glucometer (mas s/volume) 305 mg/dL 70-110 Capillary blood glucose measurement by g lucometer (mass/volume) - 05/07/19 16:11 Capillary blood glucose measurement by glucometer (mas s/volume) 285 mg/dL 70-110 Capillary blood glucose measurement by g lucometer (mass/volume) - 05/07/19 20:46 Capillary blood glucose measurement by glucometer (mas s/volume) 244 mg/dL 70-110 Automated blood complete blood count (he mogram) panel - 05/08/19 05:30 Blood leukocytes automated count (number/volume) 6.0 10*3/uL 4.3-11.0 Blood erythrocytes automated count (number/volume) 3.98 10*6/uL 4.35-5.85 Venous blood hemoglobin measurement (mass/volume) 11.4 g/dL 11.5-16.0 Blood hematocrit (volume fraction) 34 % 35-52 Automated erythrocyte mean corpuscular volume 84 [ foz_us] 80-99 Automated erythrocyte mean corpuscular h emoglobin (mass per erythrocyte) 29 pg 25-34 Automated erythrocyte mean corpuscular h emoglobin concentration measurement (mass/volume) 34 g/dL 32-36 Automated erythrocyte distribution width ratio 12. 6 % 10.0- 14.5 Automated blood platelet count (count/volume) 153 10*3/uL 130-400 Automated blood platelet mean volume measurement 10.9 [foz_us] 7.4-10.4 Whole blood basic metabolic panel - 08/26 05:30 Serum or plasma sodium measurement (moles/volume) 135 mmol/L 135-145 Serum or plasma potassium measurement (moles/volume) 4.0 mmol/L 3.6-5.0 Serum or plasma chloride measurement (moles/volume) 101 mmol/L 98-107 Carbon dioxide 28 mmol/L 21-32 Serum or plasma anion gap determination (moles/volume) 6 mmol/L 5-14 Serum or plasma urea nitrogen measurement (mass/volume ) 12 mg/dL 7-18 Serum or plasma creatinine measurement (mass/volume) 0.80 mg/dL 0.60-1.30 Serum or plasma urea nitrogen/creatinine mass ratio 15 NRG Serum or plasma creatinine measurement w ith calculation of estimated glomerular filtration rate > NRG Serum or plasma glucose measurement (mass/volume) 180 mg/dL 70-105 Serum or plasma calcium measurement (mass/volume) 9.7 mg/dL 8.5-10.1 Capillary blood glucose measurement by g lucometer (mass/volume) - 05/08/19 10:54 Capillary blood glucose measurement by glucometer (mas s/volume) 158 mg/dL 70-110 Complete blood count (CBC) with automate d white blood cell (WBC) differential - 08/24/19 10:00 Blood leukocytes automated count (number/volume) 5.5 10*3/uL 4.3-11.0 Blood erythrocytes automated count (number/volume) 4.13 10*6/uL 4.35-5.85 Venous blood hemoglobin measurement (mass/volume) 11.5 g/dL 11.5-16.0 Blood hematocrit (volume fraction) 35 % 35-52 Automated erythrocyte mean corpuscular volume 84 [ foz_us] 80-99 Automated erythrocyte mean corpuscular h emoglobin (mass per erythrocyte) 28 pg 25-34 Automated erythrocyte mean corpuscular h emoglobin concentration measurement (mass/volume) 33 g/dL 32-36 Automated erythrocyte distribution width ratio 13. 0 % 10.0- 14.5 Automated blood platelet count (count/volume) 163 10*3/uL 130-400 Automated blood platelet mean volume measurement 10.9 [foz_us] 7.4-10.4 Automated blood neutrophils/100 leukocytes 72 % 42-75 Automated blood lymphocytes/100 leukocytes 18 % 12-44 Blood monocytes/100 leukocytes 8 % 0-12 Automated blood eosinophils/100 leukocytes 2 % 0-10 Automated blood basophils/100 leukocytes 0 % 0-10 Blood neutrophils automated count (number/volume) 4.0 10*3 1.8-7.8 Blood lymphocytes automated count (number/volume) 1.0 10*3 1.0-4.0 Blood monocytes automated count (number/volume) 0. 5 10*3 0.0-1.0 Automated eosinophil count 0.1 10*3/uL 0 .0-0.3 Automated blood basophil count (count/volume) 0.0 10*3/uL 0.0-0.1 Comprehensive metabolic panel - 08/24/19 10:00 Serum or plasma sodium measurement (moles/volume) 132 mmol/L 135-145 Serum or plasma potassium measurement (moles/volume) 4.4 mmol/L 3.6-5.0 Serum or plasma chloride measurement (moles/volume) 97 mmol/L 98-107 Carbon dioxide 26 mmol/L 21-32 Serum or plasma anion gap determination (moles/volume) 9 mmol/L 5-14 Serum or plasma urea nitrogen measurement (mass/volume ) 12 mg/dL 7-18 Serum or plasma creatinine measurement (mass/volume) 1.00 mg/dL 0.60-1.30 Serum or plasma urea nitrogen/creatinine mass ratio 12 NRG Serum or plasma creatinine measurement w ith calculation of estimated glomerular filtration rate 53 NRG Serum or plasma glucose measurement (mass/volume) 243 mg/dL 70-105 Serum or plasma calcium measurement (mass/volume) 10.2 mg/dL 8.5-10.1 Serum or plasma total bilirubin measurement (mass/volu me) 0.5 mg/dL 0.1-1.0 Serum or plasma alkaline phosphatase georgiana surement (enzymatic activity/volume) 83 U/L 40-136 Serum or plasma aspartate aminotransfera se measurement (enzymatic activity/volume) 18 U/L 5-34 Serum or plasma alanine aminotransferase measurement (enzymatic activity/volume) 14 U/L 0-55 Serum or plasma protein measurement (mass/volume) 6.0 g/dL 6.4-8.2 Serum or plasma albumin measurement (mass/volume) 3.6 g/dL 3.2-4.5 CALCIUM CORRECTED 10.5 mg/dL 8.5-10.1 Serum or plasma troponin i.cardiac measu rement (mass/volume) - 08/24/19 10:00 Serum or plasma troponin i.cardiac measurement (mass/v olume) < ng/mL <0.028 Influenza virus A and B antigen detectio n - 08/24/19 10:00 FLU RESULT NEGATIVE FOR INFLUENZA A AND B ANTIGENS BY IA NRG Complete urinalysis with reflex to cultu re - 08/24/19 11:07 Urine color determination YELLOW NRG Urine clarity determination CLEAR NR G Urine pH measurement by test strip 6.5 5-9 Specific gravity of urine by test strip 1.020 1.016-1.022 Urine protein assay by test strip, semi-quantitative TRACE NEGATIVE Urine glucose detection by automated test strip 3+ NEGATIVE Erythrocytes detection in urine sediment by light micr oscopy NEGATIVE NEGATIVE Urine ketones detection by automated test strip NE GATIVE NEGATIVE Urine nitrite detection by test strip POSITIVE NEGATIVE Urine total bilirubin detection by test strip NEGA TIVE NEGATIVE Urine urobilinogen measurement by automated test strip (mass/volume) 0.2 mg/dL < = 1.0 Urine leukocyte esterase detection by dipstick TRA CE NEGATIVE Automated urine sediment erythrocyte cou nt by microscopy (number/high power field) RARE NRG Automated urine sediment leukocyte count by microscopy (number/high power field) [HPF] NRG Bacteria detection in urine sediment by light microsco py LARGE NRG Squamous epithelial cells detection in u rine sediment by light microscopy RARE NRG Crystals detection in urine sediment by light microsco py NONE NRG Casts detection in urine sediment by light microscopy NONE NRG Mucus detection in urine sediment by light microscopy NEGATIVE NRG Complete urinalysis with reflex to culture YES NRG Bacterial urine culture - 08/24/19 11:07 Bacterial urine culture [id number] NRG COLONY COUNT >100,000/ML NRG FTX;REPORTABLE SUSCEPTIBILITY REPORTED 08/26 10:15 NRG FREE TEXT ENTRY 2 PRELIM RAPID ID TEST AT [facility] 08/25 08:30 NRG FREE TEXT ENTRY 3 RML PRELIM REPORT OF 08/25 12:05: NRG FREE TEXT ENTRY 4 GRAM NEGATIVE BACILLI NRG Dirithromycin susceptibility test by dis k diffusion - 08/24/19 11:07 Gentamicin susceptibility test by minimum inhibitory c oncentration <= NRG Trimethoprim/sulfamethoxazole susceptibi lity test by minimum inhibitoryconcentration > NRG Levofloxacin susceptibility test by minimum inhibitory concentration <= NRG Ampicillin susceptibility test by minimum inhibitory c oncentration <= NRG Cefazolin susceptibility test by minimum inhibitory co ncentration <= NRG Ceftriaxone susceptibility test by minimum inhibitory concentration <= NRG Ciprofloxacin susceptibility test by minimum inhibitor y concentration 1 NRG Meropenem susceptibility test by minimum inhibitory co ncentration <= NRG Nitrofurantoin susceptibility test by mi nimum inhibitory concentration <= NRG Amoxicillin and clavulanate potassium susc NAIN <= NRG Thyroid Stimulating Hormone - 10/04/19 2 1:09 TSH 1.12 mIU/mL 0.32-5.00 MRSA Screen - 10/04/19 21:09 FINAL CULTURE RESULTS MRSA Negative Nasal Culture MEDIA PLATED Setup at 21:28 on 10/04/2019 Urine Culture - 10/04/19 21:25 PRELIM CULTURE RESULTS >100,000 Gram Negativ e Lactose Tie Fastener NAIN / ID to Follow MEDIA PLATED Setup at 21:28 on 10/04/2019 CULTURE SOURCE random clean catch Sensi - 10/04/19 21:25 FINAL CULTURE RESULTS Escherichia coli (Isolate 1) Ampicillin/Sulbactam 16/8 Ampicillin >16 Amoxicillin/K Clavulanate <=8/4 Ceftriaxone >32 Ciprofloxacin >2 Nitrofurantoin <=32 Gentamicin <=4 Levofloxacin >4 Trimethoprim/ Sulfamethoxazole <=2/38 Tetracycline >8 Amikacin <=16 Aztreonam 16 Ceftazidime 8 Ceftazidime/K Clavulanate <=0.25 Cephalothin >16 Cefotaxime >32 Cefotaxime/K Clavulanate <=0.5 Cefoxitin <=8 Cefazolin >16 Cefepime 16 Cefuroxime >16 Ertapenem <=1 Imipenem <=4 Meropenem <=4 Piperacillin/Tazobactam <=16 Piperacillin >64 Tigecycline <=2 Tobramycin >8 Lipid Panel - 10/06/19 03:50 C/HDL 1.8 3.7-6.7 Cholesterol 144 mg/dL 100-240 HDL 79 mg/dL 30-85 LDL-Calculated 58 mg/dL 0-100 Trig 35 mg/dL 35-160 VLDL 7 mg/dL 0-42 Urine Culture - 10/07/19 12:34 PRELIM CULTURE RESULTS No Growth 24 hours FINAL CULTURE RESULTS No Growth 48 hours MEDIA PLATED Setup at 17:11 on 10/07/2019 CULTURE SOURCE [id number]\ Comprehensive Metabolic Panel - 10/11/19 04:55 Albumin 3.6 g/dL 3.6-5.1 ALP 79 U/L 35-130 ALT 16 U/L 6-45 Anion Gap 12 6-14 AST 20 U/L 2-40 BUN 18 mg/dL 5-25 Calcium 10.2 mg/dL 8.3-10.4 Chloride 100 mmol/L 95-114 CO2 25 mEq/L 22-33 Creat 0.94 mg/dL 0.50-1.50 eGFR 57 mL/min/1.73m2 >59 Globulin 2.0 g/dL 2.3-3.5 Glucose 189 mg/dL 70-110 Osmo 279 280-295 Potassium 4.8 mmol/L 3.5-5.3 Sodium 132 mmol/L 134-148 TBil 0.5 mg/dL 0.2-1.2 TP 5.6 g/dL 6.0-8.3 Comprehensive Metabolic Panel - 10/15/19 09:23 Albumin 3.9 g/dL 3.6-5.1 ALP 82 U/L 35-130 ALT 42 U/L 6-45 Anion Gap 15 6-14 AST 32 U/L 2-40 BUN 17 mg/dL 5-25 Calcium 10.7 mg/dL 8.3-10.4 Chloride 100 mmol/L 95-114 CO2 25 mEq/L 22-33 Creat 1.17 mg/dL 0.50-1.50 eGFR 44 mL/min/1.73m2 >59 Globulin 2.3 g/dL 2.3-3.5 Glucose 419 mg/dL 70-110 Osmo 297 280-295 Potassium 4.7 mmol/L 3.5-5.3 Sodium 135 mmol/L 134-148 TBil 0.4 mg/dL 0.2-1.2 TP 6.2 g/dL 6.0-8.3 Encounters ACCT No. Visit Date/Time Discharge Status Pt. Type Provider Facility Loc./Unit Complaint [id number] 02/28/2019 08:30:00 02/28/2019 23:59: 59 CLS Outpatient MOHAN JOHNSON, DAVID PHAM [facility] [id number] 05/03/2019 09:40:00 Document Registration [id number] 10/29/2019 13:25:00 020 14:17:00 DIS Emergency SEFERINO MCKAY APRN [facility] ER FALL [id number] 08/24/2019 09:52:00 020 13:04:00 DIS Emergency MONIQUE ENRIQUEZ DO [facility] ER WEAKNESS [id number] 05/04/2019 11:13:00 019 15:00:00 DIS Inpatient CESARIO JOHNSON, MANA Dove [facility] 4TH UTI [id number] 01/09/2019 22:19:00 019 00:23:00 DIS Emergency HE DO, QI K [facility] ER HIGH BLOOD SUGAR [id number] 01/13/2018 00:01:00 018 10:36:00 DIS Inpatient HOANG JOHNSON, KIARRA Tello [facility] 4TH DKA;ELECTROLYTE IMBALAN CE; DEHYDRATION [id number] 01/06/2018 22:37:00 018 01:20:00 DIS Emergency KAYLEE PIRES MD [facility] ER HIGH BLOOD SUGA R [id number] 10/21/2017 12:58:00 018 23:59:59 CLS Outpatient ANNIE VANESSA [facility] CARD I35.1,R07.8 9 [id number] 01/19/2017 11:02:00 23:59:59 CLS Outpatient GEORGE PAREDES DO [facility] RAD CKD STAGE 2 [id number] 11/17/2016 14:36:00 017 23:59:59 CLS Outpatient MARTHA HOLDEN MD [facility] RAD SCREENING [id number] 10/04/2016 13:20:00 23:59:59 CLS Outpatient LIZET MCGOWAN MD [facility] RAD DEMENTIA [id number] 06/23/2016 21:39:00 016 14:34:00 DIS Inpatient MIRI GARCIA, KASANDRA Weir [facility] 4TH DKA WITH ALTERED MENTAL STATUS [id number] 05/10/2016 10:58:00 016 23:59:59 CLS Outpatient ANNIE VANESSA [facility] CARD AR,NISREEN,HTN [id number] 03/21/2016 11:28:00 23:59:59 CLS Outpatient LEELEE RAMIRES MD [facility] LAB ENTEROCOLITIS DUE TO CL OSTRIDIUM DIFFICILE [id number] 03/04/2016 09:40:00 016 13:45:00 DIS Inpatient LEELEE RAMIRES MD [facility] IRF [id number] 02/29/2016 08:17:00 016 09:40:00 DIS Inpatient MARTHA HOLDEN MD [facility] ICU D.K.A. ;UTI;DEHYDRATION ;ELECTROLYTE IMBALANCE [id number] 03/03/2016 15:15:00 016 23:59:59 CLS Preadmit YAYA LUNDY MD [facility] SDC GALLSTONES [id number] 03/03/2016 11:30:00 07/27/2 016 11:30:00 CAN Preadmit NIKKIE JOHNSON, YAYA Davis [facility] PREOP GALLSTONES [id number] 02/25/2016 04:10:00 016 16:05:00 DIS Inpatient RUDDY JOHNSON, ESTELLE Baptiste [facility] 4TH HYPOGLYCEMIA UNCONTROLL ED,ACUTE RENAL FAILURE, [id number] 02/08/2016 13:24:00 17:34:00 DIS Emergency LEXIS JOHNSON, KAYLEE Chapin [facility] ER ABN BLOOD SUGAR ,LOSS OF BALANCE [id number] 01/12/2016 09:34:00 016 23:59:59 CLS Outpatient LAURYN PAREDES DO [facility] RAD HYPONATREMIA [id number] 12/05/2015 11:37:00 23:59:59 CLS Outpatient LAURYN DESAI APRN [facility] RAD SCREENING [id number] 09/21/2015 06:23:00 016 07:58:00 DIS Emergency HE DO, QI Baptiste [facility] ER HIGH BLOOD SUGAR [id number] 08/18/2015 00:09:00 23:59:59 CLS Preadmit LAURYN DESAI APRN [facility] LAB DIARRHEA [id number] 05/20/2015 10:14:00 00:01:00 DIS Outpatient LAURYN DESAI APRN [facility] LAB DIARRHEA [id number] 07/27/2015 21:38:00 12:13:00 DIS Inpatient NAVIN JOHNSON, MARTHA Chapin [facility] 4TH HYPOGLYCEMIA, UTI [id number] 05/05/2015 17:26:00 015 00:01:00 DIS Outpatient LAURYN DESAI APRN [facility] LAB DIARRHEA [id number] 05/05/2015 17:26:00 17:26:00 CAN Preadmit LAURYN DESAI APRN [facility] LAB [id number] 02/26/2015 08:13:00 23:59:59 CLS Outpatient ANNIE VANESSA [facility] CARD HTN,HLN [id number] 02/25/2015 09:26:00 23:59:59 CLS Outpatient ANNIE VANESSA [facility] CARD CP,HTN,HYPERLIPIKEMIA,IDDM [id number] 11/15/2014 10:20:00 015 23:59:59 CLS Outpatient MARTHA HOLDEN MD [facility] RAD SCREENING [id number] 11/30/2013 09:56:00 014 23:59:59 CLS Outpatient MARTHA HOLDEN MD [facility] RAD ROUTINE [id number] 01/15/2013 07:23:00 013 23:59:59 CLS Outpatient VIKY ESCOBAR MD [facility] RAD CP,HTN [id number] 01/08/2013 10:06:00 013 23:59:59 CLS Outpatient VIKY ESCOBAR MD [facility] CARD CP,HTN [id number] 03/19/2018 23:19:00 Document Registration [id number] 05/19/2015 14:44:00 Document Registration [id number] 10/24/2012 13:54:00 Document Registration [id number] 10/05/2012 09:40:00 Document Registration [id number] 10/04/2011 10:11:00 Document Registration [id number] 09/30/2010 13:20:00 Document Registration [id number] 10/22/2009 10:02:00 Document Registration [id number] 10/09/2009 12:26:00 Document Registration [id number] 09/08/2009 10:32:00 Document Registration [id number] 10/04/2019 20:24:00 10/16/2019 09:30 :00 DIS Inpatient RAH OROZCO [facility] [id number] 10/04/2019 22:15:43 Document Registration
--- NOTE | 2019-11-03 11:27 | ED General ---
General Stated Complaint: FALL/L HIP PAIN Source of Information: Patient Exam Limitations: No Limitations History of Present Illness Date Seen by Provider: Nov 03, 2019 Time Seen by Provider: 11:24 Initial Comments To ER with fall and subsequent left hip pain from [facility]. Timing/Duration: 1/2 Hour Severity: Moderate Allergies and Home Medications Allergies Coded Allergies: Penicillins (Verified Allergy, Unknown, 07/28/15) Tetracyclines (Verified Allergy, Unknown, 07/28/15) metronidazole (Verified Allergy, Unknown, 07/28/15) morphine (Verified Allergy, Unknown, 07/28/15) tetanus immune globulin (Unverified Allergy, Unknown, 02/26/15) Home Medications Acetaminophen 650 Mg Tablet.er, 650 MG PO Q6H PRN for PAIN-MILD OR TEMPATURE, (Reported) Alendronate Sodium 70 Mg Tablet, 70 MG PO Th, (Reported) Aspirin 81 Mg Tablet.dr, 162 MG PO DAILY, (Reported) TAKES 2 (81MG) TABLETS Calcium Carbonate 600 Mg Tablet, 600 MG PO DAILY, (Reported) Carbamide Peroxide 15 Ml Drops, 3-4 DROPS EACH EAR HS, (Reported) START 05-03-19 Carvedilol 6.25 Mg Tablet, 6.25 MG PO BID, (Reported) Cephalexin 500 Mg Tablet, 500 MG PO BID Prescribed by: MANA NASSAR on 05/08/19 1218 Donepezil HCl 10 Mg Tablet, 10 MG PO BID, (Reported) Ergocalciferol (Vitamin D2) 50,000 Unit Capsule, 50,000 UNIT PO Fr, (Reported) Insulin Glargine,Hum.rec.anlog 100 Unit/1 Ml Insuln.pen, 9 UNITS SC BID, (Reported) Insulin Lispro 100 Unit/1 Ml Insuln.pen, 5 UNITS SC 1115,1645, (Reported) Insulin Lispro 100 Unit/1 Ml Insuln.pen, SQ TIDAC, (Reported) 150-200 = 1 UNIT 201-250 = 2 UNITS 251-300 = 3 UNITS 301-350 = 4 UNITS 351- 400 = 5 UNITS Insulin Lispro 100 Unit/1 Ml Insuln.pen, 4 UNIT SQ 0730, (Reported) L.acidoph & Paracasei,B.lactis 1 Each Capsule, 1 CAP PO DAILY, (Reported) Loperamide HCl 2 Mg Capsule, 4 MG PO UD PRN for LOOSE STOOLS, (Reported) AFTER EACH LOOSE STOOL Melatonin 3 Mg Tablet, 6 MG PO HS, (Reported) TAKES 2 (3MG) TABLETS Memantine HCl 10 Mg Tablet, 10 MG PO DAILY, (Reported) Mirabegron 50 Mg Tab.er.24h, 50 MG PO DAILY, (Reported) Nitrofurantoin Monohyd/M-Cryst 100 Mg Capsule, 1 TAB PO BID Prescribed by: MONIQUE ENRIQUEZ on 08/24/19 1232 [place] 3 Polyunsat Fatty Acids 1,000 Mg Cap, 2,000 MG PO DAILY, (Reported) TAKES 2 (1000MG) CAPSULES Omeprazole 40 Mg Capsule.dr, 40 MG PO DAILY, (Reported) Promethazine HCl/Codeine 5 Ml Syrup, 5-10 ML PO UD PRN for COUGH, (Reported) Simvastatin 20 Mg Tablet, 20 MG PO DAILY, (Reported) Patient Home Medication List Home Medication List Reviewed: Yes Review of Systems Review of Systems Constitutional: see HPI, other (unable to obtain due to dementia) Past Rkfbylf-[id number]-Udktjg Hx Patient Social History 2nd Hand Smoke Exposure: No Recent Hopitalizations: No Immunizations Up To Date Tetanus Booster (TDap): Unknown PED Vaccines UTD: No Date of Pneumonia Vaccine: Jul 28, 2013 Date of Influenza Vaccine: May 24, 2016 Seasonal Allergies Seasonal Allergies: No Past Medical History Surgeries: Yes Appendectomy, Gallbladder, Hysterectomy Respiratory: No Cardiac: Yes Coronary Artery Disease, High Cholesterol, Hypertension, Valvular Heart Disease Neurological: Yes Dementia 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: Menopausal Genitourinary: Yes Bladder Infection Gastrointestinal: Yes Gastroesophageal Reflux, C-Diff, Gall Bladder Disease Musculoskeletal: Yes Osteoporosis, Chronic Back Pain 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 0oz. [id number]; 13.00 BMI Method:Stated General Appearance: No Apparent Distress, WD/WN, Other (alert oriented to person, smiling pleasant) Eyes: Bilateral Eye Normal Inspection, Bilateral Eye PERRL, Bilateral Eye EOMI HEENT: PERRL/EOMI, TMs Normal, Normal ENT Inspection, Other (yellowish ecchymosis left lateral eyebrow) Respiratory: No Accessory Muscle Use, No Respiratory Distress Gastrointestinal: Normal Bowel Sounds, Non Tender, Soft Extremity: Normal Capillary Refill, Other (swelling over the greater trochanter of the left hip, firmness but she is able to flex and extend her leg at the hip.) Neurologic/Psychiatric: Alert Progress/Results/Core Measures Suspected Sepsis SIRS Temperature: Pulse: Respiratory Rate: Laboratory Tests 11/03/19 11:30: White Blood Count 4.6 Blood Pressure / Mean: Laboratory Tests 11/03/19 11:30: Creatinine 1.06, INR Comment 1.0, Platelet Count 111L, Total Bilirubin 0.4 Results/Orders Lab Results Laboratory Tests Test 11/03/19 11:30 Range/Units White Blood Count 4.6 4.3-11.0 10^3/uL Red Blood Count 4.12 L 4.35-5.85 10^6/uL Hemoglobin 11.9 11.5-16.0 G/DL Hematocrit 36 35-52 % Mean Corpuscular Volume 86 80-99 FL Mean Corpuscular Hemoglobin 29 25-34 PG Mean Corpuscular Hemoglobin Concent 34 32-36 G/DL Red Cell Distribution Width 14.6 H 10.0-14.5 % Platelet Count 111 L 130-400 10^3/uL Mean Platelet Volume 11.9 H 7.4-10.4 FL Neutrophils (%) (Auto) 75 42-75 % Lymphocytes (%) (Auto) 16 12-44 % Monocytes (%) (Auto) 6 0-12 % Eosinophils (%) (Auto) 3 0-10 % Basophils (%) (Auto) 0 0-10 % Neutrophils # (Auto) 3.4 1.8-7.8 X 10^3 Lymphocytes # (Auto) 0.7 L 1.0-4.0 X 10^3 Monocytes # (Auto) 0.3 0.0-1.0 X 10^3 Eosinophils # (Auto) 0.2 0.0-0.3 10^3/uL Basophils # (Auto) 0.0 0.0-0.1 10^3/uL Prothrombin Time 13.4 12.2-14.7 SEC INR Comment 1.0 0.8-1.4 Sodium Level 136 135-145 MMOL/L Potassium Level 4.1 3.6-5.0 MMOL/L Chloride Level 103 98-107 MMOL/L Carbon Dioxide Level 24 21-32 MMOL/L Anion Gap 9 5-14 MMOL/L Blood Urea Nitrogen 15 7-18 MG/DL Creatinine 1.06 0.60-1.30 MG/DL Estimat Glomerular Filtration Rate 49 BUN/Creatinine Ratio 14 Glucose Level 174 H 70-105 MG/DL Calcium Level 9.8 8.5-10.1 MG/DL Corrected Calcium 10.1 8.5-10.1 MG/DL Total Bilirubin 0.4 0.1-1.0 MG/DL Aspartate Amino Transf (AST/SGOT) 18 5-34 U/L Alanine Aminotransferase (ALT/SGPT) 12 0-55 U/L Alkaline Phosphatase 91 40-136 U/L Total Protein 5.7 L 6.4-8.2 GM/DL Albumin 3.6 3.2-4.5 GM/DL My Orders Orders - SEFERINO MCKAY APRN Ct Head/Cervical Spine Wo (11/03/19 11:21) Pelvis With Left Hip 2-3 Views (11/03/19 11:21) Cbc With Automated Diff (11/03/19 11:21) Comprehensive Metabolic Panel (11/03/19 11:21) Protime With Inr (11/03/19 11:21) Chest 1 View, Ap/Pa Only (11/03/19 11:22) Ekg Tracing (11/03/19 11:22) Vital Signs/I&O 11/03/19 11:26 Temp 36.4 Pulse 70 Resp 18 B/P (MAP) 161/63 (95) Pulse Ox 98 O2 Delivery Room Air Capillary Refill : Departure Impression Primary Impression: Fall at retirement Qualified Codes: W19.XXXA - Unspecified fall, initial encounter; Y92.129 - Unspecified place in retirement as the place of occurrence of the external cause Additional Impression: Hip hematoma, left Qualified Codes: S70.02XA - Contusion of left hip, initial encounter Disposition: 01 HOME, SELF-CARE Condition: Stable Departure-Patient Inst. Decision time for Depature: 12:13 Referrals: DAVID PRESTON MD (PCP/Family) Primary Care Physician Patient Instructions: HEMATOMA Add. Discharge Instructions: 1. Return to ER for any concerns 2. Follow-up with your doctor next week 3. Scripts Tramadol HCl (Ultram) 50 Mg Tablet 50 MG PO Q6H PRN for PAIN-MODERATE (5-7), #10 TAB Prov: SEFERINO MCKAY APRN 11/03/19 SEFERINO MCKAY APRN Nov 03, 2019 11:27
--- NOTE | 2019-11-03 11:42 | NUR ---
PT TO RADIOLOGY AT THIS TIME.
[2019-11-03 11:52] LABS: BASOPHILS % (AUTO) 0 % (0-10); EOSINOPHILS # (AUTO) 0.2 10^3/uL (0.0-0.3); EOSINOPHILS % (AUTO) 3 % (0-10); HEMATOCRIT 36 % (35-52); HEMOGLOBIN 11.9 G/DL (11.5-16.0); LYMPHOCYTES # (AUTO) 0.7 X 10^3 (1.0-4.0); LYMPHOCYTES % (AUTO) 16 % (12-44); MEAN CORPUSCULAR HEMOGLOBIN 29 PG (25-34); MEAN CORPUSCULAR HGB CONC 34 G/DL (32-36); MEAN CORPUSCULAR VOLUME 86 FL (80-99); MEAN PLATELET VOLUME 11.9 FL (7.4-10.4); MONOCYTES # (AUTO) 0.3 X 10^3 (0.0-1.0); MONOCYTES % (AUTO) 6 % (0-12); NEUTROPHILS # (AUTO) 3.4 X 10^3 (1.8-7.8); NEUTROPHILS % (AUTO) 75 % (42-75); PLATELET COUNT 111 10^3/uL (130-400); RED CELL DISTRIBUTION WIDTH 14.6 % (10.0-14.5); WHITE BLOOD COUNT 4.6 10^3/uL (4.3-11.0)
--- NOTE | 2019-11-03 12:02 | Diagnostic Imaging Report ---
PROCEDURE: CT head and CT cervical spine without contrast. TECHNIQUE: Multiple contiguous axial images were obtained through the brain and cervical spine without the use of intravenous contrast. Sagittal and coronal reformations through the cervical spine were then performed. Auto Exposure Controls were utilized during the CT exam to meet ALARA standards for radiation dose reduction. INDICATION: Head and neck pain after fall. Comparison made with prior examination from 10/29/2019. FINDINGS: There is prominence of the ventricles and sulci. There is chronic microvascular ischemic disease. There is no hydrocephalus. There is no midline shift. There is no mass, hemorrhage or extra-axial fluid collection. There is an unchanged lacunar infarct in the right basal ganglia. Calvarium is intact. The sinuses and mastoid air cells are clear. The alignment of the cervical spine is grossly normal. The vertebral body heights are well-maintained. Pre-vertebral soft tissues are within normal limits. There is no fracture or traumatic subluxation. Odontoid is intact and lateral masses are well aligned. Prevertebral soft tissues are within normal limits. Lung apices are clear. IMPRESSION: No acute intracranial abnormality. There is atrophy and chronic microvascular ischemic disease. Moderate cervical spondylosis without acute fracture or traumatic subluxation. Dictated by: Dictated on workstation # [id number]
[2019-11-03 12:05] LABS: PROTHROMBIN TIME PATIENT 13.4 SEC (12.2-14.7)
[2019-11-03 12:12] LABS: ALBUMIN 3.6 GM/DL (3.2-4.5); BILIRUBIN,TOTAL 0.4 MG/DL (0.1-1.0); CALCIUM 9.8 MG/DL (8.5-10.1); CREATININE SERUM 1.06 MG/DL (0.60-1.30); POTASSIUM 4.1 MMOL/L (3.6-5.0); TOTAL PROTEIN 5.7 GM/DL (6.4-8.2)
[2019-11-03] MEDS ORDERED: TRAM-42 PO (12:15)
--- NOTE | 2019-11-03 12:18 | Diagnostic Imaging Report ---
INDICATION: Post fall, left hip pain TECHNIQUE: AP pelvis along with 2 views left hip, 12:08 PM CORRELATION STUDY: None FINDINGS: The pelvis demonstrates no evidence for acute fracture. The pectineal lines and obturator rings are maintained. Pubic symphysis and SI joints are unremarkable. Images of the hip demonstrate mild narrowing but no evidence for acute fracture. Alignment is anatomic. The femoral head acetabular relationship is unremarkable. The bony trabecular pattern is intact. IMPRESSION: Negative examination of the pelvis and left hip. Dictated by: Dictated on workstation # [id number]
--- NOTE | 2019-11-03 12:24 | Diagnostic Imaging Report ---
INDICATION: Post fall, hip pain. TECHNIQUE: Single view chest 12:10 PM. CORRELATION STUDY: 08/24/2019 FINDINGS: Heart size and vasculature generally stable. Calcified perihilar and mediastinal granulomas as well as additional peripheral pulmonary granulomas are again demonstrated. Lungs are clear of infiltrate. No effusion. No displaced fracture. No pneumothorax. IMPRESSION: 1. Stable chest demonstrates no acute abnormalities. Dictated by: Dictated on workstation # [id number]
--- NOTE | 2019-11-03 12:33 | NUR ---
THIS RN NOTIFIED [facility] THAT PT WAS TO BE DISCHARGED BACK TO THEM. UNDERSTANDING VOICED. STATED TO THIS RN THEY WOULD BE HERE SHORTLY.
--- NOTE | 2019-11-03 12:35 | NUR ---
THIS RN UPDATED DAUGHTER AT THIS TIME. UNDERSTANDING VOICED.
[2019-11-03 13:01] VITALS: BP 167/64
--- NOTE | 2019-11-03 13:01 | NUR ---
PT DISCHARGED TO FACILITY AT THIS TIME. UNDERSTANDING VOICED BY CARE STAFF FROM [facility]. NO QUESTIONS VOICED.
== END 2019-11-03 13:01 | disposition home or self-care (01) ==
LOC: EDUNIT# 11:15 → ER 11:16
DX: S70.02XA Contusion of left hip, initial encounter (principal); W19.XXXA Unspecified fall, initial encounter; I25.10 Atherosclerotic heart disease of native coronary artery without angina pectoris; E78.00 Pure hypercholesterolemia, unspecified; I10 Essential (primary) hypertension; K21.9 Gastro-esophageal reflux disease without esophagitis; M81.0 Age-related osteoporosis without current pathological fracture; Z79.4 Long term (current) use of insulin; E10.9 Type 1 diabetes mellitus without complications; Z79.899 Other long term (current) drug therapy; Z88.5 Allergy status to narcotic agent; Z88.7 Allergy status to serum and vaccine; Z88.0 Allergy status to penicillin
CPT/HCPCS: 36415; 70450; 71045; 72125; 80053; 85025; 85610

== ENCOUNTER 2019-11-06 12:39 | Emergency (ER) | payer MEDICARE, OTHER ==
[~2019-11-06] VITALS: Ht 154 cm; Wt 46.0 kg
[~2019-11-06 12:39] MED LIST changes: +TRAM-42 PO
--- NOTE | 2019-11-06 12:50 | NUR ---
FADED BRUISING ON FACE, BILATERAL HIP BRUISING, BILATERAL KNEE BRUISING, BRUISING NOTED ON ABD AND L BREAST, L SHOULDER
--- NOTE | 2019-11-06 12:56 | NUR ---
SEE LIST FOR CURRENT MEDS
[2019-11-06 12:58] LABS: BILIRUBIN,URINE NEGATIVE (NEGATIVE); CLARITY,URINE CLEAR; COLOR,URINE YELLOW; GLUCOSE, URINE (UA) 3+ (NEGATIVE); KETONES,URINE 1+ (NEGATIVE); LEUKOCYTE ESTERASE ,URINE NEGATIVE (NEGATIVE); NITRITE,URINE POSITIVE (NEGATIVE); PROTEIN,URINE NEGATIVE (NEGATIVE)
[2019-11-06 13:04] LABS: BACTERIA,URINE MODERATE /HPF; SQUAMOUS EPITHELIAL CELL,UR RARE /HPF; WBC,URINE 0-2 /HPF
[2019-11-06] MEDS ORDERED: cefTRIAXone 1,000 MG/2.86 ml vial (IM ONLY) IM ONE (13:30)
[2019-11-06] MEDS ORDERED: LIDOCAINE 1% INJ 20 ML 20 ML VIAL INJ ONE (13:30)
--- NOTE | 2019-11-06 13:30 | ED Fall/Injury ---
General Chief Complaint: Trauma-Non Activation Stated Complaint: FALL;BACK PAIN Nursing Triage Note: PT ARRIVED PER EMS. PT FELL DURING NITE ASSISTED UP BY , PT HAS FALLEN SEVERAL TIMES OVER PAST 2 WEEKS. PT HAS DEMENTIA. CO OF BACK PAIN. PT RESIDES AT ASSISTED LIVING. PT HAS FADED BRUISING ON FACE FROM PREVIOUS FALLS Source: patient Exam Limitations: no limitations History of Present Illness Date Seen by Provider: Nov 06, 2019 Time Seen by Provider: 12:41 Initial Comments This 84-year-old woman presents to the emergency room from [facility] via EMS. She fell sometime in the night and was found on the floor by her this morning. She was helped up and went to breakfast but then complained of severe back pain. She was therefore sent to the emergency room for evaluation. Upon arrival patient complains of pain in her back and in her pelvic region. She has dementia and is a poor historian. When I asked about her pain she went into a long story about somebody drinking orange juice. She has bruising to the left side of her face which is from a prior fall. She was seen in this emergency room a couple days ago for fall. Labs and imaging were okay at that time. UA was not obtained. She does have history of urinary tract infection requiring admission late last year. She has had multiple falls recently. Location Injury Occurred: Allergies and Home Medications Allergies Coded Allergies: Penicillins (Verified Allergy, Unknown, 07/28/15) Tetracyclines (Verified Allergy, Unknown, 07/28/15) metronidazole (Verified Allergy, Unknown, 07/28/15) morphine (Verified Allergy, Unknown, 07/28/15) tetanus immune globulin (Unverified Allergy, Unknown, 02/26/15) Home Medications Acetaminophen 650 Mg Tablet.er, 650 MG PO Q6H PRN for PAIN-MILD OR TEMPATURE, (Reported) Alendronate Sodium 70 Mg Tablet, 70 MG PO Th, (Reported) Aspirin 81 Mg Tablet.dr, 162 MG PO DAILY, (Reported) TAKES 2 (81MG) TABLETS Calcium Carbonate 600 Mg Tablet, 600 MG PO DAILY, (Reported) Carbamide Peroxide 15 Ml Drops, 3-4 DROPS EACH EAR HS, (Reported) START 05-03-19 Carvedilol 6.25 Mg Tablet, 6.25 MG PO BID, (Reported) Cefdinir 300 Mg Capsule, 300 MG PO BID Prescribed by: RAH CARREON on 11/06/19 1551 Cephalexin 500 Mg Tablet, 500 MG PO BID Prescribed by: MANA NASSAR on 05/08/19 1218 Donepezil HCl 10 Mg Tablet, 10 MG PO BID, (Reported) Ergocalciferol (Vitamin D2) 50,000 Unit Capsule, 50,000 UNIT PO Fr, (Reported) Insulin Glargine,Hum.rec.anlog 100 Unit/1 Ml Insuln.pen, 9 UNITS SC BID, (Reported) Insulin Lispro 100 Unit/1 Ml Insuln.pen, 5 UNITS SC 1115,1645, (Reported) Insulin Lispro 100 Unit/1 Ml Insuln.pen, SQ TIDAC, (Reported) 150-200 = 1 UNIT 201-250 = 2 UNITS 251-300 = 3 UNITS 301-350 = 4 UNITS 351- 400 = 5 UNITS Insulin Lispro 100 Unit/1 Ml Insuln.pen, 4 UNIT SQ 0730, (Reported) L.acidoph & Paracasei,B.lactis 1 Each Capsule, 1 CAP PO DAILY, (Reported) Loperamide HCl 2 Mg Capsule, 4 MG PO UD PRN for LOOSE STOOLS, (Reported) AFTER EACH LOOSE STOOL Melatonin 3 Mg Tablet, 6 MG PO HS, (Reported) TAKES 2 (3MG) TABLETS Memantine HCl 10 Mg Tablet, 10 MG PO DAILY, (Reported) Mirabegron 50 Mg Tab.er.24h, 50 MG PO DAILY, (Reported) Nitrofurantoin Monohyd/M-Cryst 100 Mg Capsule, 1 TAB PO BID Prescribed by: MONIQUE ENRIQUEZ on 08/24/19 1232 [place] 3 Polyunsat Fatty Acids 1,000 Mg Cap, 2,000 MG PO DAILY, (Reported) TAKES 2 (1000MG) CAPSULES Omeprazole 40 Mg Capsule.dr, 40 MG PO DAILY, (Reported) Promethazine HCl/Codeine 5 Ml Syrup, 5-10 ML PO UD PRN for COUGH, (Reported) Simvastatin 20 Mg Tablet, 20 MG PO DAILY, (Reported) Tramadol HCl 50 Mg Tablet, 50 MG PO Q6H PRN for PAIN-MODERATE (5-7) Prescribed by: SEFERINO MCKAY on 11/03/19 1215 Patient Home Medication List Home Medication List Reviewed: Yes Review of Systems Review of Systems Constitutional: no symptoms reported Eyes: No Symptoms Reported Ears, Nose, Mouth, Throat: see HPI Respiratory: no symptoms reported Cardiovascular: no symptoms reported Gastrointestinal: see HPI Genitourinary: see HPI : No Musculoskeletal: see HPI Skin: see HPI Psychiatric/Neurological: See HPI Past Fefgred-Ggxyie-Pfqxjl Hx Past Med/Social Hx: Reviewed Nursing Past Med/Soc Hx Patient Social History Alcohol Use: Denies Use Recreational Drug Use: No Smoking Status: Never a Smoker 2nd Hand Smoke Exposure: No Recent Foreign Travel: No Contact w/Someone Who Travel: No Recent Infectious Disease Expo: No Recent Hopitalizations: No Physical Abuse: No Sexual Abuse: No Immunizations Up To Date Tetanus Booster (TDap): Unknown PED Vaccines UTD: No Date of Pneumonia Vaccine: Jul 28, 2013 Date of Influenza Vaccine: May 24, 2016 Seasonal Allergies Seasonal Allergies: No Past Medical History Surgeries: Yes Appendectomy, Gallbladder, Hysterectomy Respiratory: No Cardiac: Yes Coronary Artery Disease, High Cholesterol, Hypertension, Valvular Heart Disease Neurological: Yes Dementia 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: Menopausal Genitourinary: Yes Bladder Infection Gastrointestinal: Yes Gastroesophageal Reflux, C-Diff, Gall Bladder Disease Musculoskeletal: Yes Osteoporosis, Chronic Back Pain 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 0oz. 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, no motor/sensory deficits, alert, normal mood/affect, other (Confused conversation from dementia) Skin: normal color, warm/dry Jim Coma Score Best Eye Response: (4) Open Spontaneously Best Verbal Response: (4) Confused Conversation Best Motor Response: (6) Obeys Commands Jim Total: 15 Progress/Results/Core Measures Results/Orders Lab Results Laboratory Tests Test 11/06/19 12:52 11/06/19 13:00 Range/Units Urine Color YELLOW Urine Clarity CLEAR Urine pH 6.0 5-9 Urine Specific [place] 1.020 1.016-1.022 Urine Protein NEGATIVE NEGATIVE Urine Glucose (UA) 3+ H NEGATIVE Urine Ketones 1+ H NEGATIVE Urine Nitrite POSITIVE H NEGATIVE Urine Bilirubin NEGATIVE NEGATIVE Urine Urobilinogen 0.2 < = 1.0 MG/DL Urine Leukocyte Esterase NEGATIVE NEGATIVE Urine RBC (Auto) NEGATIVE NEGATIVE Urine RBC NONE /HPF Urine WBC 0-2 /HPF Urine Squamous Epithelial Cells RARE /HPF Urine Crystals NONE /LPF Urine Bacteria MODERATE H /HPF Urine Casts NONE /LPF Urine Mucus NEGATIVE /LPF Urine Culture Indicated YES Glucometer 220 H 70-110 MG/DL My Orders Orders - RAH COX MD Accucheck Stat ONCE (11/06/19 12:49) Ct Head/Cervical Spine Wo (11/06/19 12:49) Ct Chest/Abdomen/Pelvis Wo (11/06/19 12:49) Ua Culture If Indicated (11/06/19 12:49) Urine Culture (11/06/19 12:52) Ceftriaxone For Im Use (Rocephin For Im (11/06/19 13:30) Lidocaine 1% Inj 20 Ml (Xylocaine 1% Inj (11/06/19 13:30) Medications Given in ED Current Medications Medications Dose Ordered Sig/Katie Route Start Time Stop Time Status Last Admin Dose Admin Ceftriaxone Sodium 1,000 mg ONCE ONCE IM 11/06/19 13:30 11/06/19 13:31 DC 11/06/19 13:38 1,000 MG Lidocaine HCl 2.1 ml ONCE ONCE INJ 11/06/19 13:30 11/06/19 13:31 DC 11/06/19 13:38 2.1 ML Vital Signs/I&O 11/06/19 11/06/19 12:40 16:40 Temp 36.3 36.3 Pulse 74 75 Resp 20 18 B/P (MAP) 190/71 (110) 178/70 (110) Pulse Ox 100 100 O2 Delivery Room Air Room Air Blood Pressure Mean: 110 FSBG Bedside Testing Finger Stick Blood Glucose: 220 Blood Glucose Action Taken: physician notified Progress Progress Note : Progress Note Patient was a poor historian and it was difficult to ascertain where her injuries might be because of her difficulty in giving history. I therefore scan her from head through pelvis. She was found to have a burst fracture of L1. This was discussed with Dr. Alvarez at [facility] in [place]. I also had extensive conversations with her daughter Lauren and edwin at [facility]. We ultimately fitted her with an LSO brace and discharged her home. She was able to get up and transfer to a commode bearing her own weight. There was also suggestion of urinary tract infection. Rocephin was selected as the treatment based on prior cultures. An injection was given prior to discharge. Patient still had a prescription of tramadol at the care facility. I suggested that she take only one half tablet at a time instead of a full one. Diagnostic Imaging Diagonstic Imaging: CT Plain Films/CT/US/NM/MRI: chest, abdomen, pelvis Comments CT chest, abdomen and pelvis viewed by me and report reviewed. See report below: NAME: AME [facility] REC#: [id number] PT STATUS: REG ER : 1935 PHYSICIAN: RAH COX MD ADMIT DATE: 11/06/19/ER Signed Date of Exam:11/06/19 CT CHEST/ABDOMEN/PELVIS WO PROCEDURE: CT chest, abdomen, and pelvis without contrast. TECHNIQUE: Multiple contiguous axial images were obtained through the chest, abdomen, and pelvis without the use of intravenous contrast. Auto Exposure Controls were utilized during the CT exam to meet ALARA standards for radiation dose reduction. INDICATION: Back pain, falls, dementia, bruising. FINDINGS: Chest: No lung contusion, pneumothorax, or hemothorax with some benign calcified granulomata. No consolidating infiltrate. No effusion or pneumothorax. The aorta is nonaneurysmal. A chronic-appearing sclerotic well marginated single-column T4 superior endplate concavity appears old. There is a more recent likely acute or subacute two-column burst type fracture pattern at L1. Superior endplate is retropulsed by about 4 mm. There is some paravertebral swelling and likely small amount of perivertebral intramuscular hemorrhage. Retropulsion results in moderate and mild canal stenosis. The posterior bony third column appeared intact. No listhesis, facet dislocation, or other complicating feature. No identifiable rib fracture deformity. The visualized shoulders are unremarkable. Abdomen and pelvis: There is no bowel, biliary, or urinary tract obstruction. No intra or retroperitoneal hemorrhage. The bony structures of the pelvis appeared intact. The L2 through L5 vertebral bodies and posterior elements are intact. No pneumatosis. No free air. No inflammatory process. The unopacified urinary bladder is distended but nonfocal. There is noninflamed diverticulosis and some benign scattered granulomatous residua. IMPRESSION: 1. Uovax-af-umxoaiyn two-column burst type fracture pattern L1 with retropulsion resulting in mild canal stenosis and mild paravertebral hemorrhage. 2. Old single-column T4 superior endplate compression fracture. 3. Clear lungs with no acute pleural pathology. No acute abdominal pelvic solid or hollow visceral abnormality. Dictated by: Dictated on workstation # [id number] Dict: 11/06/19 1344 Trans: 11/06/19 1613 [facility] [id number] Interpreted by: ROSI CARDENAS Electronically signed by: ROSI CARDENAS 11/06/19 1613 Diagonstic Imaging: CT Plain Films/CT/US/NM/MRI: c-spine, head Comments CT head and C-spine viewed by me and report reviewed. See report below: NAME: AME [facility]UMMOND [facility] REC#: [id number] PT STATUS: DEP ER : 1935 PHYSICIAN: RAH COX MD ADMIT DATE: 11/06/19/ER Signed Date of Exam:11/06/19 CT HEAD/CERVICAL SPINE WO PROCEDURE: CT head and CT cervical spine without contrast. TECHNIQUE: Multiple contiguous axial images were obtained through the brain and cervical spine without the use of intravenous contrast. Sagittal and coronal reformations through the cervical spine were then performed. Auto Exposure Controls were utilized during the CT exam to meet ALARA standards for radiation dose reduction. INDICATION: Fall. COMPARISON: Correlation is made with recent CT from 11/03/2019. FINDINGS: CT head: The ventricles and sulci remain prominent consistent with the patient's age. There is moderate periventricular hypodensity noted consistent with senescent change. Old lacunar infarct in the region of the right caudate head is similar to prior exam. No sulcal effacement or midline shift is detected. No acute intra-axial or extra-axial hemorrhage is detected. Cisterns are patent. Visualized paranasal sinuses are clear. IMPRESSION: Chronic and senescent changes. No acute intracranial process is detected. CT cervical spine: Alignment is normal. There is generalized spondylosis with variable disc space narrowing and marginal spurring. Multilevel facet arthropathy is seen. No fractures are identified. The prevertebral tissues are normal. Odontoid is intact. IMPRESSION: Cervical spondylosis. No acute bony abnormality is detected. Dictated by: Dictated on workstation # [id number] Dict: 11/06/19 1342 Trans: 11/06/198 [facility] [id number] Interpreted by: MEDHAT JACOBSON MD Electronically signed by: MEDHAT JACOBSON MD 11/06/191817 Departure Impression Primary Impression: Lumbar burst fracture Qualified Codes: S32.001A - Stable burst fracture of unspecified lumbar vertebra, initial encounter for closed fracture Additional Impressions: Fall on same level Qualified Codes: W18.30XA - Fall on same level, unspecified, initial encounter Urinary tract infection Qualified Codes: N39.0 - Urinary tract infection, site not specified Dementia Qualified Codes: F03.90 - Unspecified dementia without behavioral disturbance Disposition: 01 HOME, SELF-CARE Condition: Improved Departure-Patient Inst. Decision time for Depature: 15:45 Referrals: DAVID PRESTON MD (PCP/Family) Primary Care Physician Patient Instructions: Dementia (DC), Vertebral Compression Fracture Add. Discharge Instructions: Complete the antibiotic as prescribed. Provide assistance any time you are up, active, or transitioning. Follow-up with your provider next week and review urine culture results. Wear the brace anytime you're up and active. The brace can be removed when lying down if it is uncomfortable. Call your provider return to care if there are any further problems or concerns. All discharge instructions reviewed with patient and/or family. Voiced understanding. Scripts Cefdinir (Cefdinir) 300 Mg Capsule 300 MG PO BID, #14 CAP Prov: RAH COX MD 11/06/19 Copy Copies To 1: DAVID PRESTON MD, JOSHUA T MD Nov 06, 2019 13:30
--- NOTE | 2019-11-06 13:48 | Diagnostic Imaging Report ---
PROCEDURE: CT head and CT cervical spine without contrast. TECHNIQUE: Multiple contiguous axial images were obtained through the brain and cervical spine without the use of intravenous contrast. Sagittal and coronal reformations through the cervical spine were then performed. Auto Exposure Controls were utilized during the CT exam to meet ALARA standards for radiation dose reduction. INDICATION: Fall. COMPARISON: Correlation is made with recent CT from 11/03/2019. FINDINGS: CT head: The ventricles and sulci remain prominent consistent with the patient's age. There is moderate periventricular hypodensity noted consistent with senescent change. Old lacunar infarct in the region of the right caudate head is similar to prior exam. No sulcal effacement or midline shift is detected. No acute intra-axial or extra-axial hemorrhage is detected. Cisterns are patent. Visualized paranasal sinuses are clear. IMPRESSION: Chronic and senescent changes. No acute intracranial process is detected. CT cervical spine: Alignment is normal. There is generalized spondylosis with variable disc space narrowing and marginal spurring. Multilevel facet arthropathy is seen. No fractures are identified. The prevertebral tissues are normal. Odontoid is intact. IMPRESSION: Cervical spondylosis. No acute bony abnormality is detected. Dictated by: Dictated on workstation # [id number]
--- OUTSIDE RECORDS SUMMARY | 2019-11-06 13:53 | XMS REPORT | Continuity of Care Document ---
[...] TETRACYCLINE UNKNOWN UNKNOWN Yes tetanus immune globulin [id number] Drug Allergy Unknown N/A 02/26/2015 Yes metronidazole [id number] Luis g Allergy Unknown N/A 02/25/2016 Yes morphine [id number] Drug Allergy Unknown N/A 02/25/2016 Yes Penicillins [id number] Drug Aller gy Unknown N/A 02/25/2016 Yes Tetracyclines [id number] Luis g Allergy Unknown N/A 02/25/2016 Medications [...] INOCENTE K Ot V58.67 05/06/2015 LAURYN DESAI UNIVERSAL GRINDER SET UP OPERATOR Ot 787.91 05/07/2015 LAURYN DESAI APRN Ot 787.91 DIARRHEA 05/19/2015 Ot V76.12 05/19/2015 Ot V76.12 05/19/2015 LUZ JOHNSON, VIKY Penny Ot 250. 00 05/19/2015 LUZ JOHNSON, VIKY Penny Ot 396. 3 05/19/2015 VIKY ESCOBAR MD Ot 397. 0 05/19/2015 LUZ JOHNSON, VIKY Penny Ot 401. 9 05/19/2015 VIKY ESCBOAR MD Ot 786. 50 05/19/2015 LUZ JOHNSON, [...] WILLOUGHBY, INOCENTE K Ot 401.9 05/19/2015 DARREL WILLOUGHBY INOCENTE K Ot 786.50 05/19/2015 DARREL [place]OUGH[place], INOCENTE K Ot 250.00 05/19/2015 DARREL [place], INOCENTE K Ot 272.4 05/19/2015 DARREL [place], INOCENTE K Ot 401.9 05/19/2015 DARREL [place], INOCENTE K Ot 786.50 05/19/2015 DARREL [place]OUGHBY, INOCENTE K Ot V58.67 05/19/2015 LAURYN DESAI UNIVERSAL GRINDER SET UP OPERATOR Ot 787.91 05/20/2015 LAURYN DESAI UNIVERSAL GRINDER SET UP OPERATOR Ot 787.91 06/30/2015 LAURYN DESAI UNIVERSAL GRINDER SET UP OPERATOR Ot R19.7 07/29/2015 MARTHA HOLDEN MD Ot [...] 09/21/2015 HE GARCIA QI Oliva Ot Z79.4 LONG-TERM (CURRENT) USE OF INSULIN 12/25/2015 LAURYN DESAI [...] STATUS 02/08/2016 KAYLEE PIRES MD, Ot Z79.4 BAR MACHINE OPERATOR MULTIPLE SPINDLE (CURRENT) USE OF INSULIN 02/12/2016 KAYLEE PIRES [...] STATUS 02/12/2016 KAYLEE PIRES MD Ot Z79.4 LONG-TERM (CURRENT) USE OF INSULIN 02/25/2016 Ot V76.12 [...] MD Ot E87 .6 HYPOKALEMIA 02/27/2016 ESTELLE FOX MD Ot F03.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 DEMENTIA WITHOUT BEHAVIORAL [...] 02/27/2016 ESTELLE FOX MD, Ot Z79 .4 BAR MACHINE OPERATOR MULTIPLE SPINDLE (CURRENT) USE OF INSULIN 02/27/2016 ESTELLE FOX [...] MARTHA HOLDEN MD Ot E86.0 DEHYDRATION 03/04/2016 MATRHA HOLDEN MD Ot E87.8 OTH DISORDERS OF [...] MD Ot D69.6 THROMBOCYTOPENIA, UNSPECIFIED 03/04/2016 MARTHA HOLDEN MD Ot E13.1 0 OTH DIABETES MELLITUS [...] RESUSCITATE 03/04/2016 MARTHA HOLDEN MD, Ot Z79.4 LONG-TERM (CURRENT) USE OF INSULIN 03/09/2016 LEELEE RAMIRES MD Ot D64.9 ANEMIA, UNSPECIFIED 03/09/2016 LEELEE RAMIRES MD Ot E11.3 19 TYPE 2 DIABETES W UNSP DIABETIC RTNOP W/ 03/09/2016 LEELEE RAMIRES MD Ot E11.6 5 TYPE 2 DIABETES MELLITUS WITH HYPERGLYCE 03/09/2016 LEELEE RAMIRES MD Ot E78.0 PURE HYPERCHOLESTEROLEMIA 03/09/2016 LEELEE [...] RESUSCITATE 03/09/2016 LEELEE RAMIRES MD Ot Z79.4 BAR MACHINE OPERATOR MULTIPLE SPINDLE (CURRENT) USE OF INSULIN 03/09/2016 RAMIRES MD, [...] 03/09/2016 LEELEE RAMIRES MD E Ot Z79.4 LONG-TERM (CURRENT) USE OF INSULIN 03/09/2016 LEELEE RAMIRES [...] 03/09/2016 LEELEE RAMIRES MD E Ot Z79.4 LONG-TERM (CURRENT) USE OF INSULIN 03/11/2016 LEELEE RAMIRES [...] 03/11/2016 LEELEE RAMIRES MD E Ot Z79.4 LONG-TERM (CURRENT) USE OF INSULIN 03/12/2016 LEELEE RAMIRES [...] RESUSCITATE 03/12/2016 LEELEE RAMIRES MD Ot Z79.4 BAR MACHINE OPERATOR MULTIPLE SPINDLE (CURRENT) USE OF INSULIN 04/16/2016 LEELEE RAMIRES [...] BILATERAL BONNER 05/11/2016 INOCENTE VANESSA Ot Z79.4 LONG-TERM (CURRENT) USE OF INSULIN 06/02/2016 INOCENTE VANESSA Ot E11.9 TYPE 2 DIABETES MELLITUS WITHOUT COMPLIC 06/02/2016 INOCENTE VANESSA Ot I10 ESSENTIAL (PRIMARY) HYPERTENSION 06/02/2016 INOCENTE VANESSA Ot I35.1 NONRHEUMATIC AORTIC (VALVE) INSUFFICIENC 06/02/2016 INOCENTE VANESSA Ot 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 06/02/2016 INOCENTE VANESSA Ot Z79.4 LONG-TERM (CURRENT) USE OF INSULIN 06/25/2016 KASANDRA CHERY DO Ot E08.10 DIABETES DUE TO UNDERLYING CONDITION W K 06/25/2016 CHERY DO, KASANDRA Ot E78.5 HYPERLIPIDEMIA, UNSPECIFIED 06/25/2016 CHERY DO, KASANDRA Ot F03.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 DEMENTIA WITHOUT BEHAVIORAL 06/25/2016 CHERY DO, KASANDRA Ot I10 ESSENTIAL (PRIMARY) HYPERTENSION 06/25/2016 CHERY DO, KASANDRA Ot I25.10 ATHSCL HEART DISEASE OF [place] CORONARY 06/25/2016 CHERY DO, KASANDRA Ot K21.9 GASTRO-ESOPHAGEAL REFLUX DISEASE WITHOUT 06/25/2016 CHERY DO, KASANDRA Ot M81.0 AGE-RELATED OSTEOPOROSIS W/O CURRENT PAT 06/25/2016 CHERY DO, KASANDRA Ot Z79.4 LONG-TERM (CURRENT) USE OF INSULIN 06/25/2016 CHERY DO, [...] KASANDRA Ot I25.10 ATHSCL HEART DISEASE OF [place] CORONARY 06/25/2016 CHERY DO, KASANDRA Ot K21.9 GASTRO-ESOPHAGEAL REFLUX DISEASE WITHOUT 06/25/2016 CHERY DO, KASANDRA Ot M81.0 AGE-RELATED OSTEOPOROSIS W/O CURRENT PAT 06/25/2016 CHERY DO, KASANDRA Ot Z79.4 BAR MACHINE OPERATOR MULTIPLE SPINDLE (CURRENT) USE OF INSULIN 10/05/2016 JUAN M JOHNSON, LIZET Davis Ot F03.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 DEMENTIA WITHOUT BEHAVIORAL 10/26/2016 JUAN M JOHNSON, LIEZT M Ot F03.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 DEMENTIA WITHOUT BEHAVIORAL [...] MD Ot I25.10 ATHSCL HEART DISEASE OF [place] CORONARY 01/07/2018 KAYLEE PIRES MD Ot I73.9 PERIPHERAL VASCULAR DISEASE, UNSPECIFIED 01/07/2018 KAYLEE PIRES MD Ot K21.9 GASTRO-ESOPHAGEAL REFLUX DISEASE WITHOUT 01/07/2018 KAYLEE PIRES MD Ot M81.0 AGE-RELATED OSTEOPOROSIS W/O CURRENT PAT 01/07/2018 KAYLEE PIRES MD, Ot N39.0 URINARY TRACT INFECTION, SITE NOT SPECIF 01/07/2018 KAYLEE PIRES MD Ot R73.9 HYPERGLYCEMIA, UNSPECIFIED 01/07/2018 KAYLEE PIRES MD Ot Z79.4 BAR MACHINE OPERATOR MULTIPLE SPINDLE (CURRENT) USE OF INSULIN 01/07/2018 KAYLEE PIRES MD Ot Z79.82 LONG-TERM (CURRENT) USE OF ASPIRIN 01/07/2018 KAYLEE PIRES [...] MD Ot I25.10 ATHSCL HEART DISEASE OF [place] CORONARY 01/09/2018 KAYLEE PIRES MD Ot I73.9 PERIPHERAL VASCULAR DISEASE, UNSPECIFIED 01/09/2018 KAYLEE PIRES MD Ot K21.9 GASTRO-ESOPHAGEAL REFLUX DISEASE WITHOUT 01/09/2018 KAYLEE PIRES MD Ot M81.0 AGE-RELATED OSTEOPOROSIS W/O CURRENT PAT 01/09/2018 KAYLEE PIRES MD, Ot N39.0 URINARY TRACT INFECTION, SITE NOT SPECIF 01/09/2018 KAYLEE PIRES MD, Ot R73.9 HYPERGLYCEMIA, UNSPECIFIED 01/09/2018 KAYLEE PIRES MD, Ot Z79.4 LONG-TERM (CURRENT) USE OF INSULIN 01/09/2018 KAYLEE PIRES MD, Ot Z79.82 LONG-TERM (CURRENT) USE OF ASPIRIN 01/09/2018 KAYLEE PIRES [...] Ot I25.1 0 ATHSCL HEART DISEASE OF [place] CORONARY 01/14/2018 KIARRA BOLTON MD, Ot K21.9 GASTRO-ESOPHAGEAL REFLUX DISEASE WITHOUT 01/14/2018 KIARRA BOLTON MD, Ot M54.9 DORSALGIA, UNSPECIFIED 01/14/2018 KIARRA BOLTON MD, Ot M81.0 AGE-RELATED OSTEOPOROSIS W/O CURRENT PAT 01/14/2018 KIARRA BOLTON MD, Ot Z79.4 BAR MACHINE OPERATOR MULTIPLE SPINDLE (CURRENT) USE OF INSULIN 01/14/2018 KIARRA BOLTON [...] Ot I25.1 0 ATHSCL HEART DISEASE OF [place] CORONARY 01/14/2018 KIARRA BOLTON MD Ot K21.9 GASTRO-ESOPHAGEAL REFLUX DISEASE WITHOUT 01/14/2018 KIARRA BOLTON MD, Ot M54.9 DORSALGIA, UNSPECIFIED 01/14/2018 KIARRA BOLTON MD, Ot M81.0 AGE-RELATED OSTEOPOROSIS W/O CURRENT PAT 01/14/2018 KIARRA BOLTON MD, Ot Z79.4 LONG-TERM (CURRENT) USE OF INSULIN 01/14/2018 KIARRA BOLTON [...] Ot I25.10 ATH SCL HEART DISEASE OF [place] CORONARY 03/20/2018 Ot K21.9 RANDEE RO-ESOPHAGEAL REFLUX DISEASE WITHOUT 03/20/2018 Ot M81.0 AGE- RELATED OSTEOPOROSIS W/O CURRENT PAT 03/20/2018 Ot Z79.4 BAR MACHINE OPERATOR MULTIPLE SPINDLE (CURRENT) USE OF INSULIN 03/20/2018 Ot Z79.82 [...] K Ot I25.10 ATHSCL HEART DISEASE OF [place] CORONARY 01/10/2019 HE DO QI K Ot K21.9 GASTRO-ESOPHAGEAL REFLUX DISEASE WITHOUT 01/10/2019 HE DO, QI K Ot M81.0 AGE- RELATED OSTEOPOROSIS W/O CURRENT PAT 01/10/2019 HE DO QI K Ot R73.9 HYPERGLYCEMIA, UNSPECIFIED 01/10/2019 HE DO, QI K Ot Z79.4 BAR MACHINE OPERATOR MULTIPLE SPINDLE (CURRENT) USE OF INSULIN 01/10/2019 HE DO QI K Ot Z79.82 BAR MACHINE OPERATOR MULTIPLE SPINDLE (CURRENT) USE OF ASPIRIN 01/10/2019 QI CUTLER DO Ot Z82.49 FAMILY HX OF [place] HEART DIS AND OTH DI 01/10/2019 HE GARCIA QI Baptiste Ot Z87.09 PERSONAL HISTORY OF OTHER DISEASES OF TH 01/10/2019 QI CUTLER DO Ot Z87.19 PERSONAL HISTORY OF OTHER DISEASES OF TH 01/10/2019 QI CUTLER DO Ot Z87.440 PERSONAL HISTORY OF URINARY (TRACT) INFE 01/10/2019 HE GACRIA QI Oliva Ot Z87.448 PERSONAL HISTORY OF [...] STATUS TO OTH DRUG/MEDS/BIOL SUB 01/10/2019 HE GACRIA QI Baptiste Ot Z90.49 ACQUIRED ABSENCE OF OTHER SPECIFIED PART 01/10/2019 HE GARCIA QI Oliva Ot Z90.710 ACQUIRED ABSENCE OF BOTH CERVIX AND UTER 01/10/2019 NAVIN JOHNSON, MARTHA Chapin Ot V76.1 2 OTH SCREEN MAMMO-MALIGN NEOPLASM [...] (CURRENT) USE OF INSULIN 01/10/2019 LAURYN DESAI UNIVERSAL GRINDER SET UP OPERATOR Ot R19.7 DIARRHEA, UNSPECIFIED 01/10/2019 LAURYN DESAI R UNIVERSAL GRINDER SET UP OPERATOR Ot Z12.31 ENCNTR SCREEN MAMMOGRAM FOR MALIGNANT NE 01/10/2019 LENALAURYN WATTERS DO R Ot E87. 1 HYPO-OSMOLALITY AND [...] BILATERAL BONNER 01/10/2019 INOCENTE VANESSA Ot Z79.4 BAR MACHINE OPERATOR MULTIPLE SPINDLE (CURRENT) USE OF INSULIN 01/10/2019 JUAN M [...] TYPE 1 DIABETES MELLITUS WITHOUT COMPLIC [facility]2019 [facility] PURE HYPERCHOLESTEROLEMIA, UNSPECIFIED 01/15/2019 [facility] F03.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 DEMENTIA WITHOUT BEHAVIORAL 01/15/2019 [facility] I10 ESSENTIAL (PRIMARY) HYPERTENSION 01/15/2019 [facility] I25.10 ATHSCL HEART DISEASE [place] CORONARY 01/15/2019 [facility] K21.9 GASTRO-ESOPHAGEAL REFLUX DISEASE WITHOUT 01/15/2019 [facility] M81.0 AGE- RELATED OSTEOPOROSIS W/O CURRENT PAT 01/15/2019 [facility] R73.9 HYPERGLYCEMIA, UNSPECIFIED 01/15/2019 [facility] Z79.4 BAR MACHINE OPERATOR MULTIPLE SPINDLE (CURRENT) USE OF INSULIN 01/15/2019 [facility] Z79.82 BAR MACHINE OPERATOR MULTIPLE SPINDLE (CURRENT) USE OF ASPIRIN 01/15/2019 [facility] Z82.49 FAMILY HX OF [place] HEART DIS AND OTH DI 01/15/2019 [facility] Z87.09 PERSONAL HISTORY OF OTHER DISEASES OF 01/15/2019 HE DOQI Ot Z87.19 PERSONAL HISTORY OF OTHER DISEASES OF 01/15/2019 [facility] Z87.440 PERSONAL HISTORY OF URINARY (TRACT) INFE 01/15/2019 [facility] Z87.448 PERSONAL HISTORY OF OTHER DISEASES OF UR 01/15/2019 [facility] Z88.0 ALLERGY STATUS TO PENICILLIN 01/15/2019 [facility] Z88.1 ALLERGY STATUS TO OTHER ANTIBIOTIC AGENT 01/15/2019 [facility] Z88.5 ALLERGY STATUS TO NARCOTIC AGENT STATUS 01/15/2019 [facility] Z88.7 ALLERGY STATUS TO SERUM AND VACCINE STAT 01/15/2019 [facility] Z88.8 ALLERGY STATUS TO OTH DRUG/MEDS/BIOL SUB 01/15/2019 [facility] Z90.49 ACQUIRED ABSENCE OF [...] Ot F03.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 DEMENTIA WITHOUT BEHAVIORAL 05/08/2019 MANA NASSAR MD Ot H40 .9 UNSPECIFIED GLAUCOMA 05/08/2019 MANA NASSAR MD Ot I10 ESSENTIAL (PRIMARY) HYPERTENSION 05/08/2019 MANA NASSAR MD Ot I25.10 ATHSCL HEART DISEASE OF [place] CORONARY 05/08/2019 MANA NASSAR MD Ot I38 ENDOCARDITIS, VALVE UNSPECIFIED 05/08/2019 MANA NASSAR MD Ot K21 .9 GASTRO-ESOPHAGEAL REFLUX DISEASE WITHOUT 05/08/2019 MANA NASSAR MD, Ot M54 .9 DORSALGIA, UNSPECIFIED 05/08/2019 MANA NASSAR MD Ot M81 .0 AGE-RELATED OSTEOPOROSIS W/O CURRENT PAT 05/08/2019 MANA NASSAR MD Ot N30.00 ACUTE CYSTITIS WITHOUT HEMATURIA 05/08/2019 MANA NASSAR MD Ot R26.81 UNSTEADINESS ON FEET 05/08/2019 MANA NASSAR MD Ot R41.82 ALTERED MENTAL STATUS, UNSPECIFIED 05/08/2019 MANA NASSAR MD Ot Z66 DO NOT RESUSCITATE 05/08/2019 MANA NASSAR MD, Ot Z79 .4 LONG-TERM (CURRENT) USE OF INSULIN 05/08/2019 MANA NASSAR [...] Ot I25.1 0 ATHSCL HEART DISEASE OF [place] CORONARY 08/24/2019 ENRIQUEZ DO, MONIQUE L Ot K21.9 GASTRO-ESOPHAGEAL REFLUX DISEASE WITHOUT 08/24/2019 ENRIQUEZ DO, MONIQUE L Ot N30.9 0 CYSTITIS, UNSPECIFIED WITHOUT HEMATURIA 08/24/2019 ENRIQUEZ DO, MONIQUE L Ot R53.1 WEAKNESS 08/24/2019 ENRIQUEZ DO, MONIQUE L Ot Z79.4 LONG-TERM (CURRENT) USE OF INSULIN 08/24/2019 ENRIQUEZ DO, MONIQUE L Ot Z79.8 2 LONG-TERM (CURRENT) USE OF ASPIRIN 08/24/2019 ENRIQUEZ DO, [...] Ot I25.1 0 ATHSCL HEART DISEASE OF [place] CORONARY 08/28/2019 ENRIQUEZ DO, MONIQUE L Ot K21.9 GASTRO-ESOPHAGEAL REFLUX DISEASE WITHOUT 08/28/2019 ENRIQUEZ DO, MONIQUE L Ot N30.9 0 CYSTITIS, UNSPECIFIED WITHOUT HEMATURIA 08/28/2019 ENRIQUEZ DO, MONIQUE L Ot R53.1 WEAKNESS 08/28/2019 ENRIQUEZ DO, MONIQUE L Ot Z79.4 LONG-TERM (CURRENT) USE OF INSULIN 08/28/2019 ENRIQUEZ DO, MONIQUE L Ot Z79.8 2 BAR MACHINE OPERATOR MULTIPLE SPINDLE (CURRENT) USE OF ASPIRIN 08/28/2019 ENRIQUEZ DO, [...] Ot I25.1 0 ATHSCL HEART DISEASE OF [place] CORONARY 2019 ENRIQUEZ DO, MONIQUE L Ot K21.9 GASTRO-ESOPHAGEAL REFLUX DISEASE WITHOUT 2019 ENRIQUEZ DO, MONIQUE L Ot N30.9 0 CYSTITIS, UNSPECIFIED WITHOUT HEMATURIA 2019 ENRIQUEZ DO, MONIQUE L Ot R53.1 WEAKNESS 2019 ENRIQUEZ DO, MONIQUE L Ot Z79.4 BAR MACHINE OPERATOR MULTIPLE SPINDLE (CURRENT) USE OF INSULIN 2019 ENRIQUEZ DO, MONIQUE L Ot Z79.8 2 BAR MACHINE OPERATOR MULTIPLE SPINDLE (CURRENT) USE OF ASPIRIN 2019 ENRIQUEZ DO, [...] URINARY TRACT INFECTION, SITE NOT SPECIFIED 10/16/2019 MELODYISABELCHECOTIFFANI RAH W 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 10/16/2019 MELODYISABELMARIALUISA RAH W N39 .0 URINARY TRACT INFECTION, SITE NOT SPECIFIED 11/04/2019 SEFERINO MCKAY APRN Ot E10 .9 TYPE 1 DIABETES MELLITUS WITHOUT COMPLIC 11/04/2019 SEFERINO MCKAY APRN Ot E78.00 PURE HYPERCHOLESTEROLEMIA, UNSPECIFIED 11/04/2019 SEFERINO MCKAY APRN Ot F03.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 DEMENTIA WITHOUT BEHAVIORAL 11/04/2019 SEFERINO MCKAY APRN Ot G89.29 OTHER CHRONIC PAIN 11/04/2019 SEFERINO MCKAY APRN Ot I10 ESSENTIAL (PRIMARY) HYPERTENSION 11/04/2019 SEFERINO MCKAY APRN Ot I25.10 ATHSCL HEART DISEASE OF [place] CORONARY 11/04/2019 SEFERINO MCKAY APRN Ot K21 .9 GASTRO-ESOPHAGEAL REFLUX DISEASE WITHOUT 11/04/2019 SEFERINO MCKAY APRN Ot M54 .9 DORSALGIA, UNSPECIFIED 11/04/2019 SEFERINO MCKAY APRN Ot M79.605 PAIN IN LEFT LEG 11/04/2019 SEFERINO MCKAY APRN Ot M81 .0 AGE-RELATED OSTEOPOROSIS W/O CURRENT PAT 11/04/2019 SEFERINO MCKAY APRN Ot S00.83XA CONTUSION OF OTHER PART OF HEAD, INITIAL 11/04/2019 SEFERINO MCKAY APRN Ot W19.XXXA UNSPECIFIED FALL, INITIAL ENCOUNTER 11/04/2019 SEFERINO MCKAY APRN Ot Y92.[address] IN JAIL PLACE 11/04/2019 SEFERINO MCKAY APRN Ot Z79 .4 LONG-TERM (CURRENT) USE OF INSULIN 11/04/2019 SEFERINO MCKAY APRN Ot Z79.82 BAR MACHINE OPERATOR MULTIPLE SPINDLE (CURRENT) USE OF ASPIRIN 11/04/2019 SEFERINO MCKAY APRN Ot Z79.899 OTHER BAR MACHINE OPERATOR MULTIPLE SPINDLE (CURRENT) DRUG THERAPY 11/04/2019 SEFERINO MCKAY APRN Ot Z88 .0 ALLERGY STATUS TO PENICILLIN 11/04/2019 SEFERINO MCKAY APRN Ot Z88 .5 ALLERGY STATUS TO NARCOTIC AGENT STATUS 11/04/2019 SEFERINO MCKAY APRN Ot Z88 .7 ALLERGY STATUS TO SERUM AND VACCINE STAT Procedures Code Description Performed By Boris chung On [id number] EX CISION OF STOMACH, ENDO, DIAGN 02/25/2016 [id number] RE SECTION OF GALLBLADDER, PERCUTANEOUS E 03/03/2016 [id number] UOROSCOPY OF BILE DUCTS USING LOW [...] ON IRF 03/06 16:25 BY Damian PÉREZ NR Capillary blood glucose measurement by g [email or web address] [...] culture - 01/06/18 00:08 Bacterial urine culture [id number] NRG COLONY COUNT >100,000/ML NRG FTX;REPORTABLE RML [...] 109 mmol/L 98-107 Carbon dioxide 19 mmol/L -32 Serum or plasma anion gap determination (moles/volume) [...] culture - 05/04/19 09:06 Bacterial urine culture [id number] NRG COLONY COUNT >100,000/ML NRG FTX;REPORTABLE SUSCEPTIBILITY [...] mg/dL 70-110 Automated blood complete blood count ( mogram) panel - 05/08/19 05:30 Blood leukocytes [...] culture - 08/24/19 11:07 Bacterial urine culture [id number] NRG COLONY COUNT >100,000/ML NRG FTX;REPORTABLE SUSCEPTIBILITY REPORTED 08/26 10:15 NRG FREE TEXT ENTRY 2 PRELIM RAPID ID TEST AT [facility] 08/25 08:30 NRG FREE TEXT ENTRY 3 [...] CULTURE RESULTS >100,000 Gram Negativ e Lactose Computer Science Professor NAIN / ID to Follow MEDIA PLATED [...] Setup at 17:11 on 10/07/2019 CULTURE SOURCE [id number] Comprehensive Metabolic Panel - 10/11/19 04:55 Albumin [...] 0.4 mg/dL 0.2-1.2 TP 6.2 g/dL 6.0-8.3 Complete blood count (CBC) with automate d white blood cell (WBC) differential - 11/03/19 11:30 Blood leukocytes automated count (number/volume) 4.6 10*3/uL 4.3-11.0 Blood erythrocytes automated count (number/volume) 4.12 10*6/uL 4.35-5.85 Venous blood hemoglobin measurement (mass/volume) 11.9 g/dL 11.5-16.0 Blood hematocrit (volume fraction) 36 % 35-52 Automated erythrocyte mean corpuscular volume 86 [ foz_us] 80-99 Automated erythrocyte mean corpuscular h emoglobin (mass per erythrocyte) 29 pg 25-34 Automated erythrocyte mean corpuscular h emoglobin concentration measurement (mass/volume) 34 g/dL 32-36 Automated erythrocyte distribution width ratio 14. 6 % 10.0- 14.5 Automated blood platelet count (count/volume) 111 10*3/uL 130-400 Automated blood platelet mean volume measurement 11.9 [foz_us] 7.4-10.4 Automated blood neutrophils/100 leukocytes 75 % 42-75 Automated blood lymphocytes/100 leukocytes 16 % 12-44 Blood monocytes/100 leukocytes 6 % 0-12 Automated blood eosinophils/100 leukocytes 3 % 0-10 Automated blood basophils/100 leukocytes 0 % 0-10 Blood neutrophils automated count (number/volume) 3.4 10*3 1.8-7.8 Blood lymphocytes automated count (number/volume) 0.7 10*3 1.0-4.0 Blood monocytes automated count (number/volume) 0. 3 10*3 0.0-1.0 Automated eosinophil count 0.2 10*3/uL 0 .0-0.3 Automated blood basophil count (count/volume) 0.0 10*3/uL 0.0-0.1 PT panel in platelet poor plasma by coag ulation assay - 11/03/19 11:30 Prothrombin time (PT) in platelet poor plasma by coagu lation assay 13.4 s 12.2-14.7 INR in platelet poor plasma or blood by coagulation as say 1.0 0.8-1.4 Comprehensive metabolic panel - 11/03/19 11:30 Serum or plasma sodium measurement (moles/volume) 136 mmol/L 135-145 Serum or plasma potassium measurement (moles/volume) 4.1 mmol/L 3.6-5.0 Serum or plasma chloride measurement (moles/volume) 103 mmol/L 98-107 Carbon dioxide 24 mmol/L 21-32 Serum or plasma anion gap determination (moles/volume) 9 mmol/L 5-14 Serum or plasma urea nitrogen measurement (mass/volume ) 15 mg/dL 7-18 Serum or plasma creatinine measurement (mass/volume) 1.06 mg/dL 0.60-1.30 Serum or plasma urea nitrogen/creatinine mass ratio 14 NRG Serum or plasma creatinine measurement w ith calculation of estimated glomerular filtration rate 49 NRG Serum or plasma glucose measurement (mass/volume) 174 mg/dL 70-105 Serum or plasma calcium measurement (mass/volume) 9.8 mg/dL 8.5-10.1 Serum or plasma total bilirubin measurement (mass/volu me) 0.4 mg/dL 0.1-1.0 Serum or plasma alkaline phosphatase georgiana surement (enzymatic activity/volume) 91 U/L 40-136 Serum or plasma aspartate aminotransfera se measurement (enzymatic activity/volume) 18 U/L 5-34 Serum or plasma alanine aminotransferase measurement (enzymatic activity/volume) 12 U/L 0-55 Serum or plasma protein measurement (mass/volume) 5.7 g/dL 6.4-8.2 Serum or plasma albumin measurement (mass/volume) 3.6 g/dL 3.2-4.5 CALCIUM CORRECTED 10.1 mg/dL 8.5-10.1 Encounters ACCT No. Visit Date/Time Discharge Status Pt. Type Provider Facility Loc./Unit Complaint [id number] 02/28/2019 08:30:00 02/28/2019 23:59: 59 [facility] Outpatient MOHAN JOHNSON, DAVID [facility] [id number] 05/03/2019 09:40:00 Document Registration [id number] 11/03/2019 11:16:00 020 13:01:00 DIS Emergency SEFERINO MCKAY APRN [facility] ER FALL/L HIP PAIN [id number] 10/29/2019 13:25:00 14:17:00 DIS Outpatient SEFERINO MCKAY APRN [facility] ER FALL [id number] 08/24/2019 09:52:00 020 13:04:00 DIS Emergency MONIQUE ENRIQUEZ DO [facility] ER WEAKNESS [id number] 05/04/2019 11:13:00 019 15:00:00 DIS Inpatient MANA NASSAR MD [facility] 4TH UTI [id number] 01/09/2019 22:19:00 00:23:00 DIS Emergency HE DO, QI Oliva Vi a [facility] ER HIGH BLOOD SUGAR [id number] 01/13/2018 00:01:00 018 10:36:00 DIS Inpatient KIARRA BOLTON MD [facility] 4TH DKA;ELECTROLYTE IMBALAN CE; DEHYDRATION [id number] 01/06/2018 22:37:00 018 01:20:00 DIS Emergency KAYLEE PIRES MD [facility] ER HIGH BLOOD SUGA R [id number] 10/21/2017 12:58:00 018 23:59:59 CLS Outpatient ANNIE VANESSA [facility] CARD I35.1,R07.8 9 [id number] 01/19/2017 11:02:00 017 23:59:59 CLS Outpatient GEORGE PAREDES DO [facility] RAD CKD STAGE 2 [id number] 11/17/2016 14:36:00 017 23:59:59 CLS Outpatient MARTHA HOLDEN MD [facility] RAD SCREENING [id number] 10/04/2016 13:20:00 017 23:59:59 CLS Outpatient LIZET MCGOWAN MD [facility] RAD DEMENTIA [id number] 06/23/2016 21:39:00 14:34:00 DIS Inpatient CHERY , KASANDRA V ia [facility] 4TH DKA WITH ALTERED MENTAL STATUS [id number] 05/10/2016 10:58:00 23:59:59 CLS Outpatient ANNIE VANESSA [facility] CARD AR,NISREEN,HTN [id number] 03/21/2016 11:28:00 23:59:59 CLS Outpatient LEELEE RAMIRES MD [facility] LAB ENTEROCOLITIS DUE TO CL OSTRIDIUM DIFFICILE [id number] 03/04/2016 09:40:00 13:45:00 DIS Inpatient LEELEE RAMIRES MD [facility] IRF [id number] 02/29/2016 08:17:00 016 09:40:00 DIS Inpatient MARTHA HOLDEN MD [facility] ICU D.K.A. ;UTI;DEHYDRATION ;ELECTROLYTE IMBALANCE [id number] 03/03/2016 15:15:00 016 23:59:59 CLS Preadmit YAYA LUNDY MD [facility] SDC GALLSTONES [id number] 03/03/2016 11:30:00 016 11:30:00 CAN Preadmit YAYA LUNDY MD [facility] PREOP GALLSTONES [id number] 02/25/2016 04:10:00 016 16:05:00 DIS Inpatient ESTELLE FOX MD [facility] 4TH HYPOGLYCEMIA UNCONTROLL ED,ACUTE RENAL FAILURE, [id number] 02/08/2016 13:24:00 17:34:00 DIS Emergency KAYLEE PIRES MD [facility] ER ABN BLOOD SUGAR ,LOSS OF BALANCE [id number] 01/12/2016 09:34:00 016 23:59:59 CLS Outpatient LAURYN PAREDES DO [facility] RAD HYPONATREMIA [id number] 12/05/2015 11:37:00 016 23:59:59 CLS Outpatient GISELLEAGNIESZKAN R [employer] SET UP OPERATOR [facility] RAD SCREENING [id number] 09/21/2015 06:23:00 07:58:00 DIS Emergency QI CUTLER DO [facility] ER HIGH BLOOD SUGAR [id number] 08/18/2015 00:09:00 23:59:59 CLS Preadmit LAURYN DESAI [employer] SET UP OPERATOR [facility] LAB DIARRHEA [id number] 05/20/2015 10:14:00 00:01:00 DIS Outpatient LAURYN DESAI R [employer] SET UP OPERATOR [facility] LAB DIARRHEA [id number] 07/27/2015 21:38:00 015 12:13:00 DIS Inpatient MARTHA HOLDEN MD [facility] 4TH HYPOGLYCEMIA, UTI [id number] 05/05/2015 17:26:00 015 00:01:00 DIS Outpatient LAURYN DESAI R [employer] SET UP OPERATOR [facility] LAB DIARRHEA [id number] 05/05/2015 17:26:00 015 17:26:00 CAN Preadmit LAURYN DESAI R [employer] SET UP OPERATOR [facility] LAB [id number] 02/26/2015 08:13:00 23:59:59 CLS Outpatient ANNIE VANESSA [facility] CARD HTN,HLN [id number] 02/25/2015 09:26:00 015 23:59:59 CLS Outpatient ANNIE VANESSA [facility] CARD CP,HTN,HYPERLIPIKEMIA,IDDM [id number] 11/15/2014 10:20:00 015 23:59:59 CLS Outpatient MARTHA HOLDEN MD [facility] RAD SCREENING [id number] 11/30/2013 09:56:00 014 23:59:59 CLS Outpatient MARTHA HOLDEN MD [facility] RAD ROUTINE [id number] 01/15/2013 07:23:00 013 23:59:59 CLS Outpatient VIKY ESCOBAR MD [facility] RAD CP,HTN [id number] 01/08/2013 10:06:00 23:59:59 CLS Outpatient VIKY ESCOBAR MD [facility] CARD CP,HTN [id number] 03/19/2018 23:19:00 Document Registration [id number] 05/19/2015 14:44:00 Document Registration [id number] 10/24/2012 13:54:00 Document Registration [id number] 10/05/2012 09:40:00 Document Registration [id number] 10/04/2011 10:11:00 Document Registration [id number] 09/30/2010 13:20:00 Document Registration [id number] 10/22/2009 10:02:00 Document Registration [id number] 10/09/2009 12:26:00 Document Registration [id number] 09/08/2009 10:32:00 Document Registration [id number] 10/04/2019 20:24:00 10/16/2019 09:30 :00 DIS Inpatient [facility] [id number] 10/04/2019 22:15:43 Document Registration
--- NOTE | 2019-11-06 13:55 | Diagnostic Imaging Report ---
PROCEDURE: CT chest, abdomen, and pelvis without contrast. TECHNIQUE: Multiple contiguous axial images were obtained through the chest, abdomen, and pelvis without the use of intravenous contrast. Auto Exposure Controls were utilized during the CT exam to meet ALARA standards for radiation dose reduction. INDICATION: Back pain, falls, dementia, bruising. FINDINGS: Chest: No lung contusion, pneumothorax, or hemothorax with some benign calcified granulomata. No consolidating infiltrate. No effusion or pneumothorax. The aorta is nonaneurysmal. A chronic-appearing sclerotic well marginated single-column T4 superior endplate concavity appears old. There is a more recent likely acute or subacute two-column burst type fracture pattern at L1. Superior endplate is retropulsed by about 4 mm. There is some paravertebral swelling and likely small amount of perivertebral intramuscular hemorrhage. Retropulsion results in moderate and mild canal stenosis. The posterior bony third column appeared intact. No listhesis, facet dislocation, or other complicating feature. No identifiable rib fracture deformity. The visualized shoulders are unremarkable. Abdomen and pelvis: There is no bowel, biliary, or urinary tract obstruction. No intra or retroperitoneal hemorrhage. The bony structures of the pelvis appeared intact. The L2 through L5 vertebral bodies and posterior elements are intact. No pneumatosis. No free air. No inflammatory process. The unopacified urinary bladder is distended but nonfocal. There is noninflamed diverticulosis and some benign scattered granulomatous residua. IMPRESSION: 1. Lhmic-ie-ogyynrag two-column burst type fracture pattern L1 with retropulsion resulting in mild canal stenosis and mild paravertebral hemorrhage. 2. Old single-column T4 superior endplate compression fracture. 3. Clear lungs with no acute pleural pathology. No acute abdominal pelvic solid or hollow visceral abnormality. Dictated by: Dictated on workstation # [id number]
--- NOTE | 2019-11-06 15:15 | NUR ---
Back brace placed on pt by this nurse and Dr. Tompkins. Pt gotten up with assistance to bedside commode.
[2019-11-06] MEDS ORDERED: CEFD300C3 PO (15:51)
[2019-11-06 16:40] VITALS: BP 178/70
== END 2019-11-06 16:40 | disposition home or self-care (01) ==
LOC: EDUNIT# 12:39 → ER 12:41
DX: S32.001A Stable burst fracture of unspecified lumbar vertebra, initial encounter for closed fracture (principal); N39.0 Urinary tract infection, site not specified; F03.90 Unspecified dementia, unspecified severity, without behavioral disturbance, psychotic disturbance, mood disturbance, and anxiety; W18.30XA Fall on same level, unspecified, initial encounter; I25.10 Atherosclerotic heart disease of native coronary artery without angina pectoris; E78.00 Pure hypercholesterolemia, unspecified; I10 Essential (primary) hypertension; K21.9 Gastro-esophageal reflux disease without esophagitis; M81.0 Age-related osteoporosis without current pathological fracture; E10.9 Type 1 diabetes mellitus without complications; Z87.19 Personal history of other diseases of the digestive system; Z79.4 Long term (current) use of insulin; Z79.82 Long term (current) use of aspirin; Z79.899 Other long term (current) drug therapy; Z88.0 Allergy status to penicillin; Z88.5 Allergy status to narcotic agent; Z88.7 Allergy status to serum and vaccine
CPT/HCPCS: 51701; 70450; 71250; 72125; 74176; 81000; 82962; 87077; 87088